=== PATIENT | female | born 1940 ===

== ENCOUNTER 2021-07-15 09:30 | Inpatient (IN) | payer MEDICARE, OTHER ==
[~2021-07-15] VITALS: Ht 152.4 cm; Wt 66.3 kg
[2021-07-15] MEDS ORDERED: POLY15DR27 OD (11:08)
[2021-07-15] MEDS ORDERED: IBUP400T18 PO (11:08)
[2021-07-15] MEDS ORDERED: QUET50TA5 PO (11:08)
[2021-07-15] MEDS ORDERED: AMLO5TAB4 PO (11:08)
[2021-07-15] MEDS ORDERED: QUET25TA5 PO (11:08)
[2021-07-15] MEDS ORDERED: DONE10TA61 PO (11:08)
[2021-07-15] MEDS ORDERED: MULT-735 PO (11:08)
[2021-07-15] MEDS ORDERED: ESCITALOPRAM OX10 MG PO (11:08)
[2021-07-15] MEDS ORDERED: POLY17PO5 PO (11:08)
[2021-07-15] MEDS ORDERED: METHYL SALICYLATE/MENTHOL TOPICAL OINTMENT 57GM TUBE. TP PRN (13:00)
[2021-07-15] MEDS ORDERED: MAGNESIUM HYDROXIDE 2,400 MG/30 ML ORAL.SUSP. PO PRN (13:00)
[2021-07-15] MEDS ORDERED: IBUPROFEN 400 MG TABLET. PO PRN (13:00)
[2021-07-15] MEDS ORDERED: ACETAMINOPHEN 325 MG TABLET PO PRN (13:00)
[2021-07-15] MEDS ORDERED: MAG HYDROX/AL HYDROX/SIMETH 30 ML ORAL.SUSP PO PRN (13:00)
[2021-07-15 13:36] VITALS: BP 141/68
[2021-07-15 14:08] LABS: BASO % 1 % (0-3); EOS # 0.2 x10^3/uL (0.0-0.7); EOS % 3 % (0-3); HEMATOCRIT 39.6 % (36.0-47.0); HEMOGLOBIN 13.2 g/dL (12.0-15.5); LYMPH # 2.1 x10^3/uL (1.0-4.8); LYMPH % 31 % (24-48); MEAN CORPUSCULAR HEMOGLOBIN 32 pg (25-35); MEAN CORPUSCULAR HGB CONC 34 g/dL (31-37); MEAN CORPUSCULAR VOLUME 96 fL (79-100); MONO # 0.5 x10^3/uL (0.0-1.1); MONO % 8 % (0-9); NEUT % 58 % (31-73); PLATELET COUNT 248 x10^3/uL (140-400); RED BLOOD COUNT 4.11 x10^6/uL (3.50-5.40); RED CELL DISTRIBUTION WIDTH 13.2 % (11.5-14.5); WHITE BLOOD COUNT 6.8 x10^3/uL (4.0-11.0)
[2021-07-15 14:37] LABS: ALBUMIN 3.6 g/dL (3.4-5.0); ALBUMIN/GLOBULIN RATIO 1.2 (1.0-1.7); CALCIUM 8.6 mg/dL (8.5-10.1); CREATININE 0.9 mg/dL (0.6-1.0); GFR 59.8; MAGNESIUM 2.2 mg/dL (1.8-2.4); POTASSIUM 3.9 mmol/L (3.5-5.1); TOTAL BILIRUBIN 0.2 mg/dL (0.2-1.0); TOTAL PROTEIN 6.7 g/dL (6.4-8.2)
[2021-07-15 15:08] VITALS: BP 128/64
[2021-07-15] MEDS ORDERED: QUEtiapine 50 MG TABLET. PO SCH (21:00)
[2021-07-15] MEDS ORDERED: QUEtiapine 25 MG TABLET. PO SCH (21:00)
[2021-07-15 23:08] LABS: THYROXINE 4.8 ug/dL (4.5-12.0)
[2021-07-16 01:08] LABS: HEMOGLOBIN A1C 5.4 % (4.8-5.6)
--- NOTE | 2021-07-16 06:04 | EKG ---
[address] [address] Test Date: 2021-07-16 Test Time: 05:13:30 Pat Name: MADALYN DE LUNA Department: Room: [address] [place] [address] Gender: F Transplant Nurse Practitioner: : 1940 Requested By: CAROLE MILLER Order Number: [id number] Reading MD: Estuardo Holland Measurements Intervals [place] Rate: 61 P: 53 MT: 168 QRS: 59 QRSD: 102 T: 52 QT: 432 QTc: 436 Interpretive Statements SINUS RHYTHM Electronically Signed On 07-18-2021 11:59:53 AUDIO VISUAL ENGINEER by Estuardo Holland
[2021-07-16 06:06] VITALS: BP 144/80
[2021-07-16 06:25] LABS: BACTERIA,URINE FEW /HPF (0-FEW); CLARITY,URINE CLEAR; COLOR,URINE YELLOW; GLUCOSE,URINE NEG (NEG); NITRITE,URINE NEG (NEG); UROBILINOGEN,URINE 0.2 mg/dL (0.2 mg/dL)
[2021-07-16 06:26] LABS: SQUAMOUS EPITHELIAL CELL,UR FEW /LPF
[2021-07-16] MEDS: amLODIPine BESYLATE 5 MG TABLET PO SCH (08:05)
[2021-07-16] MEDS: MULTIVITAMIN with MINERAL TABLET. PO SCH (08:05)
[2021-07-16] MEDS: DONEPEZIL HCL 10 MG TABLET PO SCH (08:05)
[2021-07-16] MEDS: CITALOPRAM 20 MG TABLET. PO SCH (08:05)
[2021-07-16] MEDS: POLYETHYLENE GLYCOL 3350 17 GM PACKET. PO SCH (08:05)
[2021-07-16] MEDS ORDERED: QUEtiapine 50 MG TABLET. PO SCH (09:00)
[2021-07-16] MEDS ORDERED: FLU VACC QUAD 21-22 (6MOS+) PF 0.5 ML SYRINGE. VAX IM ONE (09:00)
[2021-07-16] MEDS: POLYVINYL ALCOHOL 1.4% OPHTH SOLUTION 15ML BOTTLE. OD SCH (09:00)
[2021-07-16 15:46] VITALS: BP 122/78
[2021-07-16] MEDS: QUEtiapine 25 MG TABLET. PO SCH (20:51)
[2021-07-16] MEDS: QUEtiapine 25 MG TABLET. PO PRN (20:53)
[2021-07-16 21:27] LABS: THYROID STIM HORMONE (TSH) 0.796 uIU/mL (0.358-3.740)
--- NOTE | 2021-07-16 22:44 | PSYEV ---
DATE OF SERVICE: 07/16/2021 REASON FOR ADMISSION: This 81-year-old single female was admitted [facility] from [facility] where she was a resident because of increased behavior problems including being intrusive, wandering, entering peers' rooms, arguing with the staff, hitting staff with a walker and constantly agitated. CHIEF COMPLAINT: "I am just resting, I am tired because I shopped whole day." HISTORY OF PRESENT ILLNESS: The patient appears to have problems with cognitive deficits for quite some time and she has been a resident at [facility]. The patient had considerable difficulty providing information because she is confused and also significant memory problems and she thought she was in a place where other people live, but she did not know it was in the hospital and also she made a statement that her whole family lives here. The patient also claimed that she did the shopping today. The patient had no concept of time. The patient apparently failed outpatient treatment. Apparently, they failed on several medications including Seroquel, Haldol. Continued to have behavior problems and difficult to manage in that setting. The patient is having difficulty holding a conversation. She denied of any suicidal or homicidal thoughts. The patient did not admit to having any visual or auditory hallucinations. The patient apparently complains of feeling tired and looks tired and wanting to stay in bed. PAST MEDICAL HISTORY: History of Alzheimer's, anxiety, depression and she was on Aricept 10 mg daily, Lexapro 10 mg daily, Seroquel 50 mg twice a day and also Zyprexa Zydis 2.5 mg every 4 hours p.r.n. prior to coming here. The patient is on a regular diet. CODE: DNR. PAST PSYCHIATRIC HISTORY: The patient denies of any prior psychiatric history. No information that she was treated in the past for any psychiatric problems, except she has been receiving psychotropic drugs when she was at [facility]. SOCIAL HISTORY: Alcohol and substance abuse, the patient denies of any alcohol or drug abuse in the past. The patient also denies any other trauma including sexual, physical, or emotional abuse. PSYCHOSOCIAL HISTORY: The patient is unable to provide much information and except stating that she was for 3 years, apparently her did not want to have a child and she decided to divorce him. The patient states she does not have any children. The patient did finish high school, had some college. She worked for the [employer]. The patient states she had a good childhood. She enjoyed skiing, both water and ice. The patient claims she has 2 brothers and a sister. She did not know whether she had any contact with them recently. FAMILY HISTORY: None available. MENTAL STATUS EXAMINATION: The patient appeared to be of her stated age, withdrawn, having some psychomotor retardation and also slow gait, walks with a walker, but somewhat unsteady. The patient denies of having had any falls. Her speech is clear, monotone, decreased rate and rhythm. Affect and mood, she did show some blunting of affect. Not much facial expression. The patient denies feeling depressed, but has decreased psychomotor activity. The patient currently not having any psychotic symptoms. The patient is oriented to her surroundings. The patient's memory not testable because of the patient's inability to process. The patient not able to recall 3 objects. Patient was not able to do serial 7's. The patient's fund of knowledge is limited. She is disoriented to time, place and person. Her memory is impaired for both past and present. Judgment impaired. Insight limited. STRENGTH: In good physical health, supportive family. WEAKNESSES: The patient currently has significant memory problems. Also, problems, executive functioning and inability to take care of her needs and also behavior problems secondary to her dementia. DIAGNOSTIC IMPRESSION: AXIS I: 1. Major neurocognitive disorder, most likely Alzheimer's with behavior problems. 2. Depressive disorder, unspecified. AXIS II: None. AXIS III: Hypertension, nontraumatic intracranial hemorrhage in the past, urinary incontinence and gait impairment. INITIAL TREATMENT PLAN: The patient is [facility]. The patient will be seen by Dr. Berumen for physical exam. The patient had lab work including CBC, chem profile, urinalysis. The patient will be involved in the program including individual and group therapy, activity therapy. Patient will be observed with regard to her behavioral changes, confusion and also risk for falls. The patient will continue on her home medications, Aricept 10 mg daily, Lexapro 10 mg daily, Seroquel 50 mg twice a day, but that was changed to 25 mg at night and 12.5 mg in the morning and Seroquel 25 mg q. 6 hours p.r.n. ESTIMATED LENGTH OF STAY: Seven to ten days. DISCHARGE CRITERIA: The patient is able to complete all the diagnostic investigations and also response to treatment and able to control her behaviors including pacing, anger and aggressive outbursts and also physical towards staff. YANICK DR: Earl TID: [id number]
[2021-07-17 06:06] VITALS: BP 144/78
[2021-07-17] MEDS: MULTIVITAMIN with MINERAL TABLET. PO SCH (08:14)
[2021-07-17] MEDS: POLYETHYLENE GLYCOL 3350 17 GM PACKET. PO SCH (08:14)
[2021-07-17] MEDS: DONEPEZIL HCL 10 MG TABLET PO SCH (08:14)
[2021-07-17] MEDS: CITALOPRAM 20 MG TABLET. PO SCH (08:15)
[2021-07-17] MEDS: amLODIPine BESYLATE 5 MG TABLET PO SCH (08:15)
[2021-07-17] MEDS: POLYVINYL ALCOHOL 1.4% OPHTH SOLUTION 15ML BOTTLE. OD SCH (08:16)
[2021-07-17] MEDS: QUEtiapine 25 MG TABLET. PO SCH ×2 (08:16→20:08)
[2021-07-17] MEDS ORDERED: POLYETHYLENE GLYCOL 3350 17 GM PACKET. PO PRN (08:45)
[2021-07-17] MEDS ORDERED: POLYVINYL ALCOHOL 1.4% OPHTH SOLUTION 15ML BOTTLE. OD PRN (08:45)
[2021-07-17 15:57] VITALS: BP 139/73
[2021-07-18 06:34] VITALS: BP 126/76
[2021-07-18] MEDS: amLODIPine BESYLATE 5 MG TABLET PO SCH (08:56)
[2021-07-18] MEDS: QUEtiapine 25 MG TABLET. PO SCH ×2 (08:56→19:47)
[2021-07-18] MEDS: MULTIVITAMIN with MINERAL TABLET. PO SCH (08:56)
[2021-07-18] MEDS: POLYETHYLENE GLYCOL 3350 17 GM PACKET. PO SCH (08:56)
[2021-07-18] MEDS: DONEPEZIL HCL 10 MG TABLET PO SCH (08:56)
[2021-07-18] MEDS: CITALOPRAM 20 MG TABLET. PO SCH (08:56)
[2021-07-18] MEDS: CHOLECALCIFEROL (VITAMIN D3) 50,000 UNIT CAPSULE PO SCH (16:45)
--- NOTE | 2021-07-18 19:12 | PN ---
DATE: 07/18/2021 SUBJECTIVE: The patient was seen today, met with the staff, chart reviewed. The patient continues to be confused, difficult to follow directions. The patient's urine sent for culture. OBSERVATION: VITAL SIGNS: Temperature 97.6, blood pressure 126/76, pulse 70, respirations 16, O2 sat 91%. GENERAL: Slept about 10 hours last night. The patient's appetite improved. The patient's behavior improved. The patient is confused, disoriented to her surroundings. The patient also somewhat euphoric. The patient also at times intrusive. CURRENT MEDICATIONS: Include Seroquel 12.5 mg daily and 25 mg at night. She is also on Seroquel 25 mg q. 6 hours p.r.n. and olanzapine 2.5 mg every 4 hours p.r.n. She is also on citalopram 20 mg daily, Aricept 10 mg daily. The patient is not having any side effects to medications. ASSESSMENT: 1. Major neurocognitive disorder, most likely Alzheimer's with behavior problems. 2. Depressive disorder, unspecified. PLAN: Continue with the current treatment plan. LENGTH OF STAY: 7-[address]: Earl TID: [id number]
--- NOTE | 2021-07-18 20:04 | CONS ---
DATE OF CONSULTATION: 07/18/2021 REASON FOR CONSULTATION: Medical management. HISTORY OF PRESENT ILLNESS: The patient is an 81-year-old female patient, a resident at [facility] in [place], [place], who was admitted to [facility] on account of being intrusive to peers, wandering, entering peers' rooms, arguing with staff, hitting staff with walker, mildly agitated, all this in a background of dementia with behavioral disturbances. The patient has multiple medical problems including history of intracranial hemorrhage, hypertension, hemorrhoids, osteoporosis, urinary incontinence, and vitamin D deficiencies. PAST PSYCHIATRIC HISTORY: Significant for Alzheimer's disease with behavioral disturbance, anxiety disorder, depression. ALLERGIES: SHE IS ALLERGIC TO PENICILLIN, LATEX, SULFAMETHOXAZOLE AND TRIMETHOPRIM. MEDICATIONS: She is currently on the following medications: Aricept 10 mg daily; amlodipine besylate 5 mg once a day; ibuprofen 400 mg, she takes 2 tablets every 6 hours as needed; escitalopram oxalate 10 mg once a day; Seroquel 25 mg twice a day; Seroquel 50 mg twice a day; polyvinyl alcohol for artificial tears 1 drop to both eyes daily; polyethylene glycol 17 grams daily; multivitamin 1 tablet once a day. FAMILY HISTORY: Noncontributory. SOCIAL HISTORY: She is a resident at [facility]. She apparently does not smoke, drink alcohol or use recreational drugs. PHYSICAL EXAMINATION: GENERAL: When I saw her today, she looked well and was clearly in no apparent respiratory distress. She was somewhat pale, but not jaundiced, cyanosed. No lymphadenopathy, no thyromegaly. No jugular venous distention. No limb edema. VITAL SIGNS: Her heart rate was 70, blood pressure 126/76, temperature 97.6, respiratory rate was 16 and oxygen saturation was 91%. HEAD, EYES, EARS, NOSE, AND THROAT: Normocephalic, atraumatic. NECK: Supple. HEART: Showed normal first and second heart sounds. No gallop, rub or murmur. CHEST: Showed central trachea, equal bilateral chest expansion, air entry, vesicular breath sounds. No crepitation or rhonchi. ABDOMEN: Slightly distended, soft, nontender. NEUROLOGIC: She is demented without any obvious lateralizing sign. All her cranial nerves intact. She moves extremities without difficulty. She ambulates without assistance or assistive devices. She does have markedly very small pinpoint pupils on both sides. She is not on any opioid her list of medications. She is not diabetic and surprisingly, her treponema pallidum antibodies were nonreactive. Her lab work showed that her white cell count was 6800, hemoglobin 13, hematocrit 39, MCV 96 and platelet count 248,000 with normal manual differential. Her D-dimer was 1.5 mg per liter and her chemistry showed a serum sodium of 141, potassium 3.9, chloride 105, bicarbonate 27, anion gap of 9, BUN 19, creatinine 0.9. Estimated GFR was 59 mL per minute. Her glucose 135, calcium was 8.6, magnesium 2.2. Total bilirubin, AST, ALT, alkaline phosphatase were normal. Total protein 6.7, albumin was 3.6. Her hemoglobin A1c was 5.4%. Her serum iron, TIBC and iron saturation are all consistent with somebody with replete iron stores. Her serum triglycerides were 334, total cholesterol 244, LDL was 146, VLDL was 66, HDL was 32 and ratio 7. Her vitamin B12 was 453 picograms per mL, 25-hydroxy vitamin D was 22.6. TSH 0.796. Total T4 and total T3 are all within normal. Her urinalysis showed that she has trace of leukocyte esterase, 1-2 rbc's, 5-10 wbc's and her Coronavirus by PCR was not detectable. Her urine culture has grown 20,000 colony-forming units per mL of normal genitourinary nilay, not indicative of infections. ASSESSMENT AND PLAN: In summary, this is an 81-year-old female patient, a resident at [facility], who was admitted to [facility] on account of being intrusive to peers, wandering, entering peers' rooms, arguing with staff, hitting staff with walker as well as being agitated in a background of dementia with behavioral disturbances. The patient is known to have hypertension. All her vital signs and her lab works are all within acceptable range as she has vitamin D deficiency for which we started her on cholecalciferol 50,000 units once a week. ADAM/EKT DR: ADAM/christa TID: [id number]
--- NOTE | 2021-07-18 20:49 | PN ---
DATE: 07/17/2021 SUBJECTIVE: This is a late entry for the service date 07/17/2021 by telehealth, also discussed with the staff and chart reviewed. Staff reports she is calm, cooperative, but disorganized. She is also medication compliant. Staff observed that she is confused, difficult to redirect and a fall risk. The patient apparently is having some difficulty swallowing, refusing to take her medications at times. OBSERVATION: VITAL SIGNS: Temperature 97.6, blood pressure 144/78, pulse 71, respirations 18, O2 sat 93%. GENERAL: Slept about 6 hours last night. The patient's appetite normal. The patient needs supervision. LABORATORY DATA: The patient's lab reviewed. Her triglycerides were 334, cholesterol 244, LDL 146 and HDL 32. The patient's iron was 42. Vitamin D total 22.6. The patient's urinalysis was within normal limits. CURRENT MEDICATIONS: The patient's current medications include Seroquel 12.5 mg daily and 25 mg at night. She is also on Seroquel 25 mg q. 6 hours p.r.n. for anxiety and agitation, Celexa 20 mg daily, Aricept 10 mg daily. The patient is also on olanzapine 2.5 mg every 4 hours p.r.n. The patient is not exhibiting any side effects to medications. ASSESSMENT: 1. Major neurocognitive disorder, most likely Alzheimer's with behavior problems. 2. Depressive disorder, unspecified. PLAN: Continue with the current treatment plan. LENGTH OF STAY: 7-10 days. PAULY/DEQUAN DR: Earl TID: [id number]
[2021-07-19] MEDS: QUEtiapine 25 MG TABLET. PO PRN (01:41)
[2021-07-19 06:20] VITALS: BP 137/70
[2021-07-19] MEDS: DONEPEZIL HCL 10 MG TABLET PO SCH (08:29)
[2021-07-19] MEDS: MULTIVITAMIN with MINERAL TABLET. PO SCH (08:29)
[2021-07-19] MEDS: QUEtiapine 25 MG TABLET. PO SCH ×2 (08:29→21:30)
[2021-07-19] MEDS: CHOLECALCIFEROL (VITAMIN D3) 50,000 UNIT CAPSULE PO SCH (08:29)
[2021-07-19] MEDS: amLODIPine BESYLATE 5 MG TABLET PO SCH (08:30)
[2021-07-19] MEDS: POLYETHYLENE GLYCOL 3350 17 GM PACKET. PO SCH (08:30)
[2021-07-19] MEDS: CITALOPRAM 20 MG TABLET. PO SCH (08:30)
--- NOTE | 2021-07-19 15:14 | TX PLAN ---
Interdisciplinary Tx Plan Admission Information Jul 15, 2021 at 12:56 Legal Status (on Admission): Voluntary DPOA/Guardian Name: Ofelia Albarran Contact Other Contact Name: Harika Valderrama, or Eileen Other Contact Verified Code Status: DNR Allergies: Coded Allergies: Penicillins (Verified Allergy, Unknown, 07/15/21) latex (Verified Allergy, Unknown, 07/15/21) sulfamethoxazole (Verified Allergy, Unknown, 07/15/21) trimethoprim (Verified Allergy, Unknown, 07/15/21) Diagnoses Primary Diagnosis: 1. Major neurocognitive disorder, most likely Alzheimer's with behavior problems. 2. Depressive disorder, unspecified. Reasons for Admission: Aggressive, Agitated, Depressed, Angry, Anxiety/Panic, Combative, Suspicious/paranoid, Confusion/Disoriented, Isolating Problem in Patient's Words: Pt sister/DPOA, Ofelia, has been noticing a gradual decline exhibited by her becoming more reclusive and imiginaning things. Dominique thinks that she begins to sundown early. Prior to pt's current living facility at [facility], she was at another nursing facility in [place] where she started having increased agitation and aggression. The facility at [place] didn't feel like they could meet her needs anylonger, therefore, pt was moved to [place]. Additional Admission Comments: Per intake record, pt presents from her nursing facility with intrusiveness, wanders and enters peers rooms, aggressive toward staff, hit staff with walker, and agitation. Problems Active Problems: Agitation, aggression, resistive to medication, cares and treatment, depressed, angry, anxiety Inactive Problems: None at this time. Pt Strengths/Limitations Ability for [place]: Poor Cognitive Functioning/Ability: Poor Communication Skills/Ability: Fair Financial Resources: Good Insight/Judgement: Poor Intellectual Ability: Good Physical Health: Poor Social Skills: Fair Stability in Family: Good Stability in School/Work: Good Verbal Skills: Fair Discharge Criteria Discharge Criteria: Able meet basic life need, No need for close observ., Able to meet health needs, Adequate arrangements @DC, Adequate self-care, Verbal commit med comply, Improved behavior, Improved mood/thought Preliminary Discharge Plan Preliminary DC Plan: Current Living Arrange. Special Precautions Fall Risk: Low Initial D/C Plan Pt plan is to return to [facility]. Identified Discharge Needs: None at this time. Currently Utilized Resources Currently Utilized Resources/P: PCP-Dr. Pang Sister/BECIKE-Ofelia Albarran Facility-[facility]; contact-Jannie, Harika, or Eileen Referrals Community Resources: None at this time. Identified Problems/Hx/Goals Objectives/Short-Term Goals Short Term Goals: Control abnormal behavior, Dec. Aggression, Dec. Anxiety/Panic, Dec. Outbursts, Dec. Symp. Depression, Medication Stabilization, Monitor Med Effects, Prevent Deterioration, Promote Coping Skill Short Term Goals in Patient's: Medication evaluation to help with agitation and aggression along with improve compliance with cares. Interventions/Frequency Staff Interventions/Frequency&: Psychiatry to assess pt three times per week for medication management. Nursing to assess behaviors, monitor medications, and complete 15 minute checks daily. Social work to see pt at least two times weekly to aid in return to placement. Activities to encourage pt to participate in group activities daily. 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 Community Follow-up PCP Community Provider/Family Inpu: Sister/Ofelia BUTTS, aware of pt hospitalization and is available for further information as needed. Treatment Plan Explained Patient/Relations Director had this treatment plan explained to him/her as indicated by the signature below and has been given the opportunity to ask questions and make suggestions: Date: Patient/Relations Director Signature: TRINO FONSECA Jul 19, 2021 15:14
[2021-07-19 16:26] VITALS: BP 118/73
--- NOTE | 2021-07-19 21:45 | PN ---
DATE: 07/19/2021 SUBJECTIVE: The patient was seen today, met with the staff, chart reviewed and also participated in the treatment review conference today. Staff reports that she has been refusing her medications and also refusing her meals, mostly at dinnertime. The patient also received Zyprexa p.r.n. at 4:00 p.m. yesterday to calm her down. She is also resisted to care. OBJECTIVE: VITAL SIGNS: Temperature 98.1, blood pressure 137/70, pulse 72, respirations 16, O2 sat 95%. GENERAL: Slept about 4 hours last night. The patient continues to be confused, withdrawn and needing assistance with ADLs. CURRENT MEDICATIONS: Currently, she is on Seroquel 12.5 mg daily and 25 mg at night. She is also on Seroquel 25 mg q. 6 hours p.r.n. for agitation and anxiety. She is also on Celexa 20 mg daily and Aricept 10 mg daily. The patient also on olanzapine 2.5 mg q. 4 hours p.r.n. for agitation. The patient is not showing any side effects to medications. ASSESSMENT: 1. Major neurocognitive disorder, most likely Alzheimer's with behavior problems. 2. Depressive disorder, unspecified. PLAN: To continue with treatment. LENGTH OF STAY: 7 to [address]: Earl TID: [id number]
[2021-07-20 06:15] VITALS: BP 158/79
[2021-07-20] MEDS: POLYETHYLENE GLYCOL 3350 17 GM PACKET. PO SCH (09:00)
[2021-07-20] MEDS: DONEPEZIL HCL 10 MG TABLET PO SCH (09:14)
[2021-07-20] MEDS: MULTIVITAMIN with MINERAL TABLET. PO SCH (09:14)
[2021-07-20] MEDS: QUEtiapine 25 MG TABLET. PO SCH ×2 (09:15→19:38)
[2021-07-20] MEDS: amLODIPine BESYLATE 5 MG TABLET PO SCH (09:15)
[2021-07-20] MEDS: CITALOPRAM 20 MG TABLET. PO SCH (09:15)
[2021-07-20 15:42] VITALS: BP 135/75
--- NOTE | 2021-07-20 22:07 | PN ---
DATE: 07/20/2021 SUBJECTIVE: The patient was seen today, met with the staff. Chart reviewed and reviewed the lab. Staff reports increased behavior problems, refusing her medications, her meals, mostly at dinner time. The patient also received Zyprexa p.r.n. at 4:00 p.m., 2 days ago for calm her down, but staff reports no other behavior problems except she is confused, isolating herself. OBJECTIVE: VITAL SIGNS: Temperature 97.7, blood pressure 158/79, pulse 88, respirations 16, O2 sat 95%. GENERAL: Slept about 8 hours last night. The patient's appetite decreased. LABORATORY DATA: The patient's lab reviewed. CURRENT MEDICATIONS: The patient's current medications include Seroquel 12.5 mg daily and 25 mg at night and also Seroquel 25 mg q. 6 hours p.r.n. for agitation and anxiety. She is also on Celexa 20 mg daily and Aricept 10 mg daily. The patient also on olanzapine 2.5 mg every 4 hours p.r.n. for agitation. The patient is not exhibiting any side effects to medications. ASSESSMENT: 1. Major neurocognitive disorder, most likely Alzheimer's with behavior problems. 2. Depressive disorder, unspecified. PLAN: To continue with the treatment. LENGTH OF STAY: 7-[address]: Earl TID: [id number]
[2021-07-21 06:33] VITALS: BP 158/73
[2021-07-21] MEDS: POLYETHYLENE GLYCOL 3350 17 GM PACKET. PO SCH (09:18)
[2021-07-21] MEDS: CITALOPRAM 20 MG TABLET. PO SCH (09:18)
[2021-07-21] MEDS: MULTIVITAMIN with MINERAL TABLET. PO SCH (09:18)
[2021-07-21] MEDS: DONEPEZIL HCL 10 MG TABLET PO SCH (09:21)
[2021-07-21] MEDS: amLODIPine BESYLATE 5 MG TABLET PO SCH (09:21)
[2021-07-21] MEDS: QUEtiapine 25 MG TABLET. PO SCH ×2 (09:22→23:36)
[2021-07-21 16:08] VITALS: BP 110/64
--- NOTE | 2021-07-21 21:57 | PN ---
DATE: 07/21/2021 SUBJECTIVE: The patient was seen today, met with the staff. Chart reviewed. Staff reports increased confusion, disorganized thinking and slept most of the afternoon. The patient also showing blunting of affect. OBSERVATION: VITAL SIGNS: Temperature 97.2, blood pressure 158/73, pulse 64, respirations 16, O2 sat 93%. GENERAL: Slept about 8 hours last night. The patient's appetite is fair. The patient is needing assistance with ADLs and also supervision. The patient is able to make eye contact. Her answers are mostly monosyllabic. The patient has difficulty with her thinking and also problems processing information. LABORATORY DATA: The patient's lab reviewed. CURRENT MEDICATIONS: Seroquel 12.5 mg daily and 25 mg at night, Seroquel 25 mg q. 4 hours p.r.n., citalopram 20 mg daily, Aricept 10 mg daily and olanzapine 2.5 mg q. 4 hours p.r.n. The patient is not having any side effects. The patient is able to ambulate with unsteady gait. No recent falls. ASSESSMENT: 1. Major neurocognitive disorder, most likely Alzheimer's with behavior problems. 2. Depressive disorder, unspecified. PLAN: To continue with treatment. LENGTH OF STAY: Seven to ten [address]. Y[address]: Earl TID: [id number]
[2021-07-22 06:17] VITALS: BP 137/58
[2021-07-22] MEDS: POLYETHYLENE GLYCOL 3350 17 GM PACKET. PO SCH (08:40)
[2021-07-22] MEDS: CITALOPRAM 20 MG TABLET. PO SCH (08:42)
[2021-07-22] MEDS: amLODIPine BESYLATE 5 MG TABLET PO SCH (08:42)
[2021-07-22] MEDS: DONEPEZIL HCL 10 MG TABLET PO SCH (08:42)
[2021-07-22] MEDS: MULTIVITAMIN with MINERAL TABLET. PO SCH (08:42)
[2021-07-22] MEDS: QUEtiapine 25 MG TABLET. PO SCH ×2 (08:44→21:13)
[2021-07-22 15:57] VITALS: BP 132/72
--- NOTE | 2021-07-22 21:03 | PN ---
DATE: 07/22/2021 SUBJECTIVE: The patient was seen today, met with the staff. Chart reviewed. The patient continues to have problems with confusion, disorganized thinking, indifferent to her surroundings. OBSERVATION: VITAL SIGNS: Temperature 99.2, blood pressure 137/58, pulse 70, respirations 16, O2 sat 93%. Slept about 10 hours last night. CURRENT MEDICATIONS: The patient's current medications include Seroquel 12.5 mg daily and 25 mg at night and Seroquel 25 mg q. 4 hours p.r.n., citalopram 20 mg daily, Aricept 10 mg daily, and olanzapine 2.5 mg every 4 hours p.r.n. She is not having any side effects to medications. Staff reports no falls. ASSESSMENT: 1. Major neurocognitive disorder, most likely Alzheimer's with behavior problems: 2. Depressive disorder, unspecified. PLAN: To continue treatment. LENGTH OF STAY: 7-[address]: Earl TID: [id number]
[2021-07-23 06:29] VITALS: BP 165/90
[2021-07-23] MEDS: DONEPEZIL HCL 10 MG TABLET PO SCH (08:12)
[2021-07-23] MEDS: CITALOPRAM 20 MG TABLET. PO SCH (08:13)
[2021-07-23] MEDS: MULTIVITAMIN with MINERAL TABLET. PO SCH (08:13)
[2021-07-23] MEDS: POLYETHYLENE GLYCOL 3350 17 GM PACKET. PO SCH (08:14)
[2021-07-23] MEDS: amLODIPine BESYLATE 5 MG TABLET PO SCH (08:14)
[2021-07-23] MEDS: QUEtiapine 25 MG TABLET. PO SCH ×2 (08:14→19:56)
[2021-07-23 16:07] VITALS: BP 150/78
--- NOTE | 2021-07-23 22:15 | PN ---
DATE: 07/23/2021 SUBJECTIVE: The patient was seen today, met with the staff, chart reviewed. The patient preferred to stay in the room on her bed. Minimal interaction. Makes eye contact. The patient is having difficulty verbalizing her needs. The patient also gets agitated easily. OBSERVATION: VITAL SIGNS: Temperature 96.9, blood pressure 165/90, pulse 73, respirations 20, O2 sat 97%. Slept about 9 hours last night. The patient's appetite is fair. LABORATORY DATA: The patient's lab reviewed. CURRENT MEDICATIONS: Seroquel 12.5 mg daily and 25 mg at night and Seroquel 25 mg every 4 hours p.r.n. She is also on citalopram 20 mg daily, Aricept 10 mg daily and olanzapine 2.5 mg every 4 hours p.r.n. She is not having any side effects to medications. ASSESSMENT: 1. Major neurocognitive disorder, most likely Alzheimer's with behavior problems. 2. Depressive disorder, unspecified. PLAN: To continue treatment. LENGTH OF STAY: Seven to ten [address]: Earl TID: [id number]
[2021-07-24 06:31] VITALS: BP 134/62
[2021-07-24] MEDS: CITALOPRAM 20 MG TABLET. PO SCH (07:37)
[2021-07-24] MEDS: DONEPEZIL HCL 10 MG TABLET PO SCH (07:37)
[2021-07-24] MEDS: QUEtiapine 25 MG TABLET. PO SCH ×2 (07:37→20:16)
[2021-07-24] MEDS: MULTIVITAMIN with MINERAL TABLET. PO SCH ×2 (07:37→09:00)
[2021-07-24] MEDS: amLODIPine BESYLATE 5 MG TABLET PO SCH (07:37)
[2021-07-24] MEDS: POLYETHYLENE GLYCOL 3350 17 GM PACKET. PO SCH (07:38)
[2021-07-24 12:00] LABS: BASO # 0.1 x10^3/uL (0.0-0.2); BASO % 1 % (0-3); EOS # 0.1 x10^3/uL (0.0-0.7); EOS % 2 % (0-3); HEMATOCRIT 39.7 % (36.0-47.0); HEMOGLOBIN 13.3 g/dL (12.0-15.5); LYMPH # 1.7 x10^3/uL (1.0-4.8); LYMPH % 24 % (24-48); MEAN CORPUSCULAR HEMOGLOBIN 33 pg (25-35); MEAN CORPUSCULAR HGB CONC 34 g/dL (31-37); MEAN CORPUSCULAR VOLUME 97 fL (79-100); MONO # 0.8 x10^3/uL (0.0-1.1); MONO % 11 % (0-9); NEUT # 4.3 x10^3uL (1.8-7.7); NEUT % 62 % (31-73); PLATELET COUNT 274 x10^3/uL (140-400); RED BLOOD COUNT 4.09 x10^6/uL (3.50-5.40); RED CELL DISTRIBUTION WIDTH 13.2 % (11.5-14.5); WHITE BLOOD COUNT 6.9 x10^3/uL (4.0-11.0)
[2021-07-24 12:24] LABS: ALBUMIN 3.3 g/dL (3.4-5.0); ALBUMIN/GLOBULIN RATIO 0.9 (1.0-1.7); CALCIUM 8.8 mg/dL (8.5-10.1); CREATININE 0.9 mg/dL (0.6-1.0); GFR 59.8; POTASSIUM 4.5 mmol/L (3.5-5.1); TOTAL BILIRUBIN 0.3 mg/dL (0.2-1.0); TOTAL PROTEIN 7.1 g/dL (6.4-8.2)
[2021-07-24 16:24] VITALS: BP 157/67
[2021-07-25 06:43] VITALS: BP 110/60
[2021-07-25] MEDS: MULTIVITAMIN with MINERAL TABLET. PO SCH (09:23)
[2021-07-25] MEDS: amLODIPine BESYLATE 5 MG TABLET PO SCH (09:23)
[2021-07-25] MEDS: CITALOPRAM 20 MG TABLET. PO SCH (09:23)
[2021-07-25] MEDS: DONEPEZIL HCL 10 MG TABLET PO SCH (09:23)
[2021-07-25] MEDS: QUEtiapine 25 MG TABLET. PO SCH (09:24)
[2021-07-25] MEDS: POLYETHYLENE GLYCOL 3350 17 GM PACKET. PO SCH (09:26)
[2021-07-25 16:21] VITALS: BP 154/83
--- NOTE | 2021-07-25 21:12 | PDOC ---
Exam Note: Roderick Note: Late entry for 07/24/2021. Please also refer to the separate dictated note~for this date of service dictated separately.~Patient seen individually. Discussed the patient with Nursing staff reviewed the chart.~Reviewed interim history and current functioning. Reviewed vital signs,~Labs/ Radiology~and current medic ations noted below. Continue current treatment with the changes noted in the dictated addendum note Assessment: Vital Signs/I&O: Vital Signs Date Time Temp Pulse Resp B/P (MAP) Pulse Ox O2 Delivery O2 Flow Rate FiO2 07/25/21 16:21 97.4 96 154/83 (106) 97 Room Air 07/25/21 06:43 16 I & O 07/24/21 07/24/21 07/25/21 15:00 23:00 07:00 Intake Total 480 ml 120 ml Balance 480 ml 120 ml Current Medications: Meds: Current Medications Medications (Trade) Dose Ordered Sig/Jin Route PRN Reason Start Time Stop Time Status Last Admin Dose Admin Acetaminophen (Tylenol) 650 mg PRN Q6HRS PRN PO MILD PAIN / TEMP > 100.3'F 07/15/21 13:00 Multi-Ingredient Ointment (Analgesic [place]) 1 lilibeth PRN QID PRN TP MUSCLE PAIN 07/15/21 13:00 Al Hydroxide/Mg Hydroxide (Mylanta Plus Xs) 15 ml PRN AFTMEALHC PRN PO DYSPEPSIA 07/15/21 13:00 Magnesium Hydroxide (Milk Of Magnesia) 2,400 mg PRN QHS PRN PO CONSTIPATION 07/15/21 13:00 Influenza Virus Vaccine Quadrival (Flulaval Quad Syringe) 0.5 ml ONCE ONCE VAX IM 07/16/21 09:00 07/16/21 09:01 DC 07/16/21 16:00 Amlodipine Besylate (Norvasc) 5 mg DAILY PO 07/16/21 09:00 07/25/21 09:23 Donepezil HCl (Aricept) 10 mg DAILY PO 07/16/21 09:00 07/25/21 09:23 Ibuprofen (Motrin) 800 mg PRN Q6HRS PRN PO MODERATE PAIN 07/15/21 13:00 Polyethylene Glycol (miraLAX) 17 gm DAILY PO 07/16/21 09:00 07/17/21 08:39 DC 07/17/21 08:14 Artificial Tears (Artificial Tears) 1 drop DAILY OD 07/16/21 09:00 07/17/21 08:38 DC 07/17/21 08:16 Quetiapine Fumarate (SEROquel) 25 mg BID PO 07/15/21 21:00 07/15/21 21:01 DC 07/15/21 20:03 Quetiapine Fumarate (SEROquel) 50 mg BID PO 07/15/21 21:00 07/15/21 20:01 DC Citalopram Hydrobromide (CeleXA) 20 mg DAILY PO 07/16/21 09:00 07/25/21 09:23 Multivitamins/ Calcium (Thera-M Plus) 1 tab DAILY PO 07/16/21 09:00 07/25/21 09:23 Olanzapine (ZyPREXA ZYDIS) 2.5 mg PRN Q4HRS PRN PO PSYCHOSIS 07/15/21 16:30 07/24/21 09:13 Quetiapine Fumarate (SEROquel) 50 mg BID PO 07/16/21 09:00 07/16/21 15:39 DC 07/16/21 08:05 Quetiapine Fumarate (SEROquel) 25 mg PRN Q6HRS PRN PO ANXIETY 07/16/21 15:45 07/25/21 18:09 DC 07/19/21 01:41 Quetiapine Fumarate (SEROquel) 25 mg HS PO 07/16/21 21:00 07/25/21 18:09 DC 07/24/21 20:16 Quetiapine Fumarate (SEROquel) 12.5 mg DAILY PO 07/17/21 09:00 07/25/21 18:09 DC 07/25/21 09:24 Artificial Tears (Artificial Tears) 1 drop PRN DAILY PRN OD DRY EYES 07/17/21 08:45 Polyethylene Glycol (miraLAX) 17 gm PRN DAILY PRN PO DRY EYES 07/17/21 08:45 07/17/21 08:42 DC Polyethylene Glycol (miraLAX) 17 gm DAILY PO 07/18/21 09:00 07/25/21 09:26 Vitamin D (Vitamin D3) 50,000 unit WEEKLY PO 07/18/21 15:30 1/2/22 19:11 DC Vitamin D (Vitamin D3) 50,000 unit WEEKLY PO 07/19/21 09:00 07/19/21 08:29 I have reviewed the current psychotropics carefully including drug interactions. Risk benefit ratio favors no change other than as noted in my dictated progress note. Diagnosis: Problems: (1) Major neurocognitive disorder (2) Dementia in Alzheimer's disease with delusions (3) Dementia in Alzheimer's disease with depression (4) Dementia of the Alzheimer's type with early onset with behavioral disturbance LOUIS DAO MD Jul 25, 2021 21:12
--- NOTE | 2021-07-25 21:16 | PDOC ---
Exam Note: Roderick Note: Please also refer to the separate dictated note~for this date of service dictated separately.~Patient seen individually. Discussed the patient with Nursing staff reviewed the chart.~Reviewed interim history and current functioning. Reviewed vital signs,~Labs/ Radiology~and current medications noted below. Continue current treatment with the changes noted in the dictated addendum note Assessment: Vital Signs/I&O: Vital Signs Date Time Temp Pulse Resp B/P (MAP) Pulse Ox O2 Delivery O2 Flow Rate FiO2 07/25/21 16:21 97.4 96 154/83 (106) 97 Room Air 07/25/21 06:43 16 I & O 07/24/21 07/24/21 07/25/21 15:00 23:00 07:00 Intake Total 480 ml 120 ml Balance 480 ml 120 ml Current Medications: Meds: Current Medications Medications (Trade) Dose Ordered Sig/Jin Route PRN Reason Start Time Stop Time Status Last Admin Dose Admin Acetaminophen (Tylenol) 650 mg PRN Q6HRS PRN PO MILD PAIN / TEMP > 100.3'F 07/15/21 13:00 Multi-Ingredient Ointment (Analgesic [place]) 1 lilibeth PRN QID PRN TP MUSCLE PAIN 07/15/21 13:00 Al Hydroxide/Mg Hydroxide (Mylanta Plus Xs) 15 ml PRN AFTMEALHC PRN PO DYSPEPSIA 07/15/21 13:00 Magnesium Hydroxide (Milk Of Magnesia) 2,400 mg PRN QHS PRN PO CONSTIPATION 07/15/21 13:00 Influenza Virus Vaccine Quadrival (Flulaval Quad [id number] Syringe) 0.5 ml ONCE ONCE VAX IM 07/16/21 09:00 07/16/21 09:01 DC 07/16/21 16:00 Amlodipine Besylate (Norvasc) 5 mg DAILY PO 07/16/21 09:00 07/25/21 09:23 Donepezil HCl (Aricept) 10 mg DAILY PO 07/16/21 09:00 07/25/21 09:23 Ibuprofen (Motrin) 800 mg PRN Q6HRS PRN PO MODERATE PAIN 07/15/21 13:00 Polyethylene Glycol (miraLAX) 17 gm DAILY PO 07/16/21 09:00 07/17/21 08:39 DC 07/17/21 08:14 Artificial Tears (Artificial Tears) 1 drop DAILY OD 07/16/21 09:00 07/17/21 08:38 DC 07/17/21 08:16 Quetiapine Fumarate (SEROquel) 25 mg BID PO 07/15/21 21:00 07/15/21 21:01 DC 07/15/21 20:03 Quetiapine Fumarate (SEROquel) 50 mg BID PO 07/15/21 21:00 07/15/21 20:01 DC Citalopram Hydrobromide (CeleXA) 20 mg DAILY PO 07/16/21 09:00 07/25/21 09:23 Multivitamins/ Calcium (Thera-M Plus) 1 tab DAILY PO 07/16/21 09:00 07/25/21 09:23 Olanzapine (ZyPREXA ZYDIS) 2.5 mg PRN Q4HRS PRN PO PSYCHOSIS 07/15/21 16:30 07/24/21 09:13 Quetiapine Fumarate (SEROquel) 50 mg BID PO 07/16/21 09:00 07/16/21 15:39 DC 07/16/21 08:05 Quetiapine Fumarate (SEROquel) 25 mg PRN Q6HRS PRN PO ANXIETY 07/16/21 15:45 07/25/21 18:09 DC 07/19/21 01:41 Quetiapine Fumarate (SEROquel) 25 mg HS PO 07/16/21 21:00 07/25/21 18:09 DC 07/24/21 20:16 Quetiapine Fumarate (SEROquel) 12.5 mg DAILY PO 07/17/21 09:00 07/25/21 18:09 DC 07/25/21 09:24 Artificial Tears (Artificial Tears) 1 drop PRN DAILY PRN OD DRY EYES 07/17/21 08:45 Polyethylene Glycol (miraLAX) 17 gm PRN DAILY PRN PO DRY EYES 07/17/21 08:45 07/17/21 08:42 DC Polyethylene Glycol (miraLAX) 17 gm DAILY PO 07/18/21 09:00 07/25/21 09:26 Vitamin D (Vitamin D3) 50,000 unit WEEKLY PO 07/18/21 15:30 07/18/21 19:11 DC Vitamin D (Vitamin D3) 50,000 unit WEEKLY PO 07/19/21 09:00 07/19/21 08:29 I have reviewed the current psychotropics carefully including drug interactions. Risk benefit ratio favors no change other than as noted in my dictated progress note. Diagnosis: Problems: (1) Dementia in Alzheimer's disease with depression (2) Dementia in Alzheimer's disease with delusions (3) Dementia of the Alzheimer's type with early onset with behavioral disturba nce (4) Major neurocognitive disorder LOUIS DAO MD Jul 25, 2021 21:16
[2021-07-26 05:06] LABS: BACTERIA,URINE FEW /HPF (0-FEW); CLARITY,URINE CLEAR; COLOR,URINE YELLOW; GLUCOSE,URINE NEG (NEG); NITRITE,URINE NEG (NEG); RBC,URINE OCC /HPF (0-2); SQUAMOUS EPITHELIAL CELL,UR OCC /LPF; UROBILINOGEN,URINE 0.2 mg/dL (0.2 mg/dL)
[2021-07-26 06:41] VITALS: BP 130/71
--- NOTE | 2021-07-26 07:46 | PDOC ---
Exam Note: Roderick Note: This note is a late entry for 07/24/2021 covers elements not covered in my initial note. Subjective: The patient was seen on telehealth rounds in the evening of 07/24/2021 due to COVID-19 exposure on our unit and half the patients have been COVID positive and transferred to the Medical/Surgical Floor. Discussed with Sandy WILSON and reviewed the chart. Also discussed the patient with Dr. Hines who covered for me for the past 2 weeks. Reviewed the patients history, diagnoses, progress, work-up, labs etc. The patient slept 6-1/2 hours previous night. She remains confused, oriented to herself, was quite agitated. She had a rough morning per nursing staff. She is somewhat passive, aggressive per nursing staff, refusing medications at times. Review of Systems: Impaired ambulation, with walker. No CV, , pulmonary, eye, ENT system symptoms on review. Reliability poor. Mental Status Exam: The patient is oriented to herself. Insight and judgment, recent and remote memory, attention and concentration, fund of knowledge is poor consistent with her diagnoses. She is somewhat withdrawn, difficult to interact. Laboratory Data: Reviewed. Impression: Major neurocognitive disorder, Alzheimer, vascular with delusion, depression behavioral disturbance. Anxiety disorder unspecified. Impulse control disorder unspecified. Plan: I have carefully reviewed the patients current psychotropics. She is currently on Aricept 10 mg a day, Lexapro 10 mg a day, Seroquel 25 mg h.s., 12.5 mg at 0900, Seroquel p.r.n., Zyprexa p.r.n. Reviewed drug interactions and risk-benefit ratio. We will make further adjustments post baseline assessment. Assessment: Vital Signs/I&O: Vital Signs Date Time Temp Pulse Resp B/P (MAP) Pulse Ox O2 Delivery O2 Flow Rate FiO2 07/26/21 06:41 98.1 73 16 130/71 (90) 93 07/25/21 16:21 Room Air I & O 07/25/21 07/25/21 07/26/21 15:00 23:00 07:00 Intake Total 240 ml 440 ml Balance 240 ml 440 ml Labs: Laboratory Tests Test 07/26/21 04:44 Urine Collection Type Unknown Urine Color Yellow Urine Clarity Clear Urine pH 5.5 Urine Specific [place] >=1.030 Urine Protein Neg (NEG-TRACE) Urine Glucose (UA) Neg mg/dL (NEG) Urine Ketones (Stick) Neg mg/dL (NEG) Urine Blood Trace (NEG) Urine Nitrite Neg (NEG) Urine Bilirubin Neg (NEG) Urine Urobilinogen Dipstick 0.2 mg/dL (0.2 mg/dL) Urine Leukocyte Esterase Neg (NEG) Urine RBC Occ /HPF (0-2) Urine WBC 5-10 /HPF (0-4) Urine Squamous Epithelial Cells Occ /LPF Urine Bacteria Few /HPF (0-FEW) Current Medications: Meds: Laboratory Tests Test 07/26/21 04:44 Urine Collection Type Unknown Urine Color Yellow Urine Clarity Clear Urine pH 5.5 Urine Specific [place] >=1.030 Urine Protein Neg Urine Glucose (UA) Neg mg/dL Urine Ketones (Stick) Neg mg/dL Urine Blood Trace Urine Nitrite Neg Urine Bilirubin Neg Urine Urobilinogen Dipstick 0.2 mg/dL Urine Leukocyte Esterase Neg Urine RBC Occ /HPF Urine WBC 5-10 /HPF Urine Squamous Epithelial Cells Occ /LPF Urine Bacteria Few /HPF Current Medications Medications (Trade) Dose Ordered Sig/Jin Route PRN Reason Start Time Stop Time Status Last Admin Dose Admin Acetaminophen (Tylenol) 650 mg PRN Q6HRS PRN PO MILD PAIN / TEMP > 100.3'F 07/15/21 13:00 Multi-Ingredient Ointment (Analgesic [place]) 1 lilibeth PRN QID PRN TP MUSCLE PAIN 07/15/21 13:00 Al Hydroxide/Mg Hydroxide (Mylanta Plus Xs) 15 ml PRN AFTMEALHC PRN PO DYSPEPSIA 07/15/21 13:00 Magnesium Hydroxide (Milk Of Magnesia) 2,400 mg PRN QHS PRN PO CONSTIPATION 07/15/21 13:00 Influenza Virus Vaccine Quadrival (Flulaval Quad [id number] Syringe) 0.5 ml ONCE ONCE VAX IM 07/16/21 09:00 07/16/21 09:01 DC 07/16/21 16:00 Amlodipine Besylate (Norvasc) 5 mg DAILY PO 07/16/21 09:00 07/25/21 09:23 Donepezil HCl (Aricept) 10 mg DAILY PO 07/16/21 09:00 07/25/21 09:23 Ibuprofen (Motrin) 800 mg PRN Q6HRS PRN PO MODERATE PAIN 07/15/21 13:00 Polyethylene Glycol (miraLAX) 17 gm DAILY PO 07/16/21 09:00 07/17/21 08:39 DC 07/17/21 08:14 Artificial Tears (Artificial Tears) 1 drop DAILY OD 07/16/21 09:00 07/17/21 08:38 DC 07/17/21 08:16 Quetiapine Fumarate (SEROquel) 25 mg BID PO 07/15/21 21:00 07/15/21 21:01 DC 07/15/21 20:03 Quetiapine Fumarate (SEROquel) 50 mg BID PO 07/15/21 21:00 07/15/21 20:01 DC Citalopram Hydrobromide (CeleXA) 20 mg DAILY PO 07/16/21 09:00 07/25/21 09:23 Multivitamins/ Calcium (Thera-M Plus) 1 tab DAILY PO 07/16/21 09:00 07/25/21 09:23 Olanzapine (ZyPREXA ZYDIS) 2.5 mg PRN Q4HRS PRN PO PSYCHOSIS 07/15/21 16:30 07/24/21 09:13 Quetiapine Fumarate (SEROquel) 50 mg BID PO 07/16/21 09:00 07/16/21 15:39 DC 07/16/21 08:05 Quetiapine Fumarate (SEROquel) 25 mg PRN Q6HRS PRN PO ANXIETY 07/16/21 15:45 07/25/21 18:09 DC 07/19/21 01:41 Quetiapine Fumarate (SEROquel) 25 mg HS PO 07/16/21 21:00 07/25/21 18:09 DC 07/24/21 20:16 Quetiapine Fumarate (SEROquel) 12.5 mg DAILY PO 07/17/21 09:00 07/25/21 18:09 DC 07/25/21 09:24 Artificial Tears (Artificial Tears) 1 drop PRN DAILY PRN OD DRY EYES 07/17/21 08:45 Polyethylene Glycol (miraLAX) 17 gm PRN DAILY PRN PO DRY EYES 07/17/21 08:45 07/17/21 08:42 DC Polyethylene Glycol (miraLAX) 17 gm DAILY PO 07/18/21 09:00 07/25/21 09:26 Vitamin D (Vitamin D3) 50,000 unit WEEKLY PO 07/18/21 15:30 07/18/21 19:11 DC Vitamin D (Vitamin D3) 50,000 unit WEEKLY PO 07/19/21 09:00 07/19/21 08:29 I have reviewed the current psychotropics carefully including drug interactions. Risk benefit ratio favors no change other than as noted in my dictated progress note. Diagnosis: Problems: (1) Dementia, vascular, with delusions (2) Dementia, vascular, with depression (3) Anxiety disorder, unspecified (4) Impulse control disorder, unspecified (5) Dementia in Alzheimer's disease with depression (6) Dementia in Alzheimer's disease with delusions (7) Dementia of the Alzheimer's type with early onset with behavioral disturbance (8) Major neurocognitive disorder LOUIS DAO MD Jul 26, 2021 07:46
[2021-07-26] MEDS: amLODIPine BESYLATE 5 MG TABLET PO SCH (08:45)
[2021-07-26] MEDS: CHOLECALCIFEROL (VITAMIN D3) 50,000 UNIT CAPSULE PO SCH (08:46)
[2021-07-26] MEDS: POLYETHYLENE GLYCOL 3350 17 GM PACKET. PO SCH (08:46)
[2021-07-26] MEDS: MULTIVITAMIN with MINERAL TABLET. PO SCH (08:46)
[2021-07-26] MEDS: DONEPEZIL HCL 10 MG TABLET PO SCH (08:46)
[2021-07-26] MEDS: CITALOPRAM 20 MG TABLET. PO SCH (08:46)
[2021-07-26 15:43] VITALS: BP 157/98
--- NOTE | 2021-07-26 15:54 | TX PLAN ---
Interdisciplinary Tx Plan Admission Information Jul 15, 2021 at 12:56 Legal Status (on Admission): Voluntary DPOA/Guardian Name: Ofelia Albarran Contact Other Contact Name: Harika Valderrama, or Eileen Other Contact Verified Code Status: DNR Allergies: Coded Allergies: Penicillins (Verified Allergy, Unknown, 07/15/21) latex (Verified Allergy, Unknown, 07/15/21) sulfamethoxazole (Verified Allergy, Unknown, 07/15/21) trimethoprim (Verified Allergy, Unknown, 07/15/21) Diagnoses Primary Diagnosis: 1. Major neurocognitive disorder, most likely Alzheimer's with behavior problems. 2. Depressive disorder, unspecified. Reasons for Admission: Aggressive, Agitated, Depressed, Angry, Anxiety/Panic, Combative, Suspicious/paranoid, Confusion/Disoriented, Isolating Problem in Patient's Words: Pt sister/DPOA, Ofelia, has been noticing a gradual decline exhibited by her becoming more reclusive and imiginaning things. Dominique thinks that she begins to sundown early. Prior to pt's current living facility at [facility], she was at another nursing facility in [place] where she started having increased agitation and aggression. The facility at [place] didn't feel like they could meet her needs anylonger, therefore, pt was moved to [place]. Additional Admission Comments: Per intake record, pt presents from her nursing facility with intrusiveness, wanders and enters peers rooms, aggressive toward staff, hit staff with walker, and agitation. Problems Active Problems: Agitation, aggression, resistive to medication, cares and treatment, depressed, angry, anxiety Inactive Problems: None at this time. Pt Strengths/Limitations Ability for [place]: Poor Cognitive Functioning/Ability: Poor Communication Skills/Ability: Fair Financial Resources: Good Insight/Judgement: Poor Intellectual Ability: Good Physical Health: Poor Social Skills: Fair Stability in Family: Good Stability in School/Work: Good Verbal Skills: Fair Discharge Criteria Discharge Criteria: Able meet basic life need, No need for close observ., Able to meet health needs, Adequate arrangements @DC, Adequate self-care, Verbal commit med comply, Improved behavior, Improved mood/thought Preliminary Discharge Plan Preliminary DC Plan: Current Living Arrange. Special Precautions Fall Risk: Low Initial D/C Plan Pt plan is to return to [facility]. Identified Discharge Needs: None at this time. Currently Utilized Resources Currently Utilized Resources/P: PCP-Dr. Pang Sister/CUATEELMA-Ofelia Albarran Facility-[facility]; contact-Jannie, Harika, or Eileen Referrals Community Resources: None at this time. Identified Problems/Hx/Goals Objectives/Short-Term Goals Short Term Goals: Control abnormal behavior, Dec. Aggression, Dec. Anxiety/Panic, Dec. Outbursts, Dec. Symp. Depression, Medication Stabilization, Monitor Med Effects, Prevent Deterioration, Promote Coping Skill Short Term Goals in Patient's: Medication evaluation to help with agitation and aggression along with improve compliance with cares. Interventions/Frequency Staff Interventions/Frequency&: Psychiatry to assess pt three times per week for medication management. Nursing to assess behaviors, monitor medications, and complete 15 minute checks daily. Social work to see pt at least two times weekly to aid in return to placement. Activities to encourage pt to participate in group activities daily. 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 Community Follow-up PCP Community Provider/Family Inpu: Sister/CUATEOfelia WILLS, aware of pt hospitalization and is available for further information as needed. Treatment Plan Explained Patient/Title Abstractor had this treatment plan explained to him/her as indicated by the signature below and has been given the opportunity to ask questions and make suggestions: Date: Patient/Title Abstractor Signature: Status Update Update Pt is eating approximately 36% of her meals and averaging 8.5 hours of sleep per night. She is oriented to self only and has been resistive to cares. Pt demonstrates some confusion as when asked, she stated the year was 1852. Rather than swallowing her medications, she has tried to chew them. Will consider crushing medications in the future. Pt has only had limited participation with activities as when AT has went to visit her she has been sleeping. Sister/Ofelia BUTTS, believes that pt's lack of participation could be due to feeling uncomfortable in coming out of her room. Pt will be started on Depakote Sprinkles 125mg at 0900 and 1700. CBC, CMP, and Valproic acid level will be checked in three days. Pt will remain on the admissions gomez until the other pts on the activities gomez returns two negative covid results that will be taken on 07/27/21 and 07/30/21. Provide other pts remain negative, Angy will then be allowed to move to the activities gomez. Pt will return to [facility] once stable. TRINO FONSECA Jul 26, 2021 15:54
[2021-07-26] MEDS: DIVALPROEX 125 MG CAP.SPRINK PO SCH (17:24)
--- NOTE | 2021-07-26 20:59 | PDOC ---
Exam Note: Roderick Note: Please also refer to the separate dictated note~for this date of service dictated separately.~Patient seen individually. Discussed the patient with Nursing staff reviewed the chart.~Reviewed interim history and current functioning. Reviewed vital signs,~Labs/ Radiology~and current medications noted below. Continue current treatment with the changes noted in the dictated addendum note Assessment: Vital Signs/I&O: Vital Signs Date Time Temp Pulse Resp B/P (MAP) Pulse Ox O2 Delivery O2 Flow Rate FiO2 07/26/21 15:43 98.6 84 18 157/98 (117) 97 07/25/21 16:21 Room Air I & O 07/25/21 07/25/21 07/26/21 15:00 23:00 07:00 Intake Total 240 ml 440 ml Balance 240 ml 440 ml Labs: Laboratory Tests Test 07/26/21 04:44 Urine Collection Type Unknown Urine Color Yellow Urine Clarity Clear Urine pH 5.5 Urine Specific [place] >=1.030 Urine Protein Neg (NEG-TRACE) Urine Glucose (UA) Neg mg/dL (NEG) Urine Ketones (Stick) Neg mg/dL (NEG) Urine Blood Trace (NEG) Urine Nitrite Neg (NEG) Urine Bilirubin Neg (NEG) Urine Urobilinogen Dipstick 0.2 mg/dL (0.2 mg/dL) Urine Leukocyte Esterase Neg (NEG) Urine RBC Occ /HPF (0-2) Urine WBC 5-10 /HPF (0-4) Urine Squamous Epithelial Cells Occ /LPF Urine Bacteria Few /HPF (0-FEW) Current Medications: Meds: Laboratory Tests Test 07/26/21 04:44 Urine Collection Type Unknown Urine Color Yellow Urine Clarity Clear Urine pH 5.5 Urine Specific [place] >=1.030 Urine Protein Neg Urine Glucose (UA) Neg mg/dL Urine Ketones (Stick) Neg mg/dL Urine Blood Trace Urine Nitrite Neg Urine Bilirubin Neg Urine Urobilinogen Dipstick 0.2 mg/dL Urine Leukocyte Esterase Neg Urine RBC Occ /HPF Urine WBC 5-10 /HPF Urine Squamous Epithelial Cells Occ /LPF Urine Bacteria Few /HPF Current Medications Medications (Trade) Dose Ordered Sig/Jin Route PRN Reason Start Time Stop Time Status Last Admin Dose Admin Acetaminophen (Tylenol) 650 mg PRN Q6HRS PRN PO MILD PAIN / TEMP > 100.3'F 07/15/21 13:00 Multi-Ingredient Ointment (Analgesic [place]) 1 lilibeth PRN QID PRN TP MUSCLE PAIN 07/15/21 13:00 Al Hydroxide/Mg Hydroxide (Mylanta Plus Xs) 15 ml PRN AFTMEALHC PRN PO DYSPEPSIA 07/15/21 13:00 Magnesium Hydroxide (Milk Of Magnesia) 2,400 mg PRN QHS PRN PO CONSTIPATION 07/15/21 13:00 Influenza Virus Vaccine Quadrival (Flulaval Quad Syringe) 0.5 ml ONCE ONCE VAX IM 07/16/21 09:00 07/16/21 09:01 DC 07/16/21 16:00 Amlodipine Besylate (Norvasc) 5 mg DAILY PO 07/16/21 09:00 07/26/21 08:45 Donepezil HCl (Aricept) 10 mg DAILY PO 07/16/21 09:00 07/26/21 11:59 DC 07/26/21 08:46 Ibuprofen (Motrin) 800 mg PRN Q6HRS PRN PO MODERATE PAIN 07/15/21 13:00 Polyethylene Glycol (miraLAX) 17 gm DAILY PO 07/16/21 09:00 07/17/21 08:39 DC 07/17/21 08:14 Artificial Tears (Artificial Tears) 1 drop DAILY OD 07/16/21 09:00 07/17/21 08:38 DC 07/17/21 08:16 Quetiapine Fumarate (SEROquel) 25 mg BID PO 07/15/21 21:00 07/15/21 21:01 DC 07/15/21 20:03 Quetiapine Fumarate (SEROquel) 50 mg BID PO 07/15/21 21:00 07/15/21 20:01 DC Citalopram Hydrobromide (CeleXA) 20 mg DAILY PO 07/16/21 09:00 07/26/21 08:46 Multivitamins/ Calcium (Thera-M Plus) 1 tab DAILY PO 07/16/21 09:00 07/26/21 08:46 Olanzapine (ZyPREXA ZYDIS) 2.5 mg PRN Q4HRS PRN PO PSYCHOSIS 07/15/21 16:30 07/26/21 11:59 DC 07/24/21 09:13 Quetiapine Fumarate (SEROquel) 50 mg BID PO 07/16/21 09:00 07/16/21 15:39 DC 07/16/21 08:05 Quetiapine Fumarate (SEROquel) 25 mg PRN Q6HRS PRN PO ANXIETY 07/16/21 15:45 07/25/21 18:09 DC 07/19/21 01:41 Quetiapine Fumarate (SEROquel) 25 mg HS PO 07/16/21 21:00 07/25/21 18:09 DC 07/24/21 20:16 Quetiapine Fumarate (SEROquel) 12.5 mg DAILY PO 07/17/21 09:00 07/25/21 18:09 DC 07/25/21 09:24 Artificial Tears (Artificial Tears) 1 drop PRN DAILY PRN OD DRY EYES 07/17/21 08:45 Polyethylene Glycol (miraLAX) 17 gm PRN DAILY PRN PO DRY EYES 07/17/21 08:45 07/17/21 08:42 DC Polyethylene Glycol (miraLAX) 17 gm DAILY PO 07/18/21 09:00 07/26/21 08:46 Vitamin D (Vitamin D3) 50,000 unit WEEKLY PO 07/18/21 15:30 07/18/21 19:11 DC Vitamin D (Vitamin D3) 50,000 unit WEEKLY PO 07/19/21 09:00 07/26/21 08:46 Olanzapine (ZyPREXA ZYDIS) 2.5 mg PRN Q2HR PRN PO PSYCHOSIS 07/26/21 12:00 Divalproex Sodium (Depakote Sprinkles) 125 mg 0900,1700 PO 07/26/21 17:00 07/26/21 17:24 Current Medications Medications (Trade) Dose Ordered Sig/Jin Route PRN Reason Start Time Stop Time Status Last Admin Dose Admin Divalproex Sodium (Depakote Sprinkles) 125 mg 0900,1700 PO 07/26/21 17:00 07/26/21 17:24 I have reviewed the current psychotropics carefully including drug interactions. Risk benefit ratio favors no change other than as noted in my dictated progress note. Diagnosis: Problems: (1) Dementia in Alzheimer's disease with depression (2) Dementia in Alzheimer's disease with delusions (3) Dementia of the Alzheimer's type with early onset with behavioral disturbance (4) Major neurocognitive disorder (5) Impulse control disorder, unspecified (6) Anxiety disorder, unspecified (7) Dementia, vascular, with depression (8) Dementia, vascular, with delusions LOUIS DAO MD Jul 26, 2021 20:59
[2021-07-27 05:52] VITALS: BP 147/67
--- NOTE | 2021-07-27 07:34 | PDOC ---
Exam Note: Roderick Note: This note is a late entry for 07/26/2021 covers elements not covered in my initial note. Subjective: The patient was reviewed at treatment team meeting individually in the morning on 07/26/2021 with Natalya Rocha, Rosa Isela Padgett, and Lauren Vizcaino (social problems specialist), Keysha, activity therapy, and Deja WILSON, discussed and reviewed the chart. Reviewed current and past historical information from Dr. Hines. The patient slept 8-3/4 hours previous night. She was also seen on telehealth rounds in the evening with Deja WILSON. Patient has been living at [facility] since 07/01 prior to which she was at a penitentiary at [place]. Appetite is better at 30%. Sleeping about 8-1/2 hours average. She is compliant with medications though she will chew her medications. Nursing staff will crush it. Much of her cognitive decline occurred in 2011 when she had intracranial bleed and the decline has been steady since then. It seems to be vascular in nature rather than Alzheimers and we will stop the Aricept. She used to work for the [employer]. She has been and once and then after that she was single. Review of Systems: Impaired ambulation, with walker. No CV, , pulmonary, eye, ENT system symptoms on review. Reliability poor. Mental Status Exam: The patient is oriented to herself. Insight and judgment, recent and remote memory, attention and concentration, fund of knowledge is poor consistent with her diagnoses. Laboratory Data: Reviewed. Impression: Major neurocognitive disorder, early Alzheimer, vascular with delusion, depression behavioral disturbance. Anxiety disorder unspecified. Impulse control disorder unspecified. Plan: Continue current psychotropics. She remains somewhat impulsive with mood lability. She is currently on Aricept 10 mg a day which we will stop and sam nue Celexa 20 mg a day, Zyprexa p.r.n. Start Depakote Sprinkle 125 mg 9 a.m. and 5 p.m. and check CBC, CMP, valproic acid level in 3 days. Adjust thereafter for clinical stabilization. Assessment: Vital Signs/I&O: Vital Signs Date Time Temp Pulse Resp B/P (MAP) Pulse Ox O2 Delivery O2 Flow Rate FiO2 07/27/21 05:52 98.6 67 16 147/67 (93) 94 1/9/22 16:21 Room Air I & O 07/26/21 07/26/21 07/27/21 15:00 23:00 07:00 Intake Total 480 ml 240 ml Balance 480 ml 240 ml Current Medications: Meds: Current Medications Medications (Trade) Dose Ordered Sig/Jin Route PRN Reason Start Time Stop Time Status Last Admin Dose Admin Acetaminophen (Tylenol) 650 mg PRN Q6HRS PRN PO MILD PAIN / TEMP > 100.3'F 07/15/21 13:00 Multi-Ingredient Ointment (Analgesic [place]) 1 lilibeth PRN QID PRN TP MUSCLE PAIN 07/15/21 13:00 Al Hydroxide/Mg Hydroxide (Mylanta Plus Xs) 15 ml PRN AFTMEALHC PRN PO DYSPEPSIA 07/15/21 13:00 Magnesium Hydroxide (Milk Of Magnesia) 2,400 mg PRN QHS PRN PO CONSTIPATION 07/15/21 13:00 Influenza Virus Vaccine Quadrival (Flulaval Quad [id number] Syringe) 0.5 ml ONCE ONCE VAX IM 07/16/21 09:00 07/16/21 09:01 DC 07/16/21 16:00 Amlodipine Besylate (Norvasc) 5 mg DAILY PO 07/16/21 09:00 07/26/21 08:45 Donepezil HCl (Aricept) 10 mg DAILY PO 07/16/21 09:00 07/26/21 11:59 DC 07/26/21 08:46 Ibuprofen (Motrin) 800 mg PRN Q6HRS PRN PO MODERATE PAIN 07/15/21 13:00 Polyethylene Glycol (miraLAX) 17 gm DAILY PO 07/16/21 09:00 07/17/21 08:39 DC 07/17/21 08:14 Artificial Tears (Artificial Tears) 1 drop DAILY OD 07/16/21 09:00 07/17/21 08:38 DC 07/17/21 08:16 Quetiapine Fumarate (SEROquel) 25 mg BID PO 07/15/21 21:00 07/15/21 21:01 DC 07/15/21 20:03 Quetiapine Fumarate (SEROquel) 50 mg BID PO 07/15/21 21:00 07/15/21 20:01 DC Citalopram Hydrobromide (CeleXA) 20 mg DAILY PO 07/16/21 09:00 07/26/21 08:46 Multivitamins/ Calcium (Thera-M Plus) 1 tab DAILY PO 07/16/21 09:00 07/26/21 08:46 Olanzapine (ZyPREXA ZYDIS) 2.5 mg PRN Q4HRS PRN PO PSYCHOSIS 07/15/21 16:30 07/26/21 11:59 DC 07/24/21 09:13 Quetiapine Fumarate (SEROquel) 50 mg BID PO 07/16/21 09:00 07/16/21 15:39 DC 07/16/21 08:05 Quetiapine Fumarate (SEROquel) 25 mg PRN Q6HRS PRN PO ANXIETY 07/16/21 15:45 07/25/21 18:09 DC 07/19/21 01:41 Quetiapine Fumarate (SEROquel) 25 mg HS PO 07/16/21 21:00 07/25/21 18:09 DC 07/24/21 20:16 Quetiapine Fumarate (SEROquel) 12.5 mg DAILY PO 07/17/21 09:00 07/25/21 18:09 DC 07/25/21 09:24 Artificial Tears (Artificial Tears) 1 drop PRN DAILY PRN OD DRY EYES 07/17/21 08:45 Polyethylene Glycol (miraLAX) 17 gm PRN DAILY PRN PO DRY EYES 07/17/21 08:45 07/17/21 08:42 DC Polyethylene Glycol (miraLAX) 17 gm DAILY PO 07/18/21 09:00 07/26/21 08:46 Vitamin D (Vitamin D3) 50,000 unit WEEKLY PO 07/18/21 15:30 07/18/21 19:11 DC Vitamin D (Vitamin D3) 50,000 unit WEEKLY PO 07/19/21 09:00 07/26/21 08:46 Olanzapine (ZyPREXA ZYDIS) 2.5 mg PRN Q2HR PRN PO PSYCHOSIS 07/26/21 12:00 Divalproex Sodium (Depakote Sprinkles) 125 mg 0900,1700 PO 07/26/21 17:00 07/26/21 17:24 Current Medications Medications (Trade) Dose Ordered Sig/Jin Route PRN Reason Start Time Stop Time Status Last Admin Dose Admin Divalproex Sodium (Depakote Sprinkles) 125 mg 0900,1700 PO 07/26/21 17:00 07/26/21 17:24 I have reviewed the current psychotropics carefully including drug interactions. Risk benefit ratio favors no change other than as noted in my dictated progress note. Diagnosis: Problems: (1) Dementia in Alzheimer's disease with depression (2) Dementia in Alzheimer's disease with delusions (3) Dementia of the Alzheimer's type with early onset with behavioral disturbance (4) Major neurocognitive disorder (5) Impulse control disorder, unspecified (6) Anxiety disorder, unspecified (7) Dementia, vascular, with depression (8) Dementia, vascular, with delusions LOUIS DAO MD Jul 27, 2021 07:34
[2021-07-27] MEDS: amLODIPine BESYLATE 5 MG TABLET PO SCH (08:47)
[2021-07-27] MEDS: DIVALPROEX 125 MG CAP.SPRINK PO SCH ×2 (08:47→17:22)
[2021-07-27] MEDS: MULTIVITAMIN with MINERAL TABLET. PO SCH (08:47)
[2021-07-27] MEDS: CITALOPRAM 20 MG TABLET. PO SCH (08:47)
[2021-07-27] MEDS: POLYETHYLENE GLYCOL 3350 17 GM PACKET. PO SCH (08:50)
[2021-07-27 16:20] VITALS: BP 160/74
--- NOTE | 2021-07-27 21:15 | PDOC ---
Exam Note: Roderick Note: Please also refer to the separate dictated note~for this date of service dictated separately.~Patient seen individually. Discussed the patient with Nursing staff reviewed the chart.~Reviewed interim history and current functioning. Reviewed vital signs,~Labs/ Radiology~and current medications noted below. Continue current treatment with the changes noted in the dictated addendum note Assessment: Vital Signs/I&O: Vital Signs Date Time Temp Pulse Resp B/P (MAP) Pulse Ox O2 Delivery O2 Flow Rate FiO2 07/27/21 16:20 98.6 72 18 160/74 (102) 96 07/25/21 16:21 Room Air I & O 07/26/21 07/26/21 07/27/21 15:00 23:00 07:00 Intake Total 480 ml 240 ml Balance 480 ml 240 ml Labs: Laboratory Tests Test 07/27/21 06:00 SARS-CoV-2 (PCR) Not detected (NOT DETECTD) Current Medications: Meds: Laboratory Tests Test 07/27/21 06:00 Coronavirus (COVID-19)(PCR) Not detected Current Medications Medications (Trade) Dose Ordered Sig/Jin Route PRN Reason Start Time Stop Time Status Last Admin Dose Admin Acetaminophen (Tylenol) 650 mg PRN Q6HRS PRN PO MILD PAIN / TEMP > 100.3'F 07/15/21 13:00 Multi-Ingredient Ointment (Analgesic [place]) 1 lilibeth PRN QID PRN TP MUSCLE PAIN 07/15/21 13:00 Al Hydroxide/Mg Hydroxide (Mylanta Plus Xs) 15 ml PRN AFTMEALHC PRN PO DYSPEPSIA 07/15/21 13:00 Magnesium Hydroxide (Milk Of Magnesia) 2,400 mg PRN QHS PRN PO CONSTIPATION 07/15/21 13:00 Influenza Virus Vaccine Quadrival (Flulaval Quad [id number] Syringe) 0.5 ml ONCE ONCE VAX IM 07/16/21 09:00 07/16/21 09:01 DC 07/16/21 16:00 Amlodipine Besylate (Norvasc) 5 mg DAILY PO 07/16/21 09:00 07/27/21 08:47 Donepezil HCl (Aricept) 10 mg DAILY PO 07/16/21 09:00 07/26/21 11:59 DC 07/26/21 08:46 Ibuprofen (Motrin) 800 mg PRN Q6HRS PRN PO MODERATE PAIN 07/15/21 13:00 Polyethylene Glycol (miraLAX) 17 gm DAILY PO 07/16/21 09:00 07/17/21 08:39 DC 07/17/21 08:14 Artificial Tears (Artificial Tears) 1 drop DAILY OD 07/16/21 09:00 07/17/21 08:38 DC 07/17/21 08:16 Quetiapine Fumarate (SEROquel) 25 mg BID PO 07/15/21 21:00 07/15/21 21:01 DC 07/15/21 20:03 Quetiapine Fumarate (SEROquel) 50 mg BID PO 07/15/21 21:00 07/15/21 20:01 DC Citalopram Hydrobromide (CeleXA) 20 mg DAILY PO 07/16/21 09:00 07/27/21 08:47 Multivitamins/ Calcium (Thera-M Plus) 1 tab DAILY PO 07/16/21 09:00 07/27/21 08:47 Olanzapine (ZyPREXA ZYDIS) 2.5 mg PRN Q4HRS PRN PO PSYCHOSIS 07/15/21 16:30 07/26/21 11:59 DC 07/24/21 09:13 Quetiapine Fumarate (SEROquel) 50 mg BID PO 07/16/21 09:00 07/16/21 15:39 DC 07/16/21 08:05 Quetiapine Fumarate (SEROquel) 25 mg PRN Q6HRS PRN PO ANXIETY 07/16/21 15:45 07/25/21 18:09 DC 07/19/21 01:41 Quetiapine Fumarate (SEROquel) 25 mg HS PO 07/16/21 21:00 07/25/21 18:09 DC 07/24/21 20:16 Quetiapine Fumarate (SEROquel) 12.5 mg DAILY PO 07/17/21 09:00 07/25/21 18:09 DC 07/25/21 09:24 Artificial Tears (Artificial Tears) 1 drop PRN DAILY PRN OD DRY EYES 07/17/21 08:45 Polyethylene Glycol (miraLAX) 17 gm PRN DAILY PRN PO DRY EYES 07/17/21 08:45 07/17/21 08:42 DC Polyethylene Glycol (miraLAX) 17 gm DAILY PO 07/18/21 09:00 07/26/21 08:46 Vitamin D (Vitamin D3) 50,000 unit WEEKLY PO 07/18/21 15:30 07/18/21 19:11 DC Vitamin D (Vitamin D3) 50,000 unit WEEKLY PO 07/19/21 09:00 07/26/21 08:46 Olanzapine (ZyPREXA ZYDIS) 2.5 mg PRN Q2HR PRN PO PSYCHOSIS 07/26/21 12:00 Divalproex Sodium (Depakote Sprinkles) 125 mg 0900,1700 PO 07/26/21 17:00 07/27/21 17:22 I have reviewed the current psychotropics carefully including drug interactions. Risk benefit ratio favors no change other than as noted in my dictated progress note. Diagnosis: Problems: (1) Dementia in Alzheimer's disease with depression (2) Dementia in Alzheimer's disease with delusions (3) Dementia of the Alzheimer's type with early onset with behavioral disturbance (4) Major neurocognitive disorder (5) Impulse control disorder, unspecified (6) Anxiety disorder, unspecified (7) Dementia, vascular, with depression (8) Dementia, vascular, with delusions LOUIS DAO MD Jul 27, 2021 21:15
[2021-07-28 06:10] VITALS: BP 159/73
--- NOTE | 2021-07-28 06:42 | PDOC ---
Exam Note: Roderick Note: This note is a late entry for 07/27/2021 covers elements not covered in my initial note. Subjective: The patient was seen on telehealth rounds due to COVID-19 pandemic on the unit in the evening of 07/27/2021 with Pauly WILSON, discussed and reviewed the chart. The patient slept 8-1/2 hours previous night. She has been taking her medications in pudding. She remains withdrawn, confused but remote memory is better. She was able to tell me she worked for the [employer] and did whatever job she was asked to do. Recent memory is impaired. Review of Systems: Impaired ambulation, with walker. No CV, , pulmonary, eye, ENT system symptoms on review. Reliability poor. Mental Status Exam: The patient is oriented to herself. Insight and judgment, recent and remote memory, attention and concentration, fund of knowledge is poor consistent with her diagnoses. Laboratory Data: Reviewed. Impression: Major neurocognitive disorder, early Alzheimer, vascular with delusion, depression behavioral disturbance. Anxiety disorder unspecified. Impulse control disorder unspecified. Plan: Continue current psychotropics Celexa, Depakote and Zyprexa p.r.n. It is unclear whether Aricept would have any benefit for her or we will go ahead and consider stopping it. Assessment: Vital Signs/I&O: Vital Signs Date Time Temp Pulse Resp B/P (MAP) Pulse Ox O2 Delivery O2 Flow Rate FiO2 07/28/21 06:10 97.7 68 16 159/73 (101) 95 07/25/21 16:21 Room Air I & O 07/27/21 07/27/21 07/28/21 15:00 23:00 07:00 Intake Total 120 ml 240 ml Balance 120 ml 240 ml Current Medications: Meds: Current Medications Medications (Trade) Dose Ordered Sig/Jin Route PRN Reason Start Time Stop Time Status Last Admin Dose Admin Acetaminophen (Tylenol) 650 mg PRN Q6HRS PRN PO MILD PAIN / TEMP > 100.3'F 07/15/21 13:00 Multi-Ingredient Ointment (Analgesic [place]) 1 lilibeth PRN QID PRN TP MUSCLE PAIN 07/15/21 13:00 Al Hydroxide/Mg Hydroxide (Mylanta Plus Xs) 15 ml PRN AFTMEALHC PRN PO DYSPEPSIA 07/15/21 13:00 Magnesium Hydroxide (Milk Of Magnesia) 2,400 mg PRN QHS PRN PO CONSTIPATION 07/15/21 13:00 Influenza Virus Vaccine Quadrival (Flulaval Quad Syringe) 0.5 ml ONCE ONCE VAX IM 07/16/21 09:00 07/16/21 09:01 DC 07/16/21 16:00 Amlodipine Besylate (Norvasc) 5 mg DAILY PO 07/16/21 09:00 07/27/21 08:47 Donepezil HCl (Aricept) 10 mg DAILY PO 07/16/21 09:00 07/26/21 11:59 DC 07/26/21 08:46 Ibuprofen (Motrin) 800 mg PRN Q6HRS PRN PO MODERATE PAIN 07/15/21 13:00 Polyethylene Glycol (miraLAX) 17 gm DAILY PO 07/16/21 09:00 07/17/21 08:39 DC 07/17/21 08:14 Artificial Tears (Artificial Tears) 1 drop DAILY OD 07/16/21 09:00 07/17/21 08:38 DC 07/17/21 08:16 Quetiapine Fumarate (SEROquel) 25 mg BID PO 07/15/21 21:00 07/15/21 21:01 DC 07/15/21 20:03 Quetiapine Fumarate (SEROquel) 50 mg BID PO 07/15/21 21:00 07/15/21 20:01 DC Citalopram Hydrobromide (CeleXA) 20 mg DAILY PO 07/16/21 09:00 07/27/21 08:47 Multivitamins/ Calcium (Thera-M Plus) 1 tab DAILY PO 07/16/21 09:00 07/27/21 08:47 Olanzapine (ZyPREXA ZYDIS) 2.5 mg PRN Q4HRS PRN PO PSYCHOSIS 07/15/21 16:30 07/26/21 11:59 DC 07/24/21 09:13 Quetiapine Fumarate (SEROquel) 50 mg BID PO 07/16/21 09:00 07/16/21 15:39 DC 07/16/21 08:05 Quetiapine Fumarate (SEROquel) 25 mg PRN Q6HRS PRN PO ANXIETY 07/16/21 15:45 07/25/21 18:09 DC 07/19/21 01:41 Quetiapine Fumarate (SEROquel) 25 mg HS PO 07/16/21 21:00 07/25/21 18:09 DC 07/24/21 20:16 Quetiapine Fumarate (SEROquel) 12.5 mg DAILY PO 07/17/21 09:00 07/25/21 18:09 DC 07/25/21 09:24 Artificial Tears (Artificial Tears) 1 drop PRN DAILY PRN OD DRY EYES 07/17/21 08:45 Polyethylene Glycol (miraLAX) 17 gm PRN DAILY PRN PO DRY EYES 07/17/21 08:45 07/17/21 08:42 DC Polyethylene Glycol (miraLAX) 17 gm DAILY PO 07/18/21 09:00 07/26/21 08:46 Vitamin D (Vitamin D3) 50,000 unit WEEKLY PO 07/18/21 15:30 07/18/21 19:11 DC Vitamin D (Vitamin D3) 50,000 unit WEEKLY PO 07/19/21 09:00 07/26/21 08:46 Olanzapine (ZyPREXA ZYDIS) 2.5 mg PRN Q2HR PRN PO PSYCHOSIS 07/26/21 12:00 Divalproex Sodium (Depakote Sprinkles) 125 mg 0900,1700 PO 07/26/21 17:00 07/27/21 17:22 I have reviewed the current psychotropics carefully including drug interactions. Risk benefit ratio favors no change other than as noted in my dictated progress note. Diagnosis: Problems: (1) Dementia in Alzheimer's disease with depression (2) Dementia in Alzheimer's disease with delusions (3) Dementia of the Alzheimer's type with early onset with behavioral disturbance (4) Major neurocognitive disorder (5) Impulse control disorder, unspecified (6) Anxiety disorder, unspecified (7) Dementia, vascular, with depression (8) Dementia, vascular, with delusions LOUIS DAO MD Jul 28, 2021 06:42
[2021-07-28] MEDS: DIVALPROEX 125 MG CAP.SPRINK PO SCH ×2 (08:19→16:57)
[2021-07-28] MEDS: amLODIPine BESYLATE 5 MG TABLET PO SCH (08:19)
[2021-07-28] MEDS: POLYETHYLENE GLYCOL 3350 17 GM PACKET. PO SCH (08:19)
[2021-07-28] MEDS: MULTIVITAMIN with MINERAL TABLET. PO SCH (08:19)
[2021-07-28] MEDS: CITALOPRAM 20 MG TABLET. PO SCH (08:19)
[2021-07-28 15:22] VITALS: BP 134/69
--- NOTE | 2021-07-28 20:58 | PDOC ---
Exam Note: Roderick Note: Please also refer to the separate dictated note~for this date of service dictated separately.~Patient seen individually. Discussed the patient with Nursing staff reviewed the chart.~Reviewed interim history and current functioning. Reviewed vital signs,~Labs/ Radiology~and current medications noted below. Continue current treatment with the changes noted in the dictated addendum note Assessment: Vital Signs/I&O: Vital Signs Date Time Temp Pulse Resp B/P (MAP) Pulse Ox O2 Delivery O2 Flow Rate FiO2 07/28/21 15:22 98.0 72 20 134/69 (90) 96 07/25/21 16:21 Room Air I & O 07/27/21 07/27/21 07/28/21 15:00 23:00 07:00 Intake Total 120 ml 240 ml Balance 120 ml 240 ml Current Medications: Meds: Current Medications Medications (Trade) Dose Ordered Sig/Jin Route PRN Reason Start Time Stop Time Status Last Admin Dose Admin Acetaminophen (Tylenol) 650 mg PRN Q6HRS PRN PO MILD PAIN / TEMP > 100.3'F 07/15/21 13:00 Multi-Ingredient Ointment (Analgesic [place]) 1 lilibeth PRN QID PRN TP MUSCLE PAIN 07/15/21 13:00 Al Hydroxide/Mg Hydroxide (Mylanta Plus Xs) 15 ml PRN AFTMEALHC PRN PO DYSPEPSIA 07/15/21 13:00 Magnesium Hydroxide (Milk Of Magnesia) 2,400 mg PRN QHS PRN PO CONSTIPATION 07/15/21 13:00 Influenza Virus Vaccine Quadrival (Flulaval Quad [id number] Syringe) 0.5 ml ONCE ONCE VAX IM 07/16/21 09:00 07/16/21 09:01 DC 07/16/21 16:00 Amlodipine Besylate (Norvasc) 5 mg DAILY PO 07/16/21 09:00 07/28/21 08:19 Donepezil HCl (Aricept) 10 mg DAILY PO 07/16/21 09:00 07/26/21 11:59 DC 07/26/21 08:46 Ibuprofen (Motrin) 800 mg PRN Q6HRS PRN PO MODERATE PAIN 07/15/21 13:00 Polyethylene Glycol (miraLAX) 17 gm DAILY PO 07/16/21 09:00 07/17/21 08:39 DC 07/17/21 08:14 Artificial Tears (Artificial Tears) 1 drop DAILY OD 07/16/21 09:00 07/17/21 08:38 DC 07/17/21 08:16 Quetiapine Fumarate (SEROquel) 25 mg BID PO 07/15/21 21:00 07/15/21 21:01 DC 07/15/21 20:03 Quetiapine Fumarate (SEROquel) 50 mg BID PO 07/15/21 21:00 07/15/21 20:01 DC Citalopram Hydrobromide (CeleXA) 20 mg DAILY PO 07/16/21 09:00 07/28/21 08:19 Multivitamins/ Calcium (Thera-M Plus) 1 tab DAILY PO 07/16/21 09:00 07/28/21 08:19 Olanzapine (ZyPREXA ZYDIS) 2.5 mg PRN Q4HRS PRN PO PSYCHOSIS 07/15/21 16:30 07/26/21 11:59 DC 07/24/21 09:13 Quetiapine Fumarate (SEROquel) 50 mg BID PO 07/16/21 09:00 07/16/21 15:39 DC 07/16/21 08:05 Quetiapine Fumarate (SEROquel) 25 mg PRN Q6HRS PRN PO ANXIETY 07/16/21 15:45 07/25/21 18:09 DC 07/19/21 01:41 Quetiapine Fumarate (SEROquel) 25 mg HS PO 07/16/21 21:00 07/25/21 18:09 DC 07/24/21 20:16 Quetiapine Fumarate (SEROquel) 12.5 mg DAILY PO 07/17/21 09:00 07/25/21 18:09 DC 07/25/21 09:24 Artificial Tears (Artificial Tears) 1 drop PRN DAILY PRN OD DRY EYES 07/17/21 08:45 Polyethylene Glycol (miraLAX) 17 gm PRN DAILY PRN PO DRY EYES 07/17/21 08:45 07/17/21 08:42 DC Polyethylene Glycol (miraLAX) 17 gm DAILY PO 07/18/21 09:00 07/28/21 08:19 Vitamin D (Vitamin D3) 50,000 unit WEEKLY PO 07/18/21 15:30 07/18/21 19:11 DC Vitamin D (Vitamin D3) 50,000 unit WEEKLY PO 07/19/21 09:00 07/26/21 08:46 Olanzapine (ZyPREXA ZYDIS) 2.5 mg PRN Q2HR PRN PO PSYCHOSIS 07/26/21 12:00 Divalproex Sodium (Depakote Sprinkles) 125 mg 0900,1700 PO 07/26/21 17:00 07/28/21 16:57 I have reviewed the current psychotropics carefully including drug interactions. Risk benefit ratio favors no change other than as noted in my dictated progress note. Diagnosis: Problems: (1) Dementia in Alzheimer's disease with depression (2) Dementia in Alzheimer's disease with delusions (3) Dementia of the Alzheimer's type with early onset with behavioral disturbance (4) Major neurocognitive disorder (5) Impulse control disorder, unspecified (6) Anxiety disorder, unspecified (7) Dementia, vascular, with depression (8) Dementia, vascular, with delusions LOUIS DAO MD Jul 28, 2021 20:58
[2021-07-29 06:40] VITALS: BP 125/59
[2021-07-29] MEDS: MULTIVITAMIN with MINERAL TABLET. PO SCH (08:12)
[2021-07-29] MEDS: CITALOPRAM 20 MG TABLET. PO SCH (08:12)
[2021-07-29] MEDS: POLYETHYLENE GLYCOL 3350 17 GM PACKET. PO SCH (08:12)
[2021-07-29] MEDS: amLODIPine BESYLATE 5 MG TABLET PO SCH (08:12)
[2021-07-29] MEDS: DIVALPROEX 125 MG CAP.SPRINK PO SCH ×2 (08:12→17:39)
[2021-07-29 16:23] VITALS: BP 144/81
--- NOTE | 2021-07-29 21:15 | PDOC ---
Exam Note: Roderick Note: This note is a late entry for 07/28/2021 covers elements not covered in my initial note. Subjective: The patient was seen on telehealth rounds due to COVID-19 pandemic on the unit in the evening of 07/28/2021 with Frank WILSON, discussed and reviewed the chart. The patient slept 4-1/4 hours previous night. She has been withdrawn, spending much time in her room. She is cooperative with assessments and medications. Review of Systems: Impaired ambulation, with walker. No CV, , pulmonary, eye, ENT system symptoms on review. Reliability poor. Mental Status Exam: The patient is oriented to herself. Insight and judgment, recent and remote memory, attention and concentration, fund of knowledge is poor consistent with her diagnoses. Laboratory Data: Reviewed. Impression: Major neurocognitive disorder, early Alzheimer, vascular with delusion, depression behavioral disturbance. Anxiety disorder unspecified. Impulse control disorder unspecified. Plan: Continue current psychotropics. Assessment: Vital Signs/I&O: Vital Signs Date Time Temp Pulse Resp B/P (MAP) Pulse Ox O2 Delivery O2 Flow Rate FiO2 07/29/21 16:23 97.2 65 20 144/81 (102) 96 Room Air I & O 07/28/21 07/28/21 07/29/21 15:00 23:00 07:00 Intake Total 840 ml 360 ml Balance 840 ml 360 ml Current Medications: Meds: Current Medications Medications (Trade) Dose Ordered Sig/Jin Route PRN Reason Start Time Stop Time Status Last Admin Dose Admin Acetaminophen (Tylenol) 650 mg PRN Q6HRS PRN PO MILD PAIN / TEMP > 100.3'F 07/15/21 13:00 Multi-Ingredient Ointment (Analgesic [place]) 1 lilibeth PRN QID PRN TP MUSCLE PAIN 07/15/21 13:00 Al Hydroxide/Mg Hydroxide (Mylanta Plus Xs) 15 ml PRN AFTMEALHC PRN PO DYSPEPSIA 07/15/21 13:00 Magnesium Hydroxide (Milk Of Magnesia) 2,400 mg PRN QHS PRN PO CONSTIPATION 07/15/21 13:00 Influenza Virus Vaccine Quadrival (Flulaval Quad Syringe) 0.5 ml ONCE ONCE VAX IM 07/16/21 09:00 07/16/21 09:01 DC 07/16/21 16:00 Amlodipine Besylate (Norvasc) 5 mg DAILY PO 07/16/21 09:00 07/29/21 08:12 Donepezil HCl (Aricept) 10 mg DAILY PO 07/16/21 09:00 07/26/21 11:59 DC 07/26/21 08:46 Ibuprofen (Motrin) 800 mg PRN Q6HRS PRN PO MODERATE PAIN 07/15/21 13:00 Polyethylene Glycol (miraLAX) 17 gm DAILY PO 07/16/21 09:00 07/17/21 08:39 DC 07/17/21 08:14 Artificial Tears (Artificial Tears) 1 drop DAILY OD 07/16/21 09:00 07/17/21 08:38 DC 07/17/21 08:16 Quetiapine Fumarate (SEROquel) 25 mg BID PO 07/15/21 21:00 07/15/21 21:01 DC 07/15/21 20:03 Quetiapine Fumarate (SEROquel) 50 mg BID PO 07/15/21 21:00 07/15/21 20:01 DC Citalopram Hydrobromide (CeleXA) 20 mg DAILY PO 07/16/21 09:00 07/29/21 08:12 Multivitamins/ Calcium (Thera-M Plus) 1 tab DAILY PO 07/16/21 09:00 07/29/21 08:12 Olanzapine (ZyPREXA ZYDIS) 2.5 mg PRN Q4HRS PRN PO PSYCHOSIS 07/15/21 16:30 07/26/21 11:59 DC 07/24/21 09:13 Quetiapine Fumarate (SEROquel) 50 mg BID PO 07/16/21 09:00 07/16/21 15:39 DC 07/16/21 08:05 Quetiapine Fumarate (SEROquel) 25 mg PRN Q6HRS PRN PO ANXIETY 07/16/21 15:45 07/25/21 18:09 DC 07/19/21 01:41 Quetiapine Fumarate (SEROquel) 25 mg HS PO 07/16/21 21:00 07/25/21 18:09 DC 07/24/21 20:16 Quetiapine Fumarate (SEROquel) 12.5 mg DAILY PO 07/17/21 09:00 07/25/21 18:09 DC 07/25/21 09:24 Artificial Tears (Artificial Tears) 1 drop PRN DAILY PRN OD DRY EYES 07/17/21 08:45 Polyethylene Glycol (miraLAX) 17 gm PRN DAILY PRN PO DRY EYES 07/17/21 08:45 07/17/21 08:42 DC Polyethylene Glycol (miraLAX) 17 gm DAILY PO 07/18/21 09:00 07/29/21 08:12 Vitamin D (Vitamin D3) 50,000 unit WEEKLY PO 07/18/21 15:30 07/18/21 19:11 DC Vitamin D (Vitamin D3) 50,000 unit WEEKLY PO 07/19/21 09:00 07/26/21 08:46 Olanzapine (ZyPREXA ZYDIS) 2.5 mg PRN Q2HR PRN PO PSYCHOSIS 07/26/21 12:00 Divalproex Sodium (Depakote Sprinkles) 125 mg 0900,1700 PO 07/26/21 17:00 07/29/21 17:39 I have reviewed the current psychotropics carefully including drug interactions. Risk benefit ratio favors no change other than as noted in my dictated progress note. 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
--- NOTE | 2021-07-29 21:15 | PDOC ---
Exam Note: Roderick Note: Please also refer to the separate dictated note~for this date of service dictated separately.~Patient seen individually. Discussed the patient with Nursing staff reviewed the chart.~Reviewed interim history and current functioning. Reviewed vital signs,~Labs/ Radiology~and current medications noted below. Continue current treatment with the changes noted in the dictated addendum note Assessment: Vital Signs/I&O: Vital Signs Date Time Temp Pulse Resp B/P (MAP) Pulse Ox O2 Delivery O2 Flow Rate FiO2 07/29/21 16:23 97.2 65 20 144/81 (102) 96 Room Air I & O 07/28/21 07/28/21 07/29/21 15:00 23:00 07:00 Intake Total 840 ml 360 ml Balance 840 ml 360 ml Current Medications: Meds: Current Medications Medications (Trade) Dose Ordered Sig/Jin Route PRN Reason Start Time Stop Time Status Last Admin Dose Admin Acetaminophen (Tylenol) 650 mg PRN Q6HRS PRN PO MILD PAIN / TEMP > 100.3'F 07/15/21 13:00 Multi-Ingredient Ointment (Analgesic [place]) 1 lilibeth PRN QID PRN TP MUSCLE PAIN 07/15/21 13:00 Al Hydroxide/Mg Hydroxide (Mylanta Plus Xs) 15 ml PRN AFTMEALHC PRN PO DYSPEPSIA 07/15/21 13:00 Magnesium Hydroxide (Milk Of Magnesia) 2,400 mg PRN QHS PRN PO CONSTIPATION 07/15/21 13:00 Influenza Virus Vaccine Quadrival (Flulaval Quad [id number] Syringe) 0.5 ml ONCE ONCE VAX IM 07/16/21 09:00 07/16/21 09:01 DC 07/16/21 16:00 Amlodipine Besylate (Norvasc) 5 mg DAILY PO 07/16/21 09:00 07/29/21 08:12 Donepezil HCl (Aricept) 10 mg DAILY PO 07/16/21 09:00 07/26/21 11:59 DC 07/26/21 08:46 Ibuprofen (Motrin) 800 mg PRN Q6HRS PRN PO MODERATE PAIN 07/15/21 13:00 Polyethylene Glycol (miraLAX) 17 gm DAILY PO 07/16/21 09:00 07/17/21 08:39 DC 07/17/21 08:14 Artificial Tears (Artificial Tears) 1 drop DAILY OD 07/16/21 09:00 07/17/21 08:38 DC 07/17/21 08:16 Quetiapine Fumarate (SEROquel) 25 mg BID PO 07/15/21 21:00 07/15/21 21:01 DC 07/15/21 20:03 Quetiapine Fumarate (SEROquel) 50 mg BID PO 07/15/21 21:00 07/15/21 20:01 DC Citalopram Hydrobromide (CeleXA) 20 mg DAILY PO 07/16/21 09:00 07/29/21 08:12 Multivitamins/ Calcium (Thera-M Plus) 1 tab DAILY PO 07/16/21 09:00 07/29/21 08:12 Olanzapine (ZyPREXA ZYDIS) 2.5 mg PRN Q4HRS PRN PO PSYCHOSIS 07/15/21 16:30 07/26/21 11:59 DC 07/24/21 09:13 Quetiapine Fumarate (SEROquel) 50 mg BID PO 07/16/21 09:00 07/16/21 15:39 DC 07/16/21 08:05 Quetiapine Fumarate (SEROquel) 25 mg PRN Q6HRS PRN PO ANXIETY 07/16/21 15:45 07/25/21 18:09 DC 07/19/21 01:41 Quetiapine Fumarate (SEROquel) 25 mg HS PO 07/16/21 21:00 07/25/21 18:09 DC 07/24/21 20:16 Quetiapine Fumarate (SEROquel) 12.5 mg DAILY PO 07/17/21 09:00 07/25/21 18:09 DC 07/25/21 09:24 Artificial Tears (Artificial Tears) 1 drop PRN DAILY PRN OD DRY EYES 07/17/21 08:45 Polyethylene Glycol (miraLAX) 17 gm PRN DAILY PRN PO DRY EYES 07/17/21 08:45 07/17/21 08:42 DC Polyethylene Glycol (miraLAX) 17 gm DAILY PO 07/18/21 09:00 07/29/21 08:12 Vitamin D (Vitamin D3) 50,000 unit WEEKLY PO 07/18/21 15:30 1/2/22 19:11 DC Vitamin D (Vitamin D3) 50,000 unit WEEKLY PO 07/19/21 09:00 07/26/21 08:46 Olanzapine (ZyPREXA ZYDIS) 2.5 mg PRN Q2HR PRN PO PSYCHOSIS 07/26/21 12:00 Divalproex Sodium (Depakote Sprinkles) 125 mg 0900,1700 PO 07/26/21 17:00 07/29/21 17:39 I have reviewed the current psychotropics carefully including drug interactions. Risk benefit ratio favors no change other than as noted in my dictated progress note. 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
[2021-07-30 05:56] VITALS: BP 135/67
[2021-07-30 07:23] LABS: VAL ACID 22 mcg/mL (50-100)
[2021-07-30] MEDS: MULTIVITAMIN with MINERAL TABLET. PO SCH (07:37)
[2021-07-30] MEDS: DIVALPROEX 125 MG CAP.SPRINK PO SCH ×2 (07:38→16:39)
[2021-07-30] MEDS: POLYETHYLENE GLYCOL 3350 17 GM PACKET. PO SCH (07:38)
[2021-07-30] MEDS: amLODIPine BESYLATE 5 MG TABLET PO SCH (07:38)
[2021-07-30] MEDS: CITALOPRAM 20 MG TABLET. PO SCH (07:38)
[2021-07-30 16:14] VITALS: BP 115/69
--- NOTE | 2021-07-30 21:18 | PDOC ---
Exam Note: Roderick Note: Please also refer to the separate dictated note~for this date of service dictated separately.~Patient seen individually. Discussed the patient with Nursing staff reviewed the chart.~Reviewed interim history and current functioning. Reviewed vital signs,~Labs/ Radiology~and current medications noted below. Continue current treatment with the changes noted in the dictated addendum note Assessment: Vital Signs/I&O: Vital Signs Date Time Temp Pulse Resp B/P (MAP) Pulse Ox O2 Delivery O2 Flow Rate FiO2 07/30/21 16:14 98.2 68 16 115/69 (84) 95 Room Air I & O 07/29/21 07/29/21 07/30/21 15:00 23:00 07:00 Intake Total 600 ml 320 ml Balance 600 ml 320 ml Labs: Laboratory Tests Test 07/30/21 06:00 07/30/21 06:53 SARS-CoV-2 (PCR) Not detected (NOT DETECTD) Valproic Acid Level 22 mcg/mL (50-100) L Valproic Acid Last Dose Date 07/29/21 Valproic Acid Last Dose Time 2100 Current Medications: Meds: Laboratory Tests Test 07/30/21 06:00 07/30/21 06:53 Coronavirus (COVID-19)(PCR) Not detected Valproic Acid (Depakene) Level 22 mcg/mL Valproic Acid Last Dose Date 07/29/21 Valproic Acid Last Dose Time 2100 Current Medications Medications (Trade) Dose Ordered Sig/Jin Route PRN Reason Start Time Stop Time Status Last Admin Dose Admin Acetaminophen (Tylenol) 650 mg PRN Q6HRS PRN PO MILD PAIN / TEMP > 100.3'F 07/15/21 13:00 Multi-Ingredient Ointment (Analgesic [place]) 1 lilibeth PRN QID PRN TP MUSCLE PAIN 07/15/21 13:00 Al Hydroxide/Mg Hydroxide (Mylanta Plus Xs) 15 ml PRN AFTMEALHC PRN PO DYSPEPSIA 07/15/21 13:00 Magnesium Hydroxide (Milk Of Magnesia) 2,400 mg PRN QHS PRN PO CONSTIPATION 07/15/21 13:00 Influenza Virus Vaccine Quadrival (Flulaval Quad [id number] Syringe) 0.5 ml ONCE ONCE VAX IM 07/16/21 09:00 07/16/21 09:01 DC 07/16/21 16:00 Amlodipine Besylate (Norvasc) 5 mg DAILY PO 07/16/21 09:00 07/30/21 07:38 Donepezil HCl (Aricept) 10 mg DAILY PO 07/16/21 09:00 07/26/21 11:59 DC 07/26/21 08:46 Ibuprofen (Motrin) 800 mg PRN Q6HRS PRN PO MODERATE PAIN 07/15/21 13:00 Polyethylene Glycol (miraLAX) 17 gm DAILY PO 07/16/21 09:00 07/17/21 08:39 DC 07/17/21 08:14 Artificial Tears (Artificial Tears) 1 drop DAILY OD 07/16/21 09:00 07/17/21 08:38 DC 07/17/21 08:16 Quetiapine Fumarate (SEROquel) 25 mg BID PO 07/15/21 21:00 07/15/21 21:01 DC 07/15/21 20:03 Quetiapine Fumarate (SEROquel) 50 mg BID PO 07/15/21 21:00 07/15/21 20:01 DC Citalopram Hydrobromide (CeleXA) 20 mg DAILY PO 07/16/21 09:00 07/30/21 07:38 Multivitamins/ Calcium (Thera-M Plus) 1 tab DAILY PO 07/16/21 09:00 07/30/21 07:37 Olanzapine (ZyPREXA ZYDIS) 2.5 mg PRN Q4HRS PRN PO PSYCHOSIS 07/15/21 16:30 07/26/21 11:59 DC 07/24/21 09:13 Quetiapine Fumarate (SEROquel) 50 mg BID PO 07/16/21 09:00 07/16/21 15:39 DC 07/16/21 08:05 Quetiapine Fumarate (SEROquel) 25 mg PRN Q6HRS PRN PO ANXIETY 07/16/21 15:45 07/25/21 18:09 DC 07/19/21 01:41 Quetiapine Fumarate (SEROquel) 25 mg HS PO 07/16/21 21:00 07/25/21 18:09 DC 07/24/21 20:16 Quetiapine Fumarate (SEROquel) 12.5 mg DAILY PO 07/17/21 09:00 07/25/21 18:09 DC 07/25/21 09:24 Artificial Tears (Artificial Tears) 1 drop PRN DAILY PRN OD DRY EYES 07/17/21 08:45 Polyethylene Glycol (miraLAX) 17 gm PRN DAILY PRN PO DRY EYES 07/17/21 08:45 07/17/21 08:42 DC Polyethylene Glycol (miraLAX) 17 gm DAILY PO 07/18/21 09:00 07/30/21 07:38 Vitamin D (Vitamin D3) 50,000 unit WEEKLY PO 07/18/21 15:30 07/18/21 19:11 DC Vitamin D (Vitamin D3) 50,000 unit WEEKLY PO 07/19/21 09:00 07/26/21 08:46 Olanzapine (ZyPREXA ZYDIS) 2.5 mg PRN Q2HR PRN PO PSYCHOSIS 07/26/21 12:00 Divalproex Sodium (Depakote Sprinkles) 125 mg 0900,1700 PO 07/26/21 17:00 07/30/21 16:39 I have reviewed the current psychotropics carefully including drug interactions. Risk benefit ratio favors no change other than as noted in my dictated progress note. 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
[2021-07-31 05:51] VITALS: BP 161/81
--- NOTE | 2021-07-31 07:16 | PDOC ---
Exam Note: Roderick Note: This note is a late entry for 07/29/2021 covers elements not covered in my initial note. Subjective: The patient was seen face to face in the evening of 07/29/2021 with Frank WILSON, discussed and reviewed the chart. The patient slept 7 hours previous night. Overall she remains confused but not agitated. Review of Systems: Impaired ambulation, with walker. No CV, , pulmonary, eye, ENT system symptoms on review. Reliability poor. Mental Status Exam: The patient is oriented to herself and situation. Speech coherent. Thought processes goal directed. Intellect average. Insight limited. Judgment intact to standard questioning. Mood and affect somewhat dysphoric and anxious. Short-term memory is impaired. Laboratory Data: Reviewed. Impression: Major neurocognitive disorder, early Alzheimer, vascular with delusion, depression behavioral disturbance. Anxiety disorder unspecified. Impulse control disorder unspecified. Plan: Continue current psychotropics. She is currently on Depakote 125 mg b.i.d. We will check valproic acid level on 07/30, Aricept has been discontinued. She remains on Celexa, Zyprexa p.r.n. Assessment: Vital Signs/I&O: Vital Signs Date Time Temp Pulse Resp B/P (MAP) Pulse Ox O2 Delivery O2 Flow Rate FiO2 07/31/21 05:51 97.8 84 20 161/81 (107) 97 07/30/21 16:14 Room Air I & O 07/30/21 07/30/21 07/31/21 15:00 23:00 07:00 Intake Total 600 ml 360 ml Balance 600 ml 360 ml Current Medications: Meds: Current Medications Medications (Trade) Dose Ordered Sig/Jin Route PRN Reason Start Time Stop Time Status Last Admin Dose Admin Acetaminophen (Tylenol) 650 mg PRN Q6HRS PRN PO MILD PAIN / TEMP > 100.3'F 07/15/21 13:00 Multi-Ingredient Ointment (Analgesic [place]) 1 lilibeth PRN QID PRN TP MUSCLE PAIN 07/15/21 13:00 Al Hydroxide/Mg Hydroxide (Mylanta Plus Xs) 15 ml PRN AFTMEALHC PRN PO DYSPEPSIA 07/15/21 13:00 Magnesium Hydroxide (Milk Of Magnesia) 2,400 mg PRN QHS PRN PO CONSTIPATION 07/15/21 13:00 Influenza Virus Vaccine Quadrival (Flulaval Quad [id number] Syringe) 0.5 ml ONCE ONCE VAX IM 07/16/21 09:00 07/16/21 09:01 DC 07/16/21 16:00 Amlodipine Besylate (Norvasc) 5 mg DAILY PO 07/16/21 09:00 07/30/21 07:38 Donepezil HCl (Aricept) 10 mg DAILY PO 07/16/21 09:00 07/26/21 11:59 DC 07/26/21 08:46 Ibuprofen (Motrin) 800 mg PRN Q6HRS PRN PO MODERATE PAIN 07/15/21 13:00 Polyethylene Glycol (miraLAX) 17 gm DAILY PO 07/16/21 09:00 07/17/21 08:39 DC 07/17/21 08:14 Artificial Tears (Artificial Tears) 1 drop DAILY OD 07/16/21 09:00 07/17/21 08:38 DC 07/17/21 08:16 Quetiapine Fumarate (SEROquel) 25 mg BID PO 07/15/21 21:00 07/15/21 21:01 DC 07/15/21 20:03 Quetiapine Fumarate (SEROquel) 50 mg BID PO 07/15/21 21:00 07/15/21 20:01 DC Citalopram Hydrobromide (CeleXA) 20 mg DAILY PO 07/16/21 09:00 07/30/21 07:38 Multivitamins/ Calcium (Thera-M Plus) 1 tab DAILY PO 07/16/21 09:00 07/30/21 07:37 Olanzapine (ZyPREXA ZYDIS) 2.5 mg PRN Q4HRS PRN PO PSYCHOSIS 07/15/21 16:30 07/26/21 11:59 DC 07/24/21 09:13 Quetiapine Fumarate (SEROquel) 50 mg BID PO 07/16/21 09:00 07/16/21 15:39 DC 07/16/21 08:05 Quetiapine Fumarate (SEROquel) 25 mg PRN Q6HRS PRN PO ANXIETY 07/16/21 15:45 07/25/21 18:09 DC 07/19/21 01:41 Quetiapine Fumarate (SEROquel) 25 mg HS PO 07/16/21 21:00 07/25/21 18:09 DC 07/24/21 20:16 Quetiapine Fumarate (SEROquel) 12.5 mg DAILY PO 07/17/21 09:00 07/25/21 18:09 DC 07/25/21 09:24 Artificial Tears (Artificial Tears) 1 drop PRN DAILY PRN OD DRY EYES 07/17/21 08:45 Polyethylene Glycol (miraLAX) 17 gm PRN DAILY PRN PO DRY EYES 07/17/21 08:45 07/17/21 08:42 DC Polyethylene Glycol (miraLAX) 17 gm DAILY PO 07/18/21 09:00 07/30/21 07:38 Vitamin D (Vitamin D3) 50,000 unit WEEKLY PO 07/18/21 15:30 07/18/21 19:11 DC Vitamin D (Vitamin D3) 50,000 unit WEEKLY PO 07/19/21 09:00 07/26/21 08:46 Olanzapine (ZyPREXA ZYDIS) 2.5 mg PRN Q2HR PRN PO PSYCHOSIS 07/26/21 12:00 Divalproex Sodium (Depakote Sprinkles) 125 mg 0900,1700 PO 07/26/21 17:00 07/30/21 16:39 I have reviewed the current psychotropics carefully including drug interactions. Risk benefit ratio favors no change other than as noted in my dictated progress note. 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
[2021-07-31 07:18] LABS: BASO # 0.2 x10^3/uL (0.0-0.2); BASO % 3 % (0-3); EOS # 0.2 x10^3/uL (0.0-0.7); EOS % 3 % (0-3); HEMATOCRIT 38.7 % (36.0-47.0); LYMPH # 1.9 x10^3/uL (1.0-4.8); LYMPH % 29 % (24-48); MEAN CORPUSCULAR HEMOGLOBIN 32 pg (25-35); MEAN CORPUSCULAR HGB CONC 34 g/dL (31-37); MEAN CORPUSCULAR VOLUME 96 fL (79-100); MONO # 0.7 x10^3/uL (0.0-1.1); MONO % 10 % (0-9); NEUT # 3.7 x10^3uL (1.8-7.7); NEUT % 56 % (31-73); PLATELET COUNT 284 x10^3/uL (140-400); RED BLOOD COUNT 4.04 x10^6/uL (3.50-5.40); RED CELL DISTRIBUTION WIDTH 13.3 % (11.5-14.5); WHITE BLOOD COUNT 6.7 x10^3/uL (4.0-11.0)
[2021-07-31 07:41] LABS: ALBUMIN 3.3 g/dL (3.4-5.0); ALBUMIN/GLOBULIN RATIO 0.9 (1.0-1.7); CALCIUM 8.4 mg/dL (8.5-10.1); CREATININE 0.8 mg/dL (0.6-1.0); GFR 68.5; POTASSIUM 4.1 mmol/L (3.5-5.1); TOTAL BILIRUBIN 0.4 mg/dL (0.2-1.0); TOTAL PROTEIN 7.1 g/dL (6.4-8.2)
--- NOTE | 2021-07-31 07:55 | PDOC ---
Exam Note: Roderick Note: This note is a late entry for 07/30/2021 covers elements not covered in my initial note. Subjective: The patient was seen on telehealth rounds in the evening of 07/30/2021 with Nisreen WILSON, discussed and reviewed the chart. The patient slept 8-1/2 hours previous night. Overall she was somewhat irritable last evening but did reasonably well during the day today. She is quite animated and verbal as I met with her. Review of Systems: Impaired ambulation, with walker. No CV, , pulmonary, eye, ENT system symptoms on review. Mental Status Exam: The patient is oriented to herself and situation. Speech is coherent. She was animated, verbal, smiling at times. Abstraction fair. Computation impaired. Language function intact. Mood and affect somewhat withdrawn. Laboratory Data: Reviewed. Impression: Major neurocognitive disorder, early Alzheimer, vascular with delusion, depression behavioral disturbance. Anxiety disorder unspecified. Impulse control disorder unspecified. Plan: Continue current psychotropics. Valproic acid level is awaited. We may need to adjust further as clinically indicated. Assessment: Vital Signs/I&O: Vital Signs Date Time Temp Pulse Resp B/P (MAP) Pulse Ox O2 Delivery O2 Flow Rate FiO2 07/31/21 05:51 97.8 84 20 161/81 (107) 97 07/30/21 16:14 Room Air I & O 07/30/21 07/30/21 07/31/21 15:00 23:00 07:00 Intake Total 600 ml 360 ml Balance 600 ml 360 ml Labs: Laboratory Tests Test 07/31/21 07:07 White Blood Count 6.7 x10^3/uL (4.0-11.0) Red Blood Count 4.04 x10^6/uL (3.50-5.40) Hemoglobin 13.0 g/dL (12.0-15.5) Hematocrit 38.7 % (36.0-47.0) Mean Corpuscular Volume 96 fL (79-100) Mean Corpuscular Hemoglobin 32 pg (25-35) Mean Corpuscular Hemoglobin Concent 34 g/dL (31-37) Red Cell Distribution Width 13.3 % (11.5-14.5) Platelet Count 284 x10^3/uL (140-400) Neutrophils (%) (Auto) 56 % (31-73) Lymphocytes (%) (Auto) 29 % (24-48) Monocytes (%) (Auto) 10 % (0-9) H Eosinophils (%) (Auto) 3 % (0-3) Basophils (%) (Auto) 3 % (0-3) Neutrophils # (Auto) 3.7 x10^3uL (1.8-7.7) Lymphocytes # (Auto) 1.9 x10^3/uL (1.0-4.8) Monocytes # (Auto) 0.7 x10^3/uL (0.0-1.1) Eosinophils # (Auto) 0.2 x10^3/uL (0.0-0.7) Basophils # (Auto) 0.2 x10^3/uL (0.0-0.2) Sodium Level 140 mmol/L (136-145) Potassium Level 4.1 mmol/L (3.5-5.1) Chloride Level 104 mmol/L (98-107) Carbon Dioxide Level 29 mmol/L (21-32) Anion Gap 7 (6-14) Blood Urea Nitrogen 19 mg/dL (7-20) Creatinine 0.8 mg/dL (0.6-1.0) Estimated GFR (Cockcroft-Gault) 68.5 BUN/Creatinine Ratio 24 (6-20) H Glucose Level 87 mg/dL (70-99) Calcium Level 8.4 mg/dL (8.5-10.1) L Total Bilirubin 0.4 mg/dL (0.2-1.0) Aspartate Amino Transferase (AST) 23 U/L (15-37) Alanine Aminotransferase (ALT) 18 U/L (14-59) Alkaline Phosphatase 84 U/L (46-116) Total Protein 7.1 g/dL (6.4-8.2) Albumin 3.3 g/dL (3.4-5.0) L Albumin/Globulin Ratio 0.9 (1.0-1.7) L Current Medications: Meds: Laboratory Tests Test 07/31/21 07:07 White Blood Count 6.7 x10^3/uL Red Blood Count 4.04 x10^6/uL Hemoglobin 13.0 g/dL Hematocrit 38.7 % Mean Corpuscular Volume 96 fL Mean Corpuscular Hemoglobin 32 pg Mean Corpuscular Hemoglobin Concent 34 g/dL Red Cell Distribution Width 13.3 % Platelet Count 284 x10^3/uL Neutrophils (%) (Auto) 56 % Lymphocytes (%) (Auto) 29 % Monocytes (%) (Auto) 10 % Eosinophils (%) (Auto) 3 % Basophils (%) (Auto) 3 % Neutrophils # (Auto) 3.7 x10^3uL Lymphocytes # (Auto) 1.9 x10^3/uL Monocytes # (Auto) 0.7 x10^3/uL Eosinophils # (Auto) 0.2 x10^3/uL Basophils # (Auto) 0.2 x10^3/uL Sodium Level 140 mmol/L Potassium Level 4.1 mmol/L Chloride Level 104 mmol/L Carbon Dioxide Level 29 mmol/L Anion Gap 7 Blood Urea Nitrogen 19 mg/dL Creatinine 0.8 mg/dL Estimated GFR (Cockcroft-Gault) 68.5 BUN/Creatinine Ratio 24 Glucose Level 87 mg/dL Calcium Level 8.4 mg/dL Total Bilirubin 0.4 mg/dL Aspartate Amino Transf (AST/SGOT) 23 U/L Alanine Aminotransferase (ALT/SGPT) 18 U/L Alkaline Phosphatase 84 U/L Total Protein 7.1 g/dL Albumin 3.3 g/dL Albumin/Globulin Ratio 0.9 Current Medications Medications (Trade) Dose Ordered Sig/Jin Route PRN Reason Start Time Stop Time Status Last Admin Dose Admin Acetaminophen (Tylenol) 650 mg PRN Q6HRS PRN PO MILD PAIN / TEMP > 100.3'F 07/15/21 13:00 Multi-Ingredient Ointment (Analgesic [place]) 1 lilibeth PRN QID PRN TP MUSCLE PAIN 07/15/21 13:00 Al Hydroxide/Mg Hydroxide (Mylanta Plus Xs) 15 ml PRN AFTMEALHC PRN PO DYSPEPSIA 07/15/21 13:00 Magnesium Hydroxide (Milk Of Magnesia) 2,400 mg PRN QHS PRN PO CONSTIPATION 07/15/21 13:00 Influenza Virus Vaccine Quadrival (Flulaval Quad Syringe) 0.5 ml ONCE ONCE VAX IM 07/16/21 09:00 07/16/21 09:01 DC 07/16/21 16:00 Amlodipine Besylate (Norvasc) 5 mg DAILY PO 07/16/21 09:00 07/30/21 07:38 Donepezil HCl (Aricept) 10 mg DAILY PO 07/16/21 09:00 07/26/21 11:59 DC 07/26/21 08:46 Ibuprofen (Motrin) 800 mg PRN Q6HRS PRN PO MODERATE PAIN 07/15/21 13:00 Polyethylene Glycol (miraLAX) 17 gm DAILY PO 07/16/21 09:00 07/17/21 08:39 DC 07/17/21 08:14 Artificial Tears (Artificial Tears) 1 drop DAILY OD 07/16/21 09:00 07/17/21 08:38 DC 07/17/21 08:16 Quetiapine Fumarate (SEROquel) 25 mg BID PO 07/15/21 21:00 07/15/21 21:01 DC 07/15/21 20:03 Quetiapine Fumarate (SEROquel) 50 mg BID PO 07/15/21 21:00 07/15/21 20:01 DC Citalopram Hydrobromide (CeleXA) 20 mg DAILY PO 07/16/21 09:00 07/30/21 07:38 Multivitamins/ Calcium (Thera-M Plus) 1 tab DAILY PO 07/16/21 09:00 07/30/21 07:37 Olanzapine (ZyPREXA ZYDIS) 2.5 mg PRN Q4HRS PRN PO PSYCHOSIS 07/15/21 16:30 07/26/21 11:59 DC 07/24/21 09:13 Quetiapine Fumarate (SEROquel) 50 mg BID PO 07/16/21 09:00 07/16/21 15:39 DC 07/16/21 08:05 Quetiapine Fumarate (SEROquel) 25 mg PRN Q6HRS PRN PO ANXIETY 07/16/21 15:45 07/25/21 18:09 DC 07/19/21 01:41 Quetiapine Fumarate (SEROquel) 25 mg HS PO 07/16/21 21:00 07/25/21 18:09 DC 07/24/21 20:16 Quetiapine Fumarate (SEROquel) 12.5 mg DAILY PO 07/17/21 09:00 07/25/21 18:09 DC 07/25/21 09:24 Artificial Tears (Artificial Tears) 1 drop PRN DAILY PRN OD DRY EYES 1/1/22 08:45 Polyethylene Glycol (miraLAX) 17 gm PRN DAILY PRN PO DRY EYES 07/17/21 08:45 07/17/21 08:42 DC Polyethylene Glycol (miraLAX) 17 gm DAILY PO 07/18/21 09:00 07/30/21 07:38 Vitamin D (Vitamin D3) 50,000 unit WEEKLY PO 07/18/21 15:30 07/18/21 19:11 DC Vitamin D (Vitamin D3) 50,000 unit WEEKLY PO 07/19/21 09:00 07/26/21 08:46 Olanzapine (ZyPREXA ZYDIS) 2.5 mg PRN Q2HR PRN PO PSYCHOSIS 07/26/21 12:00 Divalproex Sodium (Depakote Sprinkles) 125 mg 0900,1700 PO 07/26/21 17:00 07/30/21 16:39 I have reviewed the current psychotropics carefully including drug interactions. Risk benefit ratio favors no change other than as noted in my dictated progress note. 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
[2021-07-31] MEDS: POLYETHYLENE GLYCOL 3350 17 GM PACKET. PO SCH (08:32)
[2021-07-31] MEDS: DIVALPROEX 125 MG CAP.SPRINK PO SCH ×2 (08:33→17:02)
[2021-07-31] MEDS: MULTIVITAMIN with MINERAL TABLET. PO SCH (08:33)
[2021-07-31] MEDS: CITALOPRAM 20 MG TABLET. PO SCH (08:33)
[2021-07-31] MEDS: amLODIPine BESYLATE 5 MG TABLET PO SCH (08:33)
[2021-07-31 16:07] VITALS: BP 154/83
--- NOTE | 2021-07-31 21:35 | PDOC ---
Exam Note: Roderick Note: Please also refer to the separate dictated note~for this date of service dictated separately.~Patient seen individually. Discussed the patient with Nursing staff reviewed the chart.~Reviewed interim history and current functioning. Reviewed vital signs,~Labs/ Radiology~and current medications noted below. Continue current treatment with the changes noted in the dictated addendum note Assessment: Vital Signs/I&O: Vital Signs Date Time Temp Pulse Resp B/P (MAP) Pulse Ox O2 Delivery O2 Flow Rate FiO2 07/31/21 16:07 97.9 78 20 154/83 (106) 97 Room Air I & O 07/30/21 07/30/21 07/31/21 14:59 22:59 06:59 Intake Total 600 ml 360 ml Balance 600 ml 360 ml Labs: Laboratory Tests Test 07/31/21 07:07 White Blood Count 6.7 x10^3/uL (4.0-11.0) Red Blood Count 4.04 x10^6/uL (3.50-5.40) Hemoglobin 13.0 g/dL (12.0-15.5) Hematocrit 38.7 % (36.0-47.0) Mean Corpuscular Volume 96 fL (79-100) Mean Corpuscular Hemoglobin 32 pg (25-35) Mean Corpuscular Hemoglobin Concent 34 g/dL (31-37) Red Cell Distribution Width 13.3 % (11.5-14.5) Platelet Count 284 x10^3/uL (140-400) Neutrophils (%) (Auto) 56 % (31-73) Lymphocytes (%) (Auto) 29 % (24-48) Monocytes (%) (Auto) 10 % (0-9) H Eosinophils (%) (Auto) 3 % (0-3) Basophils (%) (Auto) 3 % (0-3) Neutrophils # (Auto) 3.7 x10^3uL (1.8-7.7) Lymphocytes # (Auto) 1.9 x10^3/uL (1.0-4.8) Monocytes # (Auto) 0.7 x10^3/uL (0.0-1.1) Eosinophils # (Auto) 0.2 x10^3/uL (0.0-0.7) Basophils # (Auto) 0.2 x10^3/uL (0.0-0.2) Sodium Level 140 mmol/L (136-145) Potassium Level 4.1 mmol/L (3.5-5.1) Chloride Level 104 mmol/L (98-107) Carbon Dioxide Level 29 mmol/L (21-32) Anion Gap 7 (6-14) Blood Urea Nitrogen 19 mg/dL (7-20) Creatinine 0.8 mg/dL (0.6-1.0) Estimated GFR (Cockcroft-Gault) 68.5 BUN/Creatinine Ratio 24 (6-20) H Glucose Level 87 mg/dL (70-99) Calcium Level 8.4 mg/dL (8.5-10.1) L Total Bilirubin 0.4 mg/dL (0.2-1.0) Aspartate Amino Transferase (AST) 23 U/L (15-37) Alanine Aminotransferase (ALT) 18 U/L (14-59) Alkaline Phosphatase 84 U/L (46-116) Total Protein 7.1 g/dL (6.4-8.2) Albumin 3.3 g/dL (3.4-5.0) L Albumin/Globulin Ratio 0.9 (1.0-1.7) L Current Medications: Meds: Laboratory Tests Test 07/31/21 07:07 White Blood Count 6.7 x10^3/uL Red Blood Count 4.04 x10^6/uL Hemoglobin 13.0 g/dL Hematocrit 38.7 % Mean Corpuscular Volume 96 fL Mean Corpuscular Hemoglobin 32 pg Mean Corpuscular Hemoglobin Concent 34 g/dL Red Cell Distribution Width 13.3 % Platelet Count 284 x10^3/uL Neutrophils (%) (Auto) 56 % Lymphocytes (%) (Auto) 29 % Monocytes (%) (Auto) 10 % Eosinophils (%) (Auto) 3 % Basophils (%) (Auto) 3 % Neutrophils # (Auto) 3.7 x10^3uL Lymphocytes # (Auto) 1.9 x10^3/uL Monocytes # (Auto) 0.7 x10^3/uL Eosinophils # (Auto) 0.2 x10^3/uL Basophils # (Auto) 0.2 x10^3/uL Sodium Level 140 mmol/L Potassium Level 4.1 mmol/L Chloride Level 104 mmol/L Carbon Dioxide Level 29 mmol/L Anion Gap 7 Blood Urea Nitrogen 19 mg/dL Creatinine 0.8 mg/dL Estimated GFR (Cockcroft-Gault) 68.5 BUN/Creatinine Ratio 24 Glucose Level 87 mg/dL Calcium Level 8.4 mg/dL Total Bilirubin 0.4 mg/dL Aspartate Amino Transf (AST/SGOT) 23 U/L Alanine Aminotransferase (ALT/SGPT) 18 U/L Alkaline Phosphatase 84 U/L Total Protein 7.1 g/dL Albumin 3.3 g/dL Albumin/Globulin Ratio 0.9 Current Medications Medications (Trade) Dose Ordered Sig/Jin Route PRN Reason Start Time Stop Time Status Last Admin Dose Admin Acetaminophen (Tylenol) 650 mg PRN Q6HRS PRN PO MILD PAIN / TEMP > 100.3'F 07/15/21 13:00 Multi-Ingredient Ointment (Analgesic [place]) 1 lilibeth PRN QID PRN TP MUSCLE PAIN 07/15/21 13:00 Al Hydroxide/Mg Hydroxide (Mylanta Plus Xs) 15 ml PRN AFTMEALHC PRN PO DYSPEPSIA 07/15/21 13:00 Magnesium Hydroxide (Milk Of Magnesia) 2,400 mg PRN QHS PRN PO CONSTIPATION 07/15/21 13:00 Influenza Virus Vaccine Quadrival (Flulaval Quad [id number] Syringe) 0.5 ml ONCE ONCE VAX IM 07/16/21 09:00 07/16/21 09:01 DC 07/16/21 16:00 Amlodipine Besylate (Norvasc) 5 mg DAILY PO 07/16/21 09:00 07/31/21 08:33 Donepezil HCl (Aricept) 10 mg DAILY PO 07/16/21 09:00 07/26/21 11:59 DC 07/26/21 08:46 Ibuprofen (Motrin) 800 mg PRN Q6HRS PRN PO MODERATE PAIN 07/15/21 13:00 Polyethylene Glycol (miraLAX) 17 gm DAILY PO 07/16/21 09:00 07/17/21 08:39 DC 07/17/21 08:14 Artificial Tears (Artificial Tears) 1 drop DAILY OD 07/16/21 09:00 07/17/21 08:38 DC 07/17/21 08:16 Quetiapine Fumarate (SEROquel) 25 mg BID PO 07/15/21 21:00 07/15/21 21:01 DC 07/15/21 20:03 Quetiapine Fumarate (SEROquel) 50 mg BID PO 07/15/21 21:00 07/15/21 20:01 DC Citalopram Hydrobromide (CeleXA) 20 mg DAILY PO 07/16/21 09:00 07/31/21 08:33 Multivitamins/ Calcium (Thera-M Plus) 1 tab DAILY PO 07/16/21 09:00 07/31/21 08:33 Olanzapine (ZyPREXA ZYDIS) 2.5 mg PRN Q4HRS PRN PO PSYCHOSIS 07/15/21 16:30 07/26/21 11:59 DC 07/24/21 09:13 Quetiapine Fumarate (SEROquel) 50 mg BID PO 07/16/21 09:00 07/16/21 15:39 DC 07/16/21 08:05 Quetiapine Fumarate (SEROquel) 25 mg PRN Q6HRS PRN PO ANXIETY 07/16/21 15:45 07/25/21 18:09 DC 07/19/21 01:41 Quetiapine Fumarate (SEROquel) 25 mg HS PO 07/16/21 21:00 07/25/21 18:09 DC 07/24/21 20:16 Quetiapine Fumarate (SEROquel) 12.5 mg DAILY PO 07/17/21 09:00 07/25/21 18:09 DC 07/25/21 09:24 Artificial Tears (Artificial Tears) 1 drop PRN DAILY PRN OD DRY EYES 07/17/21 08:45 Polyethylene Glycol (miraLAX) 17 gm PRN DAILY PRN PO DRY EYES 07/17/21 08:45 07/17/21 08:42 DC Polyethylene Glycol (miraLAX) 17 gm DAILY PO 07/18/21 09:00 07/31/21 08:32 Vitamin D (Vitamin D3) 50,000 unit WEEKLY PO 07/18/21 15:30 07/18/21 19:11 DC Vitamin D (Vitamin D3) 50,000 unit WEEKLY PO 07/19/21 09:00 07/26/21 08:46 Olanzapine (ZyPREXA ZYDIS) 2.5 mg PRN Q2HR PRN PO PSYCHOSIS 07/26/21 12:00 Divalproex Sodium (Depakote Sprinkles) 125 mg 0900,1700 PO 07/26/21 17:00 07/31/21 17:02 I have reviewed the current psychotropics carefully including drug interactions. Risk benefit ratio favors no change other than as noted in my dictated progress note. 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
[2021-08-01 06:35] VITALS: BP 127/76
[2021-08-01] MEDS: CITALOPRAM 20 MG TABLET. PO SCH (08:12)
[2021-08-01] MEDS: DIVALPROEX 125 MG CAP.SPRINK PO SCH ×2 (08:12→17:20)
[2021-08-01] MEDS: MULTIVITAMIN with MINERAL TABLET. PO SCH (08:12)
[2021-08-01] MEDS: POLYETHYLENE GLYCOL 3350 17 GM PACKET. PO SCH (08:13)
[2021-08-01] MEDS: amLODIPine BESYLATE 5 MG TABLET PO SCH (08:14)
[2021-08-01 15:37] VITALS: BP 140/66
--- NOTE | 2021-08-01 21:38 | PDOC ---
Exam Note: Roderick Note: Please also refer to the separate dictated note~for this date of service dictated separately.~Patient seen individually. Discussed the patient with Nursing staff reviewed the chart.~Reviewed interim history and current functioning. Reviewed vital signs,~Labs/ Radiology~and current medications noted below. Continue current treatment with the changes noted in the dictated addendum note Assessment: Vital Signs/I&O: Vital Signs Date Time Temp Pulse Resp B/P (MAP) Pulse Ox O2 Delivery O2 Flow Rate FiO2 08/01/21 15:37 97.8 80 140/66 (90) 97 Room Air 08/01/21 06:35 16 I & O 07/31/21 07/31/21 08/01/21 15:00 23:00 07:00 Intake Total 600 ml 480 ml Balance 600 ml 480 ml Current Medications: Meds: Current Medications Medications (Trade) Dose Ordered Sig/Jin Route PRN Reason Start Time Stop Time Status Last Admin Dose Admin Acetaminophen (Tylenol) 650 mg PRN Q6HRS PRN PO MILD PAIN / TEMP > 100.3'F 07/15/21 13:00 Multi-Ingredient Ointment (Analgesic [place]) 1 lilibeth PRN QID PRN TP MUSCLE PAIN 07/15/21 13:00 Al Hydroxide/Mg Hydroxide (Mylanta Plus Xs) 15 ml PRN AFTMEALHC PRN PO DYSPEPSIA 07/15/21 13:00 Magnesium Hydroxide (Milk Of Magnesia) 2,400 mg PRN QHS PRN PO CONSTIPATION 07/15/21 13:00 Influenza Virus Vaccine Quadrival (Flulaval Quad [id number] Syringe) 0.5 ml ONCE ONCE VAX IM 07/16/21 09:00 07/16/21 09:01 DC 07/16/21 16:00 Amlodipine Besylate (Norvasc) 5 mg DAILY PO 07/16/21 09:00 08/01/21 08:14 Donepezil HCl (Aricept) 10 mg DAILY PO 07/16/21 09:00 07/26/21 11:59 DC 07/26/21 08:46 Ibuprofen (Motrin) 800 mg PRN Q6HRS PRN PO MODERATE PAIN 07/15/21 13:00 Polyethylene Glycol (miraLAX) 17 gm DAILY PO 07/16/21 09:00 07/17/21 08:39 DC 07/17/21 08:14 Artificial Tears (Artificial Tears) 1 drop DAILY OD 07/16/21 09:00 07/17/21 08:38 DC 07/17/21 08:16 Quetiapine Fumarate (SEROquel) 25 mg BID PO 07/15/21 21:00 07/15/21 21:01 DC 07/15/21 20:03 Quetiapine Fumarate (SEROquel) 50 mg BID PO 07/15/21 21:00 07/15/21 20:01 DC Citalopram Hydrobromide (CeleXA) 20 mg DAILY PO 07/16/21 09:00 08/01/21 08:12 Multivitamins/ Calcium (Thera-M Plus) 1 tab DAILY PO 07/16/21 09:00 08/01/21 08:12 Olanzapine (ZyPREXA ZYDIS) 2.5 mg PRN Q4HRS PRN PO PSYCHOSIS 07/15/21 16:30 07/26/21 11:59 DC 07/24/21 09:13 Quetiapine Fumarate (SEROquel) 50 mg BID PO 07/16/21 09:00 07/16/21 15:39 DC 07/16/21 08:05 Quetiapine Fumarate (SEROquel) 25 mg PRN Q6HRS PRN PO ANXIETY 07/16/21 15:45 07/25/21 18:09 DC 07/19/21 01:41 Quetiapine Fumarate (SEROquel) 25 mg HS PO 07/16/21 21:00 07/25/21 18:09 DC 07/24/21 20:16 Quetiapine Fumarate (SEROquel) 12.5 mg DAILY PO 07/17/21 09:00 07/25/21 18:09 DC 07/25/21 09:24 Artificial Tears (Artificial Tears) 1 drop PRN DAILY PRN OD DRY EYES 07/17/21 08:45 Polyethylene Glycol (miraLAX) 17 gm PRN DAILY PRN PO DRY EYES 07/17/21 08:45 07/17/21 08:42 DC Polyethylene Glycol (miraLAX) 17 gm DAILY PO 07/18/21 09:00 08/01/21 08:13 Vitamin D (Vitamin D3) 50,000 unit WEEKLY PO 07/18/21 15:30 07/18/21 19:11 DC Vitamin D (Vitamin D3) 50,000 unit WEEKLY PO 07/19/21 09:00 07/26/21 08:46 Olanzapine (ZyPREXA ZYDIS) 2.5 mg PRN Q2HR PRN PO PSYCHOSIS 07/26/21 12:00 Divalproex Sodium (Depakote Sprinkles) 125 mg 0900,1700 PO 07/26/21 17:00 08/01/21 17:20 I have reviewed the current psychotropics carefully including drug interactions. Risk benefit ratio favors no change other than as noted in my dictated progress note. 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
[2021-08-02 06:10] VITALS: BP 146/80
--- NOTE | 2021-08-02 07:23 | PDOC ---
Exam Note: Roderick Note: This note is a late entry for 07/31/2021 covers elements not covered in my initial note. Subjective: The patient was seen on telehealth rounds in the evening of 07/31/2021 with Nisreen WILSON, discussed and reviewed the chart. The patient slept 5-1/2 hours previous night. Overall she is doing reasonably well. She is quite obsessive, demanding to be discharged home. Valproic acid level 22 and labs are unremarkable. Calcium at 14. Review of Systems: Impaired ambulation, with walker. No CV, , pulmonary, eye, ENT system symptoms on review. Reliability poor. Mental Status Exam: The patient is oriented to herself. Insight and judgment, recent and remote memory, attention and concentration, fund of knowledge is poor consistent with her diagnosis. Laboratory Data: Reviewed. Impression: Major neurocognitive disorder, early Alzheimer, vascular with delusion, depression behavioral disturbance. Anxiety disorder unspecified. Impulse control disorder unspecified. Plan: Continue current psychotropics. Assessment: Vital Signs/I&O: Vital Signs Date Time Temp Pulse Resp B/P (MAP) Pulse Ox O2 Delivery O2 Flow Rate FiO2 08/02/21 06:10 97.9 62 18 146/80 (102) 96 08/01/21 15:37 Room Air I & O 08/01/21 08/01/21 08/02/21 14:59 22:59 06:59 Intake Total 360 ml 460 ml Balance 360 ml 460 ml Current Medications: Meds: Current Medications Medications (Trade) Dose Ordered Sig/Jin Route PRN Reason Start Time Stop Time Status Last Admin Dose Admin Acetaminophen (Tylenol) 650 mg PRN Q6HRS PRN PO MILD PAIN / TEMP > 100.3'F 07/15/21 13:00 Multi-Ingredient Ointment (Analgesic [place]) 1 lilibeth PRN QID PRN TP MUSCLE PAIN 07/15/21 13:00 Al Hydroxide/Mg Hydroxide (Mylanta Plus Xs) 15 ml PRN AFTMEALHC PRN PO DYSPEPSIA 07/15/21 13:00 Magnesium Hydroxide (Milk Of Magnesia) 2,400 mg PRN QHS PRN PO CONSTIPATION 07/15/21 13:00 Influenza Virus Vaccine Quadrival (Flulaval Quad Syringe) 0.5 ml ONCE ONCE VAX IM 07/16/21 09:00 07/16/21 09:01 DC 07/16/21 16:00 Amlodipine Besylate (Norvasc) 5 mg DAILY PO 07/16/21 09:00 08/01/21 08:14 Donepezil HCl (Aricept) 10 mg DAILY PO 07/16/21 09:00 07/26/21 11:59 DC 07/26/21 08:46 Ibuprofen (Motrin) 800 mg PRN Q6HRS PRN PO MODERATE PAIN 07/15/21 13:00 Polyethylene Glycol (miraLAX) 17 gm DAILY PO 07/16/21 09:00 07/17/21 08:39 DC 07/17/21 08:14 Artificial Tears (Artificial Tears) 1 drop DAILY OD 07/16/21 09:00 07/17/21 08:38 DC 07/17/21 08:16 Quetiapine Fumarate (SEROquel) 25 mg BID PO 07/15/21 21:00 07/15/21 21:01 DC 07/15/21 20:03 Quetiapine Fumarate (SEROquel) 50 mg BID PO 07/15/21 21:00 07/15/21 20:01 DC Citalopram Hydrobromide (CeleXA) 20 mg DAILY PO 07/16/21 09:00 08/01/21 08:12 Multivitamins/ Calcium (Thera-M Plus) 1 tab DAILY PO 07/16/21 09:00 08/01/21 08:12 Olanzapine (ZyPREXA ZYDIS) 2.5 mg PRN Q4HRS PRN PO PSYCHOSIS 07/15/21 16:30 07/26/21 11:59 DC 07/24/21 09:13 Quetiapine Fumarate (SEROquel) 50 mg BID PO 07/16/21 09:00 07/16/21 15:39 DC 07/16/21 08:05 Quetiapine Fumarate (SEROquel) 25 mg PRN Q6HRS PRN PO ANXIETY 07/16/21 15:45 07/25/21 18:09 DC 07/19/21 01:41 Quetiapine Fumarate (SEROquel) 25 mg HS PO 07/16/21 21:00 07/25/21 18:09 DC 07/24/21 20:16 Quetiapine Fumarate (SEROquel) 12.5 mg DAILY PO 07/17/21 09:00 07/25/21 18:09 DC 07/25/21 09:24 Artificial Tears (Artificial Tears) 1 drop PRN DAILY PRN OD DRY EYES 07/17/21 08:45 Polyethylene Glycol (miraLAX) 17 gm PRN DAILY PRN PO DRY EYES 07/17/21 08:45 07/17/21 08:42 DC Polyethylene Glycol (miraLAX) 17 gm DAILY PO 07/18/21 09:00 08/01/21 08:13 Vitamin D (Vitamin D3) 50,000 unit WEEKLY PO 07/18/21 15:30 07/18/21 19:11 DC Vitamin D (Vitamin D3) 50,000 unit WEEKLY PO 07/19/21 09:00 07/26/21 08:46 Olanzapine (ZyPREXA ZYDIS) 2.5 mg PRN Q2HR PRN PO PSYCHOSIS 07/26/21 12:00 Divalproex Sodium (Depakote Sprinkles) 125 mg 0900,1700 PO 07/26/21 17:00 08/01/21 17:20 I have reviewed the current psychotropics carefully including drug interactions. Risk benefit ratio favors no change other than as noted in my dictated progress note. 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
--- NOTE | 2021-08-02 07:42 | PDOC ---
Exam Note: Roderick Note: This note is a late entry for 08/01/2021 covers elements not covered in my initial note. Subjective: The patient was seen on telehealth rounds in the evening of 08/01/2021 with Pauly WILSON, discussed and reviewed the chart. The patient slept 5 hours previous night. She has been somewhat suspicious of her medications but did take it later. She remains confused. Review of Systems: Impaired ambulation. No CV, , pulmonary, eye, ENT system symptoms on review. Reliability poor. Mental Status Exam: The patient is oriented to herself and situation. Insight and judgment, recent and remote memory, attention and concentration, fund of knowledge is poor consistent with her diagnosis. During the individual visit she again talked about discharge and said she was not happy here and the social service staff is arranging transition post quarantine ending. Laboratory Data: Reviewed. Impression: Major neurocognitive disorder, early Alzheimer, vascular with delusion, depression behavioral disturbance. Anxiety disorder unspecified. Impulse control disorder unspecified. Plan: Continue current psychotropics. Assessment: Vital Signs/I&O: Vital Signs Date Time Temp Pulse Resp B/P (MAP) Pulse Ox O2 Delivery O2 Flow Rate FiO2 08/02/21 06:10 97.9 62 18 146/80 (102) 96 08/01/21 15:37 Room Air I & O 08/01/21 08/01/21 08/02/21 15:00 23:00 07:00 Intake Total 360 ml 460 ml Balance 360 ml 460 ml Current Medications: Meds: Current Medications Medications (Trade) Dose Ordered Sig/Jin Route PRN Reason Start Time Stop Time Status Last Admin Dose Admin Acetaminophen (Tylenol) 650 mg PRN Q6HRS PRN PO MILD PAIN / TEMP > 100.3'F 07/15/21 13:00 Multi-Ingredient Ointment (Analgesic [place]) 1 lilibeth PRN QID PRN TP MUSCLE PAIN 07/15/21 13:00 Al Hydroxide/Mg Hydroxide (Mylanta Plus Xs) 15 ml PRN AFTMEALHC PRN PO DYSPEPSIA 07/15/21 13:00 Magnesium Hydroxide (Milk Of Magnesia) 2,400 mg PRN QHS PRN PO CONSTIPATION 07/15/21 13:00 Influenza Virus Vaccine Quadrival (Flulaval Quad Syringe) 0.5 ml ONCE ONCE VAX IM 07/16/21 09:00 07/16/21 09:01 DC 07/16/21 16:00 Amlodipine Besylate (Norvasc) 5 mg DAILY PO 07/16/21 09:00 08/01/21 08:14 Donepezil HCl (Aricept) 10 mg DAILY PO 07/16/21 09:00 07/26/21 11:59 DC 07/26/21 08:46 Ibuprofen (Motrin) 800 mg PRN Q6HRS PRN PO MODERATE PAIN 07/15/21 13:00 Polyethylene Glycol (miraLAX) 17 gm DAILY PO 07/16/21 09:00 07/17/21 08:39 DC 07/17/21 08:14 Artificial Tears (Artificial Tears) 1 drop DAILY OD 07/16/21 09:00 07/17/21 08:38 DC 07/17/21 08:16 Quetiapine Fumarate (SEROquel) 25 mg BID PO 07/15/21 21:00 07/15/21 21:01 DC 07/15/21 20:03 Quetiapine Fumarate (SEROquel) 50 mg BID PO 07/15/21 21:00 07/15/21 20:01 DC Citalopram Hydrobromide (CeleXA) 20 mg DAILY PO 07/16/21 09:00 08/01/21 08:12 Multivitamins/ Calcium (Thera-M Plus) 1 tab DAILY PO 07/16/21 09:00 08/01/21 08:12 Olanzapine (ZyPREXA ZYDIS) 2.5 mg PRN Q4HRS PRN PO PSYCHOSIS 07/15/21 16:30 07/26/21 11:59 DC 07/24/21 09:13 Quetiapine Fumarate (SEROquel) 50 mg BID PO 07/16/21 09:00 07/16/21 15:39 DC 07/16/21 08:05 Quetiapine Fumarate (SEROquel) 25 mg PRN Q6HRS PRN PO ANXIETY 07/16/21 15:45 07/25/21 18:09 DC 07/19/21 01:41 Quetiapine Fumarate (SEROquel) 25 mg HS PO 07/16/21 21:00 07/25/21 18:09 DC 07/24/21 20:16 Quetiapine Fumarate (SEROquel) 12.5 mg DAILY PO 07/17/21 09:00 07/25/21 18:09 DC 07/25/21 09:24 Artificial Tears (Artificial Tears) 1 drop PRN DAILY PRN OD DRY EYES 07/17/21 08:45 Polyethylene Glycol (miraLAX) 17 gm PRN DAILY PRN PO DRY EYES 07/17/21 08:45 07/17/21 08:42 DC Polyethylene Glycol (miraLAX) 17 gm DAILY PO 07/18/21 09:00 08/01/21 08:13 Vitamin D (Vitamin D3) 50,000 unit WEEKLY PO 07/18/21 15:30 07/18/21 19:11 DC Vitamin D (Vitamin D3) 50,000 unit WEEKLY PO 07/19/21 09:00 07/26/21 08:46 Olanzapine (ZyPREXA ZYDIS) 2.5 mg PRN Q2HR PRN PO PSYCHOSIS 07/26/21 12:00 Divalproex Sodium (Depakote Sprinkles) 125 mg 0900,1700 PO 07/26/21 17:00 08/01/21 17:20 I have reviewed the current psychotropics carefully including drug interactions. Risk benefit ratio favors no change other than as noted in my dictated progress note. 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
[2021-08-02] MEDS: CITALOPRAM 20 MG TABLET. PO SCH (09:03)
[2021-08-02] MEDS: CHOLECALCIFEROL (VITAMIN D3) 50,000 UNIT CAPSULE PO SCH (09:04)
[2021-08-02] MEDS: POLYETHYLENE GLYCOL 3350 17 GM PACKET. PO SCH (09:04)
[2021-08-02] MEDS: MULTIVITAMIN with MINERAL TABLET. PO SCH (09:04)
[2021-08-02] MEDS: amLODIPine BESYLATE 5 MG TABLET PO SCH (09:04)
[2021-08-02] MEDS: DIVALPROEX 125 MG CAP.SPRINK PO SCH ×2 (09:04→17:21)
[2021-08-02 15:52] VITALS: BP 133/76
--- NOTE | 2021-08-02 16:43 | TX PLAN ---
Interdisciplinary Tx Plan Admission Information Jul 15, 2021 at 12:56 Legal Status (on Admission): Voluntary DPOA/Guardian Name: Ofelia Albarran Contact Other Contact Name: Harika Valderrama, or Eileen Other Contact Verified Code Status: DNR Allergies: Coded Allergies: Penicillins (Verified Allergy, Unknown, 07/15/21) latex (Verified Allergy, Unknown, 07/15/21) sulfamethoxazole (Verified Allergy, Unknown, 07/15/21) trimethoprim (Verified Allergy, Unknown, 07/15/21) Diagnoses Primary Diagnosis: 1. Major neurocognitive disorder, most likely Alzheimer's with behavior problems. 2. Depressive disorder, unspecified. Reasons for Admission: Aggressive, Agitated, Depressed, Angry, Anxiety/Panic, Combative, Suspicious/paranoid, Confusion/Disoriented, Isolating Problem in Patient's Words: Pt sister/DPOA, Ofelia, has been noticing a gradual decline exhibited by her becoming more reclusive and imiginaning things. Dominique thinks that she begins to sundown early. Prior to pt's current living facility at [facility], she was at another nursing facility in [place] where she started having increased agitation and aggression. The facility at [place] didn't feel like they could meet her needs anylonger, therefore, pt was moved to [place]. Additional Admission Comments: Per intake record, pt presents from her nursing facility with intrusiveness, wanders and enters peers rooms, aggressive toward staff, hit staff with walker, and agitation. Problems Active Problems: Agitation, aggression, resistive to medication, cares and treatment, depressed, angry, anxiety Inactive Problems: None at this time. Pt Strengths/Limitations Ability for [place]: Poor Cognitive Functioning/Ability: Poor Communication Skills/Ability: Fair Financial Resources: Good Insight/Judgement: Poor Intellectual Ability: Good Physical Health: Poor Social Skills: Fair Stability in Family: Good Stability in School/Work: Good Verbal Skills: Fair Discharge Criteria Discharge Criteria: Able meet basic life need, No need for close observ., Able to meet health needs, Adequate arrangements @DC, Adequate self-care, Verbal commit med comply, Improved behavior, Improved mood/thought Preliminary Discharge Plan Preliminary DC Plan: Current Living Arrange. Special Precautions Fall Risk: Low Initial D/C Plan Pt plan is to return to [facility]. Identified Discharge Needs: None at this time. Currently Utilized Resources Currently Utilized Resources/P: PCP-Dr. Pang Sister/DPELMA-Ofelia Sahusabrina Facility-[facility]; contact-Jannie, Harika, or Eileen Referrals Community Resources: None at this time. Identified Problems/Hx/Goals Objectives/Short-Term Goals Short Term Goals: Control abnormal behavior, Dec. Aggression, Dec. Anxiety/Panic, Dec. Outbursts, Dec. Symp. Depression, Medication Stabilization, Monitor Med Effects, Prevent Deterioration, Promote Coping Skill Short Term Goals in Patient's: Medication evaluation to help with agitation and aggression along with improve compliance with cares. Interventions/Frequency Staff Interventions/Frequency&: Psychiatry to assess pt three times per week for medication management. Nursing to assess behaviors, monitor medications, and complete 15 minute checks daily. Social work to see pt at least two times weekly to aid in return to placement. Activities to encourage pt to participate in group activities daily. 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 Community Follow-up PCP Community Provider/Family Inpu: Sister/CUATEOfelia WILLS, aware of pt hospitalization and is available for further information as needed. Treatment Plan Explained Patient/Social Insurance Analyst had this treatment plan explained to him/her as indicated by the signature below and has been given the opportunity to ask questions and make suggestions: Date: Patient/Social Insurance Analyst Signature: Status Update Update Pt is eating approximately 80% of her meals and averaging 8.5 hours of sleep per night. She is A/O to self and location, but not date or situation. She continues to demonstrate confusion and will sometimes attempt to chew her medication versu s swallowing them. Staff continue to monitor the best alternative method of giving her medications. Pt valproic acid level is current at 22 and therefore not yet in therapeutic range. This will continue to be monitored. She has participated in one activity with the TELEVISION SERVICE ENGINEER as she accepted some coloring pages and magazines. Provide she and other pts remain negative, Angy will then be allowed to move to the activities gomez on 08/10/21 or return to [facility] if stable. TRINO FONSECA Aug 02, 2021 16:43
--- NOTE | 2021-08-02 21:42 | PDOC ---
Exam Note: Roderick Note: Please also refer to the separate dictated note~for this date of service dictated separately.~Patient seen individually. Discussed the patient with Nursing staff reviewed the chart.~Reviewed interim history and current functioning. Reviewed vital signs,~Labs/ Radiology~and current medications noted below. Continue current treatment with the changes noted in the dictated addendum note Assessment: Vital Signs/I&O: Vital Signs Date Time Temp Pulse Resp B/P (MAP) Pulse Ox O2 Delivery O2 Flow Rate FiO2 08/02/21 15:52 98.1 65 18 133/76 (95) 95 Room Air I & O 08/01/21 08/01/21 08/02/21 15:00 23:00 07:00 Intake Total 360 ml 460 ml Balance 360 ml 460 ml Current Medications: Meds: Current Medications Medications (Trade) Dose Ordered Sig/Jin Route PRN Reason Start Time Stop Time Status Last Admin Dose Admin Acetaminophen (Tylenol) 650 mg PRN Q6HRS PRN PO MILD PAIN / TEMP > 100.3'F 07/15/21 13:00 Multi-Ingredient Ointment (Analgesic [place]) 1 lilibeth PRN QID PRN TP MUSCLE PAIN 07/15/21 13:00 Al Hydroxide/Mg Hydroxide (Mylanta Plus Xs) 15 ml PRN AFTMEALHC PRN PO DYSPEPSIA 07/15/21 13:00 Magnesium Hydroxide (Milk Of Magnesia) 2,400 mg PRN QHS PRN PO CONSTIPATION 07/15/21 13:00 Influenza Virus Vaccine Quadrival (Flulaval Quad [id number] Syringe) 0.5 ml ONCE ONCE VAX IM 07/16/21 09:00 07/16/21 09:01 DC 07/16/21 16:00 Amlodipine Besylate (Norvasc) 5 mg DAILY PO 07/16/21 09:00 08/02/21 09:04 Donepezil HCl (Aricept) 10 mg DAILY PO 07/16/21 09:00 07/26/21 11:59 DC 07/26/21 08:46 Ibuprofen (Motrin) 800 mg PRN Q6HRS PRN PO MODERATE PAIN 07/15/21 13:00 Polyethylene Glycol (miraLAX) 17 gm DAILY PO 07/16/21 09:00 07/17/21 08:39 DC 07/17/21 08:14 Artificial Tears (Artificial Tears) 1 drop DAILY OD 07/16/21 09:00 07/17/21 08:38 DC 07/17/21 08:16 Quetiapine Fumarate (SEROquel) 25 mg BID PO 07/15/21 21:00 07/15/21 21:01 DC 07/15/21 20:03 Quetiapine Fumarate (SEROquel) 50 mg BID PO 07/15/21 21:00 07/15/21 20:01 DC Citalopram Hydrobromide (CeleXA) 20 mg DAILY PO 07/16/21 09:00 08/02/21 09:03 Multivitamins/ Calcium (Thera-M Plus) 1 tab DAILY PO 07/16/21 09:00 08/02/21 09:04 Olanzapine (ZyPREXA ZYDIS) 2.5 mg PRN Q4HRS PRN PO PSYCHOSIS 07/15/21 16:30 07/26/21 11:59 DC 07/24/21 09:13 Quetiapine Fumarate (SEROquel) 50 mg BID PO 07/16/21 09:00 07/16/21 15:39 DC 07/16/21 08:05 Quetiapine Fumarate (SEROquel) 25 mg PRN Q6HRS PRN PO ANXIETY 07/16/21 15:45 07/25/21 18:09 DC 07/19/21 01:41 Quetiapine Fumarate (SEROquel) 25 mg HS PO 07/16/21 21:00 07/25/21 18:09 DC 07/24/21 20:16 Quetiapine Fumarate (SEROquel) 12.5 mg DAILY PO 07/17/21 09:00 07/25/21 18:09 DC 07/25/21 09:24 Artificial Tears (Artificial Tears) 1 drop PRN DAILY PRN OD DRY EYES 07/17/21 08:45 Polyethylene Glycol (miraLAX) 17 gm PRN DAILY PRN PO DRY EYES 07/17/21 08:45 07/17/21 08:42 DC Polyethylene Glycol (miraLAX) 17 gm DAILY PO 07/18/21 09:00 08/02/21 09:04 Vitamin D (Vitamin D3) 50,000 unit WEEKLY PO 07/18/21 15:30 07/18/21 19:11 DC Vitamin D (Vitamin D3) 50,000 unit WEEKLY PO 07/19/21 09:00 08/02/21 09:04 Olanzapine (ZyPREXA ZYDIS) 2.5 mg PRN Q2HR PRN PO PSYCHOSIS 07/26/21 12:00 Divalproex Sodium (Depakote Sprinkles) 125 mg 0900,1700 PO 07/26/21 17:00 08/02/21 17:21 I have reviewed the current psychotropics carefully including drug interactions. Risk benefit ratio favors no change other than as noted in my dictated progress note. 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
[2021-08-03 06:20] VITALS: BP 129/47
--- NOTE | 2021-08-03 08:17 | PDOC ---
Exam Note: Roderick Note: This note is a late entry for 08/02/2021 covers elements not covered in my initial note. Subjective: The patient was reviewed on telehealth rounds for treatment team meeting in the early evening of 08/02/2021 with Natalya Rocha, Rosa Isela Padgett, and Lauren Vizcaino (social media intern), Keysha, activity therapy, and Deja WILSON, discussed and reviewed the chart. The patient slept 7-1/2 hours previous night. Reviewed interim history and functioning. She remains confused, tends to chew her medications. For awhile they were given crushed but then she was more coope rative and today she is back to chewing her meds. She is oriented to herself and at one point knew she was in a hospital. She has attended one group in the past one week. Review of Systems: No CV, , pulmonary, eye, ENT system symptoms on review. Reliability poor. Mental Status Exam: The patient is oriented to herself and situation. Insight and judgment, recent and remote memory, attention and concentration, fund of knowledge is poor consistent with her diagnosis. Laboratory Data: Reviewed. Impression: Major neurocognitive disorder, early Alzheimer, vascular with delusion, depression behavioral disturbance. Anxiety disorder unspecified. Impulse control disorder unspecified. Plan: Continue current psychotropics. Reviewed drug interactions, risk-benefit ratio. Patient is obsessed about discharge and I addressed this with her. Assessment: Vital Signs/I&O: Vital Signs Date Time Temp Pulse Resp B/P (MAP) Pulse Ox O2 Delivery O2 Flow Rate FiO2 08/03/21 06:20 98.5 57 16 129/47 (74) 93 Room Air I & O 08/02/21 08/02/21 08/03/21 15:00 23:00 07:00 Intake Total 480 ml 200 ml Balance 480 ml 200 ml Current Medications: Meds: Current Medications Medications (Trade) Dose Ordered Sig/Jin Route PRN Reason Start Time Stop Time Status Last Admin Dose Admin Acetaminophen (Tylenol) 650 mg PRN Q6HRS PRN PO MILD PAIN / TEMP > 100.3'F 07/15/21 13:00 Multi-Ingredient Ointment (Analgesic [place]) 1 lilibeth PRN QID PRN TP MUSCLE PAIN 07/15/21 13:00 Al Hydroxide/Mg Hydroxide (Mylanta Plus Xs) 15 ml PRN AFTMEALHC PRN PO DYSPEPSIA 07/15/21 13:00 Magnesium Hydroxide (Milk Of Magnesia) 2,400 mg PRN QHS PRN PO CONSTIPATION 07/15/21 13:00 Influenza Virus Vaccine Quadrival (Flulaval Quad Syringe) 0.5 ml ONCE ONCE VAX IM 07/16/21 09:00 07/16/21 09:01 DC 07/16/21 16:00 Amlodipine Besylate (Norvasc) 5 mg DAILY PO 07/16/21 09:00 08/02/21 09:04 Donepezil HCl (Aricept) 10 mg DAILY PO 07/16/21 09:00 07/26/21 11:59 DC 07/26/21 08:46 Ibuprofen (Motrin) 800 mg PRN Q6HRS PRN PO MODERATE PAIN 07/15/21 13:00 Polyethylene Glycol (miraLAX) 17 gm DAILY PO 07/16/21 09:00 07/17/21 08:39 DC 07/17/21 08:14 Artificial Tears (Artificial Tears) 1 drop DAILY OD 07/16/21 09:00 07/17/21 08:38 DC 07/17/21 08:16 Quetiapine Fumarate (SEROquel) 25 mg BID PO 07/15/21 21:00 07/15/21 21:01 DC 07/15/21 20:03 Quetiapine Fumarate (SEROquel) 50 mg BID PO 07/15/21 21:00 07/15/21 20:01 DC Citalopram Hydrobromide (CeleXA) 20 mg DAILY PO 07/16/21 09:00 08/02/21 09:03 Multivitamins/ Calcium (Thera-M Plus) 1 tab DAILY PO 07/16/21 09:00 08/02/21 09:04 Olanzapine (ZyPREXA ZYDIS) 2.5 mg PRN Q4HRS PRN PO PSYCHOSIS 07/15/21 16:30 07/26/21 11:59 DC 07/24/21 09:13 Quetiapine Fumarate (SEROquel) 50 mg BID PO 07/16/21 09:00 07/16/21 15:39 DC 07/16/21 08:05 Quetiapine Fumarate (SEROquel) 25 mg PRN Q6HRS PRN PO ANXIETY 07/16/21 15:45 07/25/21 18:09 DC 07/19/21 01:41 Quetiapine Fumarate (SEROquel) 25 mg HS PO 07/16/21 21:00 07/25/21 18:09 DC 07/24/21 20:16 Quetiapine Fumarate (SEROquel) 12.5 mg DAILY PO 07/17/21 09:00 07/25/21 18:09 DC 07/25/21 09:24 Artificial Tears (Artificial Tears) 1 drop PRN DAILY PRN OD DRY EYES 07/17/21 08:45 Polyethylene Glycol (miraLAX) 17 gm PRN DAILY PRN PO DRY EYES 07/17/21 08:45 07/17/21 08:42 DC Polyethylene Glycol (miraLAX) 17 gm DAILY PO 07/18/21 09:00 08/02/21 09:04 Vitamin D (Vitamin D3) 50,000 unit WEEKLY PO 07/18/21 15:30 07/18/21 19:11 DC Vitamin D (Vitamin D3) 50,000 unit WEEKLY PO 07/19/21 09:00 08/02/21 09:04 Olanzapine (ZyPREXA ZYDIS) 2.5 mg PRN Q2HR PRN PO PSYCHOSIS 07/26/21 12:00 Divalproex Sodium (Depakote Sprinkles) 125 mg 0900,1700 PO 07/26/21 17:00 08/02/21 17:21 I have reviewed the current psychotropics carefully including drug interactions. Risk benefit ratio favors no change other than as noted in my dictated progress note. 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
[2021-08-03] MEDS: MULTIVITAMIN with MINERAL TABLET. PO SCH (08:51)
[2021-08-03] MEDS: DIVALPROEX 125 MG CAP.SPRINK PO SCH ×2 (08:51→16:57)
[2021-08-03] MEDS: amLODIPine BESYLATE 5 MG TABLET PO SCH (08:51)
[2021-08-03] MEDS: CITALOPRAM 20 MG TABLET. PO SCH (08:51)
[2021-08-03] MEDS: POLYETHYLENE GLYCOL 3350 17 GM PACKET. PO SCH (08:51)
[2021-08-03 16:25] VITALS: BP 113/63
--- NOTE | 2021-08-03 21:46 | PDOC ---
Exam Note: Roderick Note: Please also refer to the separate dictated note~for this date of service dictated separately.~Patient seen individually. Discussed the patient with Nursing staff reviewed the chart.~Reviewed interim history and current functioning. Reviewed vital signs,~Labs/ Radiology~and current medications noted below. Continue current treatment with the changes noted in the dictated addendum note Assessment: Vital Signs/I&O: Vital Signs Date Time Temp Pulse Resp B/P (MAP) Pulse Ox O2 Delivery O2 Flow Rate FiO2 08/03/21 16:25 99.0 62 16 113/63 (80) 95 08/03/21 06:20 Room Air I & O 08/02/21 08/02/21 08/03/21 15:00 23:00 07:00 Intake Total 480 ml 200 ml Balance 480 ml 200 ml Labs: Laboratory Tests Test 08/03/21 06:30 SARS-CoV-2 (PCR) Not detected (NOT DETECTD) Current Medications: Meds: Laboratory Tests Test 08/03/21 06:30 Coronavirus (COVID-19)(PCR) Not detected Current Medications Medications (Trade) Dose Ordered Sig/Jin Route PRN Reason Start Time Stop Time Status Last Admin Dose Admin Acetaminophen (Tylenol) 650 mg PRN Q6HRS PRN PO MILD PAIN / TEMP > 100.3'F 07/15/21 13:00 Multi-Ingredient Ointment (Analgesic [place]) 1 lilibeth PRN QID PRN TP MUSCLE PAIN 07/15/21 13:00 Al Hydroxide/Mg Hydroxide (Mylanta Plus Xs) 15 ml PRN AFTMEALHC PRN PO DYSPEPSIA 07/15/21 13:00 Magnesium Hydroxide (Milk Of Magnesia) 2,400 mg PRN QHS PRN PO CONSTIPATION 07/15/21 13:00 Influenza Virus Vaccine Quadrival (Flulaval Quad [id number] Syringe) 0.5 ml ONCE ONCE VAX IM 07/16/21 09:00 07/16/21 09:01 DC 07/16/21 16:00 Amlodipine Besylate (Norvasc) 5 mg DAILY PO 07/16/21 09:00 08/03/21 08:51 Donepezil HCl (Aricept) 10 mg DAILY PO 07/16/21 09:00 07/26/21 11:59 DC 07/26/21 08:46 Ibuprofen (Motrin) 800 mg PRN Q6HRS PRN PO MODERATE PAIN 07/15/21 13:00 Polyethylene Glycol (miraLAX) 17 gm DAILY PO 07/16/21 09:00 07/17/21 08:39 DC 07/17/21 08:14 Artificial Tears (Artificial Tears) 1 drop DAILY OD 07/16/21 09:00 07/17/21 08:38 DC 07/17/21 08:16 Quetiapine Fumarate (SEROquel) 25 mg BID PO 07/15/21 21:00 07/15/21 21:01 DC 07/15/21 20:03 Quetiapine Fumarate (SEROquel) 50 mg BID PO 07/15/21 21:00 07/15/21 20:01 DC Citalopram Hydrobromide (CeleXA) 20 mg DAILY PO 07/16/21 09:00 08/03/21 08:51 Multivitamins/ Calcium (Thera-M Plus) 1 tab DAILY PO 07/16/21 09:00 08/03/21 08:51 Olanzapine (ZyPREXA ZYDIS) 2.5 mg PRN Q4HRS PRN PO PSYCHOSIS 07/15/21 16:30 07/26/21 11:59 DC 07/24/21 09:13 Quetiapine Fumarate (SEROquel) 50 mg BID PO 07/16/21 09:00 07/16/21 15:39 DC 07/16/21 08:05 Quetiapine Fumarate (SEROquel) 25 mg PRN Q6HRS PRN PO ANXIETY 07/16/21 15:45 07/25/21 18:09 DC 07/19/21 01:41 Quetiapine Fumarate (SEROquel) 25 mg HS PO 07/16/21 21:00 07/25/21 18:09 DC 07/24/21 20:16 Quetiapine Fumarate (SEROquel) 12.5 mg DAILY PO 07/17/21 09:00 07/25/21 18:09 DC 07/25/21 09:24 Artificial Tears (Artificial Tears) 1 drop PRN DAILY PRN OD DRY EYES 07/17/21 08:45 Polyethylene Glycol (miraLAX) 17 gm PRN DAILY PRN PO DRY EYES 07/17/21 08:45 07/17/21 08:42 DC Polyethylene Glycol (miraLAX) 17 gm DAILY PO 07/18/21 09:00 08/03/21 08:51 Vitamin D (Vitamin D3) 50,000 unit WEEKLY PO 07/18/21 15:30 07/18/21 19:11 DC Vitamin D (Vitamin D3) 50,000 unit WEEKLY PO 07/19/21 09:00 08/02/21 09:04 Olanzapine (ZyPREXA ZYDIS) 2.5 mg PRN Q2HR PRN PO PSYCHOSIS 07/26/21 12:00 Divalproex Sodium (Depakote Sprinkles) 125 mg 0900,1700 PO 07/26/21 17:00 08/03/21 16:57 I have reviewed the current psychotropics carefully including drug interactions. Risk benefit ratio favors no change other than as noted in my dictated progress note. 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
[2021-08-04 05:29] VITALS: BP 126/65
[2021-08-04] MEDS: MULTIVITAMIN with MINERAL TABLET. PO SCH (08:08)
[2021-08-04] MEDS: DIVALPROEX 125 MG CAP.SPRINK PO SCH ×2 (08:08→16:37)
[2021-08-04] MEDS: CITALOPRAM 20 MG TABLET. PO SCH (08:08)
[2021-08-04] MEDS: amLODIPine BESYLATE 5 MG TABLET PO SCH (08:09)
[2021-08-04] MEDS: POLYETHYLENE GLYCOL 3350 17 GM PACKET. PO SCH (08:09)
--- NOTE | 2021-08-04 08:18 | PDOC ---
Exam Note: Roderick Note: This note is a late entry for 08/03/2021 covers elements not covered in my initial note. Subjective: The patient was reviewed on 08/03/2021 with Ashley WILSON, discussed and reviewed the chart. The patient slept 8-1/2 hours previous night. She has been pleasant. Short-term memory is impaired. She is compliant with medications. Review of Systems: No CV, , pulmonary, eye, ENT system symptoms on review. She is still obsessing about discharge but then forgets it. Mental Status Exam: The patient is oriented to herself and situation. Insight and judgment, recent and remote memory, attention and concentration, fund of knowledge is poor consistent with her diagnosis. Laboratory Data: Reviewed. Impression: Major neurocognitive disorder, early Alzheimer, vascular with delusion, depression behavioral disturbance. Anxiety disorder unspecified. Impulse control disorder unspecified. Plan: Continue current psychotropics. Assessment: Vital Signs/I&O: Vital Signs Date Time Temp Pulse Resp B/P (MAP) Pulse Ox O2 Delivery O2 Flow Rate FiO2 08/04/21 08:09 80 126/65 08/04/21 05:29 97.6 16 96 08/03/21 06:20 Room Air I & O 08/03/21 08/03/21 08/04/21 15:00 23:00 07:00 Intake Total 600 ml 560 ml Balance 600 ml 560 ml Labs: Current Medications Medications (Trade) Dose Ordered Sig/Jin Route PRN Reason Start Time Stop Time Status Last Admin Dose Admin Acetaminophen (Tylenol) 650 mg PRN Q6HRS PRN PO MILD PAIN / TEMP > 100.3'F 07/15/21 13:00 Multi-Ingredient Ointment (Analgesic [place]) 1 lilibeth PRN QID PRN TP MUSCLE PAIN 07/15/21 13:00 Al Hydroxide/Mg Hydroxide (Mylanta Plus Xs) 15 ml PRN AFTMEALHC PRN PO DYSPEPSIA 07/15/21 13:00 Magnesium Hydroxide (Milk Of Magnesia) 2,400 mg PRN QHS PRN PO CONSTIPATION 07/15/21 13:00 Influenza Virus Vaccine Quadrival (Flulaval Quad [id number] Syringe) 0.5 ml ONCE ONCE VAX IM 07/16/21 09:00 07/16/21 09:01 DC 07/16/21 16:00 Amlodipine Besylate (Norvasc) 5 mg DAILY PO 07/16/21 09:00 08/04/21 08:09 Donepezil HCl (Aricept) 10 mg DAILY PO 07/16/21 09:00 07/26/21 11:59 DC 07/26/21 08:46 Ibuprofen (Motrin) 800 mg PRN Q6HRS PRN PO MODERATE PAIN 07/15/21 13:00 Polyethylene Glycol (miraLAX) 17 gm DAILY PO 07/16/21 09:00 07/17/21 08:39 DC 07/17/21 08:14 Artificial Tears (Artificial Tears) 1 drop DAILY OD 07/16/21 09:00 07/17/21 08:38 DC 07/17/21 08:16 Quetiapine Fumarate (SEROquel) 25 mg BID PO 07/15/21 21:00 07/15/21 21:01 DC 07/15/21 20:03 Quetiapine Fumarate (SEROquel) 50 mg BID PO 07/15/21 21:00 07/15/21 20:01 DC Citalopram Hydrobromide (CeleXA) 20 mg DAILY PO 07/16/21 09:00 08/04/21 08:08 Multivitamins/ Calcium (Thera-M Plus) 1 tab DAILY PO 07/16/21 09:00 08/04/21 08:08 Olanzapine (ZyPREXA ZYDIS) 2.5 mg PRN Q4HRS PRN PO PSYCHOSIS 07/15/21 16:30 07/26/21 11:59 DC 07/24/21 09:13 Quetiapine Fumarate (SEROquel) 50 mg BID PO 07/16/21 09:00 07/16/21 15:39 DC 07/16/21 08:05 Quetiapine Fumarate (SEROquel) 25 mg PRN Q6HRS PRN PO ANXIETY 07/16/21 15:45 07/25/21 18:09 DC 07/19/21 01:41 Quetiapine Fumarate (SEROquel) 25 mg HS PO 07/16/21 21:00 07/25/21 18:09 DC 07/24/21 20:16 Quetiapine Fumarate (SEROquel) 12.5 mg DAILY PO 07/17/21 09:00 07/25/21 18:09 DC 07/25/21 09:24 Artificial Tears (Artificial Tears) 1 drop PRN DAILY PRN OD DRY EYES 07/17/21 08:45 Polyethylene Glycol (miraLAX) 17 gm PRN DAILY PRN PO DRY EYES 07/17/21 08:45 07/17/21 08:42 DC Polyethylene Glycol (miraLAX) 17 gm DAILY PO 07/18/21 09:00 08/04/21 08:09 Vitamin D (Vitamin D3) 50,000 unit WEEKLY PO 07/18/21 15:30 07/18/21 19:11 DC Vitamin D (Vitamin D3) 50,000 unit WEEKLY PO 07/19/21 09:00 08/02/21 09:04 Olanzapine (ZyPREXA ZYDIS) 2.5 mg PRN Q2HR PRN PO PSYCHOSIS 07/26/21 12:00 Divalproex Sodium (Depakote Sprinkles) 125 mg 0900,1700 PO 07/26/21 17:00 08/04/21 08:08 Current Medications: I have reviewed the current psychotropics carefully including drug interactions. Risk benefit ratio favors no change other than as noted in my dictated progress note. 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
[2021-08-04 15:49] VITALS: BP 122/73
--- NOTE | 2021-08-04 21:30 | PDOC ---
Exam Note: Roderick Note: Please also refer to the separate dictated note~for this date of service dictated separately.~Patient seen individually. Discussed the patient with Nursing staff reviewed the chart.~Reviewed interim history and current functioning. Reviewed vital signs,~Labs/ Radiology~and current medications noted below. Continue current treatment with the changes noted in the dictated addendum note Assessment: Vital Signs/I&O: Vital Signs Date Time Temp Pulse Resp B/P (MAP) Pulse Ox O2 Delivery O2 Flow Rate FiO2 08/04/21 15:49 98.1 76 16 122/73 (89) 94 08/03/21 06:20 Room Air I & O 08/03/21 08/03/21 08/04/21 15:00 23:00 07:00 Intake Total 600 ml 560 ml Balance 600 ml 560 ml Current Medications: Meds: Current Medications Medications (Trade) Dose Ordered Sig/Jin Route PRN Reason Start Time Stop Time Status Last Admin Dose Admin Acetaminophen (Tylenol) 650 mg PRN Q6HRS PRN PO MILD PAIN / TEMP > 100.3'F 07/15/21 13:00 Multi-Ingredient Ointment (Analgesic [place]) 1 lilibeth PRN QID PRN TP MUSCLE PAIN 07/15/21 13:00 Al Hydroxide/Mg Hydroxide (Mylanta Plus Xs) 15 ml PRN AFTMEALHC PRN PO DYSPEPSIA 07/15/21 13:00 Magnesium Hydroxide (Milk Of Magnesia) 2,400 mg PRN QHS PRN PO CONSTIPATION 07/15/21 13:00 Influenza Virus Vaccine Quadrival (Flulaval Quad [id number] Syringe) 0.5 ml ONCE ONCE VAX IM 07/16/21 09:00 07/16/21 09:01 DC 07/16/21 16:00 Amlodipine Besylate (Norvasc) 5 mg DAILY PO 07/16/21 09:00 08/04/21 08:09 Donepezil HCl (Aricept) 10 mg DAILY PO 07/16/21 09:00 07/26/21 11:59 DC 07/26/21 08:46 Ibuprofen (Motrin) 800 mg PRN Q6HRS PRN PO MODERATE PAIN 07/15/21 13:00 Polyethylene Glycol (miraLAX) 17 gm DAILY PO 07/16/21 09:00 07/17/21 08:39 DC 07/17/21 08:14 Artificial Tears (Artificial Tears) 1 drop DAILY OD 07/16/21 09:00 07/17/21 08:38 DC 07/17/21 08:16 Quetiapine Fumarate (SEROquel) 25 mg BID PO 07/15/21 21:00 07/15/21 21:01 DC 07/15/21 20:03 Quetiapine Fumarate (SEROquel) 50 mg BID PO 07/15/21 21:00 07/15/21 20:01 DC Citalopram Hydrobromide (CeleXA) 20 mg DAILY PO 07/16/21 09:00 08/04/21 08:08 Multivitamins/ Calcium (Thera-M Plus) 1 tab DAILY PO 07/16/21 09:00 08/04/21 08:08 Olanzapine (ZyPREXA ZYDIS) 2.5 mg PRN Q4HRS PRN PO PSYCHOSIS 07/15/21 16:30 07/26/21 11:59 DC 07/24/21 09:13 Quetiapine Fumarate (SEROquel) 50 mg BID PO 07/16/21 09:00 07/16/21 15:39 DC 07/16/21 08:05 Quetiapine Fumarate (SEROquel) 25 mg PRN Q6HRS PRN PO ANXIETY 07/16/21 15:45 07/25/21 18:09 DC 07/19/21 01:41 Quetiapine Fumarate (SEROquel) 25 mg HS PO 07/16/21 21:00 07/25/21 18:09 DC 07/24/21 20:16 Quetiapine Fumarate (SEROquel) 12.5 mg DAILY PO 07/17/21 09:00 07/25/21 18:09 DC 07/25/21 09:24 Artificial Tears (Artificial Tears) 1 drop PRN DAILY PRN OD DRY EYES 07/17/21 08:45 Polyethylene Glycol (miraLAX) 17 gm PRN DAILY PRN PO DRY EYES 07/17/21 08:45 07/17/21 08:42 DC Polyethylene Glycol (miraLAX) 17 gm DAILY PO 07/18/21 09:00 08/04/21 08:09 Vitamin D (Vitamin D3) 50,000 unit WEEKLY PO 07/18/21 15:30 07/18/21 19:11 DC Vitamin D (Vitamin D3) 50,000 unit WEEKLY PO 07/19/21 09:00 08/02/21 09:04 Olanzapine (ZyPREXA ZYDIS) 2.5 mg PRN Q2HR PRN PO PSYCHOSIS 07/26/21 12:00 Divalproex Sodium (Depakote Sprinkles) 125 mg 0900,1700 PO 07/26/21 17:00 08/04/21 18:18 DC 08/04/21 16:37 Divalproex Sodium (Depakote Sprinkles) 250 mg 0900,1700 PO 08/05/21 09:00 I have reviewed the current psychotropics carefully including drug interactions. Risk benefit ratio favors no change other than as noted in my dictated progress note. 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
[2021-08-05 05:44] VITALS: BP 152/76
[2021-08-05] MEDS: CITALOPRAM 20 MG TABLET. PO SCH (08:38)
[2021-08-05] MEDS: MULTIVITAMIN with MINERAL TABLET. PO SCH (08:38)
[2021-08-05] MEDS: DIVALPROEX 125 MG CAP.SPRINK PO SCH ×2 (08:38→17:41)
[2021-08-05] MEDS: POLYETHYLENE GLYCOL 3350 17 GM PACKET. PO SCH (08:39)
[2021-08-05] MEDS: amLODIPine BESYLATE 5 MG TABLET PO SCH (08:39)
[2021-08-05 16:13] VITALS: BP 117/68
--- NOTE | 2021-08-05 21:53 | PDOC ---
Exam Note: Roderick Note: Please also refer to the separate dictated note~for this date of service dictated separately.~Patient seen individually. Discussed the patient with Nursing staff reviewed the chart.~Reviewed interim history and current functioning. Reviewed vital signs,~Labs/ Radiology~and current medications noted below. Continue current treatment with the changes noted in the dictated addendum note Assessment: Vital Signs/I&O: Vital Signs Date Time Temp Pulse Resp B/P (MAP) Pulse Ox O2 Delivery O2 Flow Rate FiO2 08/05/21 16:13 98.1 72 16 117/68 (84) 96 Room Air I & O 08/04/21 08/04/21 08/05/21 15:00 23:00 07:00 Intake Total 960 ml 340 ml Balance 960 ml 340 ml Current Medications: Meds: Current Medications Medications (Trade) Dose Ordered Sig/Jin Route PRN Reason Start Time Stop Time Status Last Admin Dose Admin Acetaminophen (Tylenol) 650 mg PRN Q6HRS PRN PO MILD PAIN / TEMP > 100.3'F 07/15/21 13:00 Multi-Ingredient Ointment (Analgesic [place]) 1 lilibeth PRN QID PRN TP MUSCLE PAIN 07/15/21 13:00 Al Hydroxide/Mg Hydroxide (Mylanta Plus Xs) 15 ml PRN AFTMEALHC PRN PO DYSPEPSIA 07/15/21 13:00 Magnesium Hydroxide (Milk Of Magnesia) 2,400 mg PRN QHS PRN PO CONSTIPATION 07/15/21 13:00 Influenza Virus Vaccine Quadrival (Flulaval Quad [id number] Syringe) 0.5 ml ONCE ONCE VAX IM 07/16/21 09:00 07/16/21 09:01 DC 07/16/21 16:00 Amlodipine Besylate (Norvasc) 5 mg DAILY PO 07/16/21 09:00 08/05/21 08:39 Donepezil HCl (Aricept) 10 mg DAILY PO 07/16/21 09:00 07/26/21 11:59 DC 07/26/21 08:46 Ibuprofen (Motrin) 800 mg PRN Q6HRS PRN PO MODERATE PAIN 07/15/21 13:00 Polyethylene Glycol (miraLAX) 17 gm DAILY PO 07/16/21 09:00 07/17/21 08:39 DC 07/17/21 08:14 Artificial Tears (Artificial Tears) 1 drop DAILY OD 07/16/21 09:00 07/17/21 08:38 DC 07/17/21 08:16 Quetiapine Fumarate (SEROquel) 25 mg BID PO 07/15/21 21:00 07/15/21 21:01 DC 07/15/21 20:03 Quetiapine Fumarate (SEROquel) 50 mg BID PO 07/15/21 21:00 07/15/21 20:01 DC Citalopram Hydrobromide (CeleXA) 20 mg DAILY PO 07/16/21 09:00 08/05/21 08:38 Multivitamins/ Calcium (Thera-M Plus) 1 tab DAILY PO 07/16/21 09:00 08/05/21 08:38 Olanzapine (ZyPREXA ZYDIS) 2.5 mg PRN Q4HRS PRN PO PSYCHOSIS 07/15/21 16:30 07/26/21 11:59 DC 07/24/21 09:13 Quetiapine Fumarate (SEROquel) 50 mg BID PO 07/16/21 09:00 07/16/21 15:39 DC 07/16/21 08:05 Quetiapine Fumarate (SEROquel) 25 mg PRN Q6HRS PRN PO ANXIETY 07/16/21 15:45 07/25/21 18:09 DC 07/19/21 01:41 Quetiapine Fumarate (SEROquel) 25 mg HS PO 07/16/21 21:00 07/25/21 18:09 DC 07/24/21 20:16 Quetiapine Fumarate (SEROquel) 12.5 mg DAILY PO 07/17/21 09:00 07/25/21 18:09 DC 07/25/21 09:24 Artificial Tears (Artificial Tears) 1 drop PRN DAILY PRN OD DRY EYES 07/17/21 08:45 Polyethylene Glycol (miraLAX) 17 gm PRN DAILY PRN PO DRY EYES 07/17/21 08:45 07/17/21 08:42 DC Polyethylene Glycol (miraLAX) 17 gm DAILY PO 07/18/21 09:00 08/05/21 08:39 Vitamin D (Vitamin D3) 50,000 unit WEEKLY PO 07/18/21 15:30 07/18/21 19:11 DC Vitamin D (Vitamin D3) 50,000 unit WEEKLY PO 07/19/21 09:00 08/02/21 09:04 Olanzapine (ZyPREXA ZYDIS) 2.5 mg PRN Q2HR PRN PO PSYCHOSIS 07/26/21 12:00 Divalproex Sodium (Depakote Sprinkles) 125 mg 0900,1700 PO 07/26/21 17:00 08/04/21 18:18 DC 08/04/21 16:37 Divalproex Sodium (Depakote Sprinkles) 250 mg 0900,1700 PO 08/05/21 09:00 08/05/21 17:41 Current Medications Medications (Trade) Dose Ordered Sig/Jin Route PRN Reason Start Time Stop Time Status Last Admin Dose Admin Divalproex Sodium (Depakote Sprinkles) 250 mg 0900,1700 PO 08/05/21 09:00 08/05/21 17:41 I have reviewed the current psychotropics carefully including drug interactions. Risk benefit ratio favors no change other than as noted in my dictated progress note. 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
[2021-08-06 05:51] VITALS: BP 127/66
--- NOTE | 2021-08-06 07:43 | PDOC ---
Exam Note: Roderick Note: This note is a late entry for 08/04/2021 covers elements not covered in my initial note. Subjective: The patient was seen on telehealth rounds on 08/04/2021 with Frank WILSON, discussed and reviewed the chart. The patient slept 8-1/2 hours previous night. She remains confused, obsessed and anxious about wanting to be discharged. She feels she has been here 5 years and time for her to leave. She did better in the evening after the showers. Valproic acid level is 22, subtherapeutic and we will increase the Depakote Sprinkles from 125 mg b.i.d. to 250 mg b.i.d. Check CBC, CMP, valproic acid level in 3 days. Review of Systems: No CV, , pulmonary, eye, ENT system symptoms on review. R eliability poor. Mental Status Exam: The patient is oriented to herself and situation. Insight and judgment, recent and remote memory, attention and concentration, fund of knowledge is poor consistent with her diagnosis. Laboratory Data: Reviewed. Impression: Major neurocognitive disorder, early Alzheimer, vascular with delusion, depression behavioral disturbance. Anxiety disorder unspecified. Impulse control disorder unspecified. Plan: Continue current psychotropics and as mentioned above. Assessment: Vital Signs/I&O: Vital Signs Date Time Temp Pulse Resp B/P (MAP) Pulse Ox O2 Delivery O2 Flow Rate FiO2 08/06/21 05:51 97.1 68 18 127/66 (86) 97 08/05/21 16:13 Room Air I & O 08/05/21 08/05/21 08/06/21 15:00 23:00 07:00 Intake Total 720 ml 220 ml Balance 720 ml 220 ml Current Medications: Meds: Current Medications Medications (Trade) Dose Ordered Sig/Jin Route PRN Reason Start Time Stop Time Status Last Admin Dose Admin Acetaminophen (Tylenol) 650 mg PRN Q6HRS PRN PO MILD PAIN / TEMP > 100.3'F 07/15/21 13:00 Multi-Ingredient Ointment (Analgesic [place]) 1 lilibeth PRN QID PRN TP MUSCLE PAIN 07/15/21 13:00 Al Hydroxide/Mg Hydroxide (Mylanta Plus Xs) 15 ml PRN AFTMEALHC PRN PO DYSPEPSIA 07/15/21 13:00 Magnesium Hydroxide (Milk Of Magnesia) 2,400 mg PRN QHS PRN PO CONSTIPATION 07/15/21 13:00 Influenza Virus Vaccine Quadrival (Flulaval Quad Syringe) 0.5 ml ONCE ONCE VAX IM 07/16/21 09:00 07/16/21 09:01 DC 07/16/21 16:00 Amlodipine Besylate (Norvasc) 5 mg DAILY PO 07/16/21 09:00 08/05/21 08:39 Donepezil HCl (Aricept) 10 mg DAILY PO 07/16/21 09:00 07/26/21 11:59 DC 07/26/21 08:46 Ibuprofen (Motrin) 800 mg PRN Q6HRS PRN PO MODERATE PAIN 07/15/21 13:00 Polyethylene Glycol (miraLAX) 17 gm DAILY PO 07/16/21 09:00 07/17/21 08:39 DC 07/17/21 08:14 Artificial Tears (Artificial Tears) 1 drop DAILY OD 07/16/21 09:00 07/17/21 08:38 DC 07/17/21 08:16 Quetiapine Fumarate (SEROquel) 25 mg BID PO 07/15/21 21:00 07/15/21 21:01 DC 07/15/21 20:03 Quetiapine Fumarate (SEROquel) 50 mg BID PO 07/15/21 21:00 07/15/21 20:01 DC Citalopram Hydrobromide (CeleXA) 20 mg DAILY PO 07/16/21 09:00 08/05/21 08:38 Multivitamins/ Calcium (Thera-M Plus) 1 tab DAILY PO 07/16/21 09:00 08/05/21 08:38 Olanzapine (ZyPREXA ZYDIS) 2.5 mg PRN Q4HRS PRN PO PSYCHOSIS 07/15/21 16:30 07/26/21 11:59 DC 07/24/21 09:13 Quetiapine Fumarate (SEROquel) 50 mg BID PO 07/16/21 09:00 07/16/21 15:39 DC 07/16/21 08:05 Quetiapine Fumarate (SEROquel) 25 mg PRN Q6HRS PRN PO ANXIETY 07/16/21 15:45 07/25/21 18:09 DC 07/19/21 01:41 Quetiapine Fumarate (SEROquel) 25 mg HS PO 07/16/21 21:00 07/25/21 18:09 DC 07/24/21 20:16 Quetiapine Fumarate (SEROquel) 12.5 mg DAILY PO 07/17/21 09:00 07/25/21 18:09 DC 07/25/21 09:24 Artificial Tears (Artificial Tears) 1 drop PRN DAILY PRN OD DRY EYES 07/17/21 08:45 Polyethylene Glycol (miraLAX) 17 gm PRN DAILY PRN PO DRY EYES 07/17/21 08:45 07/17/21 08:42 DC Polyethylene Glycol (miraLAX) 17 gm DAILY PO 07/18/21 09:00 08/05/21 08:39 Vitamin D (Vitamin D3) 50,000 unit WEEKLY PO 07/18/21 15:30 07/18/21 19:11 DC Vitamin D (Vitamin D3) 50,000 unit WEEKLY PO 07/19/21 09:00 08/02/21 09:04 Olanzapine (ZyPREXA ZYDIS) 2.5 mg PRN Q2HR PRN PO PSYCHOSIS 07/26/21 12:00 Divalproex Sodium (Depakote Sprinkles) 125 mg 0900,1700 PO 07/26/21 17:00 08/04/21 18:18 DC 08/04/21 16:37 Divalproex Sodium (Depakote Sprinkles) 250 mg 0900,1700 PO 08/05/21 09:00 08/05/21 17:41 Current Medications Medications (Trade) Dose Ordered Sig/Jin Route PRN Reason Start Time Stop Time Status Last Admin Dose Admin Divalproex Sodium (Depakote Sprinkles) 250 mg 0900,1700 PO 08/05/21 09:00 08/05/21 17:41 I have reviewed the current psychotropics carefully including drug interactions. Risk benefit ratio favors no change other than as noted in my dictated progress note. 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
--- NOTE | 2021-08-06 07:58 | PDOC ---
Exam Note: Roderick Note: This note is a late entry for 08/05/2021 covers elements not covered in my initial note. Subjective: The patient was seen on telehealth rounds on 08/05/2021 with Augusto WILSON, discussed and reviewed the chart. The patient slept 2-1/4 hours previous night. She remains confused, obsessing about discharge back to [place], [place] and I addressed with her individually. She refused her medications once but took the night time medications. Review of Systems: No CV, , pulmonary, eye, ENT system symptoms on review. Mental Status Exam: The patient is oriented to herself and situation. During the individual visit, we processed the fact that social service staff is coordinating with intermediate for her return post stabilization and end of the quarantine on the unit. Insight and judgment, recent and remote memory, a ttention and concentration, fund of knowledge is poor consistent with her diagnosis. Laboratory Data: Reviewed. Impression: Major neurocognitive disorder, early Alzheimer, vascular with delusion, depression behavioral disturbance. Anxiety disorder unspecified. Impulse control disorder unspecified. Plan: Continue current psychotropics. Assessment: Vital Signs/I&O: Vital Signs Date Time Temp Pulse Resp B/P (MAP) Pulse Ox O2 Delivery O2 Flow Rate FiO2 08/06/21 05:51 97.1 68 18 127/66 (86) 97 08/05/21 16:13 Room Air I & O 08/05/21 08/05/21 08/06/21 15:00 23:00 07:00 Intake Total 720 ml 220 ml Balance 720 ml 220 ml Current Medications: Meds: Current Medications Medications (Trade) Dose Ordered Sig/Jin Route PRN Reason Start Time Stop Time Status Last Admin Dose Admin Acetaminophen (Tylenol) 650 mg PRN Q6HRS PRN PO MILD PAIN / TEMP > 100.3'F 07/15/21 13:00 Multi-Ingredient Ointment (Analgesic [place]) 1 lilibeth PRN QID PRN TP MUSCLE PAIN 07/15/21 13:00 Al Hydroxide/Mg Hydroxide (Mylanta Plus Xs) 15 ml PRN AFTMEALHC PRN PO DYSPEPSIA 07/15/21 13:00 Magnesium Hydroxide (Milk Of Magnesia) 2,400 mg PRN QHS PRN PO CONSTIPATION 07/15/21 13:00 Influenza Virus Vaccine Quadrival (Flulaval Quad Syringe) 0.5 ml ONCE ONCE VAX IM 07/16/21 09:00 07/16/21 09:01 DC 07/16/21 16:00 Amlodipine Besylate (Norvasc) 5 mg DAILY PO 07/16/21 09:00 08/05/21 08:39 Donepezil HCl (Aricept) 10 mg DAILY PO 07/16/21 09:00 07/26/21 11:59 DC 07/26/21 08:46 Ibuprofen (Motrin) 800 mg PRN Q6HRS PRN PO MODERATE PAIN 07/15/21 13:00 Polyethylene Glycol (miraLAX) 17 gm DAILY PO 07/16/21 09:00 07/17/21 08:39 DC 07/17/21 08:14 Artificial Tears (Artificial Tears) 1 drop DAILY OD 07/16/21 09:00 07/17/21 08:38 DC 07/17/21 08:16 Quetiapine Fumarate (SEROquel) 25 mg BID PO 07/15/21 21:00 07/15/21 21:01 DC 07/15/21 20:03 Quetiapine Fumarate (SEROquel) 50 mg BID PO 07/15/21 21:00 07/15/21 20:01 DC Citalopram Hydrobromide (CeleXA) 20 mg DAILY PO 07/16/21 09:00 08/05/21 08:38 Multivitamins/ Calcium (Thera-M Plus) 1 tab DAILY PO 07/16/21 09:00 08/05/21 08:38 Olanzapine (ZyPREXA ZYDIS) 2.5 mg PRN Q4HRS PRN PO PSYCHOSIS 07/15/21 16:30 07/26/21 11:59 DC 07/24/21 09:13 Quetiapine Fumarate (SEROquel) 50 mg BID PO 07/16/21 09:00 07/16/21 15:39 DC 07/16/21 08:05 Quetiapine Fumarate (SEROquel) 25 mg PRN Q6HRS PRN PO ANXIETY 07/16/21 15:45 07/25/21 18:09 DC 07/19/21 01:41 Quetiapine Fumarate (SEROquel) 25 mg HS PO 07/16/21 21:00 07/25/21 18:09 DC 07/24/21 20:16 Quetiapine Fumarate (SEROquel) 12.5 mg DAILY PO 07/17/21 09:00 07/25/21 18:09 DC 07/25/21 09:24 Artificial Tears (Artificial Tears) 1 drop PRN DAILY PRN OD DRY EYES 07/17/21 08:45 Polyethylene Glycol (miraLAX) 17 gm PRN DAILY PRN PO DRY EYES 07/17/21 08:45 07/17/21 08:42 DC Polyethylene Glycol (miraLAX) 17 gm DAILY PO 07/18/21 09:00 08/05/21 08:39 Vitamin D (Vitamin D3) 50,000 unit WEEKLY PO 07/18/21 15:30 07/18/21 19:11 DC Vitamin D (Vitamin D3) 50,000 unit WEEKLY PO 07/19/21 09:00 08/02/21 09:04 Olanzapine (ZyPREXA ZYDIS) 2.5 mg PRN Q2HR PRN PO PSYCHOSIS 07/26/21 12:00 Divalproex Sodium (Depakote Sprinkles) 125 mg 0900,1700 PO 07/26/21 17:00 08/04/21 18:18 DC 08/04/21 16:37 Divalproex Sodium (Depakote Sprinkles) 250 mg 0900,1700 PO 08/05/21 09:00 08/05/21 17:41 Current Medications Medications (Trade) Dose Ordered Sig/Jin Route PRN Reason Start Time Stop Time Status Last Admin Dose Admin Divalproex Sodium (Depakote Sprinkles) 250 mg 0900,1700 PO 08/05/21 09:00 08/05/21 17:41 I have reviewed the current psychotropics carefully including drug interactions. Risk benefit ratio favors no change other than as noted in my dictated progress note. 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
[2021-08-06] MEDS: POLYETHYLENE GLYCOL 3350 17 GM PACKET. PO SCH (09:00)
[2021-08-06] MEDS: MULTIVITAMIN with MINERAL TABLET. PO SCH (09:00)
[2021-08-06] MEDS: DIVALPROEX 125 MG CAP.SPRINK PO SCH ×2 (10:29→17:00)
[2021-08-06] MEDS: amLODIPine BESYLATE 5 MG TABLET PO SCH (10:30)
[2021-08-06] MEDS: CITALOPRAM 20 MG TABLET. PO SCH (10:30)
[2021-08-06 15:26] VITALS: BP 115/52
--- NOTE | 2021-08-06 21:43 | PDOC ---
Exam Note: Roderick Note: Please also refer to the separate dictated note~for this date of service dictated separately.~Patient seen individually. Discussed the patient with Nursing staff reviewed the chart.~Reviewed interim history and current functioning. Reviewed vital signs,~Labs/ Radiology~and current medications noted below. Continue current treatment with the changes noted in the dictated addendum note Assessment: Vital Signs/I&O: Vital Signs Date Time Temp Pulse Resp B/P (MAP) Pulse Ox O2 Delivery O2 Flow Rate FiO2 08/06/21 15:26 98.0 62 18 115/52 (73) 98 Room Air I & O 08/05/21 08/05/21 08/06/21 15:00 23:00 07:00 Intake Total 720 ml 220 ml Balance 720 ml 220 ml Current Medications: Meds: Current Medications Medications (Trade) Dose Ordered Sig/Jin Route PRN Reason Start Time Stop Time Status Last Admin Dose Admin Acetaminophen (Tylenol) 650 mg PRN Q6HRS PRN PO MILD PAIN / TEMP > 100.3'F 07/15/21 13:00 Multi-Ingredient Ointment (Analgesic [place]) 1 lilibeth PRN QID PRN TP MUSCLE PAIN 07/15/21 13:00 Al Hydroxide/Mg Hydroxide (Mylanta Plus Xs) 15 ml PRN AFTMEALHC PRN PO DYSPEPSIA 07/15/21 13:00 Magnesium Hydroxide (Milk Of Magnesia) 2,400 mg PRN QHS PRN PO CONSTIPATION 07/15/21 13:00 Influenza Virus Vaccine Quadrival (Flulaval Quad [id number] Syringe) 0.5 ml ONCE ONCE VAX IM 07/16/21 09:00 07/16/21 09:01 DC 07/16/21 16:00 Amlodipine Besylate (Norvasc) 5 mg DAILY PO 07/16/21 09:00 08/06/21 10:30 Donepezil HCl (Aricept) 10 mg DAILY PO 07/16/21 09:00 07/26/21 11:59 DC 07/26/21 08:46 Ibuprofen (Motrin) 800 mg PRN Q6HRS PRN PO MODERATE PAIN 07/15/21 13:00 Polyethylene Glycol (miraLAX) 17 gm DAILY PO 07/16/21 09:00 07/17/21 08:39 DC 07/17/21 08:14 Artificial Tears (Artificial Tears) 1 drop DAILY OD 07/16/21 09:00 07/17/21 08:38 DC 07/17/21 08:16 Quetiapine Fumarate (SEROquel) 25 mg BID PO 07/15/21 21:00 07/15/21 21:01 DC 07/15/21 20:03 Quetiapine Fumarate (SEROquel) 50 mg BID PO 07/15/21 21:00 07/15/21 20:01 DC Citalopram Hydrobromide (CeleXA) 20 mg DAILY PO 07/16/21 09:00 08/06/21 10:30 Multivitamins/ Calcium (Thera-M Plus) 1 tab DAILY PO 07/16/21 09:00 08/05/21 08:38 Olanzapine (ZyPREXA ZYDIS) 2.5 mg PRN Q4HRS PRN PO PSYCHOSIS 07/15/21 16:30 07/26/21 11:59 DC 07/24/21 09:13 Quetiapine Fumarate (SEROquel) 50 mg BID PO 07/16/21 09:00 07/16/21 15:39 DC 07/16/21 08:05 Quetiapine Fumarate (SEROquel) 25 mg PRN Q6HRS PRN PO ANXIETY 07/16/21 15:45 07/25/21 18:09 DC 07/19/21 01:41 Quetiapine Fumarate (SEROquel) 25 mg HS PO 07/16/21 21:00 07/25/21 18:09 DC 07/24/21 20:16 Quetiapine Fumarate (SEROquel) 12.5 mg DAILY PO 07/17/21 09:00 07/25/21 18:09 DC 07/25/21 09:24 Artificial Tears (Artificial Tears) 1 drop PRN DAILY PRN OD DRY EYES 07/17/21 08:45 Polyethylene Glycol (miraLAX) 17 gm PRN DAILY PRN PO DRY EYES 07/17/21 08:45 07/17/21 08:42 DC Polyethylene Glycol (miraLAX) 17 gm DAILY PO 07/18/21 09:00 08/05/21 08:39 Vitamin D (Vitamin D3) 50,000 unit WEEKLY PO 07/18/21 15:30 07/18/21 19:11 DC Vitamin D (Vitamin D3) 50,000 unit WEEKLY PO 07/19/21 09:00 08/02/21 09:04 Olanzapine (ZyPREXA ZYDIS) 2.5 mg PRN Q2HR PRN PO PSYCHOSIS 07/26/21 12:00 Divalproex Sodium (Depakote Sprinkles) 125 mg 0900,1700 PO 07/26/21 17:00 08/04/21 18:18 DC 08/04/21 16:37 Divalproex Sodium (Depakote Sprinkles) 250 mg 0900,1700 PO 08/05/21 09:00 08/06/21 17:00 I have reviewed the current psychotropics carefully including drug interactions. Risk benefit ratio favors no change other than as noted in my dictated progress note. 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
[2021-08-07 06:16] VITALS: BP 155/61
[2021-08-07] MEDS: DIVALPROEX 125 MG CAP.SPRINK PO SCH ×2 (07:51→16:58)
[2021-08-07] MEDS: CITALOPRAM 20 MG TABLET. PO SCH (07:51)
[2021-08-07] MEDS: amLODIPine BESYLATE 5 MG TABLET PO SCH (07:51)
[2021-08-07] MEDS: MULTIVITAMIN with MINERAL TABLET. PO SCH (09:00)
[2021-08-07] MEDS: POLYETHYLENE GLYCOL 3350 17 GM PACKET. PO SCH (09:00)
[2021-08-07 16:01] VITALS: BP 119/73
--- NOTE | 2021-08-07 20:44 | PN ---
DATE: 08/07/2021 SUBJECTIVE: The patient was seen today, met with the staff. Chart reviewed and also covering for Dr. Bernardo. The patient's behavior remains the same, staying in bed, refusing to speak or participate in activities and also resisted to care. She has been isolating herself in her room, staying in bed, not wanting to interact with the staff or other residents. Otherwise, not presenting with any major behavior problems. OBSERVATION: VITAL SIGNS: Temperature 98.2, pulse 60, blood pressure 155/61, O2 sat 97%. GENERAL: The patient's appetite is fair. The patient has to be encouraged to eat her meals. The patient not having any physical complaints. No falls. LABORATORY DATA: The patient's lab reviewed, no significant change from prior levels. CURRENT MEDICATIONS: Include Depakote 250 mg twice a day, olanzapine 2.5 mg q. 2 hours p.r.n., citalopram 20 mg daily. The patient is not having any side effects to medications. ASSESSMENT: 1. Dementia, most likely Alzheimer's with depression and delusions. 2. Anxiety disorder, unspecified. 3. Impulse control disorder, unspecified. PLAN: To continue with treatment. LENGTH OF STAY: Five to seven days. ALINA DR: Earl TID: [id number]
[2021-08-08 05:40] VITALS: BP 135/69
[2021-08-08 08:06] LABS: BASO % 1 % (0-3); EOS # 0.1 x10^3/uL (0.0-0.7); EOS % 2 % (0-3); HEMATOCRIT 41.7 % (36.0-47.0); HEMOGLOBIN 13.8 g/dL (12.0-15.5); LYMPH # 2.2 x10^3/uL (1.0-4.8); LYMPH % 33 % (24-48); MEAN CORPUSCULAR HEMOGLOBIN 32 pg (25-35); MEAN CORPUSCULAR HGB CONC 33 g/dL (31-37); MEAN CORPUSCULAR VOLUME 97 fL (79-100); MONO # 0.8 x10^3/uL (0.0-1.1); MONO % 12 % (0-9); NEUT # 3.5 x10^3uL (1.8-7.7); NEUT % 52 % (31-73); PLATELET COUNT 260 x10^3/uL (140-400); RED BLOOD COUNT 4.31 x10^6/uL (3.50-5.40); RED CELL DISTRIBUTION WIDTH 13.2 % (11.5-14.5); WHITE BLOOD COUNT 6.8 x10^3/uL (4.0-11.0)
[2021-08-08 08:19] LABS: ALBUMIN 3.2 g/dL (3.4-5.0); ALBUMIN/GLOBULIN RATIO 0.8 (1.0-1.7); ALK PHOS 81 U/L (46-116); ALT (SGPT) 20 U/L (14-59); ANION GAP 9 (6-14); AST (SGOT) 18 U/L (15-37); BLOOD UREA NITROGEN 22 mg/dL (7-20); BUN/CREATININE RATIO 28 (6-20); CALCIUM 8.8 mg/dL (8.5-10.1); CARBON DIOXIDE 24 mmol/L (21-32); CHLORIDE 107 mmol/L (98-107); CREATININE 0.8 mg/dL (0.6-1.0); GFR 68.5; GLUCOSE 84 mg/dL (70-99); POTASSIUM 4.1 mmol/L (3.5-5.1); SODIUM 140 mmol/L (136-145); TOTAL BILIRUBIN 0.4 mg/dL (0.2-1.0)
[2021-08-08 08:20] LABS: VAL ACID 45 mcg/mL (50-100)
[2021-08-08] MEDS: CITALOPRAM 20 MG TABLET. PO SCH (08:34)
[2021-08-08] MEDS: MULTIVITAMIN with MINERAL TABLET. PO SCH (08:34)
[2021-08-08] MEDS: DIVALPROEX 125 MG CAP.SPRINK PO SCH ×2 (08:34→16:48)
[2021-08-08] MEDS: POLYETHYLENE GLYCOL 3350 17 GM PACKET. PO SCH (08:34)
[2021-08-08] MEDS: amLODIPine BESYLATE 5 MG TABLET PO SCH (08:34)
[2021-08-08 16:15] VITALS: BP 105/67
--- NOTE | 2021-08-08 21:51 | PN ---
DATE: 08/08/2021 SUBJECTIVE: The patient was seen today, met with the staff, chart reviewed and also covering for Dr. Bernardo. The patient continues to exhibit social isolation, staying in bed most of the time, minimal interaction with the staff and also concrete and disorganized thinking. The patient has not presented with any other major behavior problems. The patient continues to show significant problems with her cognition, executive functioning and also inability to communicate and needing assistance with ADLs. OBSERVATION: VITAL SIGNS: Temperature 97.3, blood pressure 135/69, pulse 55, respirations 16, O2 sat 95%. GENERAL: Slept about 8 hours last night. The patient's appetite fair. LABORATORY DATA: The patient's lab reviewed. The patient's Depakote level was 45. CURRENT MEDICATIONS: Include Depakote 250 mg twice a day, olanzapine 2.5 mg q. 2 hours p.r.n. The patient's citalopram to be decreased to 10 mg daily from 20 mg daily. She is not having any side effects to medications. ASSESSMENT: 1. Dementia, most likely Alzheimer's with depression, delusions. 2. Anxiety disorder, unspecified. 3. Impulse control disorder, unspecified. PLAN: To continue with treatment. LENGTH OF STAY: Five to seven days. LONNIE DR: Earl TID: [id number]
[2021-08-09 06:10] VITALS: BP 152/74
[2021-08-09] MEDS: CITALOPRAM 10 MG TABLET. PO SCH (08:37)
[2021-08-09] MEDS: MULTIVITAMIN with MINERAL TABLET. PO SCH (08:37)
[2021-08-09] MEDS: DIVALPROEX 125 MG CAP.SPRINK PO SCH ×2 (08:37→17:13)
[2021-08-09] MEDS: CHOLECALCIFEROL (VITAMIN D3) 50,000 UNIT CAPSULE PO SCH (08:37)
[2021-08-09] MEDS: amLODIPine BESYLATE 5 MG TABLET PO SCH (08:37)
[2021-08-09] MEDS: POLYETHYLENE GLYCOL 3350 17 GM PACKET. PO SCH (09:00)
--- NOTE | 2021-08-09 13:44 | TX PLAN ---
Interdisciplinary Tx Plan Admission Information Jul 15, 2021 at 12:56 Legal Status (on Admission): Voluntary DPOA/Guardian Name: Ofelia Albarran Contact Other Contact Name: Harika Valderrama, or Eileen Other Contact Verified Code Status: DNR Allergies: Coded Allergies: Penicillins (Verified Allergy, Unknown, 07/15/21) latex (Verified Allergy, Unknown, 07/15/21) sulfamethoxazole (Verified Allergy, Unknown, 07/15/21) trimethoprim (Verified Allergy, Unknown, 07/15/21) Diagnoses Primary Diagnosis: 1. Major neurocognitive disorder, most likely Alzheimer's with behavior problems. 2. Depressive disorder, unspecified. Reasons for Admission: Aggressive, Agitated, Depressed, Angry, Anxiety/Panic, Combative, Suspicious/paranoid, Confusion/Disoriented, Isolating Problem in Patient's Words: Pt sister/DPOA, Ofelia, has been noticing a gradual decline exhibited by her becoming more reclusive and imiginaning things. Dominique thinks that she begins to sundown early. Prior to pt's current living facility at [facility], she was at another nursing facility in [place] where she started having increased agitation and aggression. The facility at [place] didn't feel like they could meet her needs anylonger, therefore, pt was moved to [place]. Additional Admission Comments: Per intake record, pt presents from her nursing facility with intrusiveness, wanders and enters peers rooms, aggressive toward staff, hit staff with walker, and agitation. Problems Active Problems: Agitation, aggression, resistive to medication, cares and treatment, depressed, angry, anxiety Inactive Problems: None at this time. Pt Strengths/Limitations Ability for [place]: Poor Cognitive Functioning/Ability: Poor Communication Skills/Ability: Fair Financial Resources: Good Insight/Judgement: Poor Intellectual Ability: Good Physical Health: Poor Social Skills: Fair Stability in Family: Good Stability in School/Work: Good Verbal Skills: Fair Discharge Criteria Discharge Criteria: Able meet basic life need, No need for close observ., Able to meet health needs, Adequate arrangements @DC, Adequate self-care, Verbal commit med comply, Improved behavior, Improved mood/thought Preliminary Discharge Plan Preliminary DC Plan: Current Living Arrange. Special Precautions Fall Risk: Low Initial D/C Plan Pt plan is to return to [facility]. Identified Discharge Needs: None at this time. Currently Utilized Resources Currently Utilized Resources/P: PCP-Dr. Pang Sister/CUATEELMA-Ofelia Avis Facility-[facility]; contact-Jannie, Harika, or Eileen Referrals Community Resources: None at this time. Identified Problems/Hx/Goals Objectives/Short-Term Goals Short Term Goals: Control abnormal behavior, Dec. Aggression, Dec. Anxiety/Panic, Dec. Outbursts, Dec. Symp. Depression, Medication Stabilization, Monitor Med Effects, Prevent Deterioration, Promote Coping Skill Short Term Goals in Patient's: Medication evaluation to help with agitation and aggression along with improve compliance with cares. Interventions/Frequency Staff Interventions/Frequency&: Psychiatry to assess pt three times per week for medication management. Nursing to assess behaviors, monitor medications, and complete 15 minute checks daily. Social work to see pt at least two times weekly to aid in return to placement. Activities to encourage pt to participate in group activities daily. 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 Community Follow-up PCP Community Provider/Family Inpu: Sister/CUATEOfelia WILLS, aware of pt hospitalization and is available for further information as needed. Treatment Plan Explained Patient/Dielectric Testing Machine Operator had this treatment plan explained to him/her as indicated by the signature below and has been given the opportunity to ask questions and make suggestions: Date: Patient/Dielectric Testing Machine Operator Signature: Status Update Update Pt continues to eat 80% of her meals and averages 8.5 hours of sleep each night. Pt is still A/O to self and location; not situation. She frequently states that she wants to go home, but when clarified with family if that meant her original home or facility, family confirmed that she has made that statement for a very long time indicating that she was wanting to go to her original home. Pt lacks insight into her condition as she remains confused. She most of the time remains in her room, but occasionally comes out to walk the hallway. She is at times resistive to medications and other times she is cooperative. Her valproic acid level is currently 45. Doctor has no plans at this time to increase the dosage as she has not presented with any problematic behaviors. Pt will return to [facility] as soon as they can make accommodations for transpiration. [facility] requests a Covid swab within 24 hours of discharge; they will reach back out to to let know when they can arrange for transportation so that then the Covid swab can be done. TRINO FONSECA Aug 09, 2021 13:44
[2021-08-09 16:11] VITALS: BP 146/76
--- NOTE | 2021-08-09 23:20 | PN ---
DATE: 08/09/2021 SUBJECTIVE: The patient is seen today, met with the staff. Chart was reviewed and also covering for Dr. Bernardo. The patient continues to have problems, increased social withdrawal, confusion, significant short-term memory deficits and disoriented to surroundings. The patient is able to communicate mostly monosyllabic answers. The patient most of the time presents with constriction of affect. The patient has no awareness of her surroundings. Staff reports she is redirectable easily. CURRENT MEDICATIONS: Depakote 250 mg twice a day, olanzapine 2.5 mg q.2 hours p.r.n., citalopram was decreased to 10 mg daily. The patient is not having any side effects to medications. LABORATORY DATA: The patient's lab reviewed. PHYSICAL EXAMINATION: VITAL SIGNS: Temperature 98.1, blood pressure 152/74, pulse 59, respirations 16, O2 sat 95%. Slept about 7-1/2 hours last night. ASSESSMENT: 1. Dementia, most likely Alzheimer's with depression and delusions. 2. Anxiety disorder, unspecified. 3. Impulse control disorder, unspecified. PLAN: To continue treatment. LENGTH OF STAY: Five to seven days. NAVA DR: Earl TID: [id number] [facility]OSPITALBrian
[2021-08-10 05:51] VITALS: BP 111/62
[2021-08-10] MEDS: POLYETHYLENE GLYCOL 3350 17 GM PACKET. PO SCH (07:28)
[2021-08-10] MEDS: MULTIVITAMIN with MINERAL TABLET. PO SCH (07:28)
[2021-08-10] MEDS: CITALOPRAM 10 MG TABLET. PO SCH (07:28)
[2021-08-10] MEDS: amLODIPine BESYLATE 5 MG TABLET PO SCH (07:29)
[2021-08-10] MEDS: DIVALPROEX 125 MG CAP.SPRINK PO SCH ×2 (07:29→17:08)
[2021-08-10 17:25] VITALS: BP 159/74
[2021-08-11 06:07] VITALS: BP 163/71
[2021-08-11] MEDS: MULTIVITAMIN with MINERAL TABLET. PO SCH (08:06)
[2021-08-11] MEDS: CITALOPRAM 10 MG TABLET. PO SCH (08:06)
[2021-08-11] MEDS: amLODIPine BESYLATE 5 MG TABLET PO SCH (08:07)
[2021-08-11] MEDS: DIVALPROEX 125 MG CAP.SPRINK PO SCH ×2 (08:07→17:09)
[2021-08-11] MEDS: POLYETHYLENE GLYCOL 3350 17 GM PACKET. PO SCH (08:08)
[2021-08-11 15:52] VITALS: BP 121/71
--- NOTE | 2021-08-12 03:33 | PN ---
DATE: 08/11/2021 SUBJECTIVE: The patient is seen today, met with the staff. Chart was reviewed and also covering for Dr. Bernardo. The patient continues to be withdrawn, isolative, prefers to stay in bed, having difficulty relating to people and also limited communication. The patient has not presented with any major behavioral problems. She is confused, sometimes difficult to redirect. The patient is medication compliant. OBSERVATION: VITAL SIGNS: Temperature 97.4, blood pressure 121/71, pulse 82, respirations 88, O2 sat 99%. The patient's sleep is normal. GENERAL: The patient has appetite decreased. The patient is need to be supervised. LABORATORY DATA: The patient's lab reviewed. CURRENT MEDICATIONS: Depakote 250 mg twice a day, olanzapine 2.5 mg q. 2 hours p.r.n., citalopram was decreased to 10 mg daily. She is not having any side effects. The patient's lab reviewed. ASSESSMENT: 1. Dementia, most likely Alzheimer's with depression and delusions. 2. Anxiety disorder, unspecified. 3. Impulse control disorder, unspecified. PLAN: To continue with treatment. LENGTH OF STAY: Five to seven days. LEILANI DR: Earl TID: [id number]
[2021-08-12 05:55] VITALS: BP 146/71
[2021-08-12] MEDS: amLODIPine BESYLATE 5 MG TABLET PO SCH (08:35)
[2021-08-12] MEDS: POLYETHYLENE GLYCOL 3350 17 GM PACKET. PO SCH (08:35)
[2021-08-12] MEDS: DIVALPROEX 125 MG CAP.SPRINK PO SCH ×2 (08:35→17:12)
[2021-08-12] MEDS: CITALOPRAM 10 MG TABLET. PO SCH (08:36)
[2021-08-12] MEDS: MULTIVITAMIN with MINERAL TABLET. PO SCH (08:36)
[2021-08-12 16:23] VITALS: BP 160/69
[2021-08-13 06:16] VITALS: BP 149/90
[2021-08-13] MEDS: DIVALPROEX 125 MG CAP.SPRINK PO SCH ×2 (08:15→17:28)
[2021-08-13] MEDS: CITALOPRAM 10 MG TABLET. PO SCH (08:15)
[2021-08-13] MEDS: MULTIVITAMIN with MINERAL TABLET. PO SCH (08:15)
[2021-08-13] MEDS: amLODIPine BESYLATE 5 MG TABLET PO SCH (08:16)
[2021-08-13] MEDS: POLYETHYLENE GLYCOL 3350 17 GM PACKET. PO SCH (08:16)
[2021-08-13 16:01] VITALS: BP 154/83
--- NOTE | 2021-08-14 02:56 | PN ---
DATE: 08/13/2021 SUBJECTIVE: The patient was seen today, met with the staff. Chart was reviewed. I am covering for Dr. Bernardo. The patient's behavior has improved. She is not aggressive. No major behavior problems. Pleasant, but withdrawn, confused, tend to wander. No evidence of any psychotic symptoms. OBSERVATION: VITAL SIGNS: Temperature 97.4, blood pressure 149/80, pulse 72, respirations 20, and O2 sat 99%. GENERAL: Slept about 5 hours last night. The patient's appetite is fair. The patient is needing assistance with ADLs and also difficult to redirect at times. LABORATORY DATA: The patient's lab reviewed. CURRENT MEDICATIONS: The patient's current medications, Depakote 250 mg twice a day, olanzapine 2.5 mg q. 2 hours p.r.n., citalopram was decreased to 10 mg daily. The patient is not having any side effects to medications. ASSESSMENT: 1. Dementia, most likely Alzheimer's with the depression and delusions. 2. Anxiety disorder, unspecified. 3. Impulse control disorder, unspecified. PLAN: To continue with treatment. LENGTH OF STAY: 5 days. NEMESIO/MICHAEL/GABI DR: NEMESIO/christa TID: [id number]
[2021-08-14 05:42] VITALS: BP 125/77
[2021-08-14] MEDS: amLODIPine BESYLATE 5 MG TABLET PO SCH (08:24)
[2021-08-14] MEDS: MULTIVITAMIN with MINERAL TABLET. PO SCH (08:24)
[2021-08-14] MEDS: CITALOPRAM 10 MG TABLET. PO SCH (08:24)
[2021-08-14] MEDS: POLYETHYLENE GLYCOL 3350 17 GM PACKET. PO SCH (08:24)
[2021-08-14] MEDS: DIVALPROEX 125 MG CAP.SPRINK PO SCH ×2 (08:24→17:35)
[2021-08-14 15:18] VITALS: BP 117/71
--- NOTE | 2021-08-14 23:09 | PN ---
DATE: 08/14/2021 SUBJECTIVE: The patient was seen today, met with the staff. Chart was reviewed and also covering for Dr. Bernardo. Staff reports no major behavioral problems. She is pleasant, but confused, walks with a walker, tend to pace a little bit. The patient is not presenting with any major behavior problem except just confused and no evidence of surroundings, difficult to redirect and also needing assistance with the ADLs. OBSERVATION: VITAL SIGNS: Temperature 97.2, blood pressure 125/77, pulse 62, respirations 16, O2 sat 95%. GENERAL: Slept about 8 hours last night. LABORATORY DATA: The patient's lab reviewed. CURRENT MEDICATIONS: The patient's current medications include Depakote 250 mg twice a day, olanzapine 2.5 mg q. 2 hours p.r.n. and citalopram 10 mg daily. She is not having any side effects to medications. ASSESSMENT: 1. Dementia, most likely Alzheimer's with depression and delusions. 2. Anxiety disorder, unspecified. 3. Impulse control disorder, unspecified. PLAN: To continue with the treatment. LENGTH OF STAY: [address]: Earl TID: [id number]
[2021-08-15 06:38] VITALS: BP 131/74
[2021-08-15] MEDS: MULTIVITAMIN with MINERAL TABLET. PO SCH (08:28)
[2021-08-15] MEDS: CITALOPRAM 10 MG TABLET. PO SCH (08:28)
[2021-08-15] MEDS: amLODIPine BESYLATE 5 MG TABLET PO SCH (08:28)
[2021-08-15] MEDS: DIVALPROEX 125 MG CAP.SPRINK PO SCH ×2 (08:28→17:16)
[2021-08-15] MEDS: POLYETHYLENE GLYCOL 3350 17 GM PACKET. PO SCH (08:28)
[2021-08-15 11:57] LABS: BASO # 0.1 x10^3/uL (0.0-0.2); BASO % 1 % (0-3); EOS # 0.1 x10^3/uL (0.0-0.7); EOS % 1 % (0-3); HEMATOCRIT 39.2 % (36.0-47.0); HEMOGLOBIN 13.3 g/dL (12.0-15.5); LYMPH # 1.9 x10^3/uL (1.0-4.8); LYMPH % 25 % (24-48); MEAN CORPUSCULAR HEMOGLOBIN 32 pg (25-35); MEAN CORPUSCULAR HGB CONC 34 g/dL (31-37); MEAN CORPUSCULAR VOLUME 95 fL (79-100); MONO # 0.9 x10^3/uL (0.0-1.1); MONO % 12 % (0-9); NEUT # 4.8 x10^3uL (1.8-7.7); NEUT % 62 % (31-73); PLATELET COUNT 236 x10^3/uL (140-400); RED BLOOD COUNT 4.12 x10^6/uL (3.50-5.40); RED CELL DISTRIBUTION WIDTH 12.9 % (11.5-14.5); WHITE BLOOD COUNT 7.7 x10^3/uL (4.0-11.0)
[2021-08-15 12:07] LABS: ALBUMIN 3.3 g/dL (3.4-5.0); ALBUMIN/GLOBULIN RATIO 0.9 (1.0-1.7); CALCIUM 8.8 mg/dL (8.5-10.1); CREATININE 0.9 mg/dL (0.6-1.0); GFR 59.8; POTASSIUM 4.4 mmol/L (3.5-5.1); TOTAL BILIRUBIN 0.3 mg/dL (0.2-1.0)
[2021-08-15 15:51] VITALS: BP 130/66
--- NOTE | 2021-08-16 03:19 | PN ---
DATE: 08/15/2021 SUBJECTIVE: The patient was seen today, met with the staff. Chart reviewed and covering for Dr. Bernardo. Staff reports no major behavioral problems. She is pleasantly confused, tends to spend a lot of time in bed. The patient's behavior overall improved. She is able to hold a reasonable conversation. The patient also refusing her medications at times. OBSERVATION: VITAL SIGNS: Temperature 99.2, blood pressure 131/74, pulse 66, respirations 16, O2 sat 93%. Slept about 9 hours last night. GENERAL: The patient's appetite improved. LABORATORY DATA: The patient's lab reviewed. CURRENT MEDICATIONS: Depakote 250 mg twice a day, olanzapine 2.5 mg q.2 hours p.r.n., and citalopram 10 mg daily. The patient is not having any side effects to medications. ASSESSMENT: Dementia, most likely Alzheimer's with depression and delusions, anxiety disorder, unspecified. PLAN: To continue with treatment. LENGTH OF STAY: Three days. The patient is scheduled for discharge on 08/17/2021 to return to [facility]. NEMESIO/JEFFY/GABI DR: NEMESIO/christa TID: [id number]
[2021-08-16 05:49] VITALS: BP 101/54
[2021-08-16] MEDS: CITALOPRAM 10 MG TABLET. PO SCH (08:14)
[2021-08-16] MEDS: CHOLECALCIFEROL (VITAMIN D3) 50,000 UNIT CAPSULE PO SCH (08:15)
[2021-08-16] MEDS: MULTIVITAMIN with MINERAL TABLET. PO SCH (08:15)
[2021-08-16] MEDS: amLODIPine BESYLATE 5 MG TABLET PO SCH (08:15)
[2021-08-16] MEDS: DIVALPROEX 125 MG CAP.SPRINK PO SCH ×2 (08:15→17:10)
[2021-08-16] MEDS: POLYETHYLENE GLYCOL 3350 17 GM PACKET. PO SCH (08:16)
[2021-08-16 15:42] VITALS: BP 119/71
--- NOTE | 2021-08-16 21:41 | PDOC ---
Exam Note: Roderick Note: Please also refer to the separate dictated note~for this date of service dictated separately.~Patient seen individually. Discussed the patient with Nursing staff reviewed the chart.~Reviewed interim history and current functioning. Reviewed vital signs,~Labs/ Radiology~and current medications noted below. Continue current treatment with the changes noted in the dictated addendum note Assessment: Vital Signs/I&O: Vital Signs Date Time Temp Pulse Resp B/P (MAP) Pulse Ox O2 Delivery O2 Flow Rate FiO2 08/16/21 15:42 98.6 73 19 119/71 (87) 93 08/14/21 05:42 Room Air I & O 08/15/21 08/15/21 08/16/21 15:00 23:00 07:00 Intake Total 780 ml 340 ml Balance 780 ml 340 ml Current Medications: Meds: Current Medications Medications (Trade) Dose Ordered Sig/Jin Route PRN Reason Start Time Stop Time Status Last Admin Dose Admin Acetaminophen (Tylenol) 650 mg PRN Q6HRS PRN PO MILD PAIN / TEMP > 100.3'F 07/15/21 13:00 Multi-Ingredient Ointment (Analgesic Rogers) 1 lilibeth PRN QID PRN TP MUSCLE PAIN 07/15/21 13:00 Al Hydroxide/Mg Hydroxide (Mylanta Plus Xs) 15 ml PRN AFTMEALHC PRN PO DYSPEPSIA 07/15/21 13:00 Magnesium Hydroxide (Milk Of Magnesia) 2,400 mg PRN QHS PRN PO CONSTIPATION 07/15/21 13:00 08/08/21 08:34 Influenza Virus Vaccine Quadrival (Flulaval Quad [id number] Syringe) 0.5 ml ONCE ONCE VAX IM 07/16/21 09:00 07/16/21 09:01 DC 07/16/21 16:00 Amlodipine Besylate (Norvasc) 5 mg DAILY PO 07/16/21 09:00 08/15/21 08:28 Donepezil HCl (Aricept) 10 mg DAILY PO 07/16/21 09:00 07/26/21 11:59 DC 07/26/21 08:46 Ibuprofen (Motrin) 800 mg PRN Q6HRS PRN PO MODERATE PAIN 07/15/21 13:00 Polyethylene Glycol (miraLAX) 17 gm DAILY PO 07/16/21 09:00 07/17/21 08:39 DC 07/17/21 08:14 Artificial Tears (Artificial Tears) 1 drop DAILY OD 07/16/21 09:00 07/17/21 08:38 DC 07/17/21 08:16 Quetiapine Fumarate (SEROquel) 25 mg BID PO 07/15/21 21:00 07/15/21 21:01 DC 07/15/21 20:03 Quetiapine Fumarate (SEROquel) 50 mg BID PO 07/15/21 21:00 07/15/21 20:01 DC Citalopram Hydrobromide (CeleXA) 20 mg DAILY PO 07/16/21 09:00 08/08/21 14:54 DC 08/08/21 08:34 Multivitamins/ Calcium (Thera-M Plus) 1 tab DAILY PO 07/16/21 09:00 08/16/21 08:15 Olanzapine (ZyPREXA ZYDIS) 2.5 mg PRN Q4HRS PRN PO PSYCHOSIS 07/15/21 16:30 07/26/21 11:59 DC 07/24/21 09:13 Quetiapine Fumarate (SEROquel) 50 mg BID PO 07/16/21 09:00 07/16/21 15:39 DC 07/16/21 08:05 Quetiapine Fumarate (SEROquel) 25 mg PRN Q6HRS PRN PO ANXIETY 07/16/21 15:45 07/25/21 18:09 DC 07/19/21 01:41 Quetiapine Fumarate (SEROquel) 25 mg HS PO 07/16/21 21:00 07/25/21 18:09 DC 07/24/21 20:16 Quetiapine Fumarate (SEROquel) 12.5 mg DAILY PO 07/17/21 09:00 07/25/21 18:09 DC 07/25/21 09:24 Artificial Tears (Artificial Tears) 1 drop PRN DAILY PRN OD DRY EYES 07/17/21 08:45 Polyethylene Glycol (miraLAX) 17 gm PRN DAILY PRN PO DRY EYES 07/17/21 08:45 07/17/21 08:42 DC Polyethylene Glycol (miraLAX) 17 gm DAILY PO 07/18/21 09:00 08/16/21 08:16 Vitamin D (Vitamin D3) 50,000 unit WEEKLY PO 07/18/21 15:30 07/18/21 19:11 DC Vitamin D (Vitamin D3) 50,000 unit WEEKLY PO 07/19/21 09:00 08/16/21 08:15 Olanzapine (ZyPREXA ZYDIS) 2.5 mg PRN Q2HR PRN PO PSYCHOSIS 07/26/21 12:00 Divalproex Sodium (Depakote Sprinkles) 125 mg 0900,1700 PO 07/26/21 17:00 08/04/21 18:18 DC 08/04/21 16:37 Divalproex Sodium (Depakote Sprinkles) 250 mg 0900,1700 PO 08/05/21 09:00 08/16/21 17:10 Citalopram Hydrobromide (CeleXA) 10 mg DAILY PO 08/09/21 09:00 08/16/21 08:14 I have reviewed the current psychotropics carefully including drug interactions. Risk benefit ratio favors no change other than as noted in my dictated progress note. Diagnosis: Problems: (1) Dementia in Alzheimer's disease with depression (2) Dementia in Alzheimer's disease with delusions (3) Dementia of the Alzheimer's type with early onset with behavioral disturbance (4) Major neurocognitive disorder (5) Impulse control disorder, unspecified (6) Anxiety disorder, unspecified (7) Dementia, vascular, with depression (8) Dementia, vascular, with delusions LOUIS DAO MD Aug 16, 2021 21:41
[2021-08-17 06:03] VITALS: BP 121/73
[2021-08-17] MEDS: DIVALPROEX 125 MG CAP.SPRINK PO SCH ×2 (08:08→17:05)
[2021-08-17] MEDS: CITALOPRAM 10 MG TABLET. PO SCH (08:08)
[2021-08-17] MEDS: amLODIPine BESYLATE 5 MG TABLET PO SCH (08:08)
[2021-08-17] MEDS: MULTIVITAMIN with MINERAL TABLET. PO SCH (08:08)
[2021-08-17] MEDS: POLYETHYLENE GLYCOL 3350 17 GM PACKET. PO SCH (08:09)
--- NOTE | 2021-08-17 11:11 | TX PLAN ---
Interdisciplinary Tx Plan Admission Information Jul 15, 2021 at 12:56 Legal Status (on Admission): Voluntary DPOA/Guardian Name: Ofelia Albarran Contact Other Contact Name: Harika Valderrama, or Eileen Other Contact Verified Code Status: DNR Allergies: Coded Allergies: Penicillins (Verified Allergy, Unknown, 07/15/21) latex (Verified Allergy, Unknown, 07/15/21) sulfamethoxazole (Verified Allergy, Unknown, 07/15/21) trimethoprim (Verified Allergy, Unknown, 07/15/21) Diagnoses Primary Diagnosis: 1. Major neurocognitive disorder, most likely Alzheimer's with behavior problems. 2. Depressive disorder, unspecified. Reasons for Admission: Aggressive, Agitated, Depressed, Angry, Anxiety/Panic, Combative, Suspicious/paranoid, Confusion/Disoriented, Isolating Problem in Patient's Words: Pt sister/DPOA, Ofelia, has been noticing a gradual decline exhibited by her becoming more reclusive and imiginaning things. Dominique thinks that she begins to sundown early. Prior to pt's current living facility at [facility], she was at another nursing facility in [place] where she started having increased agitation and aggression. The facility at [place] didn't feel like they could meet her needs anylonger, therefore, pt was moved to [place]. Additional Admission Comments: Per intake record, pt presents from her nursing facility with intrusiveness, wanders and enters peers rooms, aggressive toward staff, hit staff with walker, and agitation. Problems Active Problems: Agitation, aggression, resistive to medication, cares and treatment, depressed, angry, anxiety Inactive Problems: None at this time. Pt Strengths/Limitations Ability for [place]: Poor Cognitive Functioning/Ability: Poor Communication Skills/Ability: Fair Financial Resources: Good Insight/Judgement: Poor Intellectual Ability: Good Physical Health: Poor Social Skills: Fair Stability in Family: Good Stability in School/Work: Good Verbal Skills: Fair Discharge Criteria Discharge Criteria: Able meet basic life need, No need for close observ., Able to meet health needs, Adequate arrangements @DC, Adequate self-care, Verbal commit med comply, Improved behavior, Improved mood/thought Preliminary Discharge Plan Preliminary DC Plan: Current Living Arrange. Special Precautions Fall Risk: Low Initial D/C Plan Pt plan is to return to [facility]. Identified Discharge Needs: None at this time. Currently Utilized Resources Currently Utilized Resources/P: PCP-Dr. Pang Sister/DPELMA-Ofelia Ronniepavelakin Facility-[facility]; contact-Jannie, Harika, or Eileen Referrals Community Resources: None at this time. Identified Problems/Hx/Goals Objectives/Short-Term Goals Short Term Goals: Control abnormal behavior, Dec. Aggression, Dec. Anxiety/Panic, Dec. Outbursts, Dec. Symp. Depression, Medication Stabilization, Monitor Med Effects, Prevent Deterioration, Promote Coping Skill Short Term Goals in Patient's: Medication evaluation to help with agitation and aggression along with improve compliance with cares. Interventions/Frequency Staff Interventions/Frequency&: Psychiatry to assess pt three times per week for medication management. Nursing to assess behaviors, monitor medications, and complete 15 minute checks daily. Social work to see pt at least two times weekly to aid in return to placement. Activities to encourage pt to participate in group activities daily. 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 Community Follow-up PCP Community Provider/Family Inpu: Sister/CUATEELMA, Ofelia, aware of pt hospitalization and is available for further information as needed. Treatment Plan Explained Patient/Monitoring Analyst had this treatment plan explained to him/her as indicated by the signature below and has been given the opportunity to ask questions and make suggestions: Date: Patient/Monitoring Analyst Signature: Status Update Update Pt has been eating roughly 40 % of her meals and getting 7 hours of sleep at night. She continues to be A/O to self and location, but not situation. Pt lacks insight into her condition and remains confused. Pt continues to remain mostly in her rooms only coming out for meals and an occasional walk down the hallway. She continues to remain at times resistive to medications and other times cooperative. Pt does not present with enough behavioral disturbances at this time to warrant medication adjustments. This, however, will continue to be monitored and assessed. She will remain here at [facility] as she has been exposed to Covid. She, however, has remained negative, but per protocol, she will remain through 08/26/21 provided she continues to test negative. Should she test positive at any point while here, her discharge date will be extended. Also, has confirmed with pt facility, that they require a negative covid result within 24 hours of discharge. Pt will continue to be tested twice weekly through her stay here unless she tests positive. If that were to become the situation, pt would need to remain at hospital through a 10 day quarantine period, but per hospital protocol pt would not require further testing for 90 days. In conversation with pt facility, they have no covid cases right now and are unable to risk taking pt at this point knowing that she has been exposed. Therefore, pt will remain here at [facility] at least until 08/26/21. Treatment plan was completed on 08/16/21 and entered on 08/17/21. TRINO FONSECA Aug 17, 2021 11:11
[2021-08-17 15:46] VITALS: BP 153/81
--- NOTE | 2021-08-17 21:34 | PDOC ---
Exam Note: Roderick Note: Please also refer to the separate dictated note~for this date of service dictated separately.~Patient seen individually. Discussed the patient with Nursing staff reviewed the chart.~Reviewed interim history and current functioning. Reviewed vital signs,~Labs/ Radiology~and current medications noted below. Continue current treatment with the changes noted in the dictated addendum note Assessment: Vital Signs/I&O: Vital Signs Date Time Temp Pulse Resp B/P (MAP) Pulse Ox O2 Delivery O2 Flow Rate FiO2 08/17/21 15:46 97.8 71 18 153/81 (105) 97 08/14/21 05:42 Room Air I & O 08/16/21 08/16/21 08/17/21 15:00 23:00 07:00 Intake Total 440 ml 440 ml Balance 440 ml 440 ml Current Medications: Meds: Current Medications Medications (Trade) Dose Ordered Sig/Jin Route PRN Reason Start Time Stop Time Status Last Admin Dose Admin Acetaminophen (Tylenol) 650 mg PRN Q6HRS PRN PO MILD PAIN / TEMP > 100.3'F 07/15/21 13:00 Multi-Ingredient Ointment (Analgesic [place]) 1 lilibeth PRN QID PRN TP MUSCLE PAIN 07/15/21 13:00 Al Hydroxide/Mg Hydroxide (Mylanta Plus Xs) 15 ml PRN AFTMEALHC PRN PO DYSPEPSIA 07/15/21 13:00 Magnesium Hydroxide (Milk Of Magnesia) 2,400 mg PRN QHS PRN PO CONSTIPATION 07/15/21 13:00 08/08/21 08:34 Influenza Virus Vaccine Quadrival (Flulaval Quad [id number] Syringe) 0.5 ml ONCE ONCE VAX IM 07/16/21 09:00 07/16/21 09:01 DC 07/16/21 16:00 Amlodipine Besylate (Norvasc) 5 mg DAILY PO 07/16/21 09:00 08/17/21 08:08 Donepezil HCl (Aricept) 10 mg DAILY PO 07/16/21 09:00 07/26/21 11:59 DC 07/26/21 08:46 Ibuprofen (Motrin) 800 mg PRN Q6HRS PRN PO MODERATE PAIN 07/15/21 13:00 Polyethylene Glycol (miraLAX) 17 gm DAILY PO 07/16/21 09:00 07/17/21 08:39 DC 07/17/21 08:14 Artificial Tears (Artificial Tears) 1 drop DAILY OD 07/16/21 09:00 07/17/21 08:38 DC 07/17/21 08:16 Quetiapine Fumarate (SEROquel) 25 mg BID PO 07/15/21 21:00 07/15/21 21:01 DC 07/15/21 20:03 Quetiapine Fumarate (SEROquel) 50 mg BID PO 07/15/21 21:00 07/15/21 20:01 DC Citalopram Hydrobromide (CeleXA) 20 mg DAILY PO 07/16/21 09:00 08/08/21 14:54 DC 08/08/21 08:34 Multivitamins/ Calcium (Thera-M Plus) 1 tab DAILY PO 07/16/21 09:00 08/17/21 08:08 Olanzapine (ZyPREXA ZYDIS) 2.5 mg PRN Q4HRS PRN PO PSYCHOSIS 07/15/21 16:30 07/26/21 11:59 DC 07/24/21 09:13 Quetiapine Fumarate (SEROquel) 50 mg BID PO 07/16/21 09:00 07/16/21 15:39 DC 07/16/21 08:05 Quetiapine Fumarate (SEROquel) 25 mg PRN Q6HRS PRN PO ANXIETY 07/16/21 15:45 07/25/21 18:09 DC 07/19/21 01:41 Quetiapine Fumarate (SEROquel) 25 mg HS PO 07/16/21 21:00 07/25/21 18:09 DC 07/24/21 20:16 Quetiapine Fumarate (SEROquel) 12.5 mg DAILY PO 07/17/21 09:00 07/25/21 18:09 DC 07/25/21 09:24 Artificial Tears (Artificial Tears) 1 drop PRN DAILY PRN OD DRY EYES 07/17/21 08:45 Polyethylene Glycol (miraLAX) 17 gm PRN DAILY PRN PO DRY EYES 07/17/21 08:45 07/17/21 08:42 DC Polyethylene Glycol (miraLAX) 17 gm DAILY PO 07/18/21 09:00 08/17/21 08:09 Vitamin D (Vitamin D3) 50,000 unit WEEKLY PO 07/18/21 15:30 07/18/21 19:11 DC Vitamin D (Vitamin D3) 50,000 unit WEEKLY PO 07/19/21 09:00 08/16/21 08:15 Olanzapine (ZyPREXA ZYDIS) 2.5 mg PRN Q2HR PRN PO PSYCHOSIS 07/26/21 12:00 Divalproex Sodium (Depakote Sprinkles) 125 mg 0900,1700 PO 07/26/21 17:00 08/04/21 18:18 DC 08/04/21 16:37 Divalproex Sodium (Depakote Sprinkles) 250 mg 0900,1700 PO 08/05/21 09:00 08/17/21 17:05 Citalopram Hydrobromide (CeleXA) 10 mg DAILY PO 08/09/21 09:00 08/17/21 08:08 I have reviewed the current psychotropics carefully including drug interactions. Risk benefit ratio favors no change other than as noted in my dictated progress note. 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
[2021-08-18 06:13] VITALS: BP 121/75
--- NOTE | 2021-08-18 07:59 | PDOC ---
Exam Note: Roderick Note: This note is a late entry for 08/16/2021 covers elements not covered in my initial note. Subjective: The patient was seen individually at treatment team meeting in the morning on 08/16/2021 with Natalya Rocha, Rosa Isela Padgett, and Lauren Vizcaino (director social welfare), Keysha, activity therapy, Deaj WILSON, discussed and reviewed the chart. Dr. Hines had covered for me for the past two weeks and I have reviewed information, notes and records by Dr. Hines. The unit is currently on lockdown for any admissions due to Covid-19 positive status. The patient slept 5-3/4 hours previous night. Per Keysha activity carmel, she has attended one group in the past one week. She remains somewhat depressed, disappointed. As I met with her individually in her room she was quite depressed, stating that she was wanting to return to the [facility] in [place] but this has been postponed due to Covid exposure. Review of Systems: Ambulation impaired, with walker. No CV, , pulmonary, eye, ENT system symptoms on review. Reliability poor. Mental Status Exam: The patient is alert and oriented to herself and situation. Speech moderate latency, often response is monosyllabic. Abstraction fair. Computation impaired. Language function intact. Mood and affect withdrawn. No suicidal or homicidal ideation. Laboratory Data: Reviewed. Impression: Major neurocognitive disorder, early Alzheimer, vascular with delusion, depression behavioral disturbance. Anxiety disorder unspecified. Impulse control disorder unspecified. Plan: Continue the patient on Aricept, Celexa, Depakote and she is using Zyprexa p.r.n. Valproic acid level is slightly subtherapeutic at 45 but clinically adequate. Reviewed drug interactions and risk-benefit ratio. Adjust further as clinically indicated. Assessment: Vital Signs/I&O: Vital Signs Date Time Temp Pulse Resp B/P (MAP) Pulse Ox O2 Delivery O2 Flow Rate FiO2 08/18/21 06:13 97.5 63 17 121/75 (90) 92 Room Air I & O 08/17/21 08/17/21 08/18/21 15:00 23:00 07:00 Intake Total 720 ml 360 ml 0 ml Balance 720 ml 360 ml 0 ml Current Medications: I have reviewed the current psychotropics carefully including drug interactions. Risk benefit ratio favors no change other than as noted in my dictated progress note. 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
--- NOTE | 2021-08-18 08:18 | PDOC ---
Exam Note: Roderick Note: This note is a late entry for 08/17/2021 covers elements not covered in my initial note. Subjective: The patient was seen individually on 08/17/2021, discussed and reviewed the chart with Deja WILSON. The unit is currently on lockdown for any admissions due to Covid-19 positive status. The patient slept 7 hours previous night. Overall often patient refuses medications, takes things from others, quite confused. I met with her in her room. Review of Systems: Ambulation impaired, with walker. No CV, , pulmonary, eye, ENT system symptoms on review. Mental Status Exam: The patient is oriented to herself. Insight and judgment, recent and remote memory, attention and concentration, fund of knowledge is poor consistent with her diagnosis. Laboratory Data: Reviewed. Impression: Major neurocognitive disorder, early Alzheimer, vascular with delusion, depression behavioral disturbance. Anxiety disorder unspecified. Impulse control disorder unspecified. Plan: Reviewed drug interactions and risk-benefit ratio favors no change for now. Assessment: Vital Signs/I&O: Vital Signs Date Time Temp Pulse Resp B/P (MAP) Pulse Ox O2 Delivery O2 Flow Rate FiO2 08/18/21 06:13 97.5 63 17 121/75 (90) 92 Room Air I & O 08/17/21 08/17/21 08/18/21 15:00 23:00 07:00 Intake Total 720 ml 360 ml 0 ml Balance 720 ml 360 ml 0 ml Current Medications: I have reviewed the current psychotropics carefully including drug interactions. Risk benefit ratio favors no change other than as noted in my dictated progress note. 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
[2021-08-18] MEDS: CITALOPRAM 10 MG TABLET. PO SCH (08:20)
[2021-08-18] MEDS: DIVALPROEX 125 MG CAP.SPRINK PO SCH ×2 (08:20→17:20)
[2021-08-18] MEDS: POLYETHYLENE GLYCOL 3350 17 GM PACKET. PO SCH (08:21)
[2021-08-18] MEDS: MULTIVITAMIN with MINERAL TABLET. PO SCH (08:21)
[2021-08-18] MEDS: amLODIPine BESYLATE 5 MG TABLET PO SCH (08:21)
[2021-08-18 15:46] VITALS: BP 134/64
--- NOTE | 2021-08-18 21:29 | PDOC ---
Exam Note: Roderick Note: Please also refer to the separate dictated note~for this date of service dictated separately.~Patient seen individually. Discussed the patient with Nursing staff reviewed the chart.~Reviewed interim history and current functioning. Reviewed vital signs,~Labs/ Radiology~and current medications noted below. Continue current treatment with the changes noted in the dictated addendum note Assessment: Vital Signs/I&O: Vital Signs Date Time Temp Pulse Resp B/P (MAP) Pulse Ox O2 Delivery O2 Flow Rate FiO2 08/18/21 15:46 97.2 79 18 134/64 (87) 98 08/18/21 06:13 Room Air I & O 08/17/21 08/17/21 08/18/21 15:00 23:00 07:00 Intake Total 720 ml 360 ml 0 ml Balance 720 ml 360 ml 0 ml Current Medications: Meds: Current Medications Medications (Trade) Dose Ordered Sig/Jin Route PRN Reason Start Time Stop Time Status Last Admin Dose Admin Acetaminophen (Tylenol) 650 mg PRN Q6HRS PRN PO MILD PAIN / TEMP > 100.3'F 07/15/21 13:00 Multi-Ingredient Ointment (Analgesic [place]) 1 lilibeth PRN QID PRN TP MUSCLE PAIN 07/15/21 13:00 Al Hydroxide/Mg Hydroxide (Mylanta Plus Xs) 15 ml PRN AFTMEALHC PRN PO DYSPEPSIA 07/15/21 13:00 Magnesium Hydroxide (Milk Of Magnesia) 2,400 mg PRN QHS PRN PO CONSTIPATION 07/15/21 13:00 08/08/21 08:34 Influenza Virus Vaccine Quadrival (Flulaval Quad [id number] Syringe) 0.5 ml ONCE ONCE VAX IM 07/16/21 09:00 07/16/21 09:01 DC 07/16/21 16:00 Amlodipine Besylate (Norvasc) 5 mg DAILY PO 07/16/21 09:00 08/18/21 08:21 Donepezil HCl (Aricept) 10 mg DAILY PO 07/16/21 09:00 07/26/21 11:59 DC 07/26/21 08:46 Ibuprofen (Motrin) 800 mg PRN Q6HRS PRN PO MODERATE PAIN 07/15/21 13:00 Polyethylene Glycol (miraLAX) 17 gm DAILY PO 07/16/21 09:00 07/17/21 08:39 DC 07/17/21 08:14 Artificial Tears (Artificial Tears) 1 drop DAILY OD 07/16/21 09:00 07/17/21 08:38 DC 07/17/21 08:16 Quetiapine Fumarate (SEROquel) 25 mg BID PO 07/15/21 21:00 07/15/21 21:01 DC 07/15/21 20:03 Quetiapine Fumarate (SEROquel) 50 mg BID PO 07/15/21 21:00 07/15/21 20:01 DC Citalopram Hydrobromide (CeleXA) 20 mg DAILY PO 07/16/21 09:00 08/08/21 14:54 DC 08/08/21 08:34 Multivitamins/ Calcium (Thera-M Plus) 1 tab DAILY PO 07/16/21 09:00 08/18/21 08:21 Olanzapine (ZyPREXA ZYDIS) 2.5 mg PRN Q4HRS PRN PO PSYCHOSIS 07/15/21 16:30 07/26/21 11:59 DC 07/24/21 09:13 Quetiapine Fumarate (SEROquel) 50 mg BID PO 07/16/21 09:00 07/16/21 15:39 DC 07/16/21 08:05 Quetiapine Fumarate (SEROquel) 25 mg PRN Q6HRS PRN PO ANXIETY 07/16/21 15:45 07/25/21 18:09 DC 07/19/21 01:41 Quetiapine Fumarate (SEROquel) 25 mg HS PO 07/16/21 21:00 07/25/21 18:09 DC 07/24/21 20:16 Quetiapine Fumarate (SEROquel) 12.5 mg DAILY PO 07/17/21 09:00 07/25/21 18:09 DC 07/25/21 09:24 Artificial Tears (Artificial Tears) 1 drop PRN DAILY PRN OD DRY EYES 07/17/21 08:45 Polyethylene Glycol (miraLAX) 17 gm PRN DAILY PRN PO DRY EYES 07/17/21 08:45 07/17/21 08:42 DC Polyethylene Glycol (miraLAX) 17 gm DAILY PO 07/18/21 09:00 08/18/21 08:21 Vitamin D (Vitamin D3) 50,000 unit WEEKLY PO 07/18/21 15:30 07/18/21 19:11 DC Vitamin D (Vitamin D3) 50,000 unit WEEKLY PO 07/19/21 09:00 08/16/21 08:15 Olanzapine (ZyPREXA ZYDIS) 2.5 mg PRN Q2HR PRN PO PSYCHOSIS 07/26/21 12:00 Divalproex Sodium (Depakote Sprinkles) 125 mg 0900,1700 PO 07/26/21 17:00 08/04/21 18:18 DC 08/04/21 16:37 Divalproex Sodium (Depakote Sprinkles) 250 mg 0900,1700 PO 08/05/21 09:00 08/18/21 18:24 DC 08/18/21 17:20 Citalopram Hydrobromide (CeleXA) 10 mg DAILY PO 08/09/21 09:00 08/18/21 08:20 Divalproex Sodium (Depakote Sprinkles) 375 mg 0900,1700 PO 08/19/21 09:00 I have reviewed the current psychotropics carefully including drug interactions. Risk benefit ratio favors no change other than as noted in my dictated progress note. 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
[2021-08-19 06:10] VITALS: BP 151/66
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
[2021-08-19] MEDS: DIVALPROEX 125 MG CAP.SPRINK PO SCH ×2 (08:30→17:20)
[2021-08-19] MEDS: amLODIPine BESYLATE 5 MG TABLET PO SCH (08:30)
[2021-08-19] MEDS: MULTIVITAMIN with MINERAL TABLET. PO SCH (08:30)
[2021-08-19] MEDS: CITALOPRAM 10 MG TABLET. PO SCH (08:30)
[2021-08-19] MEDS: POLYETHYLENE GLYCOL 3350 17 GM PACKET. PO SCH (08:31)
[2021-08-19 16:28] VITALS: BP 155/83
[2021-08-19 21:42] VITALS: BP 103/61
--- NOTE | 2021-08-19 22:11 | PDOC ---
Exam Note: Roderick Note: Please also refer to the separate dictated note~for this date of service dictated separately.~Patient seen individually. Discussed the patient with Nursing staff reviewed the chart.~Reviewed interim history and current functioning. Reviewed vital signs,~Labs/ Radiology~and current medications noted below. Continue current treatment with the changes noted in the dictated addendum note Assessment: Vital Signs/I&O: Vital Signs Date Time Temp Pulse Resp B/P (MAP) Pulse Ox O2 Delivery O2 Flow Rate FiO2 08/19/21 21:42 98.0 76 18 103/61 (75) 95 08/19/21 16:28 Nasal Cannula I & O 08/18/21 08/18/21 08/19/21 15:00 23:00 07:00 Intake Total 400 ml 120 ml Balance 400 ml 120 ml Current Medications: Meds: Current Medications Medications (Trade) Dose Ordered Sig/Jin Route PRN Reason Start Time Stop Time Status Last Admin Dose Admin Acetaminophen (Tylenol) 650 mg PRN Q6HRS PRN PO MILD PAIN / TEMP > 100.3'F 07/15/21 13:00 Multi-Ingredient Ointment (Analgesic [place]) 1 lilibeth PRN QID PRN TP MUSCLE PAIN 07/15/21 13:00 Al Hydroxide/Mg Hydroxide (Mylanta Plus Xs) 15 ml PRN AFTMEALHC PRN PO DYSPEPSIA 07/15/21 13:00 Magnesium Hydroxide (Milk Of Magnesia) 2,400 mg PRN QHS PRN PO CONSTIPATION 07/15/21 13:00 08/08/21 08:34 Influenza Virus Vaccine Quadrival (Flulaval Quad [id number] Syringe) 0.5 ml ONCE ONCE VAX IM 07/16/21 09:00 07/16/21 09:01 DC 07/16/21 16:00 Amlodipine Besylate (Norvasc) 5 mg DAILY PO 07/16/21 09:00 08/19/21 08:30 Donepezil HCl (Aricept) 10 mg DAILY PO 07/16/21 09:00 07/26/21 11:59 DC 07/26/21 08:46 Ibuprofen (Motrin) 800 mg PRN Q6HRS PRN PO MODERATE PAIN 07/15/21 13:00 Polyethylene Glycol (miraLAX) 17 gm DAILY PO 07/16/21 09:00 07/17/21 08:39 DC 07/17/21 08:14 Artificial Tears (Artificial Tears) 1 drop DAILY OD 07/16/21 09:00 07/17/21 08:38 DC 07/17/21 08:16 Quetiapine Fumarate (SEROquel) 25 mg BID PO 07/15/21 21:00 07/15/21 21:01 DC 07/15/21 20:03 Quetiapine Fumarate (SEROquel) 50 mg BID PO 07/15/21 21:00 07/15/21 20:01 DC Citalopram Hydrobromide (CeleXA) 20 mg DAILY PO 07/16/21 09:00 08/08/21 14:54 DC 08/08/21 08:34 Multivitamins/ Calcium (Thera-M Plus) 1 tab DAILY PO 07/16/21 09:00 08/19/21 08:30 Olanzapine (ZyPREXA ZYDIS) 2.5 mg PRN Q4HRS PRN PO PSYCHOSIS 07/15/21 16:30 07/26/21 11:59 DC 07/24/21 09:13 Quetiapine Fumarate (SEROquel) 50 mg BID PO 07/16/21 09:00 07/16/21 15:39 DC 07/16/21 08:05 Quetiapine Fumarate (SEROquel) 25 mg PRN Q6HRS PRN PO ANXIETY 07/16/21 15:45 07/25/21 18:09 DC 07/19/21 01:41 Quetiapine Fumarate (SEROquel) 25 mg HS PO 07/16/21 21:00 07/25/21 18:09 DC 07/24/21 20:16 Quetiapine Fumarate (SEROquel) 12.5 mg DAILY PO 07/17/21 09:00 07/25/21 18:09 DC 07/25/21 09:24 Artificial Tears (Artificial Tears) 1 drop PRN DAILY PRN OD DRY EYES 07/17/21 08:45 Polyethylene Glycol (miraLAX) 17 gm PRN DAILY PRN PO DRY EYES 07/17/21 08:45 07/17/21 08:42 DC Polyethylene Glycol (miraLAX) 17 gm DAILY PO 07/18/21 09:00 08/19/21 08:31 Vitamin D (Vitamin D3) 50,000 unit WEEKLY PO 07/18/21 15:30 07/18/21 19:11 DC Vitamin D (Vitamin D3) 50,000 unit WEEKLY PO 07/19/21 09:00 08/16/21 08:15 Olanzapine (ZyPREXA ZYDIS) 2.5 mg PRN Q2HR PRN PO PSYCHOSIS 07/26/21 12:00 Divalproex Sodium (Depakote Sprinkles) 125 mg 0900,1700 PO 07/26/21 17:00 08/04/21 18:18 DC 08/04/21 16:37 Divalproex Sodium (Depakote Sprinkles) 250 mg 0900,1700 PO 08/05/21 09:00 08/18/21 18:24 DC 08/18/21 17:20 Citalopram Hydrobromide (CeleXA) 10 mg DAILY PO 08/09/21 09:00 08/19/21 08:30 Divalproex Sodium (Depakote Sprinkles) 375 mg 0900,1700 PO 08/19/21 09:00 08/19/21 17:20 Current Medications Medications (Trade) Dose Ordered Sig/Jin Route PRN Reason Start Time Stop Time Status Last Admin Dose Admin Divalproex Sodium (Depakote Sprinkles) 375 mg 0900,1700 PO 08/19/21 09:00 08/19/21 17:20 I have reviewed the current psychotropics carefully including drug interactions. Risk benefit ratio favors no change other than as noted in my dictated progress note. 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
[2021-08-20 06:04] VITALS: BP 128/63
[2021-08-20] MEDS: amLODIPine BESYLATE 5 MG TABLET PO SCH (08:05)
[2021-08-20] MEDS: DIVALPROEX 125 MG CAP.SPRINK PO SCH ×2 (08:05→17:04)
[2021-08-20] MEDS: CITALOPRAM 10 MG TABLET. PO SCH (08:05)
[2021-08-20] MEDS: MULTIVITAMIN with MINERAL TABLET. PO SCH (08:05)
[2021-08-20] MEDS: POLYETHYLENE GLYCOL 3350 17 GM PACKET. PO SCH (08:09)
[2021-08-20 16:01] VITALS: BP 141/80
--- NOTE | 2021-08-20 21:52 | PDOC ---
Exam Note: Roderick Note: Please also refer to the separate dictated note~for this date of service dictated separately.~Patient seen individually. Discussed the patient with Nursing staff reviewed the chart.~Reviewed interim history and current functioning. Reviewed vital signs,~Labs/ Radiology~and current medications noted below. Continue current treatment with the changes noted in the dictated addendum note Assessment: Vital Signs/I&O: Vital Signs Date Time Temp Pulse Resp B/P (MAP) Pulse Ox O2 Delivery O2 Flow Rate FiO2 08/20/21 16:01 98.2 80 18 141/80 (100) 98 Room Air I & O 08/19/21 08/19/21 08/20/21 15:00 23:00 07:00 Intake Total 600 ml Balance 600 ml Labs: Laboratory Tests Test 08/20/21 06:00 SARS-CoV-2 (PCR) Not detected (NOT DETECTD) Current Medications: Meds: Laboratory Tests Test 08/20/21 06:00 Coronavirus (COVID-19)(PCR) Not detected Current Medications Medications (Trade) Dose Ordered Sig/Jin Route PRN Reason Start Time Stop Time Status Last Admin Dose Admin Acetaminophen (Tylenol) 650 mg PRN Q6HRS PRN PO MILD PAIN / TEMP > 100.3'F 07/15/21 13:00 Multi-Ingredient Ointment (Analgesic [place]) 1 lilibeth PRN QID PRN TP MUSCLE PAIN 07/15/21 13:00 Al Hydroxide/Mg Hydroxide (Mylanta Plus Xs) 15 ml PRN AFTMEALHC PRN PO DYSPEPSIA 07/15/21 13:00 Magnesium Hydroxide (Milk Of Magnesia) 2,400 mg PRN QHS PRN PO CONSTIPATION 07/15/21 13:00 08/08/21 08:34 Influenza Virus Vaccine Quadrival (Flulaval Quad [id number] Syringe) 0.5 ml ONCE ONCE VAX IM 07/16/21 09:00 07/16/21 09:01 DC 07/16/21 16:00 Amlodipine Besylate (Norvasc) 5 mg DAILY PO 07/16/21 09:00 08/20/21 08:05 Donepezil HCl (Aricept) 10 mg DAILY PO 07/16/21 09:00 07/26/21 11:59 DC 07/26/21 08:46 Ibuprofen (Motrin) 800 mg PRN Q6HRS PRN PO MODERATE PAIN 07/15/21 13:00 Polyethylene Glycol (miraLAX) 17 gm DAILY PO 07/16/21 09:00 07/17/21 08:39 DC 07/17/21 08:14 Artificial Tears (Artificial Tears) 1 drop DAILY OD 07/16/21 09:00 07/17/21 08:38 DC 07/17/21 08:16 Quetiapine Fumarate (SEROquel) 25 mg BID PO 07/15/21 21:00 07/15/21 21:01 DC 07/15/21 20:03 Quetiapine Fumarate (SEROquel) 50 mg BID PO 07/15/21 21:00 07/15/21 20:01 DC Citalopram Hydrobromide (CeleXA) 20 mg DAILY PO 07/16/21 09:00 08/08/21 14:54 DC 08/08/21 08:34 Multivitamins/ Calcium (Thera-M Plus) 1 tab DAILY PO 07/16/21 09:00 08/20/21 08:05 Olanzapine (ZyPREXA ZYDIS) 2.5 mg PRN Q4HRS PRN PO PSYCHOSIS 07/15/21 16:30 07/26/21 11:59 DC 07/24/21 09:13 Quetiapine Fumarate (SEROquel) 50 mg BID PO 07/16/21 09:00 07/16/21 15:39 DC 07/16/21 08:05 Quetiapine Fumarate (SEROquel) 25 mg PRN Q6HRS PRN PO ANXIETY 07/16/21 15:45 07/25/21 18:09 DC 07/19/21 01:41 Quetiapine Fumarate (SEROquel) 25 mg HS PO 07/16/21 21:00 07/25/21 18:09 DC 07/24/21 20:16 Quetiapine Fumarate (SEROquel) 12.5 mg DAILY PO 07/17/21 09:00 07/25/21 18:09 DC 07/25/21 09:24 Artificial Tears (Artificial Tears) 1 drop PRN DAILY PRN OD DRY EYES 07/17/21 08:45 Polyethylene Glycol (miraLAX) 17 gm PRN DAILY PRN PO DRY EYES 07/17/21 08:45 07/17/21 08:42 DC Polyethylene Glycol (miraLAX) 17 gm DAILY PO 07/18/21 09:00 08/20/21 08:09 Vitamin D (Vitamin D3) 50,000 unit WEEKLY PO 07/18/21 15:30 07/18/21 19:11 DC Vitamin D (Vitamin D3) 50,000 unit WEEKLY PO 07/19/21 09:00 08/16/21 08:15 Olanzapine (ZyPREXA ZYDIS) 2.5 mg PRN Q2HR PRN PO PSYCHOSIS 07/26/21 12:00 Divalproex Sodium (Depakote Sprinkles) 125 mg 0900,1700 PO 07/26/21 17:00 08/04/21 18:18 DC 08/04/21 16:37 Divalproex Sodium (Depakote Sprinkles) 250 mg 0900,1700 PO 08/05/21 09:00 08/18/21 18:24 DC 08/18/21 17:20 Citalopram Hydrobromide (CeleXA) 10 mg DAILY PO 08/09/21 09:00 08/20/21 08:05 Divalproex Sodium (Depakote Sprinkles) 375 mg 0900,1700 PO 08/19/21 09:00 08/20/21 17:04 I have reviewed the current psychotropics carefully including drug interactions. Risk benefit ratio favors no change other than as noted in my dictated progress note. 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
[2021-08-21 06:16] VITALS: BP 144/50
--- NOTE | 2021-08-21 07:58 | PDOC ---
Exam Note: Roderick Note: This note is a late entry for 08/19/2021 covers elements not covered in my initial note. Subjective: The patient was seen individually on rounds on 08/19/2021, discussed and reviewed the chart with Kristina WILSON. The patient slept 7 hours previous night. She refused her medications in the morning. Later they were given in pudding and she spitted back. She is sexually inappropriate with female nursing staff and we addressed this. In the evening she has done better but continues to have some mood lability. I met with her in her room. Review of Systems: Ambulation impaired, with walker. No CV, , pulmonary, eye, ENT system symptoms on review. Mental Status Exam: The patient is oriented to herself. Insight and judgment, recent and remote memory, attention and concentration, fund of knowledge is poor consistent with her diagnosis. Laboratory Data: Reviewed. Impression: Major neurocognitive disorder, early Alzheimer, vascular with delusion, depression behavioral disturbance. Anxiety disorder unspecified. Impulse control disorder unspecified. Plan: Given the patients ongoing mood lability and subtherapeutic valproic acid level at 45 on Depakote 250 mg twice a day, we will increase Depakote to 375 mg 9 a.m. and 5 p.m. Check CBC, CMP, valproic acid level, ammonia level in 3 days. Continue rest of the psychotropics unchanged. Assessment: Vital Signs/I&O: Vital Signs Date Time Temp Pulse Resp B/P (MAP) Pulse Ox O2 Delivery O2 Flow Rate FiO2 08/21/21 06:16 98.9 78 18 144/50 (81) 96 08/20/21 16:01 Room Air I & O 08/20/21 08/20/21 08/21/21 14:59 22:59 06:59 Intake Total 480 ml 360 ml Balance 480 ml 360 ml Current Medications: I have reviewed the current psychotropics carefully including drug interactions. Risk benefit ratio favors no change other than as noted in my dictated progress note. 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
--- NOTE | 2021-08-21 08:07 | PDOC ---
Exam Note: Roderick Note: This note is a late entry for 08/20/2021 covers elements not covered in my initial note. Subjective: The patient was seen individually on 08/20/2021, discussed and reviewed the chart with Lyric WILSON. The patient slept 5-1/4 hours previous night. I met with the patient in her room. Overall she has been withdrawn, takes her medications with meals, has not had any more sexually inappropriate behaviors. She is more appropriate today. Review of Systems: Ambulation impaired, with walker. No CV, , pulmonary, eye, ENT system symptoms on review. Mental Status Exam: The patient is oriented to herself and situation. Speech is coherent, has some latency. Abstraction fair. Computation impaired. Language function intact. Attention span short. Mood and affect somewhat withdrawn. Laboratory Data: Reviewed. Impression: Major neurocognitive disorder, early Alzheimer, vascular with delusion, depression behavioral disturbance. Anxiety disorder unspecified. Impulse control disorder unspecified. Plan: No change from initial note. Assessment: Vital Signs/I&O: Vital Signs Date Time Temp Pulse Resp B/P (MAP) Pulse Ox O2 Delivery O2 Flow Rate FiO2 08/21/21 06:16 98.9 78 18 144/50 (81) 96 08/20/21 16:01 Room Air I & O 08/20/21 08/20/21 08/21/21 15:00 23:00 07:00 Intake Total 480 ml 360 ml Balance 480 ml 360 ml Current Medications: I have reviewed the current psychotropics carefully including drug interactions. Risk benefit ratio favors no change other than as noted in my dictated progress note. 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
[2021-08-21] MEDS: DIVALPROEX 125 MG CAP.SPRINK PO SCH ×2 (08:22→17:00)
[2021-08-21] MEDS: POLYETHYLENE GLYCOL 3350 17 GM PACKET. PO SCH (08:22)
[2021-08-21] MEDS: amLODIPine BESYLATE 5 MG TABLET PO SCH (08:23)
[2021-08-21] MEDS: CITALOPRAM 10 MG TABLET. PO SCH (08:23)
[2021-08-21] MEDS: MULTIVITAMIN with MINERAL TABLET. PO SCH (08:23)
[2021-08-21 15:41] VITALS: BP 104/64
[2021-08-21 16:45] LABS: BASO # 0.1 x10^3/uL (0.0-0.2); BASO % 1 % (0-3); EOS # 0.1 x10^3/uL (0.0-0.7); EOS % 2 % (0-3); HEMATOCRIT 40.7 % (36.0-47.0); HEMOGLOBIN 13.5 g/dL (12.0-15.5); LYMPH # 2.6 x10^3/uL (1.0-4.8); LYMPH % 43 % (24-48); MEAN CORPUSCULAR HEMOGLOBIN 32 pg (25-35); MEAN CORPUSCULAR HGB CONC 33 g/dL (31-37); MEAN CORPUSCULAR VOLUME 97 fL (79-100); MONO # 0.7 x10^3/uL (0.0-1.1); MONO % 11 % (0-9); NEUT # 2.6 x10^3uL (1.8-7.7); NEUT % 43 % (31-73); PLATELET COUNT 244 x10^3/uL (140-400); RED CELL DISTRIBUTION WIDTH 13.1 % (11.5-14.5); WHITE BLOOD COUNT 6.1 x10^3/uL (4.0-11.0)
[2021-08-21 17:03] LABS: ALBUMIN 3.1 g/dL (3.4-5.0); ALBUMIN/GLOBULIN RATIO 0.8 (1.0-1.7); ALK PHOS 86 U/L (46-116); ALT (SGPT) 19 U/L (14-59); ANION GAP 8 (6-14); AST (SGOT) 18 U/L (15-37); BLOOD UREA NITROGEN 24 mg/dL (7-20); BUN/CREATININE RATIO 27 (6-20); CALCIUM 8.8 mg/dL (8.5-10.1); CARBON DIOXIDE 28 mmol/L (21-32); CHLORIDE 105 mmol/L (98-107); CREATININE 0.9 mg/dL (0.6-1.0); GFR 59.8; GLUCOSE 92 mg/dL (70-99); POTASSIUM 4.8 mmol/L (3.5-5.1); SODIUM 141 mmol/L (136-145); TOTAL BILIRUBIN 0.1 mg/dL (0.2-1.0); TOTAL PROTEIN 6.8 g/dL (6.4-8.2)
[2021-08-21 17:14] LABS: VAL ACID 70 mcg/mL (50-100)
--- NOTE | 2021-08-21 21:42 | PDOC ---
Exam Note: Roderick Note: Please also refer to the separate dictated note~for this date of service dictated separately.~Patient seen individually. Discussed the patient with Nursing staff reviewed the chart.~Reviewed interim history and current functioning. Reviewed vital signs,~Labs/ Radiology~and current medications noted below. Continue current treatment with the changes noted in the dictated addendum note Assessment: Vital Signs/I&O: Vital Signs Date Time Temp Pulse Resp B/P (MAP) Pulse Ox O2 Delivery O2 Flow Rate FiO2 08/21/21 15:41 97.2 55 18 104/64 (77) 96 08/20/21 16:01 Room Air I & O 08/20/21 08/20/21 08/21/21 15:00 23:00 07:00 Intake Total 480 ml 360 ml Balance 480 ml 360 ml Labs: Laboratory Tests Test 08/21/21 08:00 08/21/21 16:30 White Blood Count 6.1 x10^3/uL (4.0-11.0) Red Blood Count 4.20 x10^6/uL (3.50-5.40) Hemoglobin 13.5 g/dL (12.0-15.5) Hematocrit 40.7 % (36.0-47.0) Mean Corpuscular Volume 97 fL (79-100) Mean Corpuscular Hemoglobin 32 pg (25-35) Mean Corpuscular Hemoglobin Concent 33 g/dL (31-37) Red Cell Distribution Width 13.1 % (11.5-14.5) Platelet Count 244 x10^3/uL (140-400) Neutrophils (%) (Auto) 43 % (31-73) Lymphocytes (%) (Auto) 43 % (24-48) Monocytes (%) (Auto) 11 % (0-9) H Eosinophils (%) (Auto) 2 % (0-3) Basophils (%) (Auto) 1 % (0-3) Neutrophils # (Auto) 2.6 x10^3uL (1.8-7.7) Lymphocytes # (Auto) 2.6 x10^3/uL (1.0-4.8) Monocytes # (Auto) 0.7 x10^3/uL (0.0-1.1) Eosinophils # (Auto) 0.1 x10^3/uL (0.0-0.7) Basophils # (Auto) 0.1 x10^3/uL (0.0-0.2) Sodium Level 141 mmol/L (136-145) Potassium Level 4.8 mmol/L (3.5-5.1) Chloride Level 105 mmol/L (98-107) Carbon Dioxide Level 28 mmol/L (21-32) Anion Gap 8 (6-14) Blood Urea Nitrogen 24 mg/dL (7-20) H Creatinine 0.9 mg/dL (0.6-1.0) Estimated GFR (Cockcroft-Gault) 59.8 BUN/Creatinine Ratio 27 (6-20) H Glucose Level 92 mg/dL (70-99) Calcium Level 8.8 mg/dL (8.5-10.1) Total Bilirubin 0.1 mg/dL (0.2-1.0) L Aspartate Amino Transferase (AST) 18 U/L (15-37) Alanine Aminotransferase (ALT) 19 U/L (14-59) Alkaline Phosphatase 86 U/L (46-116) Ammonia 31 mcmol/L (11-34) Total Protein 6.8 g/dL (6.4-8.2) Albumin 3.1 g/dL (3.4-5.0) L Albumin/Globulin Ratio 0.8 (1.0-1.7) L Valproic Acid Level 70 mcg/mL (50-100) Valproic Acid Last Dose Date Unk Valproic Acid Last Dose Time Unk Current Medications: Meds: Laboratory Tests Test 08/21/21 08:00 08/21/21 16:30 White Blood Count 6.1 x10^3/uL Red Blood Count 4.20 x10^6/uL Hemoglobin 13.5 g/dL Hematocrit 40.7 % Mean Corpuscular Volume 97 fL Mean Corpuscular Hemoglobin 32 pg Mean Corpuscular Hemoglobin Concent 33 g/dL Red Cell Distribution Width 13.1 % Platelet Count 244 x10^3/uL Neutrophils (%) (Auto) 43 % Lymphocytes (%) (Auto) 43 % Monocytes (%) (Auto) 11 % Eosinophils (%) (Auto) 2 % Basophils (%) (Auto) 1 % Neutrophils # (Auto) 2.6 x10^3uL Lymphocytes # (Auto) 2.6 x10^3/uL Monocytes # (Auto) 0.7 x10^3/uL Eosinophils # (Auto) 0.1 x10^3/uL Basophils # (Auto) 0.1 x10^3/uL Sodium Level 141 mmol/L Potassium Level 4.8 mmol/L Chloride Level 105 mmol/L Carbon Dioxide Level 28 mmol/L Anion Gap 8 Blood Urea Nitrogen 24 mg/dL Creatinine 0.9 mg/dL Estimated GFR (Cockcroft-Gault) 59.8 BUN/Creatinine Ratio 27 Glucose Level 92 mg/dL Calcium Level 8.8 mg/dL Total Bilirubin 0.1 mg/dL Aspartate Amino Transf (AST/SGOT) 18 U/L Alanine Aminotransferase (ALT/SGPT) 19 U/L Alkaline Phosphatase 86 U/L Ammonia 31 mcmol/L Total Protein 6.8 g/dL Albumin 3.1 g/dL Albumin/Globulin Ratio 0.8 Valproic Acid (Depakene) Level 70 mcg/mL Valproic Acid Last Dose Date Unk Valproic Acid Last Dose Time Unk Current Medications Medications (Trade) Dose Ordered Sig/Jin Route PRN Reason Start Time Stop Time Status Last Admin Dose Admin Acetaminophen (Tylenol) 650 mg PRN Q6HRS PRN PO MILD PAIN / TEMP > 100.3'F 07/15/21 13:00 Multi-Ingredient Ointment (Analgesic [place]) 1 lilibeth PRN QID PRN TP MUSCLE PAIN 07/15/21 13:00 Al Hydroxide/Mg Hydroxide (Mylanta Plus Xs) 15 ml PRN AFTMEALHC PRN PO DYSPEPSIA 07/15/21 13:00 Magnesium Hydroxide (Milk Of Magnesia) 2,400 mg PRN QHS PRN PO CONSTIPATION 07/15/21 13:00 08/08/21 08:34 Influenza Virus Vaccine Quadrival (Flulaval Quad [id number] Syringe) 0.5 ml ONCE ONCE VAX IM 07/16/21 09:00 07/16/21 09:01 DC 07/16/21 16:00 Amlodipine Besylate (Norvasc) 5 mg DAILY PO 07/16/21 09:00 08/21/21 08:23 Donepezil HCl (Aricept) 10 mg DAILY PO 07/16/21 09:00 07/26/21 11:59 DC 07/26/21 08:46 Ibuprofen (Motrin) 800 mg PRN Q6HRS PRN PO MODERATE PAIN 07/15/21 13:00 Polyethylene Glycol (miraLAX) 17 gm DAILY PO 07/16/21 09:00 07/17/21 08:39 DC 07/17/21 08:14 Artificial Tears (Artificial Tears) 1 drop DAILY OD 07/16/21 09:00 07/17/21 08:38 DC 07/17/21 08:16 Quetiapine Fumarate (SEROquel) 25 mg BID PO 07/15/21 21:00 07/15/21 21:01 DC 07/15/21 20:03 Quetiapine Fumarate (SEROquel) 50 mg BID PO 07/15/21 21:00 07/15/21 20:01 DC Citalopram Hydrobromide (CeleXA) 20 mg DAILY PO 07/16/21 09:00 08/08/21 14:54 DC 08/08/21 08:34 Multivitamins/ Calcium (Thera-M Plus) 1 tab DAILY PO 07/16/21 09:00 08/21/21 08:23 Olanzapine (ZyPREXA ZYDIS) 2.5 mg PRN Q4HRS PRN PO PSYCHOSIS 07/15/21 16:30 07/26/21 11:59 DC 07/24/21 09:13 Quetiapine Fumarate (SEROquel) 50 mg BID PO 07/16/21 09:00 07/16/21 15:39 DC 07/16/21 08:05 Quetiapine Fumarate (SEROquel) 25 mg PRN Q6HRS PRN PO ANXIETY 07/16/21 15:45 07/25/21 18:09 DC 07/19/21 01:41 Quetiapine Fumarate (SEROquel) 25 mg HS PO 07/16/21 21:00 07/25/21 18:09 DC 07/24/21 20:16 Quetiapine Fumarate (SEROquel) 12.5 mg DAILY PO 07/17/21 09:00 07/25/21 18:09 DC 07/25/21 09:24 Artificial Tears (Artificial Tears) 1 drop PRN DAILY PRN OD DRY EYES 07/17/21 08:45 Polyethylene Glycol (miraLAX) 17 gm PRN DAILY PRN PO DRY EYES 07/17/21 08:45 07/17/21 08:42 DC Polyethylene Glycol (miraLAX) 17 gm DAILY PO 07/18/21 09:00 08/21/21 08:22 Vitamin D (Vitamin D3) 50,000 unit WEEKLY PO 07/18/21 15:30 07/18/21 19:11 DC Vitamin D (Vitamin D3) 50,000 unit WEEKLY PO 07/19/21 09:00 08/16/21 08:15 Olanzapine (ZyPREXA ZYDIS) 2.5 mg PRN Q2HR PRN PO PSYCHOSIS 07/26/21 12:00 08/21/21 10:31 Divalproex Sodium (Depakote Sprinkles) 125 mg 0900,1700 PO 07/26/21 17:00 08/04/21 18:18 DC 08/04/21 16:37 Divalproex Sodium (Depakote Sprinkles) 250 mg 0900,1700 PO 08/05/21 09:00 08/18/21 18:24 DC 08/18/21 17:20 Citalopram Hydrobromide (CeleXA) 10 mg DAILY PO 08/09/21 09:00 08/21/21 08:23 Divalproex Sodium (Depakote Sprinkles) 375 mg 0900,1700 PO 08/19/21 09:00 08/21/21 17:00 I have reviewed the current psychotropics carefully including drug interactions. Risk benefit ratio favors no change other than as noted in my dictated progress note. 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
[2021-08-22 05:44] VITALS: BP 151/61
[2021-08-22] MEDS: POLYETHYLENE GLYCOL 3350 17 GM PACKET. PO SCH (09:02)
[2021-08-22] MEDS: DIVALPROEX 125 MG CAP.SPRINK PO SCH ×2 (09:03→17:17)
[2021-08-22] MEDS: MULTIVITAMIN with MINERAL TABLET. PO SCH (09:03)
[2021-08-22] MEDS: CITALOPRAM 10 MG TABLET. PO SCH (09:03)
[2021-08-22] MEDS: amLODIPine BESYLATE 5 MG TABLET PO SCH (09:03)
[2021-08-22 16:32] VITALS: BP 122/67
--- NOTE | 2021-08-22 21:44 | PDOC ---
Exam Note: Roderick Note: Please also refer to the separate dictated note~for this date of service dictated separately.~Patient seen individually. Discussed the patient with Nursing staff reviewed the chart.~Reviewed interim history and current functioning. Reviewed vital signs,~Labs/ Radiology~and current medications noted below. Continue current treatment with the changes noted in the dictated addendum note Assessment: Vital Signs/I&O: Vital Signs Date Time Temp Pulse Resp B/P (MAP) Pulse Ox O2 Delivery O2 Flow Rate FiO2 08/22/21 16:32 97.9 89 22 122/67 (85) 95 Room Air I & O 08/21/21 08/21/21 08/22/21 15:00 23:00 07:00 Intake Total 580 ml 0 ml Balance 580 ml 0 ml Current Medications: Meds: Current Medications Medications (Trade) Dose Ordered Sig/Jin Route PRN Reason Start Time Stop Time Status Last Admin Dose Admin Acetaminophen (Tylenol) 650 mg PRN Q6HRS PRN PO MILD PAIN / TEMP > 100.3'F 07/15/21 13:00 Multi-Ingredient Ointment (Analgesic [place]) 1 lilibeth PRN QID PRN TP MUSCLE PAIN 07/15/21 13:00 Al Hydroxide/Mg Hydroxide (Mylanta Plus Xs) 15 ml PRN AFTMEALHC PRN PO DYSPEPSIA 07/15/21 13:00 Magnesium Hydroxide (Milk Of Magnesia) 2,400 mg PRN QHS PRN PO CONSTIPATION 07/15/21 13:00 08/08/21 08:34 Influenza Virus Vaccine Quadrival (Flulaval Quad [id number] Syringe) 0.5 ml ONCE ONCE VAX IM 07/16/21 09:00 07/16/21 09:01 DC 07/16/21 16:00 Amlodipine Besylate (Norvasc) 5 mg DAILY PO 07/16/21 09:00 08/22/21 09:03 Donepezil HCl (Aricept) 10 mg DAILY PO 07/16/21 09:00 07/26/21 11:59 DC 07/26/21 08:46 Ibuprofen (Motrin) 800 mg PRN Q6HRS PRN PO MODERATE PAIN 07/15/21 13:00 Polyethylene Glycol (miraLAX) 17 gm DAILY PO 07/16/21 09:00 07/17/21 08:39 DC 07/17/21 08:14 Artificial Tears (Artificial Tears) 1 drop DAILY OD 07/16/21 09:00 07/17/21 08:38 DC 07/17/21 08:16 Quetiapine Fumarate (SEROquel) 25 mg BID PO 07/15/21 21:00 07/15/21 21:01 DC 07/15/21 20:03 Quetiapine Fumarate (SEROquel) 50 mg BID PO 07/15/21 21:00 07/15/21 20:01 DC Citalopram Hydrobromide (CeleXA) 20 mg DAILY PO 07/16/21 09:00 08/08/21 14:54 DC 08/08/21 08:34 Multivitamins/ Calcium (Thera-M Plus) 1 tab DAILY PO 07/16/21 09:00 08/22/21 09:03 Olanzapine (ZyPREXA ZYDIS) 2.5 mg PRN Q4HRS PRN PO PSYCHOSIS 07/15/21 16:30 07/26/21 11:59 DC 07/24/21 09:13 Quetiapine Fumarate (SEROquel) 50 mg BID PO 07/16/21 09:00 07/16/21 15:39 DC 07/16/21 08:05 Quetiapine Fumarate (SEROquel) 25 mg PRN Q6HRS PRN PO ANXIETY 07/16/21 15:45 07/25/21 18:09 DC 07/19/21 01:41 Quetiapine Fumarate (SEROquel) 25 mg HS PO 07/16/21 21:00 07/25/21 18:09 DC 07/24/21 20:16 Quetiapine Fumarate (SEROquel) 12.5 mg DAILY PO 07/17/21 09:00 07/25/21 18:09 DC 07/25/21 09:24 Artificial Tears (Artificial Tears) 1 drop PRN DAILY PRN OD DRY EYES 07/17/21 08:45 Polyethylene Glycol (miraLAX) 17 gm PRN DAILY PRN PO DRY EYES 07/17/21 08:45 07/17/21 08:42 DC Polyethylene Glycol (miraLAX) 17 gm DAILY PO 07/18/21 09:00 08/22/21 09:02 Vitamin D (Vitamin D3) 50,000 unit WEEKLY PO 07/18/21 15:30 07/18/21 19:11 DC Vitamin D (Vitamin D3) 50,000 unit WEEKLY PO 07/19/21 09:00 08/16/21 08:15 Olanzapine (ZyPREXA ZYDIS) 2.5 mg PRN Q2HR PRN PO PSYCHOSIS 07/26/21 12:00 08/21/21 10:31 Divalproex Sodium (Depakote Sprinkles) 125 mg 0900,1700 PO 07/26/21 17:00 08/04/21 18:18 DC 08/04/21 16:37 Divalproex Sodium (Depakote Sprinkles) 250 mg 0900,1700 PO 08/05/21 09:00 08/18/21 18:24 DC 08/18/21 17:20 Citalopram Hydrobromide (CeleXA) 10 mg DAILY PO 08/09/21 09:00 08/22/21 09:03 Divalproex Sodium (Depakote Sprinkles) 375 mg 0900,1700 PO 08/19/21 09:00 08/22/21 17:17 I have reviewed the current psychotropics carefully including drug interactions. Risk benefit ratio favors no change other than as noted in my dictated progress note. 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
[2021-08-23 05:39] VITALS: BP 149/64
--- NOTE | 2021-08-23 07:06 | PDOC ---
Exam Note: Roderick Note: This note is a late entry for 08/21/2021 covers elements not covered in my initial note. Subjective: The patient was seen individually on 08/21/2021, discussed and reviewed the chart with Kristina WILSON. The patient slept 7-3/4 hours previous night. She has been confused, spitting out her medications, hitting, kicking nursing staff when meds were being administered. Review of Systems: Ambulation impaired, with walker. No CV, , pulmonary, eye, ENT system symptoms on review. Mental Status Exam: The patient is oriented to herself and situation. I met with her in her room. She was quite pleasant, cooperative, confused. Speech is coherent, has some latency. Abstraction fair. Computation impaired. Language function intact. Attention span short. Mood and affect withdrawn. Laboratory Data: Reviewed. Impression: Major neurocognitive disorder, early Alzheimer, vascular with delusion, depression behavioral disturbance. Anxiety disorder unspecified. Impulse control disorder unspecified. Plan: No change from initial note. Assessment: Vital Signs/I&O: Vital Signs Date Time Temp Pulse Resp B/P (MAP) Pulse Ox O2 Delivery O2 Flow Rate FiO2 08/23/21 05:39 97.4 63 18 149/64 (92) 97 Room Air I & O 08/22/21 08/22/21 08/23/21 15:00 23:00 07:00 Intake Total 400 ml 180 ml Balance 400 ml 180 ml Current Medications: I have reviewed the current psychotropics carefully including drug interactions. Risk benefit ratio favors no change other than as noted in my dictated progress note. 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
--- NOTE | 2021-08-23 07:40 | PDOC ---
Exam Note: Roderick Note: This note is a late entry for 08/22/2021 covers elements not covered in my initial note. Subjective: The patient was seen individually on 08/22/2021, discussed and reviewed the chart with Viktor WILSON. The patient slept 7 hours previous night. Overall per nursing report, the patient is doing about the same as before. No agitation, aggression, or disruptive behaviors even with her medication administration today. Review of Systems: Ambulation impaired, with walker. No CV, , pulmonary, eye, ENT system symptoms on review. Mental Status Exam: The patient is oriented to herself and situation. She was pleasant, verbal, interactive but confused as I met with her. Speech is coherent, has some latency. Abstraction fair. Computation impaired. Language function intact. Attention span short. Mood and affect somewhat withdrawn. Laboratory Data: Reviewed. Impression: Major neurocognitive disorder, early Alzheimer, vascular with delusion, depression behavioral disturbance. Anxiety disorder unspecified. Impulse control disorder unspecified. Plan: No change from initial note. Assessment: Vital Signs/I&O: Vital Signs Date Time Temp Pulse Resp B/P (MAP) Pulse Ox O2 Delivery O2 Flow Rate FiO2 08/23/21 05:39 97.4 63 18 149/64 (92) 97 Room Air I & O 08/22/21 08/22/21 08/23/21 15:00 23:00 07:00 Intake Total 400 ml 180 ml Balance 400 ml 180 ml Current Medications: I have reviewed the current psychotropics carefully including drug interactions. Risk benefit ratio favors no change other than as noted in my dictated progress note. 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
[2021-08-23] MEDS: DIVALPROEX 125 MG CAP.SPRINK PO SCH ×2 (08:04→17:07)
[2021-08-23] MEDS: MULTIVITAMIN with MINERAL TABLET. PO SCH (08:04)
[2021-08-23] MEDS: CITALOPRAM 10 MG TABLET. PO SCH (08:04)
[2021-08-23] MEDS: CHOLECALCIFEROL (VITAMIN D3) 50,000 UNIT CAPSULE PO SCH (08:04)
[2021-08-23] MEDS: amLODIPine BESYLATE 5 MG TABLET PO SCH (08:06)
[2021-08-23] MEDS: POLYETHYLENE GLYCOL 3350 17 GM PACKET. PO SCH (08:08)
--- NOTE | 2021-08-23 12:51 | TX PLAN ---
Interdisciplinary Tx Plan Admission Information Jul 15, 2021 at 12:56 Legal Status (on Admission): Voluntary DPOA/Guardian Name: Ofelia Albarran Contact Other Contact Name: Harika Valderrama, or Eileen Other Contact Verified Code Status: DNR Allergies: Coded Allergies: Penicillins (Verified Allergy, Unknown, 07/15/21) latex (Verified Allergy, Unknown, 07/15/21) sulfamethoxazole (Verified Allergy, Unknown, 07/15/21) trimethoprim (Verified Allergy, Unknown, 07/15/21) Diagnoses Primary Diagnosis: 1. Major neurocognitive disorder, most likely Alzheimer's with behavior problems. 2. Depressive disorder, unspecified. Reasons for Admission: Aggressive, Agitated, Depressed, Angry, Anxiety/Panic, Combative, Suspicious/paranoid, Confusion/Disoriented, Isolating Problem in Patient's Words: Pt sister/DPOA, Ofelia, has been noticing a gradual decline exhibited by her becoming more reclusive and imiginaning things. Dominique thinks that she begins to sundown early. Prior to pt's current living facility at [facility], she was at another nursing facility in [place] where she started having increased agitation and aggression. The facility at [place] didn't feel like they could meet her needs anylonger, therefore, pt was moved to [place]. Additional Admission Comments: Per intake record, pt presents from her nursing facility with intrusiveness, wanders and enters peers rooms, aggressive toward staff, hit staff with walker, and agitation. Problems Active Problems: Agitation, aggression, resistive to medication, cares and treatment, depressed, angry, anxiety Inactive Problems: None at this time. Pt Strengths/Limitations Ability for [place]: Poor Cognitive Functioning/Ability: Poor Communication Skills/Ability: Fair Financial Resources: Good Insight/Judgement: Poor Intellectual Ability: Good Physical Health: Poor Social Skills: Fair Stability in Family: Good Stability in School/Work: Good Verbal Skills: Fair Discharge Criteria Discharge Criteria: Able meet basic life need, No need for close observ., Able to meet health needs, Adequate arrangements @DC, Adequate self-care, Verbal commit med comply, Improved behavior, Improved mood/thought Preliminary Discharge Plan Preliminary DC Plan: Current Living Arrange. Special Precautions Fall Risk: Low Initial D/C Plan Pt plan is to return to [facility]. Identified Discharge Needs: None at this time. Currently Utilized Resources Currently Utilized Resources/P: PCP-Dr. Pang Sister/DPELMA-Ofelia Sahusabrina Facility-[facility]; contact-Jannie, Harika, or Eileen Referrals Community Resources: None at this time. Identified Problems/Hx/Goals Objectives/Short-Term Goals Short Term Goals: Control abnormal behavior, Dec. Aggression, Dec. Anxiety/Panic, Dec. Outbursts, Dec. Symp. Depression, Medication Stabilization, Monitor Med Effects, Prevent Deterioration, Promote Coping Skill Short Term Goals in Patient's: Medication evaluation to help with agitation and aggression along with improve compliance with cares. Interventions/Frequency Staff Interventions/Frequency&: Psychiatry to assess pt three times per week for medication management. Nursing to assess behaviors, monitor medications, and complete 15 minute checks daily. Social work to see pt at least two times weekly to aid in return to placement. Activities to encourage pt to participate in group activities daily. 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 Community Follow-up PCP Community Provider/Family Inpu: Sister/DPELMA, Ofelia, aware of pt hospitalization and is available for further information as needed. Treatment Plan Explained Patient/Bandoleer Packer had this treatment plan explained to him/her as indicated by the signature below and has been given the opportunity to ask questions and make suggestions: Date: Patient/Bandoleer Packer Signature: Status Update Update Pt has been eating 75% of her meals and getting 7.5 hours of sleep at night. Pt continues to lack insight into her condition and remains mostly pleasantly confused. At times she is resistive to medications and other times she takes them without difficulty. Also, sometimes pt tends to chew her medications as she doesn't realize to just swallow them. Pt VA level is currently at 70. Pt remains at [facility] with her quarantine time being extended to 2/17/22 as a staff member has tested positive on the unit exposing pt. Pt will continue to be tested twice weekly as well through her stay to ensure she does not test positive. If she were to test positive, pt would need to remain at hospital through another 10 day quarantine period, and then following that per hospital protocol, pt would not require further testing for 90 days. Pt facility, however, will require a negative covid result within 24 hour of pt discharging back to them at [facility]. TRINO FONSECA Aug 23, 2021 12:51
[2021-08-23 15:53] VITALS: BP 141/81
--- NOTE | 2021-08-23 21:18 | PDOC ---
Exam Note: Roderick Note: Please also refer to the separate dictated note~for this date of service dictated separately.~Patient seen individually. Discussed the patient with Nursing staff reviewed the chart.~Reviewed interim history and current functioning. Reviewed vital signs,~Labs/ Radiology~and current medications noted below. Continue current treatment with the changes noted in the dictated addendum note Assessment: Vital Signs/I&O: Vital Signs Date Time Temp Pulse Resp B/P (MAP) Pulse Ox O2 Delivery O2 Flow Rate FiO2 08/23/21 15:53 98.1 67 18 141/81 (101) 94 08/23/21 05:39 Room Air I & O 08/22/21 08/22/21 08/23/21 15:00 23:00 07:00 Intake Total 400 ml 180 ml Balance 400 ml 180 ml Current Medications: Meds: Current Medications Medications (Trade) Dose Ordered Sig/Jin Route PRN Reason Start Time Stop Time Status Last Admin Dose Admin Acetaminophen (Tylenol) 650 mg PRN Q6HRS PRN PO MILD PAIN / TEMP > 100.3'F 07/15/21 13:00 Multi-Ingredient Ointment (Analgesic [place]) 1 lilibeth PRN QID PRN TP MUSCLE PAIN 07/15/21 13:00 Al Hydroxide/Mg Hydroxide (Mylanta Plus Xs) 15 ml PRN AFTMEALHC PRN PO DYSPEPSIA 07/15/21 13:00 Magnesium Hydroxide (Milk Of Magnesia) 2,400 mg PRN QHS PRN PO CONSTIPATION 07/15/21 13:00 08/08/21 08:34 Influenza Virus Vaccine Quadrival (Flulaval Quad [id number] Syringe) 0.5 ml ONCE ONCE VAX IM 07/16/21 09:00 07/16/21 09:01 DC 07/16/21 16:00 Amlodipine Besylate (Norvasc) 5 mg DAILY PO 07/16/21 09:00 08/23/21 08:06 Donepezil HCl (Aricept) 10 mg DAILY PO 07/16/21 09:00 07/26/21 11:59 DC 07/26/21 08:46 Ibuprofen (Motrin) 800 mg PRN Q6HRS PRN PO MODERATE PAIN 07/15/21 13:00 Polyethylene Glycol (miraLAX) 17 gm DAILY PO 07/16/21 09:00 07/17/21 08:39 DC 07/17/21 08:14 Artificial Tears (Artificial Tears) 1 drop DAILY OD 07/16/21 09:00 07/17/21 08:38 DC 07/17/21 08:16 Quetiapine Fumarate (SEROquel) 25 mg BID PO 07/15/21 21:00 07/15/21 21:01 DC 07/15/21 20:03 Quetiapine Fumarate (SEROquel) 50 mg BID PO 07/15/21 21:00 07/15/21 20:01 DC Citalopram Hydrobromide (CeleXA) 20 mg DAILY PO 07/16/21 09:00 08/08/21 14:54 DC 08/08/21 08:34 Multivitamins/ Calcium (Thera-M Plus) 1 tab DAILY PO 07/16/21 09:00 08/23/21 08:04 Olanzapine (ZyPREXA ZYDIS) 2.5 mg PRN Q4HRS PRN PO PSYCHOSIS 07/15/21 16:30 07/26/21 11:59 DC 07/24/21 09:13 Quetiapine Fumarate (SEROquel) 50 mg BID PO 07/16/21 09:00 07/16/21 15:39 DC 07/16/21 08:05 Quetiapine Fumarate (SEROquel) 25 mg PRN Q6HRS PRN PO ANXIETY 07/16/21 15:45 07/25/21 18:09 DC 07/19/21 01:41 Quetiapine Fumarate (SEROquel) 25 mg HS PO 07/16/21 21:00 07/25/21 18:09 DC 07/24/21 20:16 Quetiapine Fumarate (SEROquel) 12.5 mg DAILY PO 07/17/21 09:00 07/25/21 18:09 DC 07/25/21 09:24 Artificial Tears (Artificial Tears) 1 drop PRN DAILY PRN OD DRY EYES 07/17/21 08:45 Polyethylene Glycol (miraLAX) 17 gm PRN DAILY PRN PO DRY EYES 07/17/21 08:45 07/17/21 08:42 DC Polyethylene Glycol (miraLAX) 17 gm DAILY PO 07/18/21 09:00 08/23/21 08:08 Vitamin D (Vitamin D3) 50,000 unit WEEKLY PO 07/18/21 15:30 07/18/21 19:11 DC Vitamin D (Vitamin D3) 50,000 unit WEEKLY PO 07/19/21 09:00 08/23/21 08:04 Olanzapine (ZyPREXA ZYDIS) 2.5 mg PRN Q2HR PRN PO PSYCHOSIS 07/26/21 12:00 08/23/21 09:10 Divalproex Sodium (Depakote Sprinkles) 125 mg 0900,1700 PO 07/26/21 17:00 08/04/21 18:18 DC 08/04/21 16:37 Divalproex Sodium (Depakote Sprinkles) 250 mg 0900,1700 PO 08/05/21 09:00 08/18/21 18:24 DC 08/18/21 17:20 Citalopram Hydrobromide (CeleXA) 10 mg DAILY PO 08/09/21 09:00 08/23/21 08:04 Divalproex Sodium (Depakote Sprinkles) 375 mg 0900,1700 PO 08/19/21 09:00 08/23/21 17:07 I have reviewed the current psychotropics carefully including drug interactions. Risk benefit ratio favors no change other than as noted in my dictated progress note. 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
[2021-08-24 06:07] VITALS: BP 128/73
[2021-08-24] MEDS: DIVALPROEX 125 MG CAP.SPRINK PO SCH ×2 (08:01→17:06)
[2021-08-24] MEDS: MULTIVITAMIN with MINERAL TABLET. PO SCH (08:01)
[2021-08-24] MEDS: CITALOPRAM 10 MG TABLET. PO SCH (08:01)
[2021-08-24] MEDS: amLODIPine BESYLATE 5 MG TABLET PO SCH (08:02)
[2021-08-24] MEDS: POLYETHYLENE GLYCOL 3350 17 GM PACKET. PO SCH (08:02)
[2021-08-24 16:08] VITALS: BP 101/62
--- NOTE | 2021-08-24 21:24 | PDOC ---
Exam Note: Roderick Note: Please also refer to the separate dictated note~for this date of service dictated separately.~Patient seen individually. Discussed the patient with Nursing staff reviewed the chart.~Reviewed interim history and current functioning. Reviewed vital signs,~Labs/ Radiology~and current medications noted below. Continue current treatment with the changes noted in the dictated addendum note Assessment: Vital Signs/I&O: Vital Signs Date Time Temp Pulse Resp B/P (MAP) Pulse Ox O2 Delivery O2 Flow Rate FiO2 08/24/21 16:08 98.2 75 16 101/62 (75) 96 08/23/21 05:39 Room Air I & O 08/23/21 08/23/21 08/24/21 14:59 22:59 06:59 Intake Total 600 ml 320 ml Balance 600 ml 320 ml Labs: Laboratory Tests Test 08/24/21 06:00 SARS-CoV-2 (PCR) Not detected (NOT DETECTD) Current Medications: Meds: Laboratory Tests Test 08/24/21 06:00 Coronavirus (COVID-19)(PCR) Not detected Current Medications Medications (Trade) Dose Ordered Sig/Jin Route PRN Reason Start Time Stop Time Status Last Admin Dose Admin Acetaminophen (Tylenol) 650 mg PRN Q6HRS PRN PO MILD PAIN / TEMP > 100.3'F 07/15/21 13:00 Multi-Ingredient Ointment (Analgesic [place]) 1 lilibeth PRN QID PRN TP MUSCLE PAIN 07/15/21 13:00 Al Hydroxide/Mg Hydroxide (Mylanta Plus Xs) 15 ml PRN AFTMEALHC PRN PO DYSPEPSIA 07/15/21 13:00 Magnesium Hydroxide (Milk Of Magnesia) 2,400 mg PRN QHS PRN PO CONSTIPATION 07/15/21 13:00 08/08/21 08:34 Influenza Virus Vaccine Quadrival (Flulaval Quad [id number] Syringe) 0.5 ml ONCE ONCE VAX IM 07/16/21 09:00 07/16/21 09:01 DC 07/16/21 16:00 Amlodipine Besylate (Norvasc) 5 mg DAILY PO 07/16/21 09:00 08/24/21 08:02 Donepezil HCl (Aricept) 10 mg DAILY PO 07/16/21 09:00 07/26/21 11:59 DC 07/26/21 08:46 Ibuprofen (Motrin) 800 mg PRN Q6HRS PRN PO MODERATE PAIN 07/15/21 13:00 Polyethylene Glycol (miraLAX) 17 gm DAILY PO 07/16/21 09:00 07/17/21 08:39 DC 07/17/21 08:14 Artificial Tears (Artificial Tears) 1 drop DAILY OD 07/16/21 09:00 07/17/21 08:38 DC 07/17/21 08:16 Quetiapine Fumarate (SEROquel) 25 mg BID PO 07/15/21 21:00 07/15/21 21:01 DC 07/15/21 20:03 Quetiapine Fumarate (SEROquel) 50 mg BID PO 07/15/21 21:00 07/15/21 20:01 DC Citalopram Hydrobromide (CeleXA) 20 mg DAILY PO 07/16/21 09:00 08/08/21 14:54 DC 08/08/21 08:34 Multivitamins/ Calcium (Thera-M Plus) 1 tab DAILY PO 07/16/21 09:00 08/24/21 08:01 Olanzapine (ZyPREXA ZYDIS) 2.5 mg PRN Q4HRS PRN PO PSYCHOSIS 07/15/21 16:30 07/26/21 11:59 DC 07/24/21 09:13 Quetiapine Fumarate (SEROquel) 50 mg BID PO 07/16/21 09:00 07/16/21 15:39 DC 07/16/21 08:05 Quetiapine Fumarate (SEROquel) 25 mg PRN Q6HRS PRN PO ANXIETY 07/16/21 15:45 07/25/21 18:09 DC 07/19/21 01:41 Quetiapine Fumarate (SEROquel) 25 mg HS PO 07/16/21 21:00 07/25/21 18:09 DC 07/24/21 20:16 Quetiapine Fumarate (SEROquel) 12.5 mg DAILY PO 07/17/21 09:00 07/25/21 18:09 DC 07/25/21 09:24 Artificial Tears (Artificial Tears) 1 drop PRN DAILY PRN OD DRY EYES 07/17/21 08:45 Polyethylene Glycol (miraLAX) 17 gm PRN DAILY PRN PO DRY EYES 07/17/21 08:45 07/17/21 08:42 DC Polyethylene Glycol (miraLAX) 17 gm DAILY PO 07/18/21 09:00 08/24/21 08:02 Vitamin D (Vitamin D3) 50,000 unit WEEKLY PO 07/18/21 15:30 07/18/21 19:11 DC Vitamin D (Vitamin D3) 50,000 unit WEEKLY PO 07/19/21 09:00 08/23/21 08:04 Olanzapine (ZyPREXA ZYDIS) 2.5 mg PRN Q2HR PRN PO PSYCHOSIS 07/26/21 12:00 08/23/21 09:10 Divalproex Sodium (Depakote Sprinkles) 125 mg 0900,1700 PO 07/26/21 17:00 08/04/21 18:18 DC 08/04/21 16:37 Divalproex Sodium (Depakote Sprinkles) 250 mg 0900,1700 PO 08/05/21 09:00 08/18/21 18:24 DC 08/18/21 17:20 Citalopram Hydrobromide (CeleXA) 10 mg DAILY PO 08/09/21 09:00 08/24/21 08:01 Divalproex Sodium (Depakote Sprinkles) 375 mg 0900,1700 PO 08/19/21 09:00 08/24/21 17:06 I have reviewed the current psychotropics carefully including drug interactions. Risk benefit ratio favors no change other than as noted in my dictated progress note. 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
[2021-08-25 06:13] VITALS: BP 133/61
--- NOTE | 2021-08-25 07:32 | PDOC ---
Exam Note: Roderick Note: This note is a late entry for 08/23/2021 covers elements not covered in my initial note. Subjective: The patient was reviewed at treatment team meeting in the morning on 08/23/2021 with Natalya Rocha, Rosa Isela Padgett, and Lauren Vizcaino (transition social worker), Keysha, activity therapy, Deja WILSON, discussed and reviewed the chart. Discussed progress, psychotropic medications and diagnoses. The patient slept 7-1/2 hours previous night. She yells during showers and did receive Zyprexa p.r.n. She often chews on her medications. Nursing staff tried to get her around this. Five attempts were made for her to attend groups but not successful per Keysha. Review of Systems: Ambulation impaired, with walker. No CV, , pulmonary, eye, ENT system symptoms on review. She is lying in bed. Mental Status Exam: The patient is oriented to herself and situation. I met with her in the evening in her room. Insight and judgment, recent and remote m nuha, attention and concentration, fund of knowledge is poor consistent with her diagnoses. Laboratory Data: Reviewed. Impression: Major neurocognitive disorder, early Alzheimer, vascular with delusion, depression behavioral disturbance. Anxiety disorder unspecified. Impulse control disorder unspecified. Plan: No change from initial note. Assessment: Vital Signs/I&O: Vital Signs Date Time Temp Pulse Resp B/P (MAP) Pulse Ox O2 Delivery O2 Flow Rate FiO2 08/25/21 06:13 97.6 56 16 133/61 (85) 96 08/23/21 05:39 Room Air I & O 08/24/21 08/24/21 08/25/21 15:00 23:00 07:00 Intake Total 720 ml 320 ml Balance 720 ml 320 ml Current Medications: I have reviewed the current psychotropics carefully including drug interactions. Risk benefit ratio favors no change other than as noted in my dictated progress note. 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
--- NOTE | 2021-08-25 07:47 | PDOC ---
Exam Note: Roderick Note: This note is a late entry for 08/24/2021 covers elements not covered in my initial note. Subjective: The patient was seen individually on 08/24/2021, discussed and reviewed the chart with Lyric WILSON. The patient slept 8 hours previous night. She has been more awake and alert, little more interactive. I met with her in her room. Review of Systems: Ambulation impaired, with walker. No CV, , pulmonary, eye, ENT system symptoms on review. Reliability poor. Mental Status Exam: The patient is oriented to herself and situation. She was quite animated, verbal, appropriate with significant short-term memory deficits. Insight and judgment, recent and remote memory, attention and concentration, fund of knowledge is poor consistent with her diagnoses. Laboratory Data: Reviewed. Impression: Major neurocognitive disorder, early Alzheimer, vascular with delusion, depression behavioral disturbance. Anxiety disorder unspecified. Impulse control disorder unspecified. Plan: No change from initial note. Assessment: Vital Signs/I&O: Vital Signs Date Time Temp Pulse Resp B/P (MAP) Pulse Ox O2 Delivery O2 Flow Rate FiO2 08/25/21 06:13 97.6 56 16 133/61 (85) 96 08/23/21 05:39 Room Air I & O 08/24/21 08/24/21 08/25/21 15:00 23:00 07:00 Intake Total 720 ml 320 ml Balance 720 ml 320 ml Current Medications: I have reviewed the current psychotropics carefully including drug interactions. Risk benefit ratio favors no change other than as noted in my dictated progress note. 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
[2021-08-25] MEDS: DIVALPROEX 125 MG CAP.SPRINK PO SCH ×2 (08:04→17:03)
[2021-08-25] MEDS: MULTIVITAMIN with MINERAL TABLET. PO SCH (08:04)
[2021-08-25] MEDS: POLYETHYLENE GLYCOL 3350 17 GM PACKET. PO SCH (08:04)
[2021-08-25] MEDS: CITALOPRAM 10 MG TABLET. PO SCH (08:04)
[2021-08-25] MEDS: amLODIPine BESYLATE 5 MG TABLET PO SCH (08:04)
[2021-08-25 15:40] VITALS: BP 145/76
--- NOTE | 2021-08-25 21:21 | PDOC ---
Exam Note: Roderick Note: Please also refer to the separate dictated note~for this date of service dictated separately.~Patient seen individually. Discussed the patient with Nursing staff reviewed the chart.~Reviewed interim history and current functioning. Reviewed vital signs,~Labs/ Radiology~and current medications noted below. Continue current treatment with the changes noted in the dictated addendum note Assessment: Vital Signs/I&O: Vital Signs Date Time Temp Pulse Resp B/P (MAP) Pulse Ox O2 Delivery O2 Flow Rate FiO2 08/25/21 15:40 98.0 88 20 145/76 (99) 97 Room Air I & O 08/24/21 08/24/21 08/25/21 15:00 23:00 07:00 Intake Total 720 ml 320 ml Balance 720 ml 320 ml Current Medications: Meds: Current Medications Medications (Trade) Dose Ordered Sig/Jin Route PRN Reason Start Time Stop Time Status Last Admin Dose Admin Acetaminophen (Tylenol) 650 mg PRN Q6HRS PRN PO MILD PAIN / TEMP > 100.3'F 07/15/21 13:00 Multi-Ingredient Ointment (Analgesic [place]) 1 lilibeth PRN QID PRN TP MUSCLE PAIN 07/15/21 13:00 Al Hydroxide/Mg Hydroxide (Mylanta Plus Xs) 15 ml PRN AFTMEALHC PRN PO DYSPEPSIA 07/15/21 13:00 Magnesium Hydroxide (Milk Of Magnesia) 2,400 mg PRN QHS PRN PO CONSTIPATION 07/15/21 13:00 08/08/21 08:34 Influenza Virus Vaccine Quadrival (Flulaval Quad [id number] Syringe) 0.5 ml ONCE ONCE VAX IM 07/16/21 09:00 07/16/21 09:01 DC 07/16/21 16:00 Amlodipine Besylate (Norvasc) 5 mg DAILY PO 07/16/21 09:00 08/25/21 08:04 Donepezil HCl (Aricept) 10 mg DAILY PO 07/16/21 09:00 07/26/21 11:59 DC 07/26/21 08:46 Ibuprofen (Motrin) 800 mg PRN Q6HRS PRN PO MODERATE PAIN 07/15/21 13:00 Polyethylene Glycol (miraLAX) 17 gm DAILY PO 07/16/21 09:00 07/17/21 08:39 DC 07/17/21 08:14 Artificial Tears (Artificial Tears) 1 drop DAILY OD 07/16/21 09:00 07/17/21 08:38 DC 07/17/21 08:16 Quetiapine Fumarate (SEROquel) 25 mg BID PO 07/15/21 21:00 07/15/21 21:01 DC 07/15/21 20:03 Quetiapine Fumarate (SEROquel) 50 mg BID PO 07/15/21 21:00 07/15/21 20:01 DC Citalopram Hydrobromide (CeleXA) 20 mg DAILY PO 07/16/21 09:00 08/08/21 14:54 DC 08/08/21 08:34 Multivitamins/ Calcium (Thera-M Plus) 1 tab DAILY PO 07/16/21 09:00 08/25/21 08:04 Olanzapine (ZyPREXA ZYDIS) 2.5 mg PRN Q4HRS PRN PO PSYCHOSIS 07/15/21 16:30 07/26/21 11:59 DC 07/24/21 09:13 Quetiapine Fumarate (SEROquel) 50 mg BID PO 07/16/21 09:00 07/16/21 15:39 DC 07/16/21 08:05 Quetiapine Fumarate (SEROquel) 25 mg PRN Q6HRS PRN PO ANXIETY 07/16/21 15:45 07/25/21 18:09 DC 07/19/21 01:41 Quetiapine Fumarate (SEROquel) 25 mg HS PO 07/16/21 21:00 07/25/21 18:09 DC 07/24/21 20:16 Quetiapine Fumarate (SEROquel) 12.5 mg DAILY PO 07/17/21 09:00 07/25/21 18:09 DC 07/25/21 09:24 Artificial Tears (Artificial Tears) 1 drop PRN DAILY PRN OD DRY EYES 07/17/21 08:45 Polyethylene Glycol (miraLAX) 17 gm PRN DAILY PRN PO DRY EYES 07/17/21 08:45 07/17/21 08:42 DC Polyethylene Glycol (miraLAX) 17 gm DAILY PO 07/18/21 09:00 08/25/21 08:04 Vitamin D (Vitamin D3) 50,000 unit WEEKLY PO 07/18/21 15:30 07/18/21 19:11 DC Vitamin D (Vitamin D3) 50,000 unit WEEKLY PO 07/19/21 09:00 08/23/21 08:04 Olanzapine (ZyPREXA ZYDIS) 2.5 mg PRN Q2HR PRN PO PSYCHOSIS 07/26/21 12:00 08/23/21 09:10 Divalproex Sodium (Depakote Sprinkles) 125 mg 0900,1700 PO 07/26/21 17:00 08/04/21 18:18 DC 08/04/21 16:37 Divalproex Sodium (Depakote Sprinkles) 250 mg 0900,1700 PO 08/05/21 09:00 08/18/21 18:24 DC 08/18/21 17:20 Citalopram Hydrobromide (CeleXA) 10 mg DAILY PO 08/09/21 09:00 08/25/21 08:04 Divalproex Sodium (Depakote Sprinkles) 375 mg 0900,1700 PO 08/19/21 09:00 08/25/21 17:03 I have reviewed the current psychotropics carefully including drug interactions. Risk benefit ratio favors no change other than as noted in my dictated progress note. 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
[2021-08-26 05:58] VITALS: BP 131/76
--- NOTE | 2021-08-26 07:36 | PDOC ---
Exam Note: Roderick Note: The original record of this date cannot be traced in the medical record system and I am therefore re-dictating this note as a late entry for DOS 08/06/2021 on 08/25/2021. Subjective: The patient was reviewed on 08/06/2021 with nursing staff, discussed and reviewed the chart. The patient slept 9 hours previous night. She remains confused, anxious, obsessing about discharge. Review of Systems: Per nursing observation, no CV, , pulmonary, eye, ENT system symptoms on review. Mental Status Exam: The patient is oriented to herself and situation. Insight and judgment, recent and remote memory, attention and concentration, fund of knowledge is poor consistent with her diagnosis. Laboratory Data: Reviewed. Impression: Major neurocognitive disorder, early Alzheimer, vascular with delusion, depression behavioral disturbance. Anxiety disorder unspecified. Impulse control disorder unspecified. Plan: Continue current psychotropics. Assessment: Vital Signs/I&O: Vital Signs Date Time Temp Pulse Resp B/P (MAP) Pulse Ox O2 Delivery O2 Flow Rate FiO2 08/26/21 05:58 97.1 63 18 131/76 (94) 98 08/25/21 15:40 Room Air I & O 08/25/21 08/25/21 08/26/21 15:00 23:00 07:00 Intake Total 600 ml 360 ml Balance 600 ml 360 ml Current Medications: I have reviewed the current psychotropics carefully including drug interactions. Risk benefit ratio favors no change other than as noted in my dictated progress note. 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
[2021-08-26] MEDS: DIVALPROEX 125 MG CAP.SPRINK PO SCH ×2 (08:40→17:07)
[2021-08-26] MEDS: MULTIVITAMIN with MINERAL TABLET. PO SCH (08:40)
[2021-08-26] MEDS: CITALOPRAM 10 MG TABLET. PO SCH (08:40)
[2021-08-26] MEDS: amLODIPine BESYLATE 5 MG TABLET PO SCH (08:40)
[2021-08-26] MEDS: POLYETHYLENE GLYCOL 3350 17 GM PACKET. PO SCH (08:40)
[2021-08-26 15:39] VITALS: BP 130/77
--- NOTE | 2021-08-26 21:48 | PDOC ---
Exam Note: Roderick Note: Please also refer to the separate dictated note~for this date of service dictated separately.~Patient seen individually. Discussed the patient with Nursing staff reviewed the chart.~Reviewed interim history and current functioning. Reviewed vital signs,~Labs/ Radiology~and current medications noted below. Continue current treatment with the changes noted in the dictated addendum note Assessment: Vital Signs/I&O: Vital Signs Date Time Temp Pulse Resp B/P (MAP) Pulse Ox O2 Delivery O2 Flow Rate FiO2 08/26/21 15:39 99.1 88 19 130/77 (94) 98 08/25/21 15:40 Room Air I & O 08/25/21 08/25/21 08/26/21 15:00 23:00 07:00 Intake Total 600 ml 360 ml Balance 600 ml 360 ml Current Medications: Meds: Current Medications Medications (Trade) Dose Ordered Sig/Jin Route PRN Reason Start Time Stop Time Status Last Admin Dose Admin Acetaminophen (Tylenol) 650 mg PRN Q6HRS PRN PO MILD PAIN / TEMP > 100.3'F 07/15/21 13:00 Multi-Ingredient Ointment (Analgesic [place]) 1 lilibeth PRN QID PRN TP MUSCLE PAIN 07/15/21 13:00 Al Hydroxide/Mg Hydroxide (Mylanta Plus Xs) 15 ml PRN AFTMEALHC PRN PO DYSPEPSIA 07/15/21 13:00 Magnesium Hydroxide (Milk Of Magnesia) 2,400 mg PRN QHS PRN PO CONSTIPATION 07/15/21 13:00 08/08/21 08:34 Influenza Virus Vaccine Quadrival (Flulaval Quad [id number] Syringe) 0.5 ml ONCE ONCE VAX IM 07/16/21 09:00 07/16/21 09:01 DC 07/16/21 16:00 Amlodipine Besylate (Norvasc) 5 mg DAILY PO 07/16/21 09:00 08/26/21 08:40 Donepezil HCl (Aricept) 10 mg DAILY PO 07/16/21 09:00 07/26/21 11:59 DC 07/26/21 08:46 Ibuprofen (Motrin) 800 mg PRN Q6HRS PRN PO MODERATE PAIN 07/15/21 13:00 Polyethylene Glycol (miraLAX) 17 gm DAILY PO 07/16/21 09:00 07/17/21 08:39 DC 07/17/21 08:14 Artificial Tears (Artificial Tears) 1 drop DAILY OD 07/16/21 09:00 07/17/21 08:38 DC 07/17/21 08:16 Quetiapine Fumarate (SEROquel) 25 mg BID PO 07/15/21 21:00 07/15/21 21:01 DC 07/15/21 20:03 Quetiapine Fumarate (SEROquel) 50 mg BID PO 07/15/21 21:00 07/15/21 20:01 DC Citalopram Hydrobromide (CeleXA) 20 mg DAILY PO 07/16/21 09:00 08/08/21 14:54 DC 08/08/21 08:34 Multivitamins/ Calcium (Thera-M Plus) 1 tab DAILY PO 07/16/21 09:00 08/26/21 08:40 Olanzapine (ZyPREXA ZYDIS) 2.5 mg PRN Q4HRS PRN PO PSYCHOSIS 07/15/21 16:30 07/26/21 11:59 DC 07/24/21 09:13 Quetiapine Fumarate (SEROquel) 50 mg BID PO 07/16/21 09:00 07/16/21 15:39 DC 07/16/21 08:05 Quetiapine Fumarate (SEROquel) 25 mg PRN Q6HRS PRN PO ANXIETY 07/16/21 15:45 07/25/21 18:09 DC 07/19/21 01:41 Quetiapine Fumarate (SEROquel) 25 mg HS PO 07/16/21 21:00 07/25/21 18:09 DC 07/24/21 20:16 Quetiapine Fumarate (SEROquel) 12.5 mg DAILY PO 07/17/21 09:00 07/25/21 18:09 DC 07/25/21 09:24 Artificial Tears (Artificial Tears) 1 drop PRN DAILY PRN OD DRY EYES 07/17/21 08:45 Polyethylene Glycol (miraLAX) 17 gm PRN DAILY PRN PO DRY EYES 07/17/21 08:45 07/17/21 08:42 DC Polyethylene Glycol (miraLAX) 17 gm DAILY PO 07/18/21 09:00 08/26/21 08:40 Vitamin D (Vitamin D3) 50,000 unit WEEKLY PO 07/18/21 15:30 07/18/21 19:11 DC Vitamin D (Vitamin D3) 50,000 unit WEEKLY PO 07/19/21 09:00 08/23/21 08:04 Olanzapine (ZyPREXA ZYDIS) 2.5 mg PRN Q2HR PRN PO PSYCHOSIS 07/26/21 12:00 08/23/21 09:10 Divalproex Sodium (Depakote Sprinkles) 125 mg 0900,1700 PO 07/26/21 17:00 08/04/21 18:18 DC 08/04/21 16:37 Divalproex Sodium (Depakote Sprinkles) 250 mg 0900,1700 PO 08/05/21 09:00 08/18/21 18:24 DC 08/18/21 17:20 Citalopram Hydrobromide (CeleXA) 10 mg DAILY PO 08/09/21 09:00 08/26/21 08:40 Divalproex Sodium (Depakote Sprinkles) 375 mg 0900,1700 PO 08/19/21 09:00 08/26/21 17:07 I have reviewed the current psychotropics carefully including drug interactions. Risk benefit ratio favors no change other than as noted in my dictated progress note. 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
[2021-08-27 05:49] VITALS: BP 137/86
[2021-08-27] MEDS: POLYETHYLENE GLYCOL 3350 17 GM PACKET. PO SCH (08:07)
[2021-08-27] MEDS: MULTIVITAMIN with MINERAL TABLET. PO SCH (08:07)
[2021-08-27] MEDS: CITALOPRAM 10 MG TABLET. PO SCH (08:07)
[2021-08-27] MEDS: DIVALPROEX 125 MG CAP.SPRINK PO SCH ×2 (08:08→17:40)
[2021-08-27] MEDS: amLODIPine BESYLATE 5 MG TABLET PO SCH (08:08)
[2021-08-27 15:44] VITALS: BP 108/69
--- NOTE | 2021-08-27 20:51 | PDOC ---
Exam Note: Roderick Note: Please also refer to the separate dictated note~for this date of service dictated separately.~Patient seen individually. Discussed the patient with Nursing staff reviewed the chart.~Reviewed interim history and current functioning. Reviewed vital signs,~Labs/ Radiology~and current medications noted below. Continue current treatment with the changes noted in the dictated addendum note Assessment: Vital Signs/I&O: Vital Signs Date Time Temp Pulse Resp B/P (MAP) Pulse Ox O2 Delivery O2 Flow Rate FiO2 08/27/21 15:44 97.3 72 18 108/69 (82) 99 Room Air I & O 08/26/21 08/26/21 08/27/21 15:00 23:00 07:00 Intake Total 760 ml 380 ml Balance 760 ml 380 ml Labs: Laboratory Tests Test 08/27/21 06:00 SARS-CoV-2 (PCR) Not detected (NOT DETECTD) Current Medications: Meds: Laboratory Tests Test 08/27/21 06:00 Coronavirus (COVID-19)(PCR) Not detected Current Medications Medications (Trade) Dose Ordered Sig/Jin Route PRN Reason Start Time Stop Time Status Last Admin Dose Admin Acetaminophen (Tylenol) 650 mg PRN Q6HRS PRN PO MILD PAIN / TEMP > 100.3'F 07/15/21 13:00 Multi-Ingredient Ointment (Analgesic [place]) 1 lilibeth PRN QID PRN TP MUSCLE PAIN 07/15/21 13:00 Al Hydroxide/Mg Hydroxide (Mylanta Plus Xs) 15 ml PRN AFTMEALHC PRN PO DYSPEPSIA 07/15/21 13:00 Magnesium Hydroxide (Milk Of Magnesia) 2,400 mg PRN QHS PRN PO CONSTIPATION 07/15/21 13:00 08/08/21 08:34 Influenza Virus Vaccine Quadrival (Flulaval Quad [id number] Syringe) 0.5 ml ONCE ONCE VAX IM 07/16/21 09:00 07/16/21 09:01 DC 07/16/21 16:00 Amlodipine Besylate (Norvasc) 5 mg DAILY PO 07/16/21 09:00 08/27/21 08:08 Donepezil HCl (Aricept) 10 mg DAILY PO 07/16/21 09:00 07/26/21 11:59 DC 07/26/21 08:46 Ibuprofen (Motrin) 800 mg PRN Q6HRS PRN PO MODERATE PAIN 07/15/21 13:00 Polyethylene Glycol (miraLAX) 17 gm DAILY PO 07/16/21 09:00 07/17/21 08:39 DC 07/17/21 08:14 Artificial Tears (Artificial Tears) 1 drop DAILY OD 07/16/21 09:00 07/17/21 08:38 DC 07/17/21 08:16 Quetiapine Fumarate (SEROquel) 25 mg BID PO 07/15/21 21:00 07/15/21 21:01 DC 07/15/21 20:03 Quetiapine Fumarate (SEROquel) 50 mg BID PO 07/15/21 21:00 07/15/21 20:01 DC Citalopram Hydrobromide (CeleXA) 20 mg DAILY PO 07/16/21 09:00 08/08/21 14:54 DC 08/08/21 08:34 Multivitamins/ Calcium (Thera-M Plus) 1 tab DAILY PO 07/16/21 09:00 08/27/21 08:07 Olanzapine (ZyPREXA ZYDIS) 2.5 mg PRN Q4HRS PRN PO PSYCHOSIS 07/15/21 16:30 07/26/21 11:59 DC 07/24/21 09:13 Quetiapine Fumarate (SEROquel) 50 mg BID PO 07/16/21 09:00 07/16/21 15:39 DC 07/16/21 08:05 Quetiapine Fumarate (SEROquel) 25 mg PRN Q6HRS PRN PO ANXIETY 07/16/21 15:45 07/25/21 18:09 DC 07/19/21 01:41 Quetiapine Fumarate (SEROquel) 25 mg HS PO 07/16/21 21:00 07/25/21 18:09 DC 07/24/21 20:16 Quetiapine Fumarate (SEROquel) 12.5 mg DAILY PO 07/17/21 09:00 07/25/21 18:09 DC 07/25/21 09:24 Artificial Tears (Artificial Tears) 1 drop PRN DAILY PRN OD DRY EYES 07/17/21 08:45 Polyethylene Glycol (miraLAX) 17 gm PRN DAILY PRN PO DRY EYES 07/17/21 08:45 07/17/21 08:42 DC Polyethylene Glycol (miraLAX) 17 gm DAILY PO 07/18/21 09:00 08/27/21 08:07 Vitamin D (Vitamin D3) 50,000 unit WEEKLY PO 07/18/21 15:30 07/18/21 19:11 DC Vitamin D (Vitamin D3) 50,000 unit WEEKLY PO 07/19/21 09:00 08/23/21 08:04 Olanzapine (ZyPREXA ZYDIS) 2.5 mg PRN Q2HR PRN PO PSYCHOSIS 07/26/21 12:00 08/23/21 09:10 Divalproex Sodium (Depakote Sprinkles) 125 mg 0900,1700 PO 07/26/21 17:00 08/04/21 18:18 DC 08/04/21 16:37 Divalproex Sodium (Depakote Sprinkles) 250 mg 0900,1700 PO 08/05/21 09:00 08/18/21 18:24 DC 08/18/21 17:20 Citalopram Hydrobromide (CeleXA) 10 mg DAILY PO 08/09/21 09:00 08/27/21 08:07 Divalproex Sodium (Depakote Sprinkles) 375 mg 0900,1700 PO 08/19/21 09:00 08/27/21 17:40 I have reviewed the current psychotropics carefully including drug interactions. Risk benefit ratio favors no change other than as noted in my dictated progress note. 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
[2021-08-28 06:18] VITALS: BP 122/80
[2021-08-28] MEDS: amLODIPine BESYLATE 5 MG TABLET PO SCH (07:54)
[2021-08-28] MEDS: DIVALPROEX 125 MG CAP.SPRINK PO SCH ×2 (07:54→17:04)
[2021-08-28] MEDS: CITALOPRAM 10 MG TABLET. PO SCH (07:54)
[2021-08-28] MEDS: POLYETHYLENE GLYCOL 3350 17 GM PACKET. PO SCH (07:54)
[2021-08-28] MEDS: MULTIVITAMIN with MINERAL TABLET. PO SCH (07:54)
--- NOTE | 2021-08-28 08:23 | PDOC ---
Exam Note: Roderick Note: This note is a late entry for 08/26/2021 covers elements not covered in my initial note. Subjective: The patient was seen individually on 08/26/2021, discussed and reviewed the chart with Kristina WILSON. I met with the patient in the evening. Reviewed diagnosis, progress, current psychotropics. She remains somewhat isolative. No suicidal ideation. Mood is somewhat improved but still withdrawn, spends much time in her room, getting frustrated because of having to stay here for an extended period of time due to quarantine from Covid-19 exposure on the unit. I addressed this with her individually in the evening. Review of Systems: Ambulation impaired, with walker. No CV, , pulmonary, eye, ENT system symptoms on review. Mental Status Exam: The patient is oriented to herself and situation. She did sit up, was interactive with me which is a gradual pleasant change for her. Insight and judgment, recent and remote memory, attention and concentration, fund of knowledge is poor consistent with her diagnoses. Laboratory Data: Reviewed. Impression: Major neurocognitive disorder, early Alzheimer, vascular with delusion, depression behavioral disturbance. Anxiety disorder unspecified. Im pulse control disorder unspecified. Plan: No change from initial note. Assessment: Vital Signs/I&O: Vital Signs Date Time Temp Pulse Resp B/P (MAP) Pulse Ox O2 Delivery O2 Flow Rate FiO2 08/28/21 07:54 91 122/80 08/28/21 06:18 97.9 16 96 08/27/21 15:44 Room Air I & O 08/27/21 08/27/21 08/28/21 14:59 22:59 06:59 Intake Total 740 ml 360 ml Balance 740 ml 360 ml Current Medications: I have reviewed the current psychotropics carefully including drug interactions. Risk benefit ratio favors no change other than as noted in my dictated progress note. 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
--- NOTE | 2021-08-28 08:38 | PDOC ---
Exam Note: Roderick Note: This note is a late entry for 08/27/2021 covers elements not covered in my initial note. Subjective: The patient was seen individually on 08/27/2021, discussed and reviewed the chart with Kristina WILSON. She slept 8-3/4 hours previous night. She has been irritable, going into other patients rooms, at times she does redirect, did follow me back to her room. She is compliant with medications. I met with her right after she finished her supper and was coming out of the dining room. Review of Systems: Ambulation impaired, with walker. No CV, , pulmonary, eye, ENT system symptoms on review. Mental Status Exam: The patient is oriented to herself and situation. Insight and judgment, recent and remote memory, attention and concentration, fund of knowledge is poor consistent with her diagnoses. Laboratory Data: Reviewed. Impression: Major neurocognitive disorder, early Alzheimer, vascular with delusion, depression behavioral disturbance. Anxiety disorder unspecified. Impulse control disorder unspecified. Plan: No change from initial note. We will adjust psychotropics as clinically indicated. Assessment: Vital Signs/I&O: Vital Signs Date Time Temp Pulse Resp B/P (MAP) Pulse Ox O2 Delivery O2 Flow Rate FiO2 08/28/21 07:54 91 122/80 08/28/21 06:18 97.9 16 96 08/27/21 15:44 Room Air I & O 08/27/21 08/27/21 08/28/21 15:00 23:00 07:00 Intake Total 740 ml 360 ml Balance 740 ml 360 ml Current Medications: I have reviewed the current psychotropics carefully including drug interactions. Risk benefit ratio favors no change other than as noted in my dictated progress note. 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
[2021-08-28 15:35] VITALS: BP 131/69
[2021-08-28 17:01] LABS: BASO % 1 % (0-3); EOS # 0.1 x10^3/uL (0.0-0.7); EOS % 1 % (0-3); HEMATOCRIT 41.2 % (36.0-47.0); HEMOGLOBIN 13.7 g/dL (12.0-15.5); LYMPH # 2.4 x10^3/uL (1.0-4.8); LYMPH % 31 % (24-48); MEAN CORPUSCULAR HEMOGLOBIN 32 pg (25-35); MEAN CORPUSCULAR HGB CONC 33 g/dL (31-37); MEAN CORPUSCULAR VOLUME 97 fL (79-100); MONO # 0.8 x10^3/uL (0.0-1.1); MONO % 10 % (0-9); NEUT # 4.5 x10^3uL (1.8-7.7); NEUT % 57 % (31-73); PLATELET COUNT 221 x10^3/uL (140-400); RED BLOOD COUNT 4.24 x10^6/uL (3.50-5.40); RED CELL DISTRIBUTION WIDTH 13.1 % (11.5-14.5); WHITE BLOOD COUNT 7.9 x10^3/uL (4.0-11.0)
[2021-08-28 17:15] LABS: ALBUMIN 3.6 g/dL (3.4-5.0); ALBUMIN/GLOBULIN RATIO 0.9 (1.0-1.7); CALCIUM 9.2 mg/dL (8.5-10.1); CREATININE 0.9 mg/dL (0.6-1.0); GFR 59.8; POTASSIUM 4.6 mmol/L (3.5-5.1); TOTAL BILIRUBIN 0.1 mg/dL (0.2-1.0); TOTAL PROTEIN 7.5 g/dL (6.4-8.2)
--- NOTE | 2021-08-28 22:08 | PDOC ---
Exam Note: Roderick Note: Please also refer to the separate dictated note~for this date of service dictated separately.~Patient seen individually. Discussed the patient with Nursing staff reviewed the chart.~Reviewed interim history and current functioning. Reviewed vital signs,~Labs/ Radiology~and current medications noted below. Continue current treatment with the changes noted in the dictated addendum note Assessment: Vital Signs/I&O: Vital Signs Date Time Temp Pulse Resp B/P (MAP) Pulse Ox O2 Delivery O2 Flow Rate FiO2 08/28/21 15:35 98.0 81 20 131/69 (89) 97 Room Air I & O 08/27/21 08/27/21 08/28/21 15:00 23:00 07:00 Intake Total 740 ml 360 ml Balance 740 ml 360 ml Labs: Laboratory Tests Test 08/28/21 16:50 White Blood Count 7.9 x10^3/uL (4.0-11.0) Red Blood Count 4.24 x10^6/uL (3.50-5.40) Hemoglobin 13.7 g/dL (12.0-15.5) Hematocrit 41.2 % (36.0-47.0) Mean Corpuscular Volume 97 fL (79-100) Mean Corpuscular Hemoglobin 32 pg (25-35) Mean Corpuscular Hemoglobin Concent 33 g/dL (31-37) Red Cell Distribution Width 13.1 % (11.5-14.5) Platelet Count 221 x10^3/uL (140-400) Neutrophils (%) (Auto) 57 % (31-73) Lymphocytes (%) (Auto) 31 % (24-48) Monocytes (%) (Auto) 10 % (0-9) H Eosinophils (%) (Auto) 1 % (0-3) Basophils (%) (Auto) 1 % (0-3) Neutrophils # (Auto) 4.5 x10^3uL (1.8-7.7) Lymphocytes # (Auto) 2.4 x10^3/uL (1.0-4.8) Monocytes # (Auto) 0.8 x10^3/uL (0.0-1.1) Eosinophils # (Auto) 0.1 x10^3/uL (0.0-0.7) Basophils # (Auto) 0.0 x10^3/uL (0.0-0.2) Sodium Level 144 mmol/L (136-145) Potassium Level 4.6 mmol/L (3.5-5.1) Chloride Level 107 mmol/L (98-107) Carbon Dioxide Level 27 mmol/L (21-32) Anion Gap 10 (6-14) Blood Urea Nitrogen 24 mg/dL (7-20) H Creatinine 0.9 mg/dL (0.6-1.0) Estimated GFR (Cockcroft-Gault) 59.8 BUN/Creatinine Ratio 27 (6-20) H Glucose Level 92 mg/dL (70-99) Calcium Level 9.2 mg/dL (8.5-10.1) Total Bilirubin 0.1 mg/dL (0.2-1.0) L Aspartate Amino Transferase (AST) 14 U/L (15-37) L Alanine Aminotransferase (ALT) 22 U/L (14-59) Alkaline Phosphatase 86 U/L (46-116) Total Protein 7.5 g/dL (6.4-8.2) Albumin 3.6 g/dL (3.4-5.0) Albumin/Globulin Ratio 0.9 (1.0-1.7) L Current Medications: Meds: Laboratory Tests Test 08/28/21 16:50 White Blood Count 7.9 x10^3/uL Red Blood Count 4.24 x10^6/uL Hemoglobin 13.7 g/dL Hematocrit 41.2 % Mean Corpuscular Volume 97 fL Mean Corpuscular Hemoglobin 32 pg Mean Corpuscular Hemoglobin Concent 33 g/dL Red Cell Distribution Width 13.1 % Platelet Count 221 x10^3/uL Neutrophils (%) (Auto) 57 % Lymphocytes (%) (Auto) 31 % Monocytes (%) (Auto) 10 % Eosinophils (%) (Auto) 1 % Basophils (%) (Auto) 1 % Neutrophils # (Auto) 4.5 x10^3uL Lymphocytes # (Auto) 2.4 x10^3/uL Monocytes # (Auto) 0.8 x10^3/uL Eosinophils # (Auto) 0.1 x10^3/uL Basophils # (Auto) 0.0 x10^3/uL Sodium Level 144 mmol/L Potassium Level 4.6 mmol/L Chloride Level 107 mmol/L Carbon Dioxide Level 27 mmol/L Anion Gap 10 Blood Urea Nitrogen 24 mg/dL Creatinine 0.9 mg/dL Estimated GFR (Cockcroft-Gault) 59.8 BUN/Creatinine Ratio 27 Glucose Level 92 mg/dL Calcium Level 9.2 mg/dL Total Bilirubin 0.1 mg/dL Aspartate Amino Transf (AST/SGOT) 14 U/L Alanine Aminotransferase (ALT/SGPT) 22 U/L Alkaline Phosphatase 86 U/L Total Protein 7.5 g/dL Albumin 3.6 g/dL Albumin/Globulin Ratio 0.9 Current Medications Medications (Trade) Dose Ordered Sig/Jin Route PRN Reason Start Time Stop Time Status Last Admin Dose Admin Acetaminophen (Tylenol) 650 mg PRN Q6HRS PRN PO MILD PAIN / TEMP > 100.3'F 07/15/21 13:00 Multi-Ingredient Ointment (Analgesic [place]) 1 lilibeth PRN QID PRN TP MUSCLE PAIN 07/15/21 13:00 Al Hydroxide/Mg Hydroxide (Mylanta Plus Xs) 15 ml PRN AFTMEALHC PRN PO DYSPEPSIA 07/15/21 13:00 Magnesium Hydroxide (Milk Of Magnesia) 2,400 mg PRN QHS PRN PO CONSTIPATION 07/15/21 13:00 08/08/21 08:34 Influenza Virus Vaccine Quadrival (Flulaval Quad [id number] Syringe) 0.5 ml ONCE ONCE VAX IM 07/16/21 09:00 07/16/21 09:01 DC 07/16/21 16:00 Amlodipine Besylate (Norvasc) 5 mg DAILY PO 07/16/21 09:00 08/28/21 07:54 Donepezil HCl (Aricept) 10 mg DAILY PO 07/16/21 09:00 07/26/21 11:59 DC 07/26/21 08:46 Ibuprofen (Motrin) 800 mg PRN Q6HRS PRN PO MODERATE PAIN 07/15/21 13:00 Polyethylene Glycol (miraLAX) 17 gm DAILY PO 07/16/21 09:00 07/17/21 08:39 DC 07/17/21 08:14 Artificial Tears (Artificial Tears) 1 drop DAILY OD 07/16/21 09:00 07/17/21 08:38 DC 07/17/21 08:16 Quetiapine Fumarate (SEROquel) 25 mg BID PO 07/15/21 21:00 12/30/21 21:01 DC 07/15/21 20:03 Quetiapine Fumarate (SEROquel) 50 mg BID PO 07/15/21 21:00 07/15/21 20:01 DC Citalopram Hydrobromide (CeleXA) 20 mg DAILY PO 07/16/21 09:00 08/08/21 14:54 DC 08/08/21 08:34 Multivitamins/ Calcium (Thera-M Plus) 1 tab DAILY PO 07/16/21 09:00 08/28/21 07:54 Olanzapine (ZyPREXA ZYDIS) 2.5 mg PRN Q4HRS PRN PO PSYCHOSIS 07/15/21 16:30 07/26/21 11:59 DC 07/24/21 09:13 Quetiapine Fumarate (SEROquel) 50 mg BID PO 07/16/21 09:00 07/16/21 15:39 DC 07/16/21 08:05 Quetiapine Fumarate (SEROquel) 25 mg PRN Q6HRS PRN PO ANXIETY 07/16/21 15:45 07/25/21 18:09 DC 07/19/21 01:41 Quetiapine Fumarate (SEROquel) 25 mg HS PO 07/16/21 21:00 07/25/21 18:09 DC 07/24/21 20:16 Quetiapine Fumarate (SEROquel) 12.5 mg DAILY PO 07/17/21 09:00 07/25/21 18:09 DC 07/25/21 09:24 Artificial Tears (Artificial Tears) 1 drop PRN DAILY PRN OD DRY EYES 07/17/21 08:45 Polyethylene Glycol (miraLAX) 17 gm PRN DAILY PRN PO DRY EYES 07/17/21 08:45 07/17/21 08:42 DC Polyethylene Glycol (miraLAX) 17 gm DAILY PO 07/18/21 09:00 08/28/21 07:54 Vitamin D (Vitamin D3) 50,000 unit WEEKLY PO 07/18/21 15:30 07/18/21 19:11 DC Vitamin D (Vitamin D3) 50,000 unit WEEKLY PO 07/19/21 09:00 08/23/21 08:04 Olanzapine (ZyPREXA ZYDIS) 2.5 mg PRN Q2HR PRN PO PSYCHOSIS 07/26/21 12:00 08/28/21 12:03 Divalproex Sodium (Depakote Sprinkles) 125 mg 0900,1700 PO 07/26/21 17:00 08/04/21 18:18 DC 08/04/21 16:37 Divalproex Sodium (Depakote Sprinkles) 250 mg 0900,1700 PO 08/05/21 09:00 08/18/21 18:24 DC 08/18/21 17:20 Citalopram Hydrobromide (CeleXA) 10 mg DAILY PO 08/09/21 09:00 08/28/21 07:54 Divalproex Sodium (Depakote Sprinkles) 375 mg 0900,1700 PO 08/19/21 09:00 08/28/21 17:04 I have reviewed the current psychotropics carefully including drug interactions. Risk benefit ratio favors no change other than as noted in my dictated progress note. 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
[2021-08-29 06:07] VITALS: BP 165/77
--- NOTE | 2021-08-29 06:40 | PDOC ---
Exam Note: Roderick Note: This note is a late entry for 08/25/2021 covers elements not covered in my initial note. Subjective: The patient was seen individually on 08/25/2021, discussed and reviewed the chart with Lyric WILSON. The patient slept 9-1/4 hours previous night. She has been up and about more alert, talking with another demented patient, irritable at night but during the day on the 08/25, she was appropriate more out of the room. Review of Systems: Ambulation impaired, with walker. No CV, , pulmonary, eye, ENT system symptoms on review. We walked down the hallway as I met with her. Mental Status Exam: The patient is oriented to herself and situation. Insight and judgment, recent and remote memory, attention and concentration, fund of knowledge is poor consistent with her diagnoses. Laboratory Data: Reviewed. Impression: Major neurocognitive disorder, early Alzheimer, vascular with delusion, depression behavioral disturbance. Anxiety disorder unspecified. Impulse control disorder unspecified. Plan: No change from initial note. Assessment: Vital Signs/I&O: Vital Signs Date Time Temp Pulse Resp B/P (MAP) Pulse Ox O2 Delivery O2 Flow Rate FiO2 08/29/21 06:07 97.8 65 18 165/77 (106) 96 08/28/21 15:35 Room Air I & O 08/28/21 08/28/21 08/29/21 15:00 23:00 07:00 Intake Total 500 ml 240 ml Balance 500 ml 240 ml Labs: Laboratory Tests Test 08/28/21 16:50 White Blood Count 7.9 x10^3/uL (4.0-11.0) Red Blood Count 4.24 x10^6/uL (3.50-5.40) Hemoglobin 13.7 g/dL (12.0-15.5) Hematocrit 41.2 % (36.0-47.0) Mean Corpuscular Volume 97 fL (79-100) Mean Corpuscular Hemoglobin 32 pg (25-35) Mean Corpuscular Hemoglobin Concent 33 g/dL (31-37) Red Cell Distribution Width 13.1 % (11.5-14.5) Platelet Count 221 x10^3/uL (140-400) Neutrophils (%) (Auto) 57 % (31-73) Lymphocytes (%) (Auto) 31 % (24-48) Monocytes (%) (Auto) 10 % (0-9) H Eosinophils (%) (Auto) 1 % (0-3) Basophils (%) (Auto) 1 % (0-3) Neutrophils # (Auto) 4.5 x10^3uL (1.8-7.7) Lymphocytes # (Auto) 2.4 x10^3/uL (1.0-4.8) Monocytes # (Auto) 0.8 x10^3/uL (0.0-1.1) Eosinophils # (Auto) 0.1 x10^3/uL (0.0-0.7) Basophils # (Auto) 0.0 x10^3/uL (0.0-0.2) Sodium Level 144 mmol/L (136-145) Potassium Level 4.6 mmol/L (3.5-5.1) Chloride Level 107 mmol/L (98-107) Carbon Dioxide Level 27 mmol/L (21-32) Anion Gap 10 (6-14) Blood Urea Nitrogen 24 mg/dL (7-20) H Creatinine 0.9 mg/dL (0.6-1.0) Estimated GFR (Cockcroft-Gault) 59.8 BUN/Creatinine Ratio 27 (6-20) H Glucose Level 92 mg/dL (70-99) Calcium Level 9.2 mg/dL (8.5-10.1) Total Bilirubin 0.1 mg/dL (0.2-1.0) L Aspartate Amino Transferase (AST) 14 U/L (15-37) L Alanine Aminotransferase (ALT) 22 U/L (14-59) Alkaline Phosphatase 86 U/L (46-116) Total Protein 7.5 g/dL (6.4-8.2) Albumin 3.6 g/dL (3.4-5.0) Albumin/Globulin Ratio 0.9 (1.0-1.7) L Current Medications: I have reviewed the current psychotropics carefully including drug interactions. Risk benefit ratio favors no change other than as noted in my dictated progress note. 

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
[2021-08-29] MEDS: CITALOPRAM 10 MG TABLET. PO SCH (08:06)
[2021-08-29] MEDS: POLYETHYLENE GLYCOL 3350 17 GM PACKET. PO SCH (08:06)
[2021-08-29] MEDS: MULTIVITAMIN with MINERAL TABLET. PO SCH (08:07)
[2021-08-29] MEDS: DIVALPROEX 125 MG CAP.SPRINK PO SCH ×2 (08:07→16:44)
[2021-08-29] MEDS: amLODIPine BESYLATE 5 MG TABLET PO SCH (08:07)
[2021-08-29 15:50] VITALS: BP 149/63
--- NOTE | 2021-08-29 21:42 | PDOC ---
Exam Note: Roderick Note: Please also refer to the separate dictated note~for this date of service dictated separately.~Patient seen individually. Discussed the patient with Nursing staff reviewed the chart.~Reviewed interim history and current functioning. Reviewed vital signs,~Labs/ Radiology~and current medications noted below. Continue current treatment with the changes noted in the dictated addendum note Assessment: Vital Signs/I&O: Vital Signs Date Time Temp Pulse Resp B/P (MAP) Pulse Ox O2 Delivery O2 Flow Rate FiO2 08/29/21 15:50 98.2 92 16 149/63 (91) 98 08/28/21 15:35 Room Air I & O 08/28/21 08/28/21 08/29/21 15:00 23:00 07:00 Intake Total 500 ml 240 ml Balance 500 ml 240 ml Current Medications: Meds: Current Medications Medications (Trade) Dose Ordered Sig/Jin Route PRN Reason Start Time Stop Time Status Last Admin Dose Admin Acetaminophen (Tylenol) 650 mg PRN Q6HRS PRN PO MILD PAIN / TEMP > 100.3'F 07/15/21 13:00 Multi-Ingredient Ointment (Analgesic [place]) 1 lilibeth PRN QID PRN TP MUSCLE PAIN 07/15/21 13:00 Al Hydroxide/Mg Hydroxide (Mylanta Plus Xs) 15 ml PRN AFTMEALHC PRN PO DYSPEPSIA 07/15/21 13:00 Magnesium Hydroxide (Milk Of Magnesia) 2,400 mg PRN QHS PRN PO CONSTIPATION 07/15/21 13:00 08/08/21 08:34 Influenza Virus Vaccine Quadrival (Flulaval Quad [id number] Syringe) 0.5 ml ONCE ONCE VAX IM 07/16/21 09:00 07/16/21 09:01 DC 07/16/21 16:00 Amlodipine Besylate (Norvasc) 5 mg DAILY PO 07/16/21 09:00 08/29/21 08:07 Donepezil HCl (Aricept) 10 mg DAILY PO 07/16/21 09:00 07/26/21 11:59 DC 07/26/21 08:46 Ibuprofen (Motrin) 800 mg PRN Q6HRS PRN PO MODERATE PAIN 07/15/21 13:00 Polyethylene Glycol (miraLAX) 17 gm DAILY PO 07/16/21 09:00 07/17/21 08:39 DC 07/17/21 08:14 Artificial Tears (Artificial Tears) 1 drop DAILY OD 07/16/21 09:00 07/17/21 08:38 DC 07/17/21 08:16 Quetiapine Fumarate (SEROquel) 25 mg BID PO 07/15/21 21:00 07/15/21 21:01 DC 07/15/21 20:03 Quetiapine Fumarate (SEROquel) 50 mg BID PO 07/15/21 21:00 07/15/21 20:01 DC Citalopram Hydrobromide (CeleXA) 20 mg DAILY PO 07/16/21 09:00 08/08/21 14:54 DC 08/08/21 08:34 Multivitamins/ Calcium (Thera-M Plus) 1 tab DAILY PO 07/16/21 09:00 08/29/21 08:07 Olanzapine (ZyPREXA ZYDIS) 2.5 mg PRN Q4HRS PRN PO PSYCHOSIS 07/15/21 16:30 07/26/21 11:59 DC 07/24/21 09:13 Quetiapine Fumarate (SEROquel) 50 mg BID PO 07/16/21 09:00 07/16/21 15:39 DC 07/16/21 08:05 Quetiapine Fumarate (SEROquel) 25 mg PRN Q6HRS PRN PO ANXIETY 07/16/21 15:45 07/25/21 18:09 DC 07/19/21 01:41 Quetiapine Fumarate (SEROquel) 25 mg HS PO 07/16/21 21:00 07/25/21 18:09 DC 07/24/21 20:16 Quetiapine Fumarate (SEROquel) 12.5 mg DAILY PO 07/17/21 09:00 07/25/21 18:09 DC 07/25/21 09:24 Artificial Tears (Artificial Tears) 1 drop PRN DAILY PRN OD DRY EYES 07/17/21 08:45 Polyethylene Glycol (miraLAX) 17 gm PRN DAILY PRN PO DRY EYES 07/17/21 08:45 07/17/21 08:42 DC Polyethylene Glycol (miraLAX) 17 gm DAILY PO 07/18/21 09:00 08/29/21 08:06 Vitamin D (Vitamin D3) 50,000 unit WEEKLY PO 07/18/21 15:30 07/18/21 19:11 DC Vitamin D (Vitamin D3) 50,000 unit WEEKLY PO 07/19/21 09:00 08/23/21 08:04 Olanzapine (ZyPREXA ZYDIS) 2.5 mg PRN Q2HR PRN PO PSYCHOSIS 07/26/21 12:00 08/28/21 12:03 Divalproex Sodium (Depakote Sprinkles) 125 mg 0900,1700 PO 07/26/21 17:00 08/04/21 18:18 DC 08/04/21 16:37 Divalproex Sodium (Depakote Sprinkles) 250 mg 0900,1700 PO 08/05/21 09:00 08/18/21 18:24 DC 08/18/21 17:20 Citalopram Hydrobromide (CeleXA) 10 mg DAILY PO 08/09/21 09:00 08/29/21 08:06 Divalproex Sodium (Depakote Sprinkles) 375 mg 0900,1700 PO 08/19/21 09:00 08/29/21 16:44 I have reviewed the current psychotropics carefully including drug interactions. Risk benefit ratio favors no change other than as noted in my dictated progress note. Diagnosis: Problems: (1) Dementia in Alzheimer's disease with depression (2) Dementia in Alzheimer's disease with delusions (3) Dementia of the Alzheimer's type with early onset with behavioral disturbance (4) Major neurocognitive disorder (5) Impulse control disorder, unspecified (6) Anxiety disorder, unspecified (7) Dementia, vascular, with depression (8) Dementia, vascular, with delusions LOUIS DAO MD Aug 29, 2021 21:42
[2021-08-30 06:21] VITALS: BP 144/68
--- NOTE | 2021-08-30 07:16 | PDOC ---
Exam Note: Roderick Note: This note is a late entry for 08/29/2021 covers elements not covered in my initial note. Subjective: The patient was seen individually on 08/29/2021, discussed and reviewed the chart with Pauly WILSON. Per nursing report, she has been more interactive and tierce filler. Review of Systems: No CV, , pulmonary, eye, ENT system symptoms on review. Mental Status Exam: The patient is oriented to herself. I met with her in the hallway and she followed me around the hallway as I visited with the other patients. She was eating an ice-cream snack and was quite animated, confused, ambulating without a walker today. Insight and judgment, recent and remote memory, attention and concentration, fund of knowledge is poor consistent with her diagnoses. Laboratory Data: Reviewed. Impression: Major neurocognitive disorder, early Alzheimer, vascular with delusion, depression behavioral disturbance. Anxiety disorder unspecified. Impulse control disorder unspecified. Plan: No change from initial note. Assessment: Vital Signs/I&O: Vital Signs Date Time Temp Pulse Resp B/P (MAP) Pulse Ox O2 Delivery O2 Flow Rate FiO2 08/30/21 06:21 96.8 54 20 144/68 (93) 94 Room Air I & O 08/29/21 08/29/21 08/30/21 15:00 23:00 07:00 Intake Total 240 ml 120 ml Balance 240 ml 120 ml Current Medications: I have reviewed the current psychotropics carefully including drug interactions. Risk benefit ratio favors no change other than as noted in my dictated progress note. Diagnosis: Problems: (1) Dementia in Alzheimer's disease with depression (2) Dementia in Alzheimer's disease with delusions (3) Dementia of the Alzheimer's type with early onset with behavioral disturbance (4) Major neurocognitive disorder (5) Impulse control disorder, unspecified (6) Anxiety disorder, unspecified (7) Dementia, vascular, with depression (8) Dementia, vascular, with delusions LOUIS DAO MD Aug 30, 2021 07:16
[2021-08-30] MEDS: POLYETHYLENE GLYCOL 3350 17 GM PACKET. PO SCH (08:23)
[2021-08-30] MEDS: CHOLECALCIFEROL (VITAMIN D3) 50,000 UNIT CAPSULE PO SCH ×2 (08:23→09:00)
[2021-08-30] MEDS: DIVALPROEX 125 MG CAP.SPRINK PO SCH ×2 (08:23→17:31)
[2021-08-30] MEDS: CITALOPRAM 10 MG TABLET. PO SCH (08:23)
[2021-08-30] MEDS: amLODIPine BESYLATE 5 MG TABLET PO SCH (08:24)
[2021-08-30] MEDS: MULTIVITAMIN with MINERAL TABLET. PO SCH (08:24)
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
[2021-08-30 15:33] VITALS: BP 127/84
[2021-08-30] MEDS: busPIRone 5 MG TABLET. PO SCH (17:00)
--- NOTE | 2021-08-30 21:49 | PDOC ---
Exam Note: Roderick Note: Please also refer to the separate dictated note~for this date of service dictated separately.~Patient seen individually. Discussed the patient with Nursing staff reviewed the chart.~Reviewed interim history and current functioning. Reviewed vital signs,~Labs/ Radiology~and current medications noted below. Continue current treatment with the changes noted in the dictated addendum note Assessment: Vital Signs/I&O: Vital Signs Date Time Temp Pulse Resp B/P (MAP) Pulse Ox O2 Delivery O2 Flow Rate FiO2 08/30/21 15:33 98.7 99 16 127/84 (98) 100 08/30/21 06:21 Room Air I & O 08/29/21 08/29/21 08/30/21 15:00 23:00 07:00 Intake Total 240 ml 120 ml Balance 240 ml 120 ml Current Medications: Meds: Current Medications Medications (Trade) Dose Ordered Sig/Jin Route PRN Reason Start Time Stop Time Status Last Admin Dose Admin Acetaminophen (Tylenol) 650 mg PRN Q6HRS PRN PO MILD PAIN / TEMP > 100.3'F 07/15/21 13:00 Multi-Ingredient Ointment (Analgesic [place]) 1 lilibeth PRN QID PRN TP MUSCLE PAIN 07/15/21 13:00 Al Hydroxide/Mg Hydroxide (Mylanta Plus Xs) 15 ml PRN AFTMEALHC PRN PO DYSPEPSIA 07/15/21 13:00 Magnesium Hydroxide (Milk Of Magnesia) 2,400 mg PRN QHS PRN PO CONSTIPATION 07/15/21 13:00 08/08/21 08:34 Influenza Virus Vaccine Quadrival (Flulaval Quad [id number] Syringe) 0.5 ml ONCE ONCE VAX IM 07/16/21 09:00 07/16/21 09:01 DC 07/16/21 16:00 Amlodipine Besylate (Norvasc) 5 mg DAILY PO 07/16/21 09:00 08/30/21 08:24 Donepezil HCl (Aricept) 10 mg DAILY PO 07/16/21 09:00 07/26/21 11:59 DC 07/26/21 08:46 Ibuprofen (Motrin) 800 mg PRN Q6HRS PRN PO MODERATE PAIN 07/15/21 13:00 Polyethylene Glycol (miraLAX) 17 gm DAILY PO 07/16/21 09:00 07/17/21 08:39 DC 07/17/21 08:14 Artificial Tears (Artificial Tears) 1 drop DAILY OD 07/16/21 09:00 07/17/21 08:38 DC 07/17/21 08:16 Quetiapine Fumarate (SEROquel) 25 mg BID PO 07/15/21 21:00 07/15/21 21:01 DC 07/15/21 20:03 Quetiapine Fumarate (SEROquel) 50 mg BID PO 07/15/21 21:00 07/15/21 20:01 DC Citalopram Hydrobromide (CeleXA) 20 mg DAILY PO 07/16/21 09:00 08/08/21 14:54 DC 08/08/21 08:34 Multivitamins/ Calcium (Thera-M Plus) 1 tab DAILY PO 07/16/21 09:00 08/30/21 08:24 Olanzapine (ZyPREXA ZYDIS) 2.5 mg PRN Q4HRS PRN PO PSYCHOSIS 07/15/21 16:30 07/26/21 11:59 DC 07/24/21 09:13 Quetiapine Fumarate (SEROquel) 50 mg BID PO 07/16/21 09:00 07/16/21 15:39 DC 07/16/21 08:05 Quetiapine Fumarate (SEROquel) 25 mg PRN Q6HRS PRN PO ANXIETY 07/16/21 15:45 07/25/21 18:09 DC 07/19/21 01:41 Quetiapine Fumarate (SEROquel) 25 mg HS PO 07/16/21 21:00 07/25/21 18:09 DC 07/24/21 20:16 Quetiapine Fumarate (SEROquel) 12.5 mg DAILY PO 07/17/21 09:00 07/25/21 18:09 DC 07/25/21 09:24 Artificial Tears (Artificial Tears) 1 drop PRN DAILY PRN OD DRY EYES 07/17/21 08:45 Polyethylene Glycol (miraLAX) 17 gm PRN DAILY PRN PO DRY EYES 07/17/21 08:45 07/17/21 08:42 DC Polyethylene Glycol (miraLAX) 17 gm DAILY PO 07/18/21 09:00 08/30/21 08:23 Vitamin D (Vitamin D3) 50,000 unit WEEKLY PO 07/18/21 15:30 07/18/21 19:11 DC Vitamin D (Vitamin D3) 50,000 unit WEEKLY PO 07/19/21 09:00 08/30/21 08:23 Olanzapine (ZyPREXA ZYDIS) 2.5 mg PRN Q2HR PRN PO PSYCHOSIS 07/26/21 12:00 08/28/21 12:03 Divalproex Sodium (Depakote Sprinkles) 125 mg 0900,1700 PO 07/26/21 17:00 08/04/21 18:18 DC 08/04/21 16:37 Divalproex Sodium (Depakote Sprinkles) 250 mg 0900,1700 PO 08/05/21 09:00 08/18/21 18:24 DC 08/18/21 17:20 Citalopram Hydrobromide (CeleXA) 10 mg DAILY PO 08/09/21 09:00 08/30/21 11:26 DC 08/30/21 08:23 Divalproex Sodium (Depakote Sprinkles) 375 mg 0900,1700 PO 08/19/21 09:00 08/30/21 17:31 Citalopram Hydrobromide (CeleXA) 20 mg DAILY PO 08/31/21 09:00 Buspirone HCl (Buspar) 5 mg 0900,1700 PO 08/30/21 17:00 08/30/21 17:00 Current Medications Medications (Trade) Dose Ordered Sig/Jin Route PRN Reason Start Time Stop Time Status Last Admin Dose Admin Buspirone HCl (Buspar) 5 mg 0900,1700 PO 08/30/21 17:00 08/30/21 17:00 I have reviewed the current psychotropics carefully including drug interactions. Risk benefit ratio favors no change other than as noted in my dictated progress note. Diagnosis: Problems: (1) Dementia in Alzheimer's disease with depression (2) Dementia in Alzheimer's disease with delusions (3) Dementia of the Alzheimer's type with early onset with behavioral disturbance (4) Major neurocognitive disorder (5) Impulse control disorder, unspecified (6) Anxiety disorder, unspecified (7) Dementia, vascular, with depression (8) Dementia, vascular, with delusions LOUIS DAO MD Aug 30, 2021 21:49
[2021-08-31 06:07] VITALS: BP 162/78
[2021-08-31] MEDS: POLYETHYLENE GLYCOL 3350 17 GM PACKET. PO SCH (08:12)
[2021-08-31] MEDS: DIVALPROEX 125 MG CAP.SPRINK PO SCH ×2 (08:12→17:19)
[2021-08-31] MEDS: CITALOPRAM 20 MG TABLET. PO SCH (08:12)
[2021-08-31] MEDS: amLODIPine BESYLATE 5 MG TABLET PO SCH (08:12)
[2021-08-31] MEDS: busPIRone 5 MG TABLET. PO SCH ×2 (08:12→17:19)
[2021-08-31] MEDS: MULTIVITAMIN with MINERAL TABLET. PO SCH (08:12)
[2021-08-31 15:30] VITALS: BP 145/81
--- NOTE | 2021-08-31 21:29 | PDOC ---
Exam Note: Roderick Note: Please also refer to the separate dictated note~for this date of service dictated separately.~Patient seen individually. Discussed the patient with Nursing staff reviewed the chart.~Reviewed interim history and current functioning. Reviewed vital signs,~Labs/ Radiology~and current medications noted below. Continue current treatment with the changes noted in the dictated addendum note Assessment: Vital Signs/I&O: Vital Signs Date Time Temp Pulse Resp B/P (MAP) Pulse Ox O2 Delivery O2 Flow Rate FiO2 08/31/21 15:30 97.6 90 20 145/81 (102) 98 08/31/21 06:07 Room Air I & O 08/30/21 08/30/21 08/31/21 15:00 23:00 07:00 Intake Total 120 ml 360 ml Balance 120 ml 360 ml Labs: Laboratory Tests Test 08/31/21 06:00 SARS-CoV-2 (PCR) Not detected (NOT DETECTD) Current Medications: Meds: Laboratory Tests Test 08/31/21 06:00 Coronavirus (COVID-19)(PCR) Not detected Current Medications Medications (Trade) Dose Ordered Sig/Jin Route PRN Reason Start Time Stop Time Status Last Admin Dose Admin Acetaminophen (Tylenol) 650 mg PRN Q6HRS PRN PO MILD PAIN / TEMP > 100.3'F 07/15/21 13:00 Multi-Ingredient Ointment (Analgesic [place]) 1 lilibeth PRN QID PRN TP MUSCLE PAIN 07/15/21 13:00 Al Hydroxide/Mg Hydroxide (Mylanta Plus Xs) 15 ml PRN AFTMEALHC PRN PO DYSPEPSIA 07/15/21 13:00 Magnesium Hydroxide (Milk Of Magnesia) 2,400 mg PRN QHS PRN PO CONSTIPATION 07/15/21 13:00 08/08/21 08:34 Influenza Virus Vaccine Quadrival (Flulaval Quad [id number] Syringe) 0.5 ml ONCE ONCE VAX IM 07/16/21 09:00 07/16/21 09:01 DC 07/16/21 16:00 Amlodipine Besylate (Norvasc) 5 mg DAILY PO 07/16/21 09:00 08/31/21 08:12 Donepezil HCl (Aricept) 10 mg DAILY PO 07/16/21 09:00 07/26/21 11:59 DC 07/26/21 08:46 Ibuprofen (Motrin) 800 mg PRN Q6HRS PRN PO MODERATE PAIN 07/15/21 13:00 Polyethylene Glycol (miraLAX) 17 gm DAILY PO 07/16/21 09:00 07/17/21 08:39 DC 07/17/21 08:14 Artificial Tears (Artificial Tears) 1 drop DAILY OD 07/16/21 09:00 07/17/21 08:38 DC 07/17/21 08:16 Quetiapine Fumarate (SEROquel) 25 mg BID PO 07/15/21 21:00 07/15/21 21:01 DC 07/15/21 20:03 Quetiapine Fumarate (SEROquel) 50 mg BID PO 07/15/21 21:00 07/15/21 20:01 DC Citalopram Hydrobromide (CeleXA) 20 mg DAILY PO 07/16/21 09:00 08/08/21 14:54 DC 08/08/21 08:34 Multivitamins/ Calcium (Thera-M Plus) 1 tab DAILY PO 07/16/21 09:00 08/31/21 08:12 Olanzapine (ZyPREXA ZYDIS) 2.5 mg PRN Q4HRS PRN PO PSYCHOSIS 07/15/21 16:30 07/26/21 11:59 DC 07/24/21 09:13 Quetiapine Fumarate (SEROquel) 50 mg BID PO 07/16/21 09:00 07/16/21 15:39 DC 07/16/21 08:05 Quetiapine Fumarate (SEROquel) 25 mg PRN Q6HRS PRN PO ANXIETY 07/16/21 15:45 07/25/21 18:09 DC 07/19/21 01:41 Quetiapine Fumarate (SEROquel) 25 mg HS PO 07/16/21 21:00 07/25/21 18:09 DC 07/24/21 20:16 Quetiapine Fumarate (SEROquel) 12.5 mg DAILY PO 07/17/21 09:00 07/25/21 18:09 DC 07/25/21 09:24 Artificial Tears (Artificial Tears) 1 drop PRN DAILY PRN OD DRY EYES 07/17/21 08:45 Polyethylene Glycol (miraLAX) 17 gm PRN DAILY PRN PO DRY EYES 07/17/21 08:45 07/17/21 08:42 DC Polyethylene Glycol (miraLAX) 17 gm DAILY PO 07/18/21 09:00 08/31/21 08:12 Vitamin D (Vitamin D3) 50,000 unit WEEKLY PO 07/18/21 15:30 07/18/21 19:11 DC Vitamin D (Vitamin D3) 50,000 unit WEEKLY PO 07/19/21 09:00 08/30/21 08:23 Olanzapine (ZyPREXA ZYDIS) 2.5 mg PRN Q2HR PRN PO PSYCHOSIS 07/26/21 12:00 08/28/21 12:03 Divalproex Sodium (Depakote Sprinkles) 125 mg 0900,1700 PO 07/26/21 17:00 08/04/21 18:18 DC 08/04/21 16:37 Divalproex Sodium (Depakote Sprinkles) 250 mg 0900,1700 PO 08/05/21 09:00 08/18/21 18:24 DC 08/18/21 17:20 Citalopram Hydrobromide (CeleXA) 10 mg DAILY PO 08/09/21 09:00 08/30/21 11:26 DC 08/30/21 08:23 Divalproex Sodium (Depakote Sprinkles) 375 mg 0900,1700 PO 08/19/21 09:00 08/31/21 17:19 Citalopram Hydrobromide (CeleXA) 20 mg DAILY PO 08/31/21 09:00 08/31/21 08:12 Buspirone HCl (Buspar) 5 mg 0900,1700 PO 08/30/21 17:00 08/31/21 17:19 Current Medications Medications (Trade) Dose Ordered Sig/Jin Route PRN Reason Start Time Stop Time Status Last Admin Dose Admin Citalopram Hydrobromide (CeleXA) 20 mg DAILY PO 08/31/21 09:00 08/31/21 08:12 I have reviewed the current psychotropics carefully including drug interactions. Risk benefit ratio favors no change other than as noted in my dictated progress note. Diagnosis: Problems: (1) Dementia in Alzheimer's disease with depression (2) Dementia in Alzheimer's disease with delusions (3) Dementia of the Alzheimer's type with early onset with behavioral disturbance (4) Major neurocognitive disorder (5) Impulse control disorder, unspecified (6) Anxiety disorder, unspecified (7) Dementia, vascular, with depression (8) Dementia, vascular, with delusions LOUIS DAO MD Aug 31, 2021 21:29
[2021-09-01 06:16] VITALS: BP 129/71
--- NOTE | 2021-09-01 07:21 | PDOC ---
Exam Note: Roderick Note: This note is a late entry for 08/30/2021 covers elements not covered in my initial note. Subjective: The patient was reviewed at treatment team meeting in the morning on 08/30/2021 with Natalya Rocha, Rosa Isela Padgett, and Lauren Vizcaino (licensed master social worker), Keysha, activity therapy, Jillian Cervantes, Community Development Director, and Deja WILSON, discussed and reviewed the chart. Discussed and reviewed her progress, diagnoses, current psychotropic medications and drug interactions. The patient slept 7-3/4 hours previous night. She has been agitated with cares, remains confused, intermittently resistive with medications. She refused groups, somewhat tired at times. Per Keysha activity therapy, the patient has not attended any groups. She was also seen individually in the evening in her room. Review of Systems: Ambulation impaired, with walker. No CV, , pulmonary, eye, ENT system symptoms on review. Mental Status Exam: The patient is oriented to herself. Insight and judgment, recent and remote memory, attention and concentration, fund of knowledge is poor consistent with her diagnoses. Laboratory Data: Reviewed. Impression: Major neurocognitive disorder, early Alzheimer, vascular with del usion, depression behavioral disturbance. Anxiety disorder unspecified. Impulse control disorder unspecified. Plan: No change from initial note. Assessment: Vital Signs/I&O: Vital Signs Date Time Temp Pulse Resp B/P (MAP) Pulse Ox O2 Delivery O2 Flow Rate FiO2 09/01/21 06:16 98.2 72 18 129/71 (90) 95 08/31/21 06:07 Room Air I & O 08/31/21 08/31/21 09/01/21 14:59 22:59 06:59 Intake Total 840 ml 460 ml Balance 840 ml 460 ml Current Medications: Meds: Current Medications Medications (Trade) Dose Ordered Sig/Jin Route PRN Reason Start Time Stop Time Status Last Admin Dose Admin Citalopram Hydrobromide (CeleXA) 20 mg DAILY PO 08/31/21 09:00 08/31/21 08:12 I have reviewed the current psychotropics carefully including drug interactions. Risk benefit ratio favors no change other than as noted in my dictated progress note. 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
--- NOTE | 2021-09-01 07:37 | PDOC ---
Exam Note: Roderick Note: This note is a late entry for 08/31/2021 covers elements not covered in my initial note. Subjective: The patient was seen individually on 08/31/2021, discussed and reviewed the chart with Deja WILSON. The patient slept 6-3/4 hours previous night. Per nursing report, she has been doing about the same. I met with her in the hallway. She is pleasant, cooperative. Review of Systems: Ambulation impaired, with walker. No CV, , pulmonary, eye, ENT system symptoms on review. Mental Status Exam: The patient is oriented to herself. Insight and judgment, recent and remote memory, attention and concentration, fund of knowledge is poor consistent with her diagnoses. Laboratory Data: Reviewed. Impression: Major neurocognitive disorder, early Alzheimer, vascular with delusion, depression behavioral disturbance. Anxiety disorder unspecified. Impulse control disorder unspecified. Plan: No change from initial note. Assessment: Vital Signs/I&O: Vital Signs Date Time Temp Pulse Resp B/P (MAP) Pulse Ox O2 Delivery O2 Flow Rate FiO2 09/01/21 06:16 98.2 72 18 129/71 (90) 95 08/31/21 06:07 Room Air I & O 08/31/21 08/31/21 09/01/21 15:00 23:00 07:00 Intake Total 840 ml 460 ml Balance 840 ml 460 ml Current Medications: Meds: Current Medications Medications (Trade) Dose Ordered Sig/Jin Route PRN Reason Start Time Stop Time Status Last Admin Dose Admin Citalopram Hydrobromide (CeleXA) 20 mg DAILY PO 08/31/21 09:00 08/31/21 08:12 I have reviewed the current psychotropics carefully including drug interactions. Risk benefit ratio favors no change other than as noted in my dictated progress note. 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
[2021-09-01] MEDS: MULTIVITAMIN with MINERAL TABLET. PO SCH ×2 (08:24→09:00)
[2021-09-01] MEDS: POLYETHYLENE GLYCOL 3350 17 GM PACKET. PO SCH ×2 (08:24→09:00)
[2021-09-01] MEDS: amLODIPine BESYLATE 5 MG TABLET PO SCH ×2 (08:24→09:00)
[2021-09-01] MEDS: DIVALPROEX 125 MG CAP.SPRINK PO SCH ×3 (08:24→17:06)
[2021-09-01] MEDS: busPIRone 5 MG TABLET. PO SCH ×3 (08:24→17:06)
[2021-09-01] MEDS: CITALOPRAM 20 MG TABLET. PO SCH ×2 (08:24→09:00)
[2021-09-01 16:21] VITALS: BP 107/57
--- NOTE | 2021-09-01 21:37 | PDOC ---
Exam Note: Roderick Note: Please also refer to the separate dictated note~for this date of service dictated separately.~Patient seen individually. Discussed the patient with Nursing staff reviewed the chart.~Reviewed interim history and current functioning. Reviewed vital signs,~Labs/ Radiology~and current medications noted below. Continue current treatment with the changes noted in the dictated addendum note Assessment: Vital Signs/I&O: Vital Signs Date Time Temp Pulse Resp B/P (MAP) Pulse Ox O2 Delivery O2 Flow Rate FiO2 09/01/21 16: 97.8 83 18 107/57 (74) 94 Room Air I & O 08/31/21 08/31/21 09/01/21 15:00 23:00 07:00 Intake Total 840 ml 460 ml Balance 840 ml 460 ml Current Medications: Meds: Current Medications Medications (Trade) Dose Ordered Sig/Jin Route PRN Reason Start Time Stop Time Status Last Admin Dose Admin Acetaminophen (Tylenol) 650 mg PRN Q6HRS PRN PO MILD PAIN / TEMP > 100.3'F 07/15/21 13:00 Multi-Ingredient Ointment (Analgesic [place]) 1 lilibeth PRN QID PRN TP MUSCLE PAIN 07/15/21 13:00 Al Hydroxide/Mg Hydroxide (Mylanta Plus Xs) 15 ml PRN AFTMEALHC PRN PO DYSPEPSIA 07/15/21 13:00 Magnesium Hydroxide (Milk Of Magnesia) 2,400 mg PRN QHS PRN PO CONSTIPATION 07/15/21 13:00 Influenza Virus Vaccine Quadrival (Flulaval Quad [id number] Syringe) 0.5 ml ONCE ONCE VAX IM 07/16/21 09:00 07/16/21 09:01 DC 07/16/21 16:00 Amlodipine Besylate (Norvasc) 5 mg DAILY PO 07/16/21 09:00 08/31/21 08:12 Donepezil HCl (Aricept) 10 mg DAILY PO 07/16/21 09:00 07/26/21 11:59 DC 07/26/21 08:46 Ibuprofen (Motrin) 800 mg PRN Q6HRS PRN PO MODERATE PAIN 07/15/21 13:00 Polyethylene Glycol (miraLAX) 17 gm DAILY PO 07/16/21 09:00 07/17/21 08:39 DC 07/17/21 08:14 Artificial Tears (Artificial Tears) 1 drop DAILY OD 07/16/21 09:00 07/17/21 08:38 DC 07/17/21 08:16 Quetiapine Fumarate (SEROquel) 25 mg BID PO 07/15/21 21:00 07/15/21 21:01 DC 07/15/21 20:03 Quetiapine Fumarate (SEROquel) 50 mg BID PO 07/15/21 21:00 07/15/21 20:01 DC Citalopram Hydrobromide (CeleXA) 20 mg DAILY PO 07/16/21 09:00 08/08/21 14:54 DC 08/08/21 08:34 Multivitamins/ Calcium (Thera-M Plus) 1 tab DAILY PO 07/16/21 09:00 08/31/21 08:12 Olanzapine (ZyPREXA ZYDIS) 2.5 mg PRN Q4HRS PRN PO PSYCHOSIS 07/15/21 16:30 07/26/21 11:59 DC 07/24/21 09:13 Quetiapine Fumarate (SEROquel) 50 mg BID PO 07/16/21 09:00 07/16/21 15:39 DC 07/16/21 08:05 Quetiapine Fumarate (SEROquel) 25 mg PRN Q6HRS PRN PO ANXIETY 07/16/21 15:45 07/25/21 18:09 DC 07/19/21 01:41 Quetiapine Fumarate (SEROquel) 25 mg HS PO 07/16/21 21:00 07/25/21 18:09 DC 07/24/21 20:16 Quetiapine Fumarate (SEROquel) 12.5 mg DAILY PO 07/17/21 09:00 07/25/21 18:09 DC 07/25/21 09:24 Artificial Tears (Artificial Tears) 1 drop PRN DAILY PRN OD DRY EYES 07/17/21 08:45 Polyethylene Glycol (miraLAX) 17 gm PRN DAILY PRN PO DRY EYES 07/17/21 08:45 07/17/21 08:42 DC Polyethylene Glycol (miraLAX) 17 gm DAILY PO 07/18/21 09:00 08/31/21 08:12 Vitamin D (Vitamin D3) 50,000 unit WEEKLY PO 07/18/21 15:30 07/18/21 19:11 DC Vitamin D (Vitamin D3) 50,000 unit WEEKLY PO 07/19/21 09:00 08/23/21 08:04 Olanzapine (ZyPREXA ZYDIS) 2.5 mg PRN Q2HR PRN PO PSYCHOSIS 07/26/21 12:00 09/01/21 10:37 Divalproex Sodium (Depakote Sprinkles) 125 mg 0900,1700 PO 07/26/21 17:00 08/04/21 18:18 DC 08/04/21 16:37 Divalproex Sodium (Depakote Sprinkles) 250 mg 0900,1700 PO 08/05/21 09:00 08/18/21 18:24 DC 08/18/21 17:20 Citalopram Hydrobromide (CeleXA) 10 mg DAILY PO 08/09/21 09:00 08/30/21 11:26 DC 08/30/21 08:23 Divalproex Sodium (Depakote Sprinkles) 375 mg 0900,1700 PO 08/19/21 09:00 09/01/21 17:06 Citalopram Hydrobromide (CeleXA) 20 mg DAILY PO 08/31/21 09:00 08/31/21 08:12 Buspirone HCl (Buspar) 5 mg 0900,1700 PO 08/30/21 17:00 09/01/21 17:06 I have reviewed the current psychotropics carefully including drug interactions. Risk benefit ratio favors no change other than as noted in my dictated progress note. 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
[2021-09-02 06:16] VITALS: BP 148/76
[2021-09-02] MEDS: POLYETHYLENE GLYCOL 3350 17 GM PACKET. PO SCH (08:25)
[2021-09-02] MEDS: DIVALPROEX 125 MG CAP.SPRINK PO SCH ×2 (08:26→17:19)
[2021-09-02] MEDS: MULTIVITAMIN with MINERAL TABLET. PO SCH ×2 (08:26→09:00)
[2021-09-02] MEDS: CITALOPRAM 20 MG TABLET. PO SCH (08:26)
[2021-09-02] MEDS: amLODIPine BESYLATE 5 MG TABLET PO SCH (08:26)
[2021-09-02] MEDS: busPIRone 5 MG TABLET. PO SCH ×2 (08:26→17:18)
[2021-09-02 15:34] VITALS: BP 150/77
--- NOTE | 2021-09-02 21:38 | PDOC ---
Exam Note: Roderick Note: Please also refer to the separate dictated note~for this date of service dictated separately.~Patient seen individually. Discussed the patient with Nursing staff reviewed the chart.~Reviewed interim history and current functioning. Reviewed vital signs,~Labs/ Radiology~and current medications noted below. Continue current treatment with the changes noted in the dictated addendum note Assessment: Vital Signs/I&O: Vital Signs Date Time Temp Pulse Resp B/P (MAP) Pulse Ox O2 Delivery O2 Flow Rate FiO2 09/02/21 15:34 98.6 68 20 150/77 (101) 94 09/01/21 16:21 Room Air I & O 09/01/21 09/01/21 09/02/21 15:00 23:00 07:00 Intake Total 420 ml 480 ml Balance 420 ml 480 ml Current Medications: Meds: Current Medications Medications (Trade) Dose Ordered Sig/Jin Route PRN Reason Start Time Stop Time Status Last Admin Dose Admin Acetaminophen (Tylenol) 650 mg PRN Q6HRS PRN PO MILD PAIN / TEMP > 100.3'F 07/15/21 13:00 Multi-Ingredient Ointment (Analgesic [place]) 1 lilibeth PRN QID PRN TP MUSCLE PAIN 07/15/21 13:00 Al Hydroxide/Mg Hydroxide (Mylanta Plus Xs) 15 ml PRN AFTMEALHC PRN PO DYSPEPSIA 07/15/21 13:00 Magnesium Hydroxide (Milk Of Magnesia) 2,400 mg PRN QHS PRN PO CONSTIPATION 07/15/21 13:00 Influenza Virus Vaccine Quadrival (Flulaval Quad [id number] Syringe) 0.5 ml ONCE ONCE VAX IM 07/16/21 09:00 07/16/21 09:01 DC 07/16/21 16:00 Amlodipine Besylate (Norvasc) 5 mg DAILY PO 07/16/21 09:00 09/02/21 08:26 Donepezil HCl (Aricept) 10 mg DAILY PO 07/16/21 09:00 07/26/21 11:59 DC 07/26/21 08:46 Ibuprofen (Motrin) 800 mg PRN Q6HRS PRN PO MODERATE PAIN 07/15/21 13:00 Polyethylene Glycol (miraLAX) 17 gm DAILY PO 07/16/21 09:00 07/17/21 08:39 DC 07/17/21 08:14 Artificial Tears (Artificial Tears) 1 drop DAILY OD 07/16/21 09:00 07/17/21 08:38 DC 07/17/21 08:16 Quetiapine Fumarate (SEROquel) 25 mg BID PO 07/15/21 21:00 07/15/21 21:01 DC 07/15/21 20:03 Quetiapine Fumarate (SEROquel) 50 mg BID PO 07/15/21 21:00 07/15/21 20:01 DC Citalopram Hydrobromide (CeleXA) 20 mg DAILY PO 07/16/21 09:00 08/08/21 14:54 DC 08/08/21 08:34 Multivitamins/ Calcium (Thera-M Plus) 1 tab DAILY PO 07/16/21 09:00 08/31/21 08:12 Olanzapine (ZyPREXA ZYDIS) 2.5 mg PRN Q4HRS PRN PO PSYCHOSIS 07/15/21 16:30 07/26/21 11:59 DC 07/24/21 09:13 Quetiapine Fumarate (SEROquel) 50 mg BID PO 07/16/21 09:00 07/16/21 15:39 DC 07/16/21 08:05 Quetiapine Fumarate (SEROquel) 25 mg PRN Q6HRS PRN PO ANXIETY 07/16/21 15:45 07/25/21 18:09 DC 07/19/21 01:41 Quetiapine Fumarate (SEROquel) 25 mg HS PO 07/16/21 21:00 07/25/21 18:09 DC 07/24/21 20:16 Quetiapine Fumarate (SEROquel) 12.5 mg DAILY PO 07/17/21 09:00 07/25/21 18:09 DC 07/25/21 09:24 Artificial Tears (Artificial Tears) 1 drop PRN DAILY PRN OD DRY EYES 07/17/21 08:45 Polyethylene Glycol (miraLAX) 17 gm PRN DAILY PRN PO DRY EYES 07/17/21 08:45 07/17/21 08:42 DC Polyethylene Glycol (miraLAX) 17 gm DAILY PO 07/18/21 09:00 09/02/21 08:25 Vitamin D (Vitamin D3) 50,000 unit WEEKLY PO 07/18/21 15:30 07/18/21 19:11 DC Vitamin D (Vitamin D3) 50,000 unit WEEKLY PO 07/19/21 09:00 08/23/21 08:04 Olanzapine (ZyPREXA ZYDIS) 2.5 mg PRN Q2HR PRN PO PSYCHOSIS 07/26/21 12:00 09/02/21 09:59 Divalproex Sodium (Depakote Sprinkles) 125 mg 0900,1700 PO 07/26/21 17:00 08/04/21 18:18 DC 08/04/21 16:37 Divalproex Sodium (Depakote Sprinkles) 250 mg 0900,1700 PO 08/05/21 09:00 08/18/21 18:24 DC 08/18/21 17:20 Citalopram Hydrobromide (CeleXA) 10 mg DAILY PO 08/09/21 09:00 08/30/21 11:26 DC 08/30/21 08:23 Divalproex Sodium (Depakote Sprinkles) 375 mg 0900,1700 PO 08/19/21 09:00 09/02/21 17:19 Citalopram Hydrobromide (CeleXA) 20 mg DAILY PO 08/31/21 09:00 09/02/21 08:26 Buspirone HCl (Buspar) 5 mg 0900,1700 PO 08/30/21 17:00 09/02/21 18:35 DC 09/02/21 17:18 Buspirone HCl (Buspar) 10 mg 0900,1700 PO 09/03/21 09:00 I have reviewed the current psychotropics carefully including drug interactions. Risk benefit ratio favors no change other than as noted in my dictated progress note. 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
[2021-09-03 06:35] VITALS: BP 155/75
[2021-09-03] MEDS: MULTIVITAMIN with MINERAL TABLET. PO SCH (08:15)
[2021-09-03] MEDS: POLYETHYLENE GLYCOL 3350 17 GM PACKET. PO SCH (08:15)
[2021-09-03] MEDS: DIVALPROEX 125 MG CAP.SPRINK PO SCH ×2 (08:15→16:56)
[2021-09-03] MEDS: CITALOPRAM 20 MG TABLET. PO SCH (08:15)
[2021-09-03] MEDS: busPIRone 10 MG TABLET. PO SCH ×2 (08:15→16:56)
[2021-09-03] MEDS: amLODIPine BESYLATE 5 MG TABLET PO SCH (08:16)
[2021-09-03 15:36] VITALS: BP 122/71
--- NOTE | 2021-09-03 21:25 | PDOC ---
Exam Note: Roderick Note: This note is a late entry for 09/01/2021 covers elements not covered in my initial note. Subjective: The patient was seen individually on 09/01/2021, discussed and reviewed the chart with Kristina WILSON. The patient slept 6-1/2 hours previous night. She refused her morning medications. Received Zyprexa. Medications had to be syringed. She is kicking and swatting at nursing staff, trying to her fecal matter on nursing staff. Frequently she is in another patients room, quite confused. She has difficulty being redirected outside. In fact I found her in this other patients room but she was able to follow me back to her room. Review of Systems: Ambulation impaired, with walker. No CV, , pulmonary, eye, ENT system symptoms on review. Mental Status Exam: The patient is oriented to herself. She is pleasant, verbal, confused, smiling at times. Insight and judgment, recent and remote memory, attention and concentration, fund of knowledge is poor consistent with her diagnoses. Laboratory Data: Reviewed. Impression: Major neurocognitive disorder, early Alzheimer, vascular with delusion, depression behavioral disturbance. Anxiety disorder unspecified. Impulse control disorder unspecified. Plan: No change from initial note. Assessment: Vital Signs/I&O: Vital Signs Date Time Temp Pulse Resp B/P (MAP) Pulse Ox O2 Delivery O2 Flow Rate FiO2 09/03/21 15:36 98.3 82 20 122/71 (88) 96 09/01/21 16:21 Room Air I & O 09/02/21 09/02/21 09/03/21 15:00 23:00 07:00 Intake Total 440 ml 340 ml Balance 440 ml 340 ml Current Medications: Meds: Current Medications Medications (Trade) Dose Ordered Sig/Jin Route PRN Reason Start Time Stop Time Status Last Admin Dose Admin Buspirone HCl (Buspar) 10 mg 0900,1700 PO 09/03/21 09:00 09/03/21 16:56 I have reviewed the current psychotropics carefully including drug interactions. Risk benefit ratio favors no change other than as noted in my dictated progress note. Diagnosis: Problems: (1) Dementia in Alzheimer's disease with depression (2) Dementia in Alzheimer's disease with delusions (3) Dementia of the Alzheimer's type with early onset with behavioral dis turbance (4) Major neurocognitive disorder (5) Impulse control disorder, unspecified (6) Anxiety disorder, unspecified (7) Dementia, vascular, with depression (8) Dementia, vascular, with delusions LOUIS DAO MD Sep 03, 2021 21:25
--- NOTE | 2021-09-03 21:38 | PDOC ---
Exam Note: Roderick Note: This note is a late entry for 09/02/2021 covers elements not covered in my initial note. Subjective: The patient was seen individually on 09/02/2021, discussed and reviewed the chart with Mariama WILSON. The patient slept 8 hours previous night. She gets more agitated in the morning, refusing medications, which have to be syringed. She did receive Zyprexa p.r.n. later in the day as she was going into another male patients room, refusing to come out screaming. Later she did much better, in the evening was better. Review of Systems: Ambulation impaired, with walker. No CV, , pulmonary, eye, ENT system symptoms on review. Mental Status Exam: The patient is oriented to herself. Insight and judgment, recent and remote memory, attention and concentration, fund of knowledge is poor consistent with her diagnoses. Laboratory Data: Reviewed. Impression: Major neurocognitive disorder, early Alzheimer, vascular with delusion, depression behavioral disturbance. Anxiety disorder unspecified. Impulse control disorder unspecified. Plan: No change from initial note. We will increase the patients BuSpar from 5 mg twice a day to 10 mg twice a day. Assessment: Vital Signs/I&O: Vital Signs Date Time Temp Pulse Resp B/P (MAP) Pulse Ox O2 Delivery O2 Flow Rate FiO2 09/03/21 15:36 98.3 82 20 122/71 (88) 96 09/01/21 16:21 Room Air I & O 09/02/21 09/02/21 09/03/21 14:59 22:59 06:59 Intake Total 440 ml 340 ml Balance 440 ml 340 ml Current Medications: Meds: Current Medications Medications (Trade) Dose Ordered Sig/Jin Route PRN Reason Start Time Stop Time Status Last Admin Dose Admin Buspirone HCl (Buspar) 10 mg 0900,1700 PO 09/03/21 09:00 09/03/21 16:56 I have reviewed the current psychotropics carefully including drug interactions. Risk benefit ratio favors no change other than as noted in my dictated progress note. Diagnosis: Problems: (1) Dementia in Alzheimer's disease with depression (2) Dementia in Alzheimer's disease with delusions (3) Dementia of the Alzheimer's type with early onset with behavioral disturbance (4) Major neurocognitive disorder (5) Impulse control disorder, unspecified (6) Anxiety disorder, unspecified (7) Dementia, vascular, with depression (8) Dementia, vascular, with delusions LOUIS DAO MD Sep 03, 2021 21:38
--- NOTE | 2021-09-03 21:50 | PDOC ---
Exam Note: Roderick Note: Please also refer to the separate dictated note~for this date of service dictated separately.~Patient seen individually. Discussed the patient with Nursing staff reviewed the chart.~Reviewed interim history and current functioning. Reviewed vital signs,~Labs/ Radiology~and current medications noted below. Continue current treatment with the changes noted in the dictated addendum note Assessment: Vital Signs/I&O: Vital Signs Date Time Temp Pulse Resp B/P (MAP) Pulse Ox O2 Delivery O2 Flow Rate FiO2 09/03/21 15:36 98.3 82 20 122/71 (88) 96 09/01/21 16:21 Room Air I & O 09/02/21 09/02/21 09/03/21 15:00 23:00 07:00 Intake Total 440 ml 340 ml Balance 440 ml 340 ml Current Medications: Meds: Current Medications Medications (Trade) Dose Ordered Sig/Jin Route PRN Reason Start Time Stop Time Status Last Admin Dose Admin Acetaminophen (Tylenol) 650 mg PRN Q6HRS PRN PO MILD PAIN / TEMP > 100.3'F 07/15/21 13:00 Multi-Ingredient Ointment (Analgesic [place]) 1 lilibeth PRN QID PRN TP MUSCLE PAIN 07/15/21 13:00 Al Hydroxide/Mg Hydroxide (Mylanta Plus Xs) 15 ml PRN AFTMEALHC PRN PO DYSPEPSIA 07/15/21 13:00 Magnesium Hydroxide (Milk Of Magnesia) 2,400 mg PRN QHS PRN PO CONSTIPATION 07/15/21 13:00 Influenza Virus Vaccine Quadrival (Flulaval Quad [id number] Syringe) 0.5 ml ONCE ONCE VAX IM 07/16/21 09:00 07/16/21 09:01 DC 07/16/21 16:00 Amlodipine Besylate (Norvasc) 5 mg DAILY PO 07/16/21 09:00 09/03/21 08:16 Donepezil HCl (Aricept) 10 mg DAILY PO 07/16/21 09:00 07/26/21 11:59 DC 07/26/21 08:46 Ibuprofen (Motrin) 800 mg PRN Q6HRS PRN PO MODERATE PAIN 07/15/21 13:00 Polyethylene Glycol (miraLAX) 17 gm DAILY PO 07/16/21 09:00 07/17/21 08:39 DC 07/17/21 08:14 Artificial Tears (Artificial Tears) 1 drop DAILY OD 07/16/21 09:00 07/17/21 08:38 DC 07/17/21 08:16 Quetiapine Fumarate (SEROquel) 25 mg BID PO 07/15/21 21:00 07/15/21 21:01 DC 07/15/21 20:03 Quetiapine Fumarate (SEROquel) 50 mg BID PO 07/15/21 21:00 07/15/21 20:01 DC Citalopram Hydrobromide (CeleXA) 20 mg DAILY PO 07/16/21 09:00 08/08/21 14:54 DC 08/08/21 08:34 Multivitamins/ Calcium (Thera-M Plus) 1 tab DAILY PO 07/16/21 09:00 09/03/21 08:15 Olanzapine (ZyPREXA ZYDIS) 2.5 mg PRN Q4HRS PRN PO PSYCHOSIS 07/15/21 16:30 07/26/21 11:59 DC 07/24/21 09:13 Quetiapine Fumarate (SEROquel) 50 mg BID PO 07/16/21 09:00 07/16/21 15:39 DC 07/16/21 08:05 Quetiapine Fumarate (SEROquel) 25 mg PRN Q6HRS PRN PO ANXIETY 07/16/21 15:45 07/25/21 18:09 DC 07/19/21 01:41 Quetiapine Fumarate (SEROquel) 25 mg HS PO 07/16/21 21:00 07/25/21 18:09 DC 07/24/21 20:16 Quetiapine Fumarate (SEROquel) 12.5 mg DAILY PO 07/17/21 09:00 07/25/21 18:09 DC 07/25/21 09:24 Artificial Tears (Artificial Tears) 1 drop PRN DAILY PRN OD DRY EYES 07/17/21 08:45 Polyethylene Glycol (miraLAX) 17 gm PRN DAILY PRN PO DRY EYES 07/17/21 08:45 07/17/21 08:42 DC Polyethylene Glycol (miraLAX) 17 gm DAILY PO 07/18/21 09:00 09/03/21 08:15 Vitamin D (Vitamin D3) 50,000 unit WEEKLY PO 07/18/21 15:30 07/18/21 19:11 DC Vitamin D (Vitamin D3) 50,000 unit WEEKLY PO 07/19/21 09:00 08/23/21 08:04 Olanzapine (ZyPREXA ZYDIS) 2.5 mg PRN Q2HR PRN PO PSYCHOSIS 07/26/21 12:00 09/02/21 09:59 Divalproex Sodium (Depakote Sprinkles) 125 mg 0900,1700 PO 07/26/21 17:00 08/04/21 18:18 DC 08/04/21 16:37 Divalproex Sodium (Depakote Sprinkles) 250 mg 0900,1700 PO 08/05/21 09:00 08/18/21 18:24 DC 08/18/21 17:20 Citalopram Hydrobromide (CeleXA) 10 mg DAILY PO 08/09/21 09:00 08/30/21 11:26 DC 08/30/21 08:23 Divalproex Sodium (Depakote Sprinkles) 375 mg 0900,1700 PO 08/19/21 09:00 09/03/21 16:56 Citalopram Hydrobromide (CeleXA) 20 mg DAILY PO 08/31/21 09:00 09/03/21 08:15 Buspirone HCl (Buspar) 5 mg 0900,1700 PO 08/30/21 17:00 09/02/21 18:35 DC 09/02/21 17:18 Buspirone HCl (Buspar) 10 mg 0900,1700 PO 09/03/21 09:00 09/03/21 16:56 Current Medications Medications (Trade) Dose Ordered Sig/Jin Route PRN Reason Start Time Stop Time Status Last Admin Dose Admin Buspirone HCl (Buspar) 10 mg 0900,1700 PO 09/03/21 09:00 09/03/21 16:56 I have reviewed the current psychotropics carefully including drug interactions. Risk benefit ratio favors no change other than as noted in my dictated progress note. Diagnosis: Problems: (1) Dementia in Alzheimer's disease with depression (2) Dementia in Alzheimer's disease with delusions (3) Dementia of the Alzheimer's type with early onset with behavioral disturbance (4) Major neurocognitive disorder (5) Impulse control disorder, unspecified (6) Anxiety disorder, unspecified (7) Dementia, vascular, with depression (8) Dementia, vascular, with delusions LOUIS DAO MD Sep 03, 2021 21:50
[2021-09-04 05:55] VITALS: BP 140/56
[2021-09-04 07:45] LABS: BASO # 0.1 x10^3/uL (0.0-0.2); BASO % 1 % (0-3); EOS # 0.1 x10^3/uL (0.0-0.7); EOS % 2 % (0-3); HEMATOCRIT 41.1 % (36.0-47.0); HEMOGLOBIN 13.8 g/dL (12.0-15.5); LYMPH # 1.5 x10^3/uL (1.0-4.8); LYMPH % 24 % (24-48); MEAN CORPUSCULAR HEMOGLOBIN 33 pg (25-35); MEAN CORPUSCULAR HGB CONC 34 g/dL (31-37); MEAN CORPUSCULAR VOLUME 98 fL (79-100); MONO # 0.5 x10^3/uL (0.0-1.1); MONO % 8 % (0-9); NEUT # 4.1 x10^3uL (1.8-7.7); NEUT % 65 % (31-73); PLATELET COUNT 240 x10^3/uL (140-400); RED BLOOD COUNT 4.22 x10^6/uL (3.50-5.40); RED CELL DISTRIBUTION WIDTH 13.3 % (11.5-14.5); WHITE BLOOD COUNT 6.2 x10^3/uL (4.0-11.0)
[2021-09-04] MEDS: POLYETHYLENE GLYCOL 3350 17 GM PACKET. PO SCH (07:45)
[2021-09-04] MEDS: MULTIVITAMIN with MINERAL TABLET. PO SCH (07:46)
[2021-09-04] MEDS: busPIRone 10 MG TABLET. PO SCH ×2 (07:46→17:06)
[2021-09-04] MEDS: DIVALPROEX 125 MG CAP.SPRINK PO SCH ×2 (07:46→17:06)
[2021-09-04] MEDS: amLODIPine BESYLATE 5 MG TABLET PO SCH (07:46)
[2021-09-04] MEDS: CITALOPRAM 20 MG TABLET. PO SCH (07:46)
[2021-09-04 08:15] LABS: ALBUMIN 3.7 g/dL (3.4-5.0); ALBUMIN/GLOBULIN RATIO 0.9 (1.0-1.7); CALCIUM 8.9 mg/dL (8.5-10.1); POTASSIUM 3.8 mmol/L (3.5-5.1); TOTAL BILIRUBIN 0.3 mg/dL (0.2-1.0); TOTAL PROTEIN 7.7 g/dL (6.4-8.2)
[2021-09-04 15:52] VITALS: BP 117/75
[2021-09-04 15:53] VITALS: BP 117/75
--- NOTE | 2021-09-04 21:29 | PDOC ---
Exam Note: Roderick Note: Please also refer to the separate dictated note~for this date of service dictated separately.~Patient seen individually. Discussed the patient with Nursing staff reviewed the chart.~Reviewed interim history and current functioning. Reviewed vital signs,~Labs/ Radiology~and current medications noted below. Continue current treatment with the changes noted in the dictated addendum note Assessment: Vital Signs/I&O: Vital Signs Date Time Temp Pulse Resp B/P (MAP) Pulse Ox O2 Delivery O2 Flow Rate FiO2 09/04/21 15:53 98.3 79 16 117/75 (89) 94 09/04/21 05:55 Room Air I & O 09/03/21 09/03/21 09/04/21 15:00 23:00 07:00 Intake Total 840 ml 480 ml Balance 840 ml 480 ml Labs: Laboratory Tests Test 09/04/21 07:35 White Blood Count 6.2 x10^3/uL (4.0-11.0) Red Blood Count 4.22 x10^6/uL (3.50-5.40) Hemoglobin 13.8 g/dL (12.0-15.5) Hematocrit 41.1 % (36.0-47.0) Mean Corpuscular Volume 98 fL (79-100) Mean Corpuscular Hemoglobin 33 pg (25-35) Mean Corpuscular Hemoglobin Concent 34 g/dL (31-37) Red Cell Distribution Width 13.3 % (11.5-14.5) Platelet Count 240 x10^3/uL (140-400) Neutrophils (%) (Auto) 65 % (31-73) Lymphocytes (%) (Auto) 24 % (24-48) Monocytes (%) (Auto) 8 % (0-9) Eosinophils (%) (Auto) 2 % (0-3) Basophils (%) (Auto) 1 % (0-3) Neutrophils # (Auto) 4.1 x10^3uL (1.8-7.7) Lymphocytes # (Auto) 1.5 x10^3/uL (1.0-4.8) Monocytes # (Auto) 0.5 x10^3/uL (0.0-1.1) Eosinophils # (Auto) 0.1 x10^3/uL (0.0-0.7) Basophils # (Auto) 0.1 x10^3/uL (0.0-0.2) Sodium Level 140 mmol/L (136-145) Potassium Level 3.8 mmol/L (3.5-5.1) Chloride Level 105 mmol/L (98-107) Carbon Dioxide Level 28 mmol/L (21-32) Anion Gap 7 (6-14) Blood Urea Nitrogen 21 mg/dL (7-20) H Creatinine 1.0 mg/dL (0.6-1.0) Estimated GFR (Cockcroft-Gault) 53.0 BUN/Creatinine Ratio 21 (6-20) H Glucose Level 128 mg/dL (70-99) H Calcium Level 8.9 mg/dL (8.5-10.1) Total Bilirubin 0.3 mg/dL (0.2-1.0) Aspartate Amino Transferase (AST) 21 U/L (15-37) Alanine Aminotransferase (ALT) 27 U/L (14-59) Alkaline Phosphatase 80 U/L (46-116) Total Protein 7.7 g/dL (6.4-8.2) Albumin 3.7 g/dL (3.4-5.0) Albumin/Globulin Ratio 0.9 (1.0-1.7) L Current Medications: Meds: Laboratory Tests Test 09/04/21 07:35 White Blood Count 6.2 x10^3/uL Red Blood Count 4.22 x10^6/uL Hemoglobin 13.8 g/dL Hematocrit 41.1 % Mean Corpuscular Volume 98 fL Mean Corpuscular Hemoglobin 33 pg Mean Corpuscular Hemoglobin Concent 34 g/dL Red Cell Distribution Width 13.3 % Platelet Count 240 x10^3/uL Neutrophils (%) (Auto) 65 % Lymphocytes (%) (Auto) 24 % Monocytes (%) (Auto) 8 % Eosinophils (%) (Auto) 2 % Basophils (%) (Auto) 1 % Neutrophils # (Auto) 4.1 x10^3uL Lymphocytes # (Auto) 1.5 x10^3/uL Monocytes # (Auto) 0.5 x10^3/uL Eosinophils # (Auto) 0.1 x10^3/uL Basophils # (Auto) 0.1 x10^3/uL Sodium Level 140 mmol/L Potassium Level 3.8 mmol/L Chloride Level 105 mmol/L Carbon Dioxide Level 28 mmol/L Anion Gap 7 Blood Urea Nitrogen 21 mg/dL Creatinine 1.0 mg/dL Estimated GFR (Cockcroft-Gault) 53.0 BUN/Creatinine Ratio 21 Glucose Level 128 mg/dL Calcium Level 8.9 mg/dL Total Bilirubin 0.3 mg/dL Aspartate Amino Transf (AST/SGOT) 21 U/L Alanine Aminotransferase (ALT/SGPT) 27 U/L Alkaline Phosphatase 80 U/L Total Protein 7.7 g/dL Albumin 3.7 g/dL Albumin/Globulin Ratio 0.9 Current Medications Medications (Trade) Dose Ordered Sig/Jin Route PRN Reason Start Time Stop Time Status Last Admin Dose Admin Acetaminophen (Tylenol) 650 mg PRN Q6HRS PRN PO MILD PAIN / TEMP > 100.3'F 07/15/21 13:00 Multi-Ingredient Ointment (Analgesic [place]) 1 lilibeth PRN QID PRN TP MUSCLE PAIN 07/15/21 13:00 Al Hydroxide/Mg Hydroxide (Mylanta Plus Xs) 15 ml PRN AFTMEALHC PRN PO DYSPEPSIA 07/15/21 13:00 Magnesium Hydroxide (Milk Of Magnesia) 2,400 mg PRN QHS PRN PO CONSTIPATION 07/15/21 13:00 Influenza Virus Vaccine Quadrival (Flulaval Quad [id number] Syringe) 0.5 ml ONCE ONCE VAX IM 07/16/21 09:00 07/16/21 09:01 DC 07/16/21 16:00 Amlodipine Besylate (Norvasc) 5 mg DAILY PO 07/16/21 09:00 09/04/21 07:46 Donepezil HCl (Aricept) 10 mg DAILY PO 07/16/21 09:00 07/26/21 11:59 DC 07/26/21 08:46 Ibuprofen (Motrin) 800 mg PRN Q6HRS PRN PO MODERATE PAIN 07/15/21 13:00 Polyethylene Glycol (miraLAX) 17 gm DAILY PO 07/16/21 09:00 07/17/21 08:39 DC 07/17/21 08:14 Artificial Tears (Artificial Tears) 1 drop DAILY OD 07/16/21 09:00 07/17/21 08:38 DC 07/17/21 08:16 Quetiapine Fumarate (SEROquel) 25 mg BID PO 07/15/21 21:00 07/15/21 21:01 DC 07/15/21 20:03 Quetiapine Fumarate (SEROquel) 50 mg BID PO 07/15/21 21:00 07/15/21 20:01 DC Citalopram Hydrobromide (CeleXA) 20 mg DAILY PO 07/16/21 09:00 08/08/21 14:54 DC 08/08/21 08:34 Multivitamins/ Calcium (Thera-M Plus) 1 tab DAILY PO 07/16/21 09:00 09/04/21 07:46 Olanzapine (ZyPREXA ZYDIS) 2.5 mg PRN Q4HRS PRN PO PSYCHOSIS 07/15/21 16:30 07/26/21 11:59 DC 07/24/21 09:13 Quetiapine Fumarate (SEROquel) 50 mg BID PO 07/16/21 09:00 07/16/21 15:39 DC 07/16/21 08:05 Quetiapine Fumarate (SEROquel) 25 mg PRN Q6HRS PRN PO ANXIETY 07/16/21 15:45 07/25/21 18:09 DC 07/19/21 01:41 Quetiapine Fumarate (SEROquel) 25 mg HS PO 07/16/21 21:00 07/25/21 18:09 DC 07/24/21 20:16 Quetiapine Fumarate (SEROquel) 12.5 mg DAILY PO 07/17/21 09:00 07/25/21 18:09 DC 07/25/21 09:24 Artificial Tears (Artificial Tears) 1 drop PRN DAILY PRN OD DRY EYES 07/17/21 08:45 Polyethylene Glycol (miraLAX) 17 gm PRN DAILY PRN PO DRY EYES 07/17/21 08:45 07/17/21 08:42 DC Polyethylene Glycol (miraLAX) 17 gm DAILY PO 07/18/21 09:00 09/04/21 07:45 Vitamin D (Vitamin D3) 50,000 unit WEEKLY PO 07/18/21 15:30 07/18/21 19:11 DC Vitamin D (Vitamin D3) 50,000 unit WEEKLY PO 07/19/21 09:00 08/23/21 08:04 Olanzapine (ZyPREXA ZYDIS) 2.5 mg PRN Q2HR PRN PO PSYCHOSIS 07/26/21 12:00 09/02/21 09:59 Divalproex Sodium (Depakote Sprinkles) 125 mg 0900,1700 PO 07/26/21 17:00 08/04/21 18:18 DC 08/04/21 16:37 Divalproex Sodium (Depakote Sprinkles) 250 mg 0900,1700 PO 08/05/21 09:00 08/18/21 18:24 DC 08/18/21 17:20 Citalopram Hydrobromide (CeleXA) 10 mg DAILY PO 08/09/21 09:00 08/30/21 11:26 DC 08/30/21 08:23 Divalproex Sodium (Depakote Sprinkles) 375 mg 0900,1700 PO 08/19/21 09:00 09/04/21 17:06 Citalopram Hydrobromide (CeleXA) 20 mg DAILY PO 08/31/21 09:00 09/04/21 07:46 Buspirone HCl (Buspar) 5 mg 0900,1700 PO 08/30/21 17:00 09/02/21 18:35 DC 09/02/21 17:18 Buspirone HCl (Buspar) 10 mg 0900,1700 PO 09/03/21 09:00 09/04/21 17:06 I have reviewed the current psychotropics carefully including drug interactions. Risk benefit ratio favors no change other than as noted in my dictated progress note. 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
[2021-09-05 06:06] VITALS: BP 97/62
[2021-09-05] MEDS: POLYETHYLENE GLYCOL 3350 17 GM PACKET. PO SCH (08:26)
[2021-09-05] MEDS: MULTIVITAMIN with MINERAL TABLET. PO SCH (08:26)
[2021-09-05] MEDS: busPIRone 10 MG TABLET. PO SCH ×2 (08:27→17:20)
[2021-09-05] MEDS: CITALOPRAM 20 MG TABLET. PO SCH (08:27)
[2021-09-05] MEDS: DIVALPROEX 125 MG CAP.SPRINK PO SCH ×2 (08:27→17:20)
[2021-09-05] MEDS: amLODIPine BESYLATE 5 MG TABLET PO SCH (08:27)
[2021-09-05 15:43] VITALS: BP 132/75
--- NOTE | 2021-09-05 21:29 | PDOC ---
Exam Note: Roderick Note: Please also refer to the separate dictated note~for this date of service dictated separately.~Patient seen individually. Discussed the patient with Nursing staff reviewed the chart.~Reviewed interim history and current functioning. Reviewed vital signs,~Labs/ Radiology~and current medications noted below. Continue current treatment with the changes noted in the dictated addendum note Assessment: Vital Signs/I&O: Vital Signs Date Time Temp Pulse Resp B/P (MAP) Pulse Ox O2 Delivery O2 Flow Rate FiO2 09/05/21 15:43 98.9 67 18 132/75 (94) 98 Room Air I & O 09/04/21 09/04/21 09/05/21 15:00 23:00 07:00 Intake Total 480 ml 360 ml Balance 480 ml 360 ml Current Medications: Meds: Current Medications Medications (Trade) Dose Ordered Sig/Jin Route PRN Reason Start Time Stop Time Status Last Admin Dose Admin Acetaminophen (Tylenol) 650 mg PRN Q6HRS PRN PO MILD PAIN / TEMP > 100.3'F 07/15/21 13:00 Multi-Ingredient Ointment (Analgesic [place]) 1 lilibeth PRN QID PRN TP MUSCLE PAIN 07/15/21 13:00 Al Hydroxide/Mg Hydroxide (Mylanta Plus Xs) 15 ml PRN AFTMEALHC PRN PO DYSPEPSIA 07/15/21 13:00 Magnesium Hydroxide (Milk Of Magnesia) 2,400 mg PRN QHS PRN PO CONSTIPATION 07/15/21 13:00 Influenza Virus Vaccine Quadrival (Flulaval Quad [id number] Syringe) 0.5 ml ONCE ONCE VAX IM 07/16/21 09:00 07/16/21 09:01 DC 07/16/21 16:00 Amlodipine Besylate (Norvasc) 5 mg DAILY PO 07/16/21 09:00 09/04/21 07:46 Donepezil HCl (Aricept) 10 mg DAILY PO 07/16/21 09:00 07/26/21 11:59 DC 07/26/21 08:46 Ibuprofen (Motrin) 800 mg PRN Q6HRS PRN PO MODERATE PAIN 07/15/21 13:00 Polyethylene Glycol (miraLAX) 17 gm DAILY PO 07/16/21 09:00 07/17/21 08:39 DC 07/17/21 08:14 Artificial Tears (Artificial Tears) 1 drop DAILY OD 07/16/21 09:00 07/17/21 08:38 DC 07/17/21 08:16 Quetiapine Fumarate (SEROquel) 25 mg BID PO 07/15/21 21:00 07/15/21 21:01 DC 07/15/21 20:03 Quetiapine Fumarate (SEROquel) 50 mg BID PO 07/15/21 21:00 07/15/21 20:01 DC Citalopram Hydrobromide (CeleXA) 20 mg DAILY PO 07/16/21 09:00 08/08/21 14:54 DC 08/08/21 08:34 Multivitamins/ Calcium (Thera-M Plus) 1 tab DAILY PO 07/16/21 09:00 09/05/21 08:26 Olanzapine (ZyPREXA ZYDIS) 2.5 mg PRN Q4HRS PRN PO PSYCHOSIS 07/15/21 16:30 07/26/21 11:59 DC 07/24/21 09:13 Quetiapine Fumarate (SEROquel) 50 mg BID PO 07/16/21 09:00 07/16/21 15:39 DC 07/16/21 08:05 Quetiapine Fumarate (SEROquel) 25 mg PRN Q6HRS PRN PO ANXIETY 07/16/21 15:45 07/25/21 18:09 DC 07/19/21 01:41 Quetiapine Fumarate (SEROquel) 25 mg HS PO 07/16/21 21:00 07/25/21 18:09 DC 07/24/21 20:16 Quetiapine Fumarate (SEROquel) 12.5 mg DAILY PO 07/17/21 09:00 07/25/21 18:09 DC 07/25/21 09:24 Artificial Tears (Artificial Tears) 1 drop PRN DAILY PRN OD DRY EYES 07/17/21 08:45 Polyethylene Glycol (miraLAX) 17 gm PRN DAILY PRN PO DRY EYES 07/17/21 08:45 07/17/21 08:42 DC Polyethylene Glycol (miraLAX) 17 gm DAILY PO 07/18/21 09:00 09/05/21 08:26 Vitamin D (Vitamin D3) 50,000 unit WEEKLY PO 07/18/21 15:30 07/18/21 19:11 DC Vitamin D (Vitamin D3) 50,000 unit WEEKLY PO 07/19/21 09:00 08/23/21 08:04 Olanzapine (ZyPREXA ZYDIS) 2.5 mg PRN Q2HR PRN PO PSYCHOSIS 07/26/21 12:00 09/02/21 09:59 Divalproex Sodium (Depakote Sprinkles) 125 mg 0900,1700 PO 07/26/21 17:00 08/04/21 18:18 DC 08/04/21 16:37 Divalproex Sodium (Depakote Sprinkles) 250 mg 0900,1700 PO 08/05/21 09:00 08/18/21 18:24 DC 08/18/21 17:20 Citalopram Hydrobromide (CeleXA) 10 mg DAILY PO 08/09/21 09:00 08/30/21 11:26 DC 08/30/21 08:23 Divalproex Sodium (Depakote Sprinkles) 375 mg 0900,1700 PO 08/19/21 09:00 09/05/21 17:20 Citalopram Hydrobromide (CeleXA) 20 mg DAILY PO 08/31/21 09:00 09/05/21 08:27 Buspirone HCl (Buspar) 5 mg 0900,1700 PO 08/30/21 17:00 09/02/21 18:35 DC 09/02/21 17:18 Buspirone HCl (Buspar) 10 mg 0900,1700 PO 09/03/21 09:00 09/05/21 20:31 DC 09/05/21 17:20 Buspirone HCl (Buspar) 10 mg DAILY@1700 PO 09/06/21 17:00 Buspirone HCl (Buspar) 15 mg DAILY PO 09/06/21 09:00 I have reviewed the current psychotropics carefully including drug interactions. Risk benefit ratio favors no change other than as noted in my dictated progress note. 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
[2021-09-06 05:55] VITALS: BP 134/72
--- NOTE | 2021-09-06 07:24 | PDOC ---
Exam Note: Roderick Note: This note is a late entry for 09/03/2021 covers elements not covered in my initial note. Subjective: The patient was seen individually on 09/03/2021, discussed and reviewed the chart with Mariama WILSON. The patient slept 7-3/4 hours previous night. According to the nursing report, the patient is doing better, somewhat resistive with morning medications and resistive when her clothes were taken off for a shower. Rest of the time she has done better. She tends to gravitate to one of the other patients on the unit who is not demented. At times, she is a little resistive when staff intervenes to have her leave from there. Review of Systems: Ambulation impaired, with walker. No CV, , pulmonary, eye, ENT system symptoms on review. Mental Status Exam: The patient is oriented to herself. Insight and judgment, recent and remote memory, attention and concentration, fund of knowledge is poor consistent with her diagnoses. Laboratory Data: Reviewed. Impression: Major neurocognitive disorder, early Alzheimer, vascular with delusion, depression behavioral disturbance. Anxiety disorder unspecified. Impulse control disorder unspecified. Plan: No change from initial note. Assessment: Vital Signs/I&O: Vital Signs Date Time Temp Pulse Resp B/P (MAP) Pulse Ox O2 Delivery O2 Flow Rate FiO2 09/06/21 05:55 98.3 67 16 134/72 (92) 96 09/05/21 15:43 Room Air I & O 09/05/21 09/05/21 09/06/21 15:00 23:00 07:00 Intake Total 400 ml 240 ml 0 ml Balance 400 ml 240 ml 0 ml Current Medications: I have reviewed the current psychotropics carefully including drug interactions. Risk benefit ratio favors no change other than as noted in my dictated progress note. 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
--- NOTE | 2021-09-06 07:42 | PDOC ---
Exam Note: Roderick Note: This note is a late entry for 09/04/2021 covers elements not covered in my initial note. Subjective: The patient was seen individually on 09/04/2021, discussed and reviewed the chart with Augusto WILSON. The patient slept 3 hours previous night. She is resistive to medications, takes it in pudding. She is sharing her room with a different roommate and seems to be adapting alright. She tends to gravitate towards another non-demented patient on the unit. She has difficulty being redirected by nursing staff and ultimately does redirect. Review of Systems: Ambulation impaired, with walker. No CV, , pulmonary, eye, ENT system symptoms on review. Mental Status Exam: The patient is oriented to herself. Insight and judgment, recent and remote memory, attention and concentration, fund of knowledge is poor consistent with her diagnoses. Laboratory Data: Reviewed. Impression: Major neurocognitive disorder, early Alzheimer, vascular with d elusion, depression behavioral disturbance. Anxiety disorder unspecified. Impulse control disorder unspecified. Plan: No change from initial note. Assessment: Vital Signs/I&O: Vital Signs Date Time Temp Pulse Resp B/P (MAP) Pulse Ox O2 Delivery O2 Flow Rate FiO2 09/06/21 05:55 98.3 67 16 134/72 (92) 96 09/05/21 15:43 Room Air I & O 09/05/21 09/05/21 09/06/21 15:00 23:00 07:00 Intake Total 400 ml 240 ml 0 ml Balance 400 ml 240 ml 0 ml Current Medications: I have reviewed the current psychotropics carefully including drug interactions. Risk benefit ratio favors no change other than as noted in my dictated progress note. 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
--- NOTE | 2021-09-06 07:55 | PDOC ---
Exam Note: Roderick Note: This note is a late entry for 09/05/2021 covers elements not covered in my initial note. Subjective: The patient was seen individually on 09/05/2021, discussed and reviewed the chart with Nisreen WILSON. The patient slept 9-3/4 hours previous night. She was resistive to morning medications, bit a nursing staff while they attempted to give her, her meds. She took her meds in the evening. Review of Systems: Ambulation impaired, with walker. No CV, , pulmonary, eye, ENT system symptoms on review. Mental Status Exam: The patient is oriented to herself. Insight and judgment, recent and remote memory, attention and concentration, fund of knowledge is poor consistent with her diagnoses. Laboratory Data: Reviewed. Impression: Major neurocognitive disorder, early Alzheimer, vascular with delusion, depression behavioral disturbance. Anxiety disorder unspecified. Impulse control disorder unspecified. Plan: BuSpar is currently 10 mg twice a day. We will increase to 15 mg in the morning and 10 mg for the second dosage. Continue rest of the psychotropics unchanged including Celexa Depakote and Zyprexa p.r.n. Valproic acid level is therapeutic at 70. Assessment: Vital Signs/I&O: Vital Signs Date Time Temp Pulse Resp B/P (MAP) Pulse Ox O2 Delivery O2 Flow Rate FiO2 09/06/21 05:55 98.3 67 16 134/72 (92) 96 09/05/21 15:43 Room Air I & O 09/05/21 09/05/21 09/06/21 15:00 23:00 07:00 Intake Total 400 ml 240 ml 0 ml Balance 400 ml 240 ml 0 ml Current Medications: I have reviewed the current psychotropics carefully including drug interactions. Risk benefit ratio favors no change other than as noted in my dictated progress note. 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
[2021-09-06] MEDS: DIVALPROEX 125 MG CAP.SPRINK PO SCH ×2 (08:20→17:17)
[2021-09-06] MEDS: CITALOPRAM 20 MG TABLET. PO SCH (08:20)
[2021-09-06] MEDS: CHOLECALCIFEROL (VITAMIN D3) 50,000 UNIT CAPSULE PO SCH (08:20)
[2021-09-06] MEDS: busPIRone 15 MG TABLET. PO SCH (08:20)
[2021-09-06] MEDS: MULTIVITAMIN with MINERAL TABLET. PO SCH (08:20)
[2021-09-06] MEDS: POLYETHYLENE GLYCOL 3350 17 GM PACKET. PO SCH (08:21)
[2021-09-06] MEDS: amLODIPine BESYLATE 5 MG TABLET PO SCH (08:21)
[2021-09-06 15:36] VITALS: BP 99/61
[2021-09-06] MEDS ORDERED: busPIRone 10 MG TABLET. PO SCH ×2 (17:00)
--- NOTE | 2021-09-06 21:08 | PDOC ---
Exam Note: Roderick Note: Please also refer to the separate dictated note~for this date of service dictated separately.~Patient seen individually. Discussed the patient with Nursing staff reviewed the chart.~Reviewed interim history and current functioning. Reviewed vital signs,~Labs/ Radiology~and current medications noted below. Continue current treatment with the changes noted in the dictated addendum note Assessment: Vital Signs/I&O: Vital Signs Date Time Temp Pulse Resp B/P (MAP) Pulse Ox O2 Delivery O2 Flow Rate FiO2 09/06/21 15:36 98.1 67 16 99/61 (74) 96 09/05/21 15:43 Room Air I & O 09/05/21 09/05/21 09/06/21 15:00 23:00 07:00 Intake Total 400 ml 240 ml 0 ml Balance 400 ml 240 ml 0 ml Current Medications: Meds: Current Medications Medications (Trade) Dose Ordered Sig/Jin Route PRN Reason Start Time Stop Time Status Last Admin Dose Admin Acetaminophen (Tylenol) 650 mg PRN Q6HRS PRN PO MILD PAIN / TEMP > 100.3'F 07/15/21 13:00 Multi-Ingredient Ointment (Analgesic [place]) 1 lilibeth PRN QID PRN TP MUSCLE PAIN 07/15/21 13:00 Al Hydroxide/Mg Hydroxide (Mylanta Plus Xs) 15 ml PRN AFTMEALHC PRN PO DYSPEPSIA 07/15/21 13:00 Magnesium Hydroxide (Milk Of Magnesia) 2,400 mg PRN QHS PRN PO CONSTIPATION 07/15/21 13:00 Influenza Virus Vaccine Quadrival (Flulaval Quad [id number] Syringe) 0.5 ml ONCE ONCE VAX IM 07/16/21 09:00 07/16/21 09:01 DC 07/16/21 16:00 Amlodipine Besylate (Norvasc) 5 mg DAILY PO 07/16/21 09:00 09/06/21 08:21 Donepezil HCl (Aricept) 10 mg DAILY PO 07/16/21 09:00 07/26/21 11:59 DC 07/26/21 08:46 Ibuprofen (Motrin) 800 mg PRN Q6HRS PRN PO MODERATE PAIN 07/15/21 13:00 Polyethylene Glycol (miraLAX) 17 gm DAILY PO 07/16/21 09:00 07/17/21 08:39 DC 07/17/21 08:14 Artificial Tears (Artificial Tears) 1 drop DAILY OD 07/16/21 09:00 07/17/21 08:38 DC 07/17/21 08:16 Quetiapine Fumarate (SEROquel) 25 mg BID PO 07/15/21 21:00 07/15/21 21:01 DC 07/15/21 20:03 Quetiapine Fumarate (SEROquel) 50 mg BID PO 07/15/21 21:00 07/15/21 20:01 DC Citalopram Hydrobromide (CeleXA) 20 mg DAILY PO 07/16/21 09:00 08/08/21 14:54 DC 08/08/21 08:34 Multivitamins/ Calcium (Thera-M Plus) 1 tab DAILY PO 07/16/21 09:00 09/06/21 08:20 Olanzapine (ZyPREXA ZYDIS) 2.5 mg PRN Q4HRS PRN PO PSYCHOSIS 07/15/21 16:30 07/26/21 11:59 DC 07/24/21 09:13 Quetiapine Fumarate (SEROquel) 50 mg BID PO 07/16/21 09:00 07/16/21 15:39 DC 07/16/21 08:05 Quetiapine Fumarate (SEROquel) 25 mg PRN Q6HRS PRN PO ANXIETY 07/16/21 15:45 07/25/21 18:09 DC 07/19/21 01:41 Quetiapine Fumarate (SEROquel) 25 mg HS PO 07/16/21 21:00 07/25/21 18:09 DC 07/24/21 20:16 Quetiapine Fumarate (SEROquel) 12.5 mg DAILY PO 07/17/21 09:00 07/25/21 18:09 DC 07/25/21 09:24 Artificial Tears (Artificial Tears) 1 drop PRN DAILY PRN OD DRY EYES 07/17/21 08:45 Polyethylene Glycol (miraLAX) 17 gm PRN DAILY PRN PO DRY EYES 07/17/21 08:45 07/17/21 08:42 DC Polyethylene Glycol (miraLAX) 17 gm DAILY PO 07/18/21 09:00 09/06/21 08:21 Vitamin D (Vitamin D3) 50,000 unit WEEKLY PO 07/18/21 15:30 07/18/21 19:11 DC Vitamin D (Vitamin D3) 50,000 unit WEEKLY PO 07/19/21 09:00 09/06/21 08:20 Olanzapine (ZyPREXA ZYDIS) 2.5 mg PRN Q2HR PRN PO PSYCHOSIS 07/26/21 12:00 09/02/21 09:59 Divalproex Sodium (Depakote Sprinkles) 125 mg 0900,1700 PO 07/26/21 17:00 08/04/21 18:18 DC 08/04/21 16:37 Divalproex Sodium (Depakote Sprinkles) 250 mg 0900,1700 PO 08/05/21 09:00 08/18/21 18:24 DC 08/18/21 17:20 Citalopram Hydrobromide (CeleXA) 10 mg DAILY PO 08/09/21 09:00 08/30/21 11:26 DC 08/30/21 08:23 Divalproex Sodium (Depakote Sprinkles) 375 mg 0900,1700 PO 08/19/21 09:00 09/06/21 17:17 Citalopram Hydrobromide (CeleXA) 20 mg DAILY PO 08/31/21 09:00 09/06/21 08:20 Buspirone HCl (Buspar) 5 mg 0900,1700 PO 08/30/21 17:00 09/02/21 18:35 DC 09/02/21 17:18 Buspirone HCl (Buspar) 10 mg 0900,1700 PO 09/03/21 09:00 09/05/21 20:31 DC 09/05/21 17:20 Buspirone HCl (Buspar) 10 mg DAILY@1700 PO 09/06/21 17:00 09/06/21 12:07 DC Buspirone HCl (Buspar) 15 mg DAILY PO 09/06/21 09:00 09/06/21 08:20 Buspirone HCl (Buspar) 10 mg DAILYWSUP PO 09/06/21 17:00 09/06/21 17:17 Current Medications Medications (Trade) Dose Ordered Sig/Jin Route PRN Reason Start Time Stop Time Status Last Admin Dose Admin Buspirone HCl (Buspar) 15 mg DAILY PO 09/06/21 09:00 09/06/21 08:20 Buspirone HCl (Buspar) 10 mg DAILYWSUP PO 09/06/21 17:00 09/06/21 17:17 I have reviewed the current psychotropics carefully including drug interactions. Risk benefit ratio favors no change other than as noted in my dictated progress note. 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
[2021-09-07] MEDS ORDERED: CITA20TA9 PO (04:23)
[2021-09-07] MEDS ORDERED: ACET325T9 PO (04:25)
[2021-09-07] MEDS ORDERED: CHOL500021 PO (04:26)
[2021-09-07] MEDS ORDERED: DIVA125C2 PO (04:28)
[2021-09-07] MEDS ORDERED: MAG-115 PO (04:28)
[2021-09-07] MEDS ORDERED: MAGN24003 PO (04:29)
[2021-09-07] MEDS ORDERED: METH85CR16 TP (04:31)
[2021-09-07] MEDS ORDERED: OLAN5TAB99 PO (04:31)
[2021-09-07] MEDS ORDERED: BUSP15TA PO (04:33)
[2021-09-07] MEDS ORDERED: BUSP10TA PO (04:33)
[2021-09-07 06:21] VITALS: BP 118/62
[2021-09-07 08:04] VITALS: BP 118/62
[2021-09-07] MEDS: DIVALPROEX 125 MG CAP.SPRINK PO SCH (08:04)
[2021-09-07] MEDS: amLODIPine BESYLATE 5 MG TABLET PO SCH (08:04)
[2021-09-07] MEDS: MULTIVITAMIN with MINERAL TABLET. PO SCH (08:04)
[2021-09-07] MEDS: CITALOPRAM 20 MG TABLET. PO SCH (08:04)
[2021-09-07] MEDS: POLYETHYLENE GLYCOL 3350 17 GM PACKET. PO SCH (08:05)
[2021-09-07] MEDS: busPIRone 15 MG TABLET. PO SCH (08:05)
--- NOTE | 2021-09-07 09:12 | TX PLAN ---
Interdisciplinary Tx Plan Admission Information Jul 15, 2021 at 12:56 Legal Status (on Admission): Voluntary DPOA/Guardian Name: Ofelia Albarran Contact Other Contact Name: Harika Valderrama, or Eileen Other Contact Verified Code Status: DNR Allergies: Coded Allergies: Penicillins (Verified Allergy, Unknown, 07/15/21) latex (Verified Allergy, Unknown, 07/15/21) sulfamethoxazole (Verified Allergy, Unknown, 07/15/21) trimethoprim (Verified Allergy, Unknown, 07/15/21) Diagnoses Primary Diagnosis: 1. Major neurocognitive disorder, most likely Alzheimer's with behavior problems. 2. Depressive disorder, unspecified. Reasons for Admission: Aggressive, Agitated, Depressed, Angry, Anxiety/Panic, Combative, Suspicious/paranoid, Confusion/Disoriented, Isolating Problem in Patient's Words: Pt sister/DPOA, Ofelia, has been noticing a gradual decline exhibited by her becoming more reclusive and imiginaning things. Dominique thinks that she begins to sundown early. Prior to pt's current living facility at [facility], she was at another nursing facility in [place] where she started having increased agitation and aggression. The facility at [place] didn't feel like they could meet her needs anylonger, therefore, pt was moved to [place]. Additional Admission Comments: Per intake record, pt presents from her nursing facility with intrusiveness, wanders and enters peers rooms, aggressive toward staff, hit staff with walker, and agitation. Problems Active Problems: Agitation, aggression, resistive to medication, cares and treatment, depressed, angry, anxiety Inactive Problems: None at this time. Pt Strengths/Limitations Ability for [place]: Poor Cognitive Functioning/Ability: Poor Communication Skills/Ability: Fair Financial Resources: Good Insight/Judgement: Poor Intellectual Ability: Good Physical Health: Poor Social Skills: Fair Stability in Family: Good Stability in School/Work: Good Verbal Skills: Fair Discharge Criteria Discharge Criteria: Able meet basic life need, No need for close observ., Able to meet health needs, Adequate arrangements @DC, Adequate self-care, Verbal commit med comply, Improved behavior, Improved mood/thought Preliminary Discharge Plan Preliminary DC Plan: Current Living Arrange. Special Precautions Fall Risk: Low Initial D/C Plan Pt plan is to return to [facility]. Identified Discharge Needs: None at this time. Currently Utilized Resources Currently Utilized Resources/P: PCP-Dr. Pang Sister/DPELMA-Ofelia Ronniepavelakin Facility-[facility]; contact-Jannie, Harika, or Eileen Referrals Community Resources: None at this time. Identified Problems/Hx/Goals Objectives/Short-Term Goals Short Term Goals: Control abnormal behavior, Dec. Aggression, Dec. Anxiety/Panic, Dec. Outbursts, Dec. Symp. Depression, Medication Stabilization, Monitor Med Effects, Prevent Deterioration, Promote Coping Skill Short Term Goals in Patient's: Medication evaluation to help with agitation and aggression along with improve compliance with cares. Interventions/Frequency Staff Interventions/Frequency&: Psychiatry to assess pt three times per week for medication management. Nursing to assess behaviors, monitor medications, and complete 15 minute checks daily. Social work to see pt at least two times weekly to aid in return to placement. Activities to encourage pt to participate in group activities daily. 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 Community Follow-up PCP Community Provider/Family Inpu: Sister/DPELMA, Ofelia, aware of pt hospitalization and is available for further information as needed. 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 Pt continues to have confusion and lacks insight in her abilities. At times she is resistive to medication and cares. She seems to do better when her meds are crushed in pudding or applesauce. Pt's 1700 dose of Buspar has been increased to 10mg. The 0900 dose remains at 5mg. Pt will discharge back to [facility] this week. Treatment plan was completed on 09/06/21 and entered on 09/07/21. TRINO FONSECA Sep 07, 2021 09:12
--- NOTE | 2021-09-07 19:41 | DS ---
DATE OF DISCHARGE: 09/07/2021 DISCHARGE SUMMARY/PSYCHIATRIC PROGRESS NOTE REASON FOR ADMISSION: This note covers elements not covered in my initial note. The patient is an 81-year-old female referred from [facility] by her primary care physician and outpatient psychiatric providers on account of worsening confusion and a diagnosis of dementia. She was wandering and entering room of others, arguing with staff, hitting staff with a walker, intrusive and unmanageable. She had failed outpatient psychiatric interventions. Behavior is deemed dangerous, unmanageable, resulting in this referral. SIGNIFICANT FINDINGS AND CLINICAL COURSE: Following admission, the patient was seen daily individually by myself from a psychiatric standpoint, medical followup with Dr. Berumen/Dr. Hills. The patient had a very extended hospitalization because of the unit being quarantined repeatedly due to COVID-19. The patient's showing up on screening on the unit in the alf, refusing to take her back. She was finally discharged on 09/07. Nevertheless following admission, she was anxious, agitated, restless, impulsive and confused. Adjustments were made in her psychotropics and she seemed to respond to a combination of Celexa 20 mg a day, BuSpar 15 mg at 0900 and 10 mg at 1700, Depakote 375 mg twice a day with a level of 70 therapeutic and Zyprexa p.r.n. Gradually, mood appeared to improve. She was still confused, wandering into others' rooms, but easily redirected. Pleasant, verbal and smiling as I would meet with her daily. REVIEW OF SYSTEMS: Ambulation impaired with walker. No CV, , pulmonary, eye, ENT system symptoms on review. Reliability poor. MENTAL STATUS EXAMINATION: Oriented to herself. Insight, judgment, recent memory is impaired. Language function intact. Attention span short. Mood and affect, lability was much improved. No suicidal or homicidal ideation. LABORATORY DATA: Reviewed. CONDITION ON DISCHARGE: Improved. FINAL DIAGNOSES: Major neurocognitive disorder, Alzheimer, vascular with delusion, depression, behavioral disturbance, anxiety disorder, unspecified; impulse control disorder, unspecified. Rest unchanged from admission. DISCHARGE MEDICATIONS: Please refer to the MRAD. DISCHARGE INSTRUCTIONS: Outpatient psychiatric and medical followup at the alf. ROSALIND DR: Vaughn TID: [id number]
--- NOTE | 2021-09-07 21:43 | PDOC ---
Exam Note: Roderick Note: Please also refer to the separate dictated note~for this date of service dictated separately.~Patient seen individually. Discussed the patient with Nursing staff reviewed the chart.~Reviewed interim history and current functioning. Reviewed vital signs,~Labs/ Radiology~and current medications noted below. Continue current treatment with the changes noted in the dictated addendum note Assessment: Vital Signs/I&O: Vital Signs Date Time Temp Pulse Resp B/P (MAP) Pulse Ox O2 Delivery O2 Flow Rate FiO2 09/07/21 08:04 68 118/62 09/07/21 06:21 98.4 16 94 Room Air I & O 09/06/21 09/06/21 09/07/21 15:00 23:00 07:00 Intake Total 480 ml 240 ml Output Total 1 ml Balance 480 ml 239 ml Current Medications: Meds: Current Medications Medications (Trade) Dose Ordered Sig/Jin Route PRN Reason Start Time Stop Time Status Last Admin Dose Admin Acetaminophen (Tylenol) 650 mg PRN Q6HRS PRN PO MILD PAIN / TEMP > 100.3'F 07/15/21 13:00 09/07/21 11:16 DC Multi-Ingredient Ointment (Analgesic [place]) 1 lilibeth PRN QID PRN TP MUSCLE PAIN 07/15/21 13:00 09/07/21 11:16 DC Al Hydroxide/Mg Hydroxide (Mylanta Plus Xs) 15 ml PRN AFTMEALHC PRN PO DYSPEPSIA 07/15/21 13:00 09/07/21 11:16 DC Magnesium Hydroxide (Milk Of Magnesia) 2,400 mg PRN QHS PRN PO CONSTIPATION 07/15/21 13:00 09/07/21 11:16 DC Influenza Virus Vaccine Quadrival (Flulaval Quad [id number] Syringe) 0.5 ml ONCE ONCE VAX IM 07/16/21 09:00 07/16/21 09:01 DC 07/16/21 16:00 Amlodipine Besylate (Norvasc) 5 mg DAILY PO 07/16/21 09:00 09/07/21 11:16 DC 09/07/21 08:04 Donepezil HCl (Aricept) 10 mg DAILY PO 07/16/21 09:00 07/26/21 11:59 DC 07/26/21 08:46 Ibuprofen (Motrin) 800 mg PRN Q6HRS PRN PO MODERATE PAIN 07/15/21 13:00 09/07/21 11:16 DC Polyethylene Glycol (miraLAX) 17 gm DAILY PO 07/16/21 09:00 07/17/21 08:39 DC 07/17/21 08:14 Artificial Tears (Artificial Tears) 1 drop DAILY OD 07/16/21 09:00 07/17/21 08:38 DC 07/17/21 08:16 Quetiapine Fumarate (SEROquel) 25 mg BID PO 07/15/21 21:00 07/15/21 21:01 DC 07/15/21 20:03 Quetiapine Fumarate (SEROquel) 50 mg BID PO 07/15/21 21:00 07/15/21 20:01 DC Citalopram Hydrobromide (CeleXA) 20 mg DAILY PO 07/16/21 09:00 08/08/21 14:54 DC 08/08/21 08:34 Multivitamins/ Calcium (Thera-M Plus) 1 tab DAILY PO 07/16/21 09:00 09/07/21 11:16 DC 09/07/21 08:04 Olanzapine (ZyPREXA ZYDIS) 2.5 mg PRN Q4HRS PRN PO PSYCHOSIS 07/15/21 16:30 07/26/21 11:59 DC 07/24/21 09:13 Quetiapine Fumarate (SEROquel) 50 mg BID PO 07/16/21 09:00 07/16/21 15:39 DC 07/16/21 08:05 Quetiapine Fumarate (SEROquel) 25 mg PRN Q6HRS PRN PO ANXIETY 07/16/21 15:45 07/25/21 18:09 DC 07/19/21 01:41 Quetiapine Fumarate (SEROquel) 25 mg HS PO 07/16/21 21:00 07/25/21 18:09 DC 07/24/21 20:16 Quetiapine Fumarate (SEROquel) 12.5 mg DAILY PO 07/17/21 09:00 07/25/21 18:09 DC 07/25/21 09:24 Artificial Tears (Artificial Tears) 1 drop PRN DAILY PRN OD DRY EYES 07/17/21 08:45 09/07/21 11:16 DC Polyethylene Glycol (miraLAX) 17 gm PRN DAILY PRN PO DRY EYES 07/17/21 08:45 07/17/21 08:42 DC Polyethylene Glycol (miraLAX) 17 gm DAILY PO 07/18/21 09:00 09/07/21 11:16 DC 09/07/21 08:05 Vitamin D (Vitamin D3) 50,000 unit WEEKLY PO 07/18/21 15:30 07/18/21 19:11 DC Vitamin D (Vitamin D3) 50,000 unit WEEKLY PO 07/19/21 09:00 09/07/21 11:16 DC 09/06/21 08:20 Olanzapine (ZyPREXA ZYDIS) 2.5 mg PRN Q2HR PRN PO PSYCHOSIS 07/26/21 12:00 09/07/21 11:16 DC 09/02/21 09:59 Divalproex Sodium (Depakote Sprinkles) 125 mg 0900,1700 PO 07/26/21 17:00 08/04/21 18:18 DC 08/04/21 16:37 Divalproex Sodium (Depakote Sprinkles) 250 mg 0900,1700 PO 08/05/21 09:00 08/18/21 18:24 DC 08/18/21 17:20 Citalopram Hydrobromide (CeleXA) 10 mg DAILY PO 08/09/21 09:00 08/30/21 11:26 DC 08/30/21 08:23 Divalproex Sodium (Depakote Sprinkles) 375 mg 0900,1700 PO 08/19/21 09:00 09/07/21 11:16 DC 09/07/21 08:04 Citalopram Hydrobromide (CeleXA) 20 mg DAILY PO 08/31/21 09:00 09/07/21 11:16 DC 09/07/21 08:04 Buspirone HCl (Buspar) 5 mg 0900,1700 PO 08/30/21 17:00 09/02/21 18:35 DC 09/02/21 17:18 Buspirone HCl (Buspar) 10 mg 0900,1700 PO 09/03/21 09:00 09/05/21 20:31 DC 09/05/21 17:20 Buspirone HCl (Buspar) 10 mg DAILY@1700 PO 09/06/21 17:00 09/06/21 12:07 DC Buspirone HCl (Buspar) 15 mg DAILY PO 09/06/21 09:00 09/07/21 11:16 DC 09/07/21 08:05 Buspirone HCl (Buspar) 10 mg DAILYWSUP PO 09/06/21 17:00 09/07/21 11:16 DC 09/06/21 17:17 I have reviewed the current psychotropics carefully including drug interactions. Risk benefit ratio favors no change other than as noted in my dictated progress note. Diagnosis: Problems: (1) Dementia in Alzheimer's disease with depression (2) Dementia in Alzheimer's disease with delusions (3) Dementia of the Alzheimer's type with early onset with behavioral disturbance (4) Major neurocognitive disorder (5) Impulse control disorder, unspecified (6) Anxiety disorder, unspecified (7) Dementia, vascular, with depression (8) Dementia, vascular, with delusions (9) Dementia with behavioral disturbance LOUIS DAO MD Sep 07, 2021 21:43
--- NOTE | 2021-09-08 06:56 | PDOC ---
Exam Note: Roderick Note: This note is a late entry for 09/06/2021 covers elements not covered in my initial note. Subjective: The patient was reviewed at treatment team meeting in the morning on 09/06/2021 with Natalya Rocha, Rosa Isela Padgett, and Lauren Vizcaino (group social worker), Keysha, activity therapy, Deja WILSON, discussed and reviewed the chart. Reviewed the patients progress, psychotropic medications and diagnoses. She remains confused, at times tends to gravitate into the room of another patient, sometimes accepts redirection, other times had hard time doing that. Also discussed with Nisreen WILSON in the evening. Plan is for discharge [facility]. She has been intermittently yelling and showers but does redirect out of the other patients room. Review of Systems: No CV, , pulmonary, eye, ENT system symptoms on review. Reliability poor. Mental Status Exam: She was pleasant, cooperative, oriented to herself, smiling. Abstraction fair. Computation impaired. Language function intact. Mood and affect is improved. Short-term memory is impaired. Laboratory Data: Reviewed. Impression: Major neurocognitive disorder, early Alzheimer, vascular with delusion, depression behavioral disturbance. Anxiety disorder unspecified. Impulse control disorder unspecified. Plan: Continue current psychotropics. Reviewed drug interactions. Risk- benefit ratio. Discharge to [facility] on 09/07. Assessment: Vital Signs/I&O: Vital Signs Date Time Temp Pulse Resp B/P (MAP) Pulse Ox O2 Delivery O2 Flow Rate FiO2 09/07/21 08:04 68 118/62 09/07/21 06:21 98.4 16 94 Room Air I & O 09/07/21 09/07/21 09/08/21 15:00 23:00 07:00 Intake Total 240 ml Balance 240 ml Current Medications: I have reviewed the current psychotropics carefully including drug interactions. Risk benefit ratio favors no change other than as noted in my dictated progress note. Diagnosis: Problems: (1) Dementia in Alzheimer's disease with depression (2) Dementia in Alzheimer's disease with delusions (3) Dementia of the Alzheimer's type with early onset with behavioral disturbance (4) Major neurocognitive disorder (5) Impulse control disorder, unspecified (6) Anxiety disorder, unspecified (7) Dementia, vascular, with depression (8) Dementia, vascular, with delusions (9) Dementia with behavioral disturbance LOUIS DAO MD Sep 08, 2021 06:56
== END 2021-09-07 10:30 | DRG 57 ==
LOC: UNDOADMIN 09:30 → GEROPSY 09:30
PROVIDERS: ADMIT Psychiatry & Neurology Psychiatry; ATTEND Psychiatry & Neurology Psychiatry
DX: G30.9 Alzheimer's disease, unspecified (principal); F02.81 Dementia in other diseases classified elsewhere, unspecified severity, with behavioral disturbance; F01.51 Vascular dementia, unspecified severity, with behavioral disturbance; F32.A Depression, unspecified; E55.9 Vitamin D deficiency, unspecified; F41.9 Anxiety disorder, unspecified; F63.9 Impulse disorder, unspecified; I10 Essential (primary) hypertension; M81.0 Age-related osteoporosis without current pathological fracture; R13.10 Dysphagia, unspecified; Z66 Do not resuscitate; Z79.899 Other long term (current) drug therapy; Z81.8 Family history of other mental and behavioral disorders; Z82.0 Family history of epilepsy and other diseases of the nervous system; Z82.49 Family history of ischemic heart disease and other diseases of the circulatory system; Z86.73 Personal history of transient ischemic attack (TIA), and cerebral infarction without residual deficits; Z91.81 History of falling; Z20.822 Contact with and (suspected) exposure to COVID-19; Z91.83 Wandering in diseases classified elsewhere; Z88.0 Allergy status to penicillin; Z88.8 Allergy status to other drugs, medicaments and biological substances; Z91.040 Latex allergy status
CPT/HCPCS: 36415; 80053; 80061; 80164; 81001; 82140; 82306; 82607; 83036; 83540; 83550; 83735; 84436; 84443; 84480; 85025; 85379; 86592; 87086; 90471; 90686; 93005; U0003